=== PATIENT | female | born 1950 | race Caucasian/White ===

== ENCOUNTER 2020-03-05 10:30 | Outpatient (REF) | payer MEDICARE, SELFPAY | END 2020-03-05 10:31 | disposition home or self-care (01) | LOC: HO.LAB 10:30 | PROVIDERS: Visit Provider Internal Medicine | DX: Z20.828 Contact with and (suspected) exposure to other viral communicable diseases (principal) | CPT/HCPCS: 87635 ==

== ENCOUNTER 2021-01-01 14:48 | Outpatient (REF) | payer MEDICARE, SELFPAY ==
--- NOTE | ~2021-01-01 | XR_ITS ---
EXAMINATION: XR CHEST CLINICAL INFORMATION: Cough, nicotine dependence. COMPARISON: None TECHNIQUE: 2 views of the chest were obtained. FINDINGS: The lungs are well-expanded and clear. There is mild blunting of right CP angle likely pleural effusion or thickening. There is increased patchy density in the right lung base question atelectasis. Heart size and pulmonary vascularity is normal. XR/XR chest 2V IMPRESSION: Small right pleural effusion or pleural thickening. Right basilar patchy opacity likely atelectasis.
== END 2021-01-01 14:49 | disposition home or self-care (01) ==
LOC: HO.XRAY 14:48
PROVIDERS: Absent Provider Internal Medicine Geriatric Medicine; PCP Internal Medicine Geriatric Medicine; Visit Provider Emergency Medicine
DX: R05 Cough (principal); F17.200 Nicotine dependence, unspecified, uncomplicated
CPT/HCPCS: 71046

== ENCOUNTER 2021-01-20 11:11 | Outpatient (REF) | payer MEDICARE, SELFPAY ==
--- NOTE | ~2021-01-20 | CT_ITS ---
EXAMINATION: CT CHEST WITHOUT CONTRAST CLINICAL INFORMATION: Follow up right basilar opacity on chest x-ray. COMPARISON: Previous chest x-ray 01/01/2021. TECHNIQUE: Multidetector volumetric CT imaging of the chest was done. Axial MIP volume rendering provided. Sagittal and coronal reformatted images were obtained. This CT examination was performed using dose optimization techniques as appropriate, variously including the following: *Automated exposure control *Adjustment of mA and/or kV according to patient size (this includes techniques or standardized protocols for targeted exams where dose is matched to indication/reason for exam; i.e. extremities or head) *Use of iterative reconstruction technique DLP: 114 mGy-cm FINDINGS: LUNGS: There is a 3 mm left upper lobe nodule (axial image 170, series 4). There is minimal scarring or subsegmental atelectasis at the right lung base. MEDIASTINUM: There are postoperative changes following esophagectomy and gastric pull-up. The gastric pull-up appears distended and fluid filled. No mass is seen. The heart does not appear enlarged. There is coronary artery calcification. There is no pericardial effusion. There are small mediastinal lymph nodes. No enlarged lymph nodes are seen. PLEURA: There is minimal pleural thickening at the right lung base. There is no pleural effusion. AXILLAE: No lymphadenopathy. UPPER ABDOMEN: Unremarkable. OSSEOUS STRUCTURES: There are degenerative changes of the spine. CT/CT chest wo con IMPRESSION: Postoperative changes following esophagectomy and gastric pull-up. The stomach is distended and filled with fluid. No mass is seen. Minimal pleural thickening at the right lung base and subsegmental atelectasis. Small 3 mm left upper lobe pulmonary nodule.
== END 2021-01-20 11:12 | disposition home or self-care (01) ==
LOC: HO.CT 11:11
PROVIDERS: PCP Internal Medicine Geriatric Medicine; Visit Provider Emergency Medicine
DX: R93.89 Abnormal findings on diagnostic imaging of other specified body structures (principal)
CPT/HCPCS: 71250

== ENCOUNTER 2021-06-18 09:08 | Outpatient (REF) | payer MEDICARE, SELFPAY ==
--- NOTE | ~2021-06-18 | XR_ITS ---
EXAMINATION: XR SHOULDER, LEFT CLINICAL INFORMATION: Pain COMPARISON: None TECHNIQUE: AP external rotation, Grashey, scapular Y, and axillary views of the left shoulder. FINDINGS: No acute fracture or dislocation. Subacromial enthesopathy present. Enthesopathic changes also noted along the greater tuberosity. Small acromioclavicular marginal osteophytes. Small marginal osteophytes along the inferior glenohumeral joint. Soft tissues otherwise unremarkable. XR/XR shoulder LT min 2V IMPRESSION: No acute findings. Relatively prominent subacromial enthesopathy may be leading to rotator cuff impingement. Lesser degree of enthesopathy noted along the greater tuberosity as well.
--- NOTE | ~2021-06-18 | XR_ITS ---
EXAMINATION: XR LUMBOSACRAL SPINE CLINICAL INFORMATION: Lumbago COMPARISON: 08.27.2016 TECHNIQUE: Three views of the lumbosacral spine. FINDINGS: No acute fracture or traumatic malalignment. Mild levoconvex lumbar scoliosis. Moderate osteophytes present throughout the lumbar spine. Multilevel loss of disc space height present throughout the lumbar spine, most notably at L3-L4 and L4-L5. Cervical esophagus present at L4-L5 and L5-S1. Mild bilateral sacroiliac arthrosis. Paraspinal soft tissues unremarkable. XR/XR lumbar spine 2-3V IMPRESSION: No acute findings. Lumbar spondylosis as described.
== END 2021-06-18 09:09 | disposition home or self-care (01) ==
LOC: HO.XRAY 09:08
PROVIDERS: PCP Internal Medicine Geriatric Medicine; Visit Provider Internal Medicine Geriatric Medicine
DX: M25.511 Pain in right shoulder (principal); M54.42 Lumbago with sciatica, left side
CPT/HCPCS: 72100; 73030

== ENCOUNTER 2021-09-10 08:22 | Outpatient (REF) | payer OTHER, SELFPAY ==
--- NOTE | ~2021-09-10 | MM_ITS ---
EXAMINATION: MM SCREENING DIGITAL BREAST TOMOSYNTHESIS, BILATERAL CLINICAL INFORMATION: Screening. Asymptomatic. The lifetime risk of breast cancer based on the Tyrer-Cuzick Model is 2%. COMPARISON: Mammography: 01/25/2017, 01/29/2015 TECHNIQUE: Digital breast tomosynthesis is performed in both the craniocaudal and mediolateral oblique views along with computer-aided detection (CAD). Synthesized 2D images are generated from the tomosynthesis. FINDINGS: There are scattered areas of fibroglandular density (ACR BI-RADS breast composition Category b). There are no significant masses, abnormal calcifications, or other abnormalities. Parenchymal pattern is similar to prior exams. No developing density or architectural abnormality. The axilla and skin contours are unremarkable. No significant changes. MM/MM tomosynthesis screening BI IMPRESSION: No mammographic evidence of malignancy. ASSESSMENT: BI-RADS 1: Negative RECOMMENDATION: Routine annual mammography screening. This patient's information was entered into a reminder system with a target due date for their next mammogram.
== END 2021-09-10 08:23 | disposition home or self-care (01) ==
LOC: HO.MAMMO 08:22
PROVIDERS: PCP Internal Medicine Geriatric Medicine; Visit Provider Internal Medicine Geriatric Medicine
DX: Z12.31 Encounter for screening mammogram for malignant neoplasm of breast (principal)
CPT/HCPCS: 77063; 77067

== ENCOUNTER 2022-02-11 16:45 | Emergency (ER) | payer OTHER, SELFPAY ==
--- NOTE | ~2022-02-11 | XR_ITS ---
EXAMINATION: 1. LEFT ANKLE. 2. LEFT FOOT. CLINICAL INFORMATION: Atraumatic pain. Swelling. Warm. COMPARISON: None TECHNIQUE: 1. Left ankle. 3 views 2. Left foot. 3 views FINDINGS: 1. Left ankle. Soft tissue swelling around the ankle. No fracture. No bone destruction or abnormal periosteal reaction. Joint spaces are normal. 2. Left foot. No fracture or dislocation. No focal bone lesion or abnormal periosteal reaction. Joint spaces are normal. No soft tissue abnormality. Small plantar calcaneal spur. XR/XR ankle LT min 3V IMPRESSION: 1. Left ankle. Soft tissue swelling around the ankle. No acute osseous abnormality. 2. Left foot. No acute abnormality of the foot.
--- NOTE | ~2022-02-11 | CT_ITS ---
EXAMINATION: CT ankle LT wo IV con CLINICAL INFORMATION: Reason for Exam Atraumatic erythema, swelling, pain. COMPARISON: Left ankle radiographs performed the same day TECHNIQUE: Axial images were obtained through the left ankle without the administration of intravenous contrast. Multiplanar reformatted images were generated. Intravenous Contrast: None This CT examination was performed using dose optimization techniques as appropriate, variously including the following: *Automated exposure control *Adjustment of mA and/or kV according to patient size (this includes techniques or standardized protocols for targeted exams where dose is matched to indication/reason for exam; i.e. extremities or head) *Use of iterative reconstruction technique DLP: 164 mGy-cm FINDINGS: Bones: No acute fracture or dislocation. Mild ankle joint osteoarthritis with small marginal osteophytes and subchondral cystic changes at the lateral shoulder the talar dome. Trace ankle joint effusion. Mild osteoarthritic changes at the first tarsometatarsal joint. Soft tissues: Limited assessment due to noncontrast CT technique. Achilles tendon appears intact. Peroneal, flexor, extensor tendons appear grossly intact. Small amount of fluid about FHL, possibly mild tenosynovitis. Mild diffuse subcutaneous edema. No loculated fluid collection identified. CT/CT ankle LT wo IV con IMPRESSION: 1. No acute osseous injury. 2. Mild osteoarthritic changes at the ankle and first tarsometatarsal joint. 3. Trace ankle joint effusion. 4. Possible mild FHL tenosynovitis. 4. Mild diffuse subcutaneous edema.
--- NOTE | ~2022-02-11 | XR_ITS ---
EXAMINATION: 1. LEFT ANKLE. 2. LEFT FOOT. CLINICAL INFORMATION: Atraumatic pain. Swelling. Warm. COMPARISON: None TECHNIQUE: 1. Left ankle. 3 views 2. Left foot. 3 views FINDINGS: 1. Left ankle. Soft tissue swelling around the ankle. No fracture. No bone destruction or abnormal periosteal reaction. Joint spaces are normal. 2. Left foot. No fracture or dislocation. No focal bone lesion or abnormal periosteal reaction. Joint spaces are normal. No soft tissue abnormality. Small plantar calcaneal spur. XR/XR foot LT min 3V IMPRESSION: 1. Left ankle. Soft tissue swelling around the ankle. No acute osseous abnormality. 2. Left foot. No acute abnormality of the foot.
--- NOTE | 2022-02-11 16:56 | ED.LOWEXIN ---
HPI - Extremity Injury (Lower) General Chief Complaint: Extremity Injury, Lower Stated Complaint: L ANKLE PAIN X 2 DAYS Time Seen by Provider: 02/11/22 16:54 Source: patient Mode of arrival: ambulatory Limitations: language barrier ([place]-speaking certified medical transcriptionist utilized) History of Present Illness HPI Narrative: patient presents to emergency department via EMS for evaluation of atraumatic left ankle pain. She states that she awoke 2 days ago with pain, swelling, and redness to the left ankle. Denies any specific injury. She does report that yesterday while walking to the bathroom due to her pain she did fall subsequently landing on her bottom. Denies numbness or tingling to her foot. denies any prior injury to the foot or ankle. Denies fevers or chills, however was noted to have a low-grade temperature with EMS. Related Data Allergies Allergy/AdvReac Type Severity Reaction Status Date / Time No Known Allergies Allergy Unverified 01/25/20 17:08 Review of Systems Review of Systems: Constitutional: No weight loss, fever, chills, weakness or fatigue. Skin: No rash or itching. Cardiovascular: No chest pain, chest pressure or chest discomfort. No palpitations or pedal edema. Respiratory: No shortness of breath, cough or sputum production. Gastrointestinal: No anorexia, nausea, vomiting or diarrhea. No abdominal pain or blood in stool. Genitourinary: No burning micturition. No urinary frequency or incontinence. Musculoskeletal: No muscle pain, back pain. positive joint pain. Psychiatric: No depression or anxiety. [facility] Past Medical History Attestation statement: The following information was validated with the patient. Source: old records reviewed Medical History (Updated 02/12/22 @ 00:04 by Sho Manning) CKD (chronic kidney disease) COPD (chronic obstructive pulmonary disease) GERD (gastroesophageal reflux disease) Hypertension Osteoarthritis Type 2 diabetes mellitus Social History Social History Advance Directives: No Advance Directives Information Provided: No Physical Exam Vital Signs: Vital Signs: Last Vital Signs Temp 98.7 F 02/11/22 21:44 Pulse 77 02/11/22 21:53 Resp 16 02/11/22 21:53 BP 137/67 02/11/22 21:53 Pulse Ox 97 02/11/22 21:53 O2 Del Method 10/05/22 21:53 BMI result Body Mass Index 23.2 Appearance: Alert.?Oriented to person, place and time. No acute distress.?Normal affect. Eyes: Pupils equal, round and reactive to light.? ENT: Pharynx normal.?? Neck: Normal inspection.? Neck supple.?? CVS: Heart sounds normal. Normal heart rate and rhythm.? Pulses normal.?? Respiratory: No respiratory distress.? Lung sounds clear to auscultation bilaterally?? Abdomen: Soft and non-tender. Normoactive bowel sounds. Skin: Skin warm and dry.? Normal skin color.? ?? Extremities: No lower extremity edema.? No calf ttp. Left ankle with lateral medial heel malleolus swelling, warmth, erythema. Tenderness upon palpation. Decreased AROM to the left ankle. 2+ DP/PT pulse bilaterally. Neuro: Moves all extremities spontaneously. Sensation intact bilaterally. No focal neuro deficits. Course Course Course Narrative: Patient is a 71-year-old female with a past medical history of hypertension, type 2 diabetes, CKD, COPD, GERD, osteoarthritis. Patient presents emergency department for evaluation of atraumatic monoarticular arthritis, concerning for septic arthritis. will obtain basic labs, lactic acid, blood cultures, ESR, CRP, as well as XR imaging of the left foot and ankle. Review of her records indicates that patient is currently prescribed tramadol, uncertain what she is taking tramadol for. Will start with Tylenol for pain. Reevaluation(s) Reevaluation #1: CBC reveals no leukocytosis. CMP is overall unremarkable. CRP is elevated at 7.72 and ESR elevated at 46. Uric acid level is normal. XR the left ankle and foot without acute osseous abnormality, there is soft tissue swelling surrounding the ankle. Will obtain CT of the ankle for further evaluation, evaluation for fluid /effusion for possible joint aspiration. Time: 18:43 Reevaluation #2: CT reveals no acute osseous abnormality. There is mild osteoarthritic changes at the ankle in 1st tarsometatarsal joint, trace ankle effusion, possible mild FHL tenosynovitis, mild diffuse subcutaneous edema. At this time there is no evidence of septic arthritis, no fluid collection that would be able to be aspirated. discussed plan of care for discharge home, Provided patient with a walking boot and she is ambulatory with a slow steady gait, recommendeduse of acetaminophen for pain, outpatient follow-up with primary care provider, possibly Orthopedics if necessary. Verbalized understanding. Patient discharged home in stable condition. Time: 21:37 MDM - Extremity Injury (Lower) Medical Records Attestation: I reviewed the patient's medical records. Lab Data Attestation: I reviewed the patient's lab results. Result diagrams: 02/11/22 17:28 02/11/22 17:28 Labs: Lab Results 02/11/22 02/11/22 02/11/22 Range/Units 17:28 17:28 17:28 WBC 7.4 (4.8-10.8) X10*3/uL RBC 3.71 L (4.20-5.50) X10*6/uL Hgb 12.0 (12.0-16.0) g/dl Hct 35.1 L (37.0-47.0) % MCV 94.6 (80.0-98.0) fL MCH 32.3 (27.0-33.0) pg MCHC 34.2 (31.0-35.0) g/dl RDW 13.8 (11.0-16.0) % Plt Count 252 (160-400) X10*3/uL MPV 10.7 (9.4-12.3) fL Immature Gran % (Auto) 0.1 (0.0-0.4) % Neut % (Auto) 54.7 (45-73) % Lymph % (Auto) 34.7 (20-40) % [place] % (Auto) 8.5 (2-11) % Eos % (Auto) 1.5 (0-4) % Baso % (Auto) 0.5 (0-2) % Lymph # (Auto) 2.6 (1.2-4.9) X10*3/uL [place] # (Auto) 0.6 (0.1-1.2) X10*3/uL Eos # (Auto) 0.1 (0.0-0.4) X10*3/uL Baso # (Auto) 0.0 (0.0-0.2) X10*3/uL Abs Immat Gran (auto) 0.01 (0.00-0.03) X10*3/uL Absolute Neuts (auto) 4.0 (2.0-8.3) x10*3/uL Absolute Nucleated RBC 0.000 (0.0-0.012) X10*3/uL Nucleated RBC % (auto) 0.0 (0.0-0.2) /100WBC ESR (0-20) MM/HR Sodium 143 (135-145) mmol/L Potassium 3.4 (3.3-5.1) mmol/L Chloride 105 (96-108) mmol/L Carbon Dioxide 29 (22-29) mmol/L Anion Gap 12 (12-20) BUN 12 (9-16) mg/dL Creatinine 0.83 (0.5-1.4) mg/dL Estim Creat Clear Calc 43.4 Estimated GFR > 60 Random Glucose 118 H (60-115) mg/dL Lactic Acid 0.9 (0.5-2.0) mmol/L Uric Acid 5.0 (2.4-5.7) mg/dL Calcium 8.8 (8.4-10.2) mg/dL Total Bilirubin 1.6 H (0.0-1.0) mg/dL AST 15 (5-31) U/L ALT 6 (0-31) U/L Alkaline Phosphatase 113 (39-117) U/L C-Reactive Protein 7.72 H (< or = 0.50) mg/dL Total Protein 6.8 (6.5-8.0) g/dL Albumin 3.9 (3.5-5.0) g/dL COVID-19 ([facility]) (Negative) COVID-19 Clin Com 02/11/22 02/11/22 Range/Units 17:28 17:28 WBC (4.8-10.8) X10*3/uL RBC (4.20-5.50) X10*6/uL Hgb (12.0-16.0) g/dl Hct (37.0-47.0) % MCV (80.0-98.0) fL MCH (27.0-33.0) pg MCHC (31.0-35.0) g/dl RDW (11.0-16.0) % Plt Count (160-400) X10*3/uL MPV (9.4-12.3) fL Immature Gran % (Auto) (0.0-0.4) % Neut % (Auto) (45-73) % Lymph % (Auto) (20-40) % [place] % (Auto) (2-11) % Eos % (Auto) (0-4) % Baso % (Auto) (0-2) % Lymph # (Auto) (1.2-4.9) X10*3/uL [place] # (Auto) (0.1-1.2) X10*3/uL Eos # (Auto) (0.0-0.4) X10*3/uL Baso # (Auto) (0.0-0.2) X10*3/uL Abs Immat Gran (auto) (0.00-0.03) X10*3/uL Absolute Neuts (auto) (2.0-8.3) x10*3/uL Absolute Nucleated RBC (0.0-0.012) X10*3/uL Nucleated RBC % (auto) (0.0-0.2) /100WBC ESR 46 H (0-20) MM/HR Sodium (135-145) mmol/L Potassium (3.3-5.1) mmol/L Chloride (96-108) mmol/L Carbon Dioxide (22-29) mmol/L Anion Gap (12-20) BUN (9-16) mg/dL Creatinine (0.5-1.4) mg/dL Estim Creat Clear Calc Estimated GFR Random Glucose (60-115) mg/dL Lactic Acid (0.5-2.0) mmol/L Uric Acid (2.4-5.7) mg/dL Calcium (8.4-10.2) mg/dL Total Bilirubin (0.0-1.0) mg/dL AST (5-31) U/L ALT (0-31) U/L Alkaline Phosphatase (39-117) U/L C-Reactive Protein (< or = 0.50) mg/dL Total Protein (6.5-8.0) g/dL Albumin (3.5-5.0) g/dL COVID-19 ([facility]) Negative (Negative) COVID-19 Clin Com See Note Imaging Data XR ankle: Radiologist's impression: XR/XR foot LT min 3V IMPRESSION: ? 1. Left ankle. Soft tissue swelling around the ankle. No acute osseous abnormality. 2. Left foot. No acute abnormality of the foot.? CT ankle: Radiologist's impression: CT/CT ankle LT wo IV con IMPRESSION: ? 1. No acute osseous injury. 2. Mild osteoarthritic changes at the ankle and first tarsometatarsal joint. 3. Trace ankle joint effusion. 4. Possible mild FHL tenosynovitis. 4. Mild diffuse subcutaneous edema.? Discharge Plan Discharge Clinical Impression: Tenosynovitis of ankle, Ankle sprain Patient Disposition: Home, Self-Care Instructions: Ankle Sprain (ED), Tenosynovitis (ED), R.I.C.E. Treatment (ED) Additional Instructions: As we discussed, there is no fracture dislocation to the ankle. At this time it does not appear to be an infectious process. Be sure to rest, apply ice for 10-15 minutes 3-4 times daily, You can take Tylenol 500 mg, 2 tablets (1,000mg) every 4-6 hours as needed for pain, but not to exceed 3 doses daily (3,000mg), elevate the leg when possible. Use walking boot to help alleviate pain. Contact your primary care provider to arrange for a follow-up visit within 1 week. Return to emergency department any new or worsening symptoms or concerns, this might include but is not limited to fevers, chills, severe worsening pain, pain redness or swelling extending up the leg, numbness or tingling to the foot.? Interventions: ED Discharge Assessment Last Done: 02/11/22 22:14 Discharge Date/Time: 02/11/22 22:15
[2022-02-11 17:07] VITALS: BP 163/69; PULSE 74; O2SAT 99
[2022-02-11 17:08] VITALS: BP 189/172; PULSE 76; RESP 18; TEMP 37.9; BMI 23.2
[2022-02-11 17:30] VITALS: BP 188/77
[2022-02-11] MEDS: Acetaminophen 325 MG TABLET 975 MG PO (17:30)
[2022-02-11 17:34] LABS: MANUAL DIFF FLAG NO
[2022-02-11 17:36] LABS: Basophils Percent Auto 0.5 % (0-2); Eosinophils Absolute Auto 0.1 X10*3/uL (0.0-0.4); Eosinophils Percent Auto 1.5 % (0-4); Hematocrit 35.1 % (37.0-47.0); Imm Gran Abs Auto 0.01 X10*3/uL (0.00-0.03); Imm Gran Pct Auto 0.1 % (0.0-0.4); Lymphocytes Absolute Auto 2.6 X10*3/uL (1.2-4.9); Lymphocytes Percent Auto 34.7 % (20-40); Mean Corpuscular HGB Conc 34.2 g/dl (31.0-35.0); Mean Corpuscular Hemoglobin 32.3 pg (27.0-33.0); Mean Corpuscular Volume 94.6 fL (80.0-98.0); Mean Platelet Volume 10.7 fL (9.4-12.3); Monocytes Absolute Auto 0.6 X10*3/uL (0.1-1.2); Monocytes Percent Auto 8.5 % (2-11); Neutrophils Percent Auto 54.7 % (45-73); Platelet Count 252 X10*3/uL (160-400); Red Blood Count 3.71 X10*6/uL (4.20-5.50); Red Cell Distribution Width 13.8 % (11.0-16.0); White Blood Count 7.4 X10*3/uL (4.8-10.8)
[2022-02-11 17:47] LABS: Lactic Acid 0.9 mmol/L (0.5-2.0)
[2022-02-11 17:51] LABS: Alanine Aminotransferase 6 U/L (0-31); Albumin Level 3.9 g/dL (3.5-5.0); Alkaline Phosphatase 113 U/L (39-117); Anion Gap 12 (12-20); Aspartate Amino Transferase 15 U/L (5-31); Bilirubin Total 1.6 mg/dL (0.0-1.0); Blood Urea Nitrogen 12 mg/dL (9-16); C Reactive Protein 7.72 mg/dL (< or = 0.50); Calcium 8.8 mg/dL (8.4-10.2); Carbon Dioxide 29 mmol/L (22-29); Chloride 105 mmol/L (96-108); Creatinine Clr Calc Pharmacy 43.4; Estimated Glomerular Filt Rate > 60; Glucose Random 118 mg/dL (60-115); Potassium 3.4 mmol/L (3.3-5.1); Sodium 143 mmol/L (135-145); Total Protein 6.8 g/dL (6.5-8.0)
[2022-02-11 17:58] LABS: COVID-19 Test Negative (Negative); IDNOW Serial# 55D5AD1C
[2022-02-11 18:21] LABS: Erythrocyte Sedimentation Rate 46 MM/HR (0-20)
[2022-02-11 18:29] VITALS: O2SAT 97
[2022-02-11 21:44] VITALS: TEMP 37.1
[2022-02-11 21:53] VITALS: BP 137/67; PULSE 77; RESP 16; O2SAT 97
== END 2022-02-11 22:15 | disposition home or self-care (01) ==
PROVIDERS: Nurse Practitioner Family; Emergency Provider Emergency Medicine; PCP Internal Medicine Geriatric Medicine
DX: M25.572 Pain in left ankle and joints of left foot (principal); M65.872 Other synovitis and tenosynovitis, left ankle and foot; Z20.822 Contact with and (suspected) exposure to COVID-19; Z79.899 Other long term (current) drug therapy
CPT/HCPCS: 73610; 73630; 73700; 80053; 83605; 84550; 85025; 85652; 86140; 87040; 87635; 99284

== ENCOUNTER 2022-09-14 08:47 | Day surgery (SDC) | payer OTHER, SELFPAY ==
--- NOTE | 2022-09-11 08:45 | MHC.SHP ---
Pre-Procedural Eval Section A Date of Service: 09/11/22 The patient is an INPATIENT: No Changes since office visit: No Cold of Flu in the past 2 weeks, No New Medical Problems, No Changes in Medication and No Patient answered all questions The History & Physical has been completed within 30 days and I have reviewed it.: Yes Section B Chief Complaint: Age-related nuclear cataract, right eye Allergies: Allergies Allergy/AdvReac Type Severity Reaction Status Date / Time No Known Allergies Allergy Unverified 01/25/20 17:08 Plan Diagnosis/Plan: Unchanged I have reviewed the history and physical and performed a pertinent physical examination on my patient. No changes have occurred unless specified. Time Spent With Patient Time: Total time managing care of this patient today ____ minutes.
[2022-09-14 09:45] VITALS: BP 151/59; PULSE 66; RESP 18; TEMP 36.6; O2SAT 97
[2022-09-14 09:47] LABS: Glucose, Whole Blood 116 mg/dL (60-115)
[2022-09-14] MEDS: Tropicamide 1 % Ophth Sol 3 ML BTL 1 DROP EYE-RIGHT ×3 (09:48→10:05)
[2022-09-14] MEDS: Cyclopentolate 1 % Ophth Sol 2 ML DRPBTL 1 DROP EYE-RIGHT ×3 (09:48→10:05)
[2022-09-14] MEDS: Ketorolac Tromethamine 0.5% Op 5 ML DROPS 1 DROP EYE-RIGHT ×3 (09:48→10:05)
[2022-09-14] MEDS: Tetracaine HCl/PF 0.5% Oph Sol 4 ML DROPS 1 DROP EYE-RIGHT (09:48)
[2022-09-14] MEDS: Phenylephrine HCL 2.5% Oph SoL 2 ML BOTTLE 1 DROP EYE-RIGHT ×3 (09:48→10:05)
--- NOTE | 2022-09-14 09:52 | HO.ANESPROP2 ---
[facility] Past Medical History Medical History CKD (chronic kidney disease) COPD (chronic obstructive pulmonary disease) GERD (gastroesophageal reflux disease) Hypertension Osteoarthritis Type 2 diabetes mellitus Surgical History Surgical History H/O colonoscopy History of esophagogastroduodenoscopy (EGD) Hx of hemorrhoidectomy History of Problems with Anesthesia: No Social History Social History Are you a primary prompt care rn to a significant other at home: No Do you presently have visiting nurse or other home services: No Are you DNR?: No Advance Directives: Yes Advance Directives Information Provided: Yes Advance Directives on File: Yes Advance Directives Date on File: 10/02/14 Recently lost weight without trying: No Eating poorly because of decreased appetite: No Nutrition Risks: No Nutritional Risk Meds Allergies Allergy/AdvReac Type Severity Reaction Status Date / Time No Known Allergies Allergy Unverified 01/25/20 17:08 Active Medications: Current Medications Albuterol Sulfate (Albuterol Sulfate (0.083%) 2.5 Mg/3 Ml Vial.Neb) 2.5 mg INHALE ONCE PRN PRN Reason: Shortness of Breath/Wheezing Cyclopentolate HCl (Cyclopentolate 1 % Ophth Lety 2 Ml Drpbtl) 1 drop EYE-RIGHT Q5M ANNE-MARIE Stop: 09/14/22 09:56 Last Admin: 09/14/22 09:48 Dose: 1 drop Lactated Ringer's (Lr) 500 mls @ 50 mls/hr IV .Q10H ANNE-MARIE Stop: 09/14/22 19:44 Ketorolac Tromethamine (Ketorolac Tromethamine 0.5% Op 5 Ml Drops) 1 drop EYE-RIGHT Q5M ANNE-MARIE Stop: 09/14/22 09:56 Last Admin: 09/14/22 09:48 Dose: 1 drop Phenylephrine HCl (Phenylephrine Hcl 2.5% Oph Lety 2 Ml Bottle) 1 drop EYE-RIGHT Q5M ANNE-MARIE Stop: 09/14/22 09:56 Last Admin: 09/14/22 09:48 Dose: 1 drop Povidone Iodine (Povidone Iodine 5 % Ophth Soln 30 Ml Bottle) 1 appl EYE-RIGHT PREOP PRN PRN Reason: Pre-Op Surgical Implant Prophy Tropicamide (Tropicamide 1 % Ophth Lety 3 Ml Btl) 1 drop EYE-RIGHT Q5M ANNE-MARIE Stop: 09/14/22 09:56 Last Admin: 09/14/22 09:48 Dose: 1 drop Home Medications Medication Instructions Recorded Confirmed Last Taken Type amlodipine 5 mg tablet 5 mg PO DAILY 09/09/22 09/09/22 Unknown History cyanocobalamin (vitamin B-12) 1,000 mcg IM QMONTH 09/09/22 09/09/22 Unknown History 1,000 mcg/mL injection solution diclofenac sodium 1 % topical gel 2 g topical BID 09/09/22 09/09/22 Unknown History dicyclomine 10 mg capsule 10 mg PO QID PRN cramps 09/09/22 09/09/22 Unknown History dulaglutide 0.75 mg/0.5 mL 0.75 mg subcut QWEEK 09/09/22 09/09/22 Unknown History subcutaneous pen [facility]or ([facility]) fluticasone propionate 50 1 spray intranasal DAILY 09/09/22 09/09/22 Unknown History mcg/actuation nasal spray,suspension losartan 100 mg tablet 100 mg PO DAILY 09/09/22 09/09/22 Unknown History omeprazole 40 mg capsule,delayed 40 mg PO DAILY 09/09/22 09/09/22 Unknown History release tramadol 50 mg tablet 50 mg PO TID PRN Pain 09/09/22 09/09/22 Unknown History Exam Exam Date and Time: September 14, 2022 0952 Height,Weight and Vital Signs: Height 5 ft 3 in Weight 51.256 kg Last Vital Signs Temp 97.8 F 09/14/22 09:45 Pulse 66 09/14/22 09:45 Resp 18 09/14/22 09:45 BP 151/59 H 09/14/22 09:45 Pulse Ox 97 09/14/22 09:45 O2 Del Method Room Air 09/14/22 09:45 Pertinent Lab Results Pertinent Lab Results: Laboratory Tests 09/14/22 09:43 POC Glucose 116 H Airway Mallampati Class: II TM Dist: >3cm Neck ROM: Full Denture: Upper and Lower Loose/Missing/Broken Teeth: Yes, Upper and Lower Heart: RRR Lungs: CTA Assessment and Plan Assessment Anesthesia Assessment: Anesthesia Plan Discussed Final Anesthetic Review History of Problems with Anesthesia: No NPO: Yes ASA Class: III Final Preanesthetic Review: Meds/Allgs Chart Reviewed, Consent Obtained/Reviewed and Anes Risks/Benef Reviewed Patient Risk: Intermediate Procedure Risk: Low Anesthetic Plan Anesthetic Plan: MAC: Disposition: Standard PACU
[2022-09-14] MEDS: Albuterol Sulfate (0.083%) 2.5 MG/3 ML VIAL.NEB INHALE (10:10)
[2022-09-14 10:12] VITALS: PULSE 64; RESP 15; O2SAT 96
[2022-09-14 10:13] VITALS: BP 151/59; PULSE 66; RESP 18; TEMP 36.6; O2SAT 97
[2022-09-14] MEDS: Lactated Ringers 500 ML 50 ML IV (10:17)
--- NOTE | 2022-09-14 11:20 | HO.PNOPHT ---
Ophthalmology Procedure Procedure Date of Service: 09/14/22 Ophthalmology Viscoelastic: Healashli Mohamudt Dual Pack Pro Ophthalmology Lenses: TECNIS [id number] (22.5) Procedure Notes: PREOPERATIVE DIAGNOSIS: Decreased visual acuity right eye secondary to cataract POSTOPERATIVE DIAGNOSIS: Same PROCEDURE: Right cataract extraction with intraocular lens insertion SURGEON: Jose Antonio Luna M.D. ANESTHESIA: Topical/MAC ESTIMATED BLOOD LOSS: None COMPLICATIONS: None After obtaining informed consent, the patient was brought to the operating room suite and placed in the supine position. After adequate sedation per anesthesia, topical drops of Tetracaine were given to the right eye. The eye was then prepped and draped in the usual sterile fashion. The operating room microscope was then positioned over the operative eye and a lid speculum placed. A paracentesis was created. Viscoelastic was then instilled into the anterior chamber. A three plane incision was then created temporally, utilizing a 2.85 mm keratome. Capsulotomy forceps were then utilized to create a circular tear capsulotomy. Hydrodissection and hydrodelineation were carried out until adequate mobilization of the nucleus occurred. Phacoemulsification was then utilized to remove the dense central nucleus followed by removal of the cortical material utilizing the automated aspiration irrigation unit. Viscoelastic was instilled into the posterior capsular bag followed by placement of a posterior chamber intraocular lens without difficulty. The residual Viscoelastic was then removed utilizing the automated IA machine. The wound was checked and found to be watertight. The patient tolerated the procedure well and the lid speculum was removed. Intracameral injection of Vigamox 0.1 mL followed by a subtenon injection of Kenalog-40 0.2 mL were administered. The patient will be seen in the a.m.
[2022-09-14 11:46] VITALS: BP 138/58; PULSE 71; RESP 18; TEMP 36.7; O2SAT 100
== END 2022-09-14 11:55 | disposition home or self-care (01) ==
PROVIDERS: PCP Internal Medicine Geriatric Medicine; Visit Provider Ophthalmology
PROC: (CPT 66985; principal; 2022-09-14 11:20)
DX: H25.11 Age-related nuclear cataract, right eye (principal); H52.4 Presbyopia; H04.123 Dry eye syndrome of bilateral lacrimal glands; H18.413 Arcus senilis, bilateral; H11.153 Pinguecula, bilateral; I10 Essential (primary) hypertension; J44.9 Chronic obstructive pulmonary disease, unspecified; E11.9 Type 2 diabetes mellitus without complications; E78.00 Pure hypercholesterolemia, unspecified; Z79.85 Long-term (current) use of injectable non-insulin antidiabetic drugs; Z79.51 Long term (current) use of inhaled steroids; Z79.899 Other long term (current) drug therapy; F17.210 Nicotine dependence, cigarettes, uncomplicated
CPT/HCPCS: 66984; 82947; 94640; J2250; J3301; V2632

== ENCOUNTER 2022-09-28 08:28 | Day surgery (SDC) | payer OTHER, SELFPAY ==
--- NOTE | 2022-09-25 08:26 | MHC.SHP ---
Pre-Procedural Eval Section A Date of Service: 09/25/22 The patient is an INPATIENT: No Changes since office visit: No Cold of Flu in the past 2 weeks, No New Medical Problems, No Changes in Medication and No Patient answered all questions The History & Physical has been completed within 30 days and I have reviewed it.: Yes Section B Chief Complaint: Age-related nuclear cataract, left eye Allergies: Allergies Allergy/AdvReac Type Severity Reaction Status Date / Time No Known Allergies Allergy Unverified 01/25/20 17:08 Plan Diagnosis/Plan: Unchanged I have reviewed the history and physical and performed a pertinent physical examination on my patient. No changes have occurred unless specified. Time Spent With Patient Time: Total time managing care of this patient today ____ minutes.
--- NOTE | 2022-09-25 09:36 | HO.ANESPROP2 ---
Documented by User: Shital Mendez NP 09/25/22 09:36 HPI - Anesthesia Eval Consult details Narrative: 71yo F for Left Cataract Extraction IOL Insertion PCP cleared 1st eye 09/14/22 with [facility] Past Medical History Medical History CKD (chronic kidney disease) COPD (chronic obstructive pulmonary disease) GERD (gastroesophageal reflux disease) Hypertension Osteoarthritis Type 2 diabetes mellitus Surgical History Surgical History H/O colonoscopy History of esophagogastroduodenoscopy (EGD) Hx of hemorrhoidectomy History of Problems with Anesthesia: No Social History Social History Are you a primary adult caregiver to a significant other at home: No Do you presently have visiting nurse or other home services: No Have you been hit, kicked, punched, or otherwise hurt by someone within the past year? If so, by whom?: No Are you DNR?: No Advance Directives: Yes Advance Directives Information Provided: Yes Advance Directives on File: Yes Advance Directives Date on File: 10/02/14 Recently lost weight without trying: No Eating poorly because of decreased appetite: No Nutrition Risks: No Nutritional Risk Meds Allergies Allergy/AdvReac Type Severity Reaction Status Date / Time No Known Allergies Allergy Unverified 01/25/20 17:08 Home Medications Medication Instructions Recorded Confirmed Last Taken Type amlodipine 5 mg tablet 5 mg PO DAILY 09/09/22 09/09/22 Unknown History cyanocobalamin (vitamin B-12) 1,000 mcg IM QMONTH 09/09/22 09/09/22 Unknown History 1,000 mcg/mL injection solution diclofenac sodium 1 % topical gel 2 g topical BID 09/09/22 09/09/22 Unknown History dicyclomine 10 mg capsule 10 mg PO QID PRN cramps 09/09/22 09/09/22 Unknown History dulaglutide 0.75 mg/0.5 mL 0.75 mg subcut QWEEK 09/09/22 09/09/22 Unknown History [facility] fluticasone propionate 50 1 spray intranasal DAILY 09/09/22 09/09/22 Unknown History mcg/actuation nasal spray,suspension losartan 100 mg tablet 100 mg PO DAILY 09/09/22 09/09/22 Unknown History omeprazole 40 mg capsule,delayed 40 mg PO DAILY 09/09/22 09/09/22 Unknown History release tramadol 50 mg tablet 50 mg PO TID PRN Pain 09/09/22 09/09/22 Unknown History Exam Exam Date and Time: September 25, 2022 0936 Height,Weight and Vital Signs: Height 5 ft 3 in Weight 51.256 kg Assessment and Plan Assessment Anesthesia Assessment: Chart Reviewed Final Anesthetic Review History of Problems with Anesthesia: No Documented by User: Boris Young MD 09/28/22 09:53 [facility] Past Medical History Medical History CKD (chronic kidney disease) COPD (chronic obstructive pulmonary disease) GERD (gastroesophageal reflux disease) Hypertension Osteoarthritis Type 2 diabetes mellitus Family History Family history of problems with anesthesia: No Surgical History Surgical History H/O colonoscopy History of esophagogastroduodenoscopy (EGD) Hx of hemorrhoidectomy Social History Social History Are you a primary adult caregiver to a significant other at home: No Do you presently have visiting nurse or other home services: No Have you been hit, kicked, punched, or otherwise hurt by someone within the past year? If so, by whom?: No Are you DNR?: No Advance Directives: Yes Advance Directives Information Provided: Yes Advance Directives on File: Yes Advance Directives Date on File: 10/02/14 Recently lost weight without trying: No Eating poorly because of decreased appetite: No Nutrition Risks: No Nutritional Risk Meds Allergies Allergy/AdvReac Type Severity Reaction Status Date / Time No Known Allergies Allergy Unverified 01/25/20 17:08 Home Medications Medication Instructions Recorded Confirmed Last Taken Type amlodipine 5 mg tablet 5 mg PO DAILY 09/09/22 09/09/22 Unknown History cyanocobalamin (vitamin B-12) 1,000 mcg IM QMONTH 09/09/22 09/09/22 Unknown History 1,000 mcg/mL injection solution diclofenac sodium 1 % topical gel 2 g topical BID 09/09/22 09/09/22 Unknown History dicyclomine 10 mg capsule 10 mg PO QID PRN cramps 09/09/22 09/09/22 Unknown History dulaglutide 0.75 mg/0.5 mL 0.75 mg subcut QWEEK 09/09/22 09/09/22 Unknown History subcutaneous pen injector (Trulicity) fluticasone propionate 50 1 spray intranasal DAILY 09/09/22 09/09/22 Unknown History mcg/actuation nasal spray,suspension losartan 100 mg tablet 100 mg PO DAILY 09/09/22 09/09/22 Unknown History omeprazole 40 mg capsule,delayed 40 mg PO DAILY 09/09/22 09/09/22 Unknown History release tramadol 50 mg tablet 50 mg PO TID PRN Pain 09/09/22 09/09/22 Unknown History Exam Airway Mallampati Class: II TM Dist: >3cm Neck ROM: Full Denture: Upper Loose/Missing/Broken Teeth: Yes (upper denture, no lower teeth) Heart: [id number] Lungs: cta b/l Assessment and Plan Assessment Anesthesia Assessment: Anesthesia Plan Discussed Final Anesthetic Review Family History of Problems with Anesthesia: No NPO: Yes ASA Class: III Final Preanesthetic Review: No Changes in Pt Med Stat, Meds/Allgs Chart Reviewed, Consent Obtained/Reviewed and Anes Risks/Benef Reviewed Patient Risk: Intermediate Procedure Risk: Low Assessment/Block/Sedation in SS: Assess/Block/Sedation-SS Anesthetic Plan Anesthetic Plan: MAC: and Agree w/ Assess. and Plan Disposition: Standard PACU
[2022-09-28 09:23] VITALS: BP 149/59; PULSE 68; RESP 16; TEMP 36.2; O2SAT 97
[2022-09-28] MEDS: Tropicamide 1 % Ophth Sol 3 ML BTL 1 DROP EYE-LEFT ×3 (09:25→09:36)
[2022-09-28] MEDS: Lactated Ringers 500 ML 50 ML IV (09:25)
[2022-09-28] MEDS: Tetracaine HCl/PF 0.5% Oph Sol 4 ML DROPS 1 DROP EYE-LEFT (09:25)
[2022-09-28] MEDS: Cyclopentolate 1 % Ophth Sol 2 ML DRPBTL 1 DROP EYE-LEFT ×3 (09:26→09:36)
[2022-09-28] MEDS: Ketorolac Tromethamine 0.5% Op 5 ML DROPS 1 DROP EYE-LEFT ×3 (09:27→09:38)
[2022-09-28] MEDS: Phenylephrine HCL 2.5% Oph SoL 2 ML BOTTLE 1 DROP EYE-LEFT ×3 (09:30→09:39)
[2022-09-28 09:34] LABS: Glucose, Whole Blood 105 mg/dL (60-115)
--- NOTE | 2022-09-28 10:53 | HO.PNOPHT ---
Ophthalmology Procedure Procedure Date of Service: 09/28/22 Ophthalmology Viscoelastic: Healashli Mohamudt Dual Pack Pro Ophthalmology Lenses: TECRONI [id number] (22.5) Procedure Notes: PREOPERATIVE DIAGNOSIS: Decreased visual acuity left eye secondary to cataract POSTOPERATIVE DIAGNOSIS: Same PROCEDURE: Left cataract extraction with intraocular lens insertion SURGEON: Jose Antonio Luna M.D. ANESTHESIA: Topical/MAC ESTIMATED BLOOD LOSS: None COMPLICATIONS: None After obtaining informed consent, the patient was brought to the operation room suite and placed in the supine position. After adequate sedation per anesthesia, topical drops of Tetracaine were given to the left eye. The eye was then prepped and draped in the usual sterile fashion. The operating room microscope was then positioned over the operative eye and a lid speculum placed. A paracentesis was created. Viscoelastic was then instilled into the anterior chamber. A three plane incision was then created temporally, utilizing a 2.85 mm keratome. Capsulotomy forceps were then utilized to create a circular tear capsulotomy. Hydrodissection and hydrodelineation were carried out until adequate mobilization of the nucleus occurred. Phacoemulsification was then utilized to remove the dense central nucleus followed by removal of the cortical material utilizing the automated aspiration irrigation unit. Viscoat elastic was instilled into the posterior capsular bag followed by placement of a posterior chamber intraocular lens without difficulty. The residual Viscoat elastic was then removed utilizing the automated IA machine. The wound was check and found to be watertight. The patient tolerated the procedure well and the lid speculum was removed. Intracameral injection of Vigamox 0.1 mL followed by a subtenon injection of Kenalog-40 0.2 mL were administered. The patient will be seen in the a.m.
[2022-09-28 11:15] VITALS: BP 141/57; PULSE 61; RESP 16; TEMP 36.6; O2SAT 100
== END 2022-09-28 11:24 | disposition home or self-care (01) ==
PROVIDERS: PCP Internal Medicine Geriatric Medicine; Visit Provider Ophthalmology
PROC: (CPT 66985; principal; 2022-09-28 11:30)
DX: H25.12 Age-related nuclear cataract, left eye (principal); H52.4 Presbyopia; H04.123 Dry eye syndrome of bilateral lacrimal glands; H18.413 Arcus senilis, bilateral; J44.9 Chronic obstructive pulmonary disease, unspecified; I10 Essential (primary) hypertension; E78.00 Pure hypercholesterolemia, unspecified; E11.9 Type 2 diabetes mellitus without complications; Z79.85 Long-term (current) use of injectable non-insulin antidiabetic drugs; Z79.51 Long term (current) use of inhaled steroids; Z79.899 Other long term (current) drug therapy; F17.210 Nicotine dependence, cigarettes, uncomplicated
CPT/HCPCS: 66984; 82947; J2250; J3301; V2632

== ENCOUNTER 2022-12-25 14:12 | Outpatient (AMB) | payer OTHER, SELFPAY ==
--- NOTE | 2022-12-25 07:47 | A.OFFVIS_ITS ---
Intake Intake Visit Reasons: LDCT SD Allergies No Known Allergies Allergy (Unverified 01/25/20 17:08) HPI LDCT SD HPI Details Initial visit for this 72yo smoker with a 40+PYH. Patient has been smoking since age 14 for 58 years at 1/2-1ppd. . Denies marijuana use. Denies second hand smoke exposure. Denies exposure to chemicals or substances like asbestos. . Denies known family history of lung cancer. Denies personal history of cancers. . Denies chest CT in last year. Chest CT done 01/20/2021 noted a 3mm EDA nodule and scaring in right lung base. . Denies recent travel outside the [place]. Denies recent respiratory illness or recent hospitalization for respiratory issues. Denies testing positive for COVID. Admits receiving COVID Vaccine. . Denies fever, chills, new/worsening cough, hemoptysis, hoarseness or dysphagia. Denies significant chest pain, significant dyspnea or unintentional weight loss. Patient Lung Cancer Screening Questionnaire reviewed with patient by provider. . Shared Decision Making Completed. Patient meets criteria. Discussed in detail with patient, the risk vs benefit of LDCT screening. Patient consents to proceed with scan. Discussed smoking cessation. [facility] Medical History (Updated 12/25/22 @ 14:14 by Carlene Herrera PA-C) CKD (chronic kidney disease) COPD (chronic obstructive pulmonary disease) GERD (gastroesophageal reflux disease) Hiatal hernia Hypertension Nicotine dependence, cigarettes, uncomplicated Osteoarthritis Osteopenia (~2007) Type 2 diabetes mellitus Urinary incontinence Surgical History (Updated 12/22/22 @ 08:22 by Carlene Herrera PA-C) History of colonoscopy History of esophagogastroduodenoscopy (EGD) History of hemorrhoidectomy History of hysterectomy Social History (Updated 12/25/22 @ 14:19 by Carlene Herrera PA-C) Are you a primary resident care spec to a significant other at home: No Do you presently have visiting nurse or other home services: No Patient Tobacco Use Status: Current everyday Tobacco user Cigarette Packs Per Day: 12 Years Smoked: onset 14yo, 1/2-1ppd x 58yrs, 40+PYH) Advance Directives Date on File: 10/02/14 Assessment & Plan Assessment & Plan (1) Nicotine dependence, cigarettes, uncomplicated: Comment: (current smoker - onset 14yo, 1/2-1ppd x 58yrs, 40+PYH) Code(s): F17.210 - Nicotine dependence, cigarettes, uncomplicated Plan: - SDM visit completed today in office. - Patient meets criteria for LDCT for lung cancer screening purposes and is asymptomatic. - Smoking cessation counseling offered. Patients can always call [phone]. - Will arrange for a LDCT scan of the chest for screening purposes at [facility]. - Risks, benefits, and alternatives were discussed in detail and the patient agrees to proceed. - Risks discussed include but are not limited to: radiation exposure, anxiety during testing and while awaiting results, false negatives, false positives and possibility of additional intervention such as further imaging or surgical procedures for benign disease. - Benefits are obviously detection of lung cancer at an early stage which can lead to improved outcomes. - Discussed the importance of screening program compliance with adherence to yearly LDCT scan as scheduled - or sooner interval scans for personalized screening regimen. - Discussed follow up plan. Our office will send a letter discussing results and if needed set up phone call and office visit based on CT findings. - Patient educated on results categorization and the management decisions for suspicious findings potentially found on the screening LDCT scan. Any patient with a Lung RADS score of 3 or 4 will be reviewed by a multidisciplinary team at [facility] to form a plan of action in regards to scan findings. - If further work up is warranted for a suspicious lung finding this will be followed by the Lung Cancer Screening program in conjunction with the Thoracic Surgery Department at [facility]. - A copy of the office note and LDCT will be sent to the patient's PCP - as well as documentation on any associated further plans of care. - Incidental findings on LDCT are the PCP's responsibility. These findings are indicated with an S finding on the LDCT Assessment. A note discussing the findings will be sent to the PCP who is then responsible for further management. - All questions answered.? Coding Level of Care Code Lung Cancer Screening G0296 Diagnoses Nicotine dependence, cigarettes, uncomplicated F17.210
== END 2022-12-25 15:08 | disposition home or self-care (01) ==
PROVIDERS: PCP Internal Medicine Geriatric Medicine; Visit Provider Physician Assistant Medical
DX: F17.210 Nicotine dependence, cigarettes, uncomplicated (principal)
CPT/HCPCS: G0296

== ENCOUNTER → 2022-12-25 14:12 | Outpatient (BNVA) | payer OTHER, SELFPAY | PROVIDERS: PCP Internal Medicine Geriatric Medicine; Visit Provider Physician Assistant Medical ==

== ENCOUNTER 2022-12-25 14:32 | Outpatient (REF) | payer OTHER, MEDICAID, SELFPAY ==
--- NOTE | ~2022-12-25 | CT_ITS ---
EXAMINATION: CT CHEST SCREENING CLINICAL INFORMATION: Current smoker. 58 pack year history. COMPARISON: Previous chest CT January 2021 TECHNIQUE: Multidetector volumetric CT imaging of the chest is performed without contrast using low dose technique. Additional 2D coronal and sagittal reformatted images and axial 3D maximum intensity projection (MIP) images are generated on the CT workstation. This CT examination was performed using dose optimization techniques as appropriate, variously including the following: *Automated exposure control *Adjustment of mA and/or kV according to patient size (this includes techniques or standardized protocols for targeted exams where dose is matched to indication/reason for exam; i.e. extremities or head) *Use of iterative reconstruction technique DLP: 33 mGy-cm FINDINGS: LUNGS: Mild emphysema. 3 mm left upper lobe nodule axial image 153 series 5 is stable. Scarring or subsegmental atelectasis in the right lower lobe. The lungs are otherwise clear. No endobronchial or endotracheal lesion. MEDIASTINUM: Postsurgical changes from esophagectomy and gastric pull-up. The gastric pull-up appears distended and filled with food. This is similar to previous exam. Normal heart size. No pericardial effusion. No enlarged hilar or mediastinal lymph nodes. Normal caliber thoracic aorta. CORONARY ARTERY CALCIFICATION: Severe PLEURA: There is no pleural effusion. No pleural mass or thickening. AXILLA: No lymphadenopathy. UPPER ABDOMEN: Unremarkable OSSEOUS STRUCTURES: Degenerative changes of the spine. CT/CT lung screening IMPRESSION: Edema. Stable small left upper lobe nodule. Stable postsurgical changes from esophagectomy and gastric pull-up. The gastric pull-up is slightly distended and filled with food similar to prior exams. Severe coronary artery calcification. ASSESSMENT: Lung-RADS category 2: Benign RECOMMENDATION: Annual low-dose chest CT follow-up recommended.
== END 2022-12-25 14:33 | disposition home or self-care (01) ==
LOC: HO.CT 14:32
PROVIDERS: PCP Internal Medicine Geriatric Medicine; Visit Provider Physician Assistant Medical
DX: Z12.2 Encounter for screening for malignant neoplasm of respiratory organs (principal); F17.210 Nicotine dependence, cigarettes, uncomplicated
CPT/HCPCS: 71271; G0296

== ENCOUNTER 2023-01-12 11:28 | Outpatient (REF) | payer OTHER, SELFPAY | END 2023-01-12 11:29 | disposition home or self-care (01) | LOC: HO.HHCL 11:28 | PROVIDERS: Visit Provider Internal Medicine Geriatric Medicine | DX: R53.83 Other fatigue (principal) | CPT/HCPCS: 36415; 84443 ==

== ENCOUNTER 2023-04-15 17:51 | Emergency (ER) | payer OTHER, SELFPAY ==
[2023-04-15 18:13] VITALS: BP 174/74; PULSE 75; O2SAT 97
--- NOTE | 2023-04-15 18:40 | PC.NURSE ---
Patient declining to be triaged, stating she is going home and I can remove her I V or she will. Denoes dizziness or pain, states she feels fine and needs to leave. Declined to stay to be seen by provider. at bedside stating he is taking her home.
== END 2023-04-15 18:47 | disposition left against medical advice (07) ==
PROVIDERS: Emergency Provider Student in an Organized Health Care Education/Training Program
DX: R51.9 Headache, unspecified (principal); R42 Dizziness and giddiness; F17.210 Nicotine dependence, cigarettes, uncomplicated; Z53.21 Procedure and treatment not carried out due to patient leaving prior to being seen by health care provider

== ENCOUNTER 2023-04-29 14:57 | Emergency (ER) | payer OTHER, SELFPAY ==
[2023-04-29 15:05] VITALS: BP 171/66; PULSE 78; RESP 18; TEMP 37.1; O2SAT 96; BMI 21.1
--- NOTE | 2023-04-29 15:09 | ED.NEUROSD ---
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 She states that she occasionally gets numbness in her left and and leg. She denies any lower back pain. Denies any fevers or chills. Denies any falls or trauma to the area. She states intermittent shortness of breath but not currently Denies any headache No other complaints or concerns at this time Patient reports since being in the hospital ?my symptoms are better. ? Related Data Home Medications Medication Instructions Recorded Confirmed amlodipine 5 mg tablet 5 mg PO DAILY 09/09/22 09/09/22 cyanocobalamin (vitamin B-12) 1,000 mcg IM QMONTH 09/09/22 09/09/22 1,000 mcg/mL injection solution diclofenac sodium 1 % topical gel 2 g topical BID 09/09/22 09/09/22 dicyclomine 10 mg capsule 10 mg PO QID PRN cramps 09/09/22 09/09/22 dulaglutide 0.75 mg/0.5 mL 0.75 mg subcut QWEEK 09/09/22 09/09/22 subcutaneous pen injector (Trulicity) fluticasone propionate 50 1 spray intranasal DAILY 09/09/22 09/09/22 mcg/actuation nasal spray,suspension losartan 100 mg tablet 100 mg PO DAILY 09/09/22 09/09/22 omeprazole 40 mg capsule,delayed 40 mg PO DAILY 09/09/22 09/09/22 release tramadol 50 mg tablet 50 mg PO TID PRN Pain 09/09/22 09/09/22 Previous Rx's Medication Instructions Recorded dexamethasone 4 mg tablet 4 mg PO BID #6 tabs 04/29/23 Allergies Allergy/AdvReac Type Severity Reaction Status Date / Time No Known Allergies Allergy Verified 04/29/23 15:05 Review of Systems Constitutional: Constitutional: Denies chills, Denies fever(s), Denies frequent falls and Denies headache(s) ENT: Denies headache(s), Denies neck mass, Reports neck pain and Denies sore throat Cardiovascular: Cardiovascular: Denies chest pain and Denies dyspnea Respiratory: Respiratory: Denies cough and Denies dyspnea Gastrointestinal: Gastrointestinal: Denies abdominal pain, Denies nausea and Denies vomiting Musculoskeletal: Musculoskeletal: Denies muscle weakness, Reports neck pain, Reports numbness and Reports tingling Neurologic: Denies frequent falls, Denies headache(s), Reports numbness, Reports tingling and Denies tremor(s) PMFSH Past Medical History Medical History (Updated 04/29/23 @ 21:56 by Renard French) Hiatal hernia Osteopenia (~2007) Urinary incontinence Nicotine dependence, cigarettes, uncomplicated Osteoarthritis GERD (gastroesophageal reflux disease) COPD (chronic obstructive pulmonary disease) CKD (chronic kidney disease) Type 2 diabetes mellitus Hypertension Surgical History (Updated 12/22/22 @ 08:22 by Carlene Herrera PA-C) History of hemorrhoidectomy History of hysterectomy History of colonoscopy History of esophagogastroduodenoscopy (EGD) Social History Social History (Updated 12/25/22 @ 14:19 by Carlene Herrera PA-C) Are you a primary special needs caregiver to a significant other at home: No Do you presently have visiting nurse or other home services: No Patient Tobacco Use Status: Current everyday Tobacco user Cigarette Packs Per Day: 12 Years Smoked: onset 14yo, 1/2-1ppd x 58yrs, 40+PYH) Smoked in Last 30 Days: No Use of substances other than those prescribed or required for medical reasons: No Advance Directives: Yes Advance Directives on File: No Advance Directives Date on File: 10/02/14 Physical Exam Vital Signs: Vital Signs: Last Vital Signs Temp 98.1 F 04/29/23 21:31 Pulse 93 04/29/23 21:31 Resp 16 04/29/23 21:31 BP 124/94 H 04/29/23 21:31 Pulse Ox 96 04/29/23 21:31 O2 Del Method Room Air 04/29/23 21:31 BMI result Body Mass Index 21.1 Const: General: healthy appearing, comfortable, no acute distress, alert and awake Nutritional Appearance: well nourished Orientation/consciousness: patient oriented x3 HEENT: Head: Yes normocephalic and Yes atraumatic Eyes: Eyelids: Yes eyelids normal Conjunctivae: conjunctivae normal Sclerae: sclerae normal Corneas: corneas normal Pupils: Equal, round and reactive pupils present EOM: EOMs intact bilaterally Neck: Other: Left cervical paraspinous muscle tenderness without deformity. This extends to the left trapezius muscle groups tenderness Neck: Yes full ROM, No positive Brudzinski's sign and No positive Kernig's sign Resp: Effort & Inspection: normal respiratory effort, able to speak in complete sentences and not labored Cardio: Rate: regular rate Rhythm: regular rhythm GI: Inspection: No distended Palpation (GI): Soft to palpation, not firm, nontender, no guarding and not rigid Back/Spine/Pelvis: Other: Mild left lumbar paraspinous tenderness without vertebral tenderness. Negative straight leg raise bilaterally Skin: General skin exam: elasticity normal Neuro: General: patient oriented x3 Cranial nerves: Yes CN's II-XII intact bilaterally, Yes Equal, round and reactive pupils present and Yes Bilaterally intact EOM present Cognition (Neuro): normal cognition Extrem: Other: Patient has full range of motion of flexion-extension, abduction and adduction of the upper extremities bilaterally. A range of motion with flexion and extension of lower extremities bilaterally. Course Course Course Narrative: RME: 72yo F w/PMHx sent in by PCP for L shoulder pain, c/o L shoulder pain and numbness x3 weeks with associated left leg numbness and intermittent SOB. L shoulder XR from 2021 showing rotator cuff impingement. Patient poor historian EKG, labs, x-ray ordered Full HPI, ROS and PE to be performed by primary ED provider. Medical Decision Making Medical Decision Making [facility] Narrative: Patient's symptoms appear to be related to uropathy of the C-spine. She reports chronic neck and lower back pain. Denies any recent injury. Currently she is actually asymptomatic. She is moving all extremities well without difficulty. No warning signs for cauda equina syndrome suspect lower back pain. Patient was discharged with short course of dexamethasone and will follow-up with her PCP. She states that she is due to see pain management next month. Patient has an NIH stroke score of 0 Differential Diagnosis Differential Diagnoses: The differential diagnosis associated with the presentation includes Radiculopathy Cervicalgia Muscle strain Sciatica Lab Data [facility] Lab Attestation statement: I reviewed the patient's lab results. Mild leukopenia and anemia consistent with her recent baseline. This is a macrocytic anemia. No significant chemistry abnormality 04/29/23 15:40 04/29/23 15:40 Labs: Lab Results 04/29/23 Range/Units 15:40 WBC 4.4 L (4.8-10.8) X10*3/uL RBC 3.42 L (4.20-5.50) X10*6/uL Hgb 11.6 L (12.0-16.0) g/dl Hct 33.8 L (37.0-47.0) % MCV 98.8 H (80.0-98.0) fL MCH 33.9 H (27.0-33.0) pg MCHC 34.3 (31.0-35.0) g/dl RDW 13.9 (11.0-16.0) % Plt Count 226 (160-400) X10*3/uL MPV 10.2 (9.4-12.3) fL Immature Gran % (Auto) 0.2 (0.0-0.4) % Neut % (Auto) 62.5 (45-73) % Lymph % (Auto) 22.9 (20-40) % [place] % (Auto) 11.4 H (2-11) % Eos % (Auto) 2.3 (0-4) % Baso % (Auto) 0.7 (0-2) % Lymph # (Auto) 1.0 L (1.2-4.9) X10*3/uL [place] # (Auto) 0.5 (0.1-1.2) X10*3/uL Eos # (Auto) 0.1 (0.0-0.4) X10*3/uL Baso # (Auto) 0.0 (0.0-0.2) X10*3/uL Abs Immat Gran (auto) 0.01 (0.00-0.03) X10*3/uL Absolute Neuts (auto) 2.7 (2.0-8.3) x10*3/uL Absolute Nucleated RBC 0.000 (0.0-0.012) X10*3/uL Nucleated RBC % (auto) 0.0 (0.0-0.2) /100WBC PT 11.7 (11.1-13.3) SEC INR 1.0 (0.9-1.1) Sodium 143 (135-145) mmol/L Potassium 3.7 (3.3-5.1) mmol/L Chloride 108 (96-108) mmol/L Carbon Dioxide 26 (22-29) mmol/L Anion Gap 13 (12-20) BUN 13 (9-16) mg/dL Creatinine 0.98 (0.5-1.4) mg/dL Estim Creat Clear Calc 36.1 Estimated GFR 55 Random Glucose 111 (60-115) mg/dL Calcium 9.0 (8.4-10.2) mg/dL Magnesium 2.1 (1.6-2.6) mg/dL Total Bilirubin 0.6 (0.0-1.0) mg/dL Direct Bilirubin 0.3 (0.0-0.5) mg/dL AST 19 (5-31) U/L ALT 8 (0-31) U/L Alkaline Phosphatase 118 H (39-117) U/L Troponin I High Sens 4.2 (<3.5-17.0) ng/L B-Natriuretic Peptide 48 (<100) pg/mL Total Protein 6.8 (6.5-8.0) g/dL Albumin 3.8 (3.5-5.0) g/dL Discharge Plan Discharge Clinical Impression: Cervicalgia Patient Disposition: Home, Self-Care Instructions: Neck Pain (ED) Additional Instructions: Pain is most likely related to a pinched nerve in your neck Take dexamethasone twice daily for 3 days You may also use ibuprofen or Tylenol for the pain Follow-up with your primary doctor Return for new or worsening symptoms Prescriptions: New dexamethasone 4 mg tablet 4 mg PO BID Qty: 6 0RF No Action amlodipine 5 mg tablet 5 mg PO DAILY omeprazole 40 mg capsule,delayed release(DR/EC) 40 mg PO DAILY tramadol 50 mg Tablet 50 mg PO TID PRN (Reason: Pain) cyanocobalamin (vitamin B-12) 1,000 mcg/mL solution 1,000 mcg IM QMONTH losartan 100 mg tablet 100 mg PO DAILY fluticasone propionate [Flonase] 50 mcg/actuation [place],Suspension 1 spray INTRANASAL DAILY Rx Instructions: administer into each nostril dicyclomine 10 mg capsule 10 mg PO QID PRN (Reason: cramps) diclofenac sodium 1 % gel 2 g topical BID Trulicity 0.75 mg/0.5 mL pen injector 0.75 mg subcut QWEEK Interventions: ED Discharge Assessment Last Done: 04/29/23 22:14 Discharge Date/Time: 04/29/23 22:15
--- NOTE | 2023-04-29 15:13 | ECG_ITS ---
Test Reason : L SHOULDER PAIN Blood Pressure : / mmHG Vent. Rate : 074 BPM Atrial Rate : 074 BPM P-R Int : 142 ms QRS Dur : 076 ms QT Int : 388 ms P-R-T Axes : 066 051 037 degrees QTc Int : 430 ms Normal sinus rhythm Nonspecific ST and T wave abnormality Abnormal ECG When compared with ECG of 27-FEB-2016 22:55, No significant change was found Referred By: Michelle Harrison Electronically Signed By:NICOLETTE NAVARRETE MD
[2023-04-29 15:45] LABS: MANUAL DIFF FLAG NO
[2023-04-29 15:46] LABS: Basophils Percent Auto 0.7 % (0-2); Eosinophils Absolute Auto 0.1 X10*3/uL (0.0-0.4); Eosinophils Percent Auto 2.3 % (0-4); Hematocrit 33.8 % (37.0-47.0); Hemoglobin 11.6 g/dl (12.0-16.0); Imm Gran Abs Auto 0.01 X10*3/uL (0.00-0.03); Imm Gran Pct Auto 0.2 % (0.0-0.4); Lymphocytes Percent Auto 22.9 % (20-40); Mean Corpuscular HGB Conc 34.3 g/dl (31.0-35.0); Mean Corpuscular Hemoglobin 33.9 pg (27.0-33.0); Mean Corpuscular Volume 98.8 fL (80.0-98.0); Mean Platelet Volume 10.2 fL (9.4-12.3); Monocytes Absolute Auto 0.5 X10*3/uL (0.1-1.2); Monocytes Percent Auto 11.4 % (2-11); Neutrophils Absolute Auto 2.7 x10*3/uL (2.0-8.3); Neutrophils Percent Auto 62.5 % (45-73); Platelet Count 226 X10*3/uL (160-400); Red Blood Count 3.42 X10*6/uL (4.20-5.50); Red Cell Distribution Width 13.9 % (11.0-16.0); White Blood Count 4.4 X10*3/uL (4.8-10.8)
[2023-04-29 15:52] LABS: Prothrombin Time 11.7 SEC (11.1-13.3)
[2023-04-29 16:11] LABS: Alanine Aminotransferase 8 U/L (0-31); Albumin Level 3.8 g/dL (3.5-5.0); Alkaline Phosphatase 118 U/L (39-117); Anion Gap 13 (12-20); Aspartate Amino Transferase 19 U/L (5-31); Bilirubin Direct 0.3 mg/dL (0.0-0.5); Bilirubin Total 0.6 mg/dL (0.0-1.0); Blood Urea Nitrogen 13 mg/dL (9-16); Carbon Dioxide 26 mmol/L (22-29); Chloride 108 mmol/L (96-108); Creatinine Clr Calc Pharmacy 36.1; Estimated Glomerular Filt Rate 55; Glucose Random 111 mg/dL (60-115); Magnesium 2.1 mg/dL (1.6-2.6); Potassium 3.7 mmol/L (3.3-5.1); Sodium 143 mmol/L (135-145); Total Protein 6.8 g/dL (6.5-8.0)
[2023-04-29 16:15] LABS: B Type Natriuretic Peptide 48 pg/mL (<100)
[2023-04-29 16:18] LABS: Troponin-I High Sensitivity 4.2 ng/L (<3.5-17.0)
[2023-04-29 21:31] VITALS: BP 124/94; PULSE 93; RESP 16; TEMP 36.7; O2SAT 96
== END 2023-04-29 22:15 | disposition home or self-care (01) ==
PROVIDERS: Physician Assistant; Emergency Provider Internal Medicine; PCP Internal Medicine Geriatric Medicine
DX: M54.2 Cervicalgia (principal); M79.602 Pain in left arm; R20.0 Anesthesia of skin; R94.31 Abnormal electrocardiogram [ECG] [EKG]; R06.02 Shortness of breath; F17.210 Nicotine dependence, cigarettes, uncomplicated; Z71.6 Tobacco abuse counseling
CPT/HCPCS: 36415; 80048; 80076; 83735; 83880; 84484; 85025; 85610; 93005; 99284

== ENCOUNTER → 2023-04-29 15:13 | Outpatient (BNV) | payer OTHER, SELFPAY | PROVIDERS: Emergency Provider Internal Medicine; PCP Internal Medicine Geriatric Medicine; Visit Provider Internal Medicine Cardiovascular Disease | DX: R94.31 Abnormal electrocardiogram [ECG] [EKG] (principal) | CPT/HCPCS: 93010 ==

== ENCOUNTER 2023-05-13 08:59 | Outpatient (REF) | payer OTHER, SELFPAY | END 2023-05-13 09:00 | disposition home or self-care (01) | LOC: HO.NEURO 08:59 | PROVIDERS: PCP Internal Medicine Geriatric Medicine; Visit Provider Internal Medicine Geriatric Medicine | DX: R20.0 Anesthesia of skin (principal) | CPT/HCPCS: 95886; 95909 ==

== ENCOUNTER 2023-05-24 09:33 | Outpatient (AMB) | payer OTHER, SELFPAY ==
--- NOTE | 2023-05-24 10:14 | A.OFFVIS_ITS ---
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 Patient reports that she has had left shoulder pain ongoing for about 2 months now. Limited & painful ROM. Has tried OTC NSAIDS & topical creams with no relief. 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 She complains of pain with daily activity, worse with overhead and reaching activities, and limited ROM. Her pain has been present for ~2 months. She takes Dexamethasone, Tramadol, and Diclofenac for pain relief. She finds little relief from NSAIDs. She is diabetic [facility] Medical History (Updated 05/24/23 @ 14:14 by Joe Foote MD) Hiatal hernia Osteopenia (~2007) Urinary incontinence Nicotine dependence, cigarettes, uncomplicated Osteoarthritis GERD (gastroesophageal reflux disease) COPD (chronic obstructive pulmonary disease) CKD (chronic kidney disease) Type 2 diabetes mellitus Hypertension Surgical History History of hemorrhoidectomy History of hysterectomy History of colonoscopy History of esophagogastroduodenoscopy (EGD) Social History Are you a primary adult live in caregiver to a significant other at home: No Do you presently have visiting nurse or other home services: No Patient Tobacco Use Status: Current everyday Tobacco user Cigarette Packs Per Day: 12 Years Smoked: onset 14yo, 1/2-1ppd x 58yrs, 40+PYH) Advance Directives Date on File: 10/02/14 Review of Systems Const All systems reviewed & are unremarkable except as noted in HPI and below Physical Exam Vital Signs: BMI result Body Mass Index 21.1 Const General: no acute distress, alert and awake Orientation/consciousness: patient oriented x3 HEENT Head: Yes normocephalic and Yes atraumatic Eyes EOM: EOMs intact bilaterally Resp Effort & Inspection: normal respiratory effort and able to speak in complete sentences Cardio Jugular venous distension: no JVD Skin General skin exam: turgor normal Rashes: no rashes Neuro General: patient oriented x3 Extrem Other: 20 degrees of external rotation compared to 45 on the contralateral shoulder. Passive forward flexion to 90 and passive abduction to about 70. Positive Mccord and Neer Psych Appearance: grossly normal Affect: normal affect Attitude: cooperative Office Procedures Joint Injection/Drain Joint Injection/Drain Details: Injected 1 mL of Decadron and 3 mL 1% lidocaine and 3 mL of 0.25% Marcaine. Site was prepped using aseptic technique. Patient tolerated the procedure well. Primary Site: left shoulder Approach Used: posterolateral Coding 65322 - Large joint Procedure code (CPT) selection complete Results Reviewed Results Reviewed: I personally reviewed relevant radiographs. Essentially normal radiographs Assessment & Plan Assessment & Plan (1) Adhesive capsulitis of left shoulder: Code(s): M75.02 - Adhesive capsulitis of left shoulder Plan: This is a 72-year-old diabetic woman with loss of external rotation of her left shoulder. This is likely adhesive capsulitis. I injected her shoulder and recommend physical therapy. She states she is going to [place] this weekend and will contact me when she returns for formal therapy prescription. (2) Type 2 diabetes mellitus: Code(s): E11.9 - Type 2 diabetes mellitus without complications Plan: Explained the hyperglycemic effects of steroids. Plan Scribed for Joe Foote MD by Jerome Hernandez, medical administrator, on 05/24/23 at 10:20 AM, EST. Orders: Orders XR shoulder LT min 2V Today M25.519 - Pain in unspecified shoulder Coding Level of Care Code New Pt Level 4 (24376) Diagnoses Adhesive capsulitis of left shoulder M75.02 Type 2 diabetes mellitus E11.9 CPT Codes Coding - Large joint: 92742 - Large joint ([id number])
[2023-05-24 10:15] VITALS: BMI 21.1
== END 2023-05-24 11:09 | disposition home or self-care (01) ==
PROVIDERS: Visit Provider Orthopaedic Surgery
DX: M75.02 Adhesive capsulitis of left shoulder (principal); E11.9 Type 2 diabetes mellitus without complications
CPT/HCPCS: 20610; 99203

== ENCOUNTER 2023-05-24 09:37 | Outpatient (REF) | payer OTHER, SELFPAY ==
--- NOTE | ~2023-05-24 | XR_ITS ---
EXAMINATION: XR SHOULDER, LEFT CLINICAL INFORMATION: Left shoulder pain COMPARISON: None available. TECHNIQUE: AP external rotation, Grashey, scapular Y, and axillary views of the left shoulder. FINDINGS: Acromioclavicular joint space narrowing. Glenohumeral joint is maintained. Mildly irregular superolateral left humeral head. No fracture or dislocation. Visualized lungs and ribs are unremarkable. Mediastinal clips and aortic calcifications. XR/XR shoulder LT min 2V IMPRESSION: Mild degenerative changes. No acute bony pathology.
== END 2023-05-24 09:38 | disposition home or self-care (01) ==
LOC: HO.HOSX 09:37
PROVIDERS: Visit Provider Orthopaedic Surgery
DX: M75.02 Adhesive capsulitis of left shoulder (principal); E11.9 Type 2 diabetes mellitus without complications
CPT/HCPCS: 20610; 73030; 99202; J0665; J1100

== ENCOUNTER 2023-07-29 11:00 | Outpatient (RCR) | payer OTHER, SELFPAY ==
--- NOTE | 2023-07-09 16:38 | MHC.PT.EP ---
[facility] [place] Office [place] Office [place] Office [address] Zhang Stroud [address] [phone] F: [phone] F: [phone] F: [phone] F: [phone] Physical Therapy Plan of Care Date of Evaluation: 07/09/23 Date of Surgery: NA Diagnosis: ADHESIVE CAPSULITIS L SHOULDER Assessment: Pt IS 72 YO F REFERRED TO PT FROM DR BAH WITH ADHESIVE CAPSULITIS OF L SHLDER. Pt REPORTS 3 MONTH HX OF L SHLDER ISSUE. REPORTS NO FALL, NO TRAUMA TO L SHLDER. PRESENTS WITH POOR POSTURE, DECREASED L SHLDER AROM, PAIN, DECREASED L SHLDER STRENGTH. OF NOTE, Pt HAD EMG/NCV +POSSIBLE CTS (ED TO Pt TO CONTACT PCP RE THIS/?NEED FOR OT). SHOULD BENEFIT FROM PT TO ADDRESS THESE ISSUES Frequency and Duration: The patient will be seen 2X/WK X 4 WKS Short Term Goals: 1. INCREASED AWARENESS OF SHLDER CARE AND POSTURE 2. DECREASED L SHLDER PAIN AT LEAST 50% WITH ADLS 3. 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 I HEP WITH DC EX PLAN 2. INCREASED L SHLDER ROM 10-20 DEGREES T/O 3. INCREASED L UE STRENGTH AT LEAST 1/2 MM GRADE Treatment Plan: Modalities to reduce pain, spasms and effusion. Manual therapy to restore motion and function. Therapeutic exercise to improve strength and flexibility. Neuromuscular re-education for posture and balance. Therapeutic activities to return to functional activities of daily living. Electronically signed by: CHHAYA BERRY PT Please sign and return to therapist. Thank you for your referral.
--- NOTE | 2023-08-06 15:52 | MHC.PT.DC ---
[facility] [place] Office [place] Office [place] Office [address] Zhang Stroud [address] [phone] F: [phone] F: [phone] F: [phone] F: [phone] Physical Therapy Discharge Report Diagnosis: ADHESIVE CAPSULITIS L SHOULDER Date of Surgery: NA Date of Evaluation: 07/09/23 Date of Discharge: 08/06/23 Treatments to Date: 5 Cancellations to Date: No Shows to Date: 2 Discharge Status: Patient Elected to Stop Recommend MD Follow-up Visit Non-compliance Discharge Summary: Pt SEEN FOR 5 PT SESSIONS AT LAST SESSION PER ASSESSMENT BY Jonathan CULP PARKING LINE PAINTER 07/28 pt. with increased ROM and less px L sh. Today she continues to express desire to end PT and see her MD. Appt scheduled for tomorrow. 1 more PT session scheduled. No discomfort with ex today. THEN SAW ORTHO ON 07/29 AND HAD DEPOMEDROL INJECTION. Pt THEN NO SHOWED LAST 2 PT SESSIONS SCHEDULED Electronically signed by: CHHAYA BERRY PT Please sign and return to therapist. Thank you for your referral.
== END 2023-08-06 15:52 | disposition home or self-care (01) ==
LOC: HO.PT 11:00
PROVIDERS: PCP Internal Medicine Geriatric Medicine; Visit Provider Orthopaedic Surgery
DX: M75.02 Adhesive capsulitis of left shoulder (principal)
CPT/HCPCS: 97110; 97140; 97161; 97535

== ENCOUNTER 2023-07-30 13:50 | Outpatient (AMB) | payer OTHER, SELFPAY ==
--- NOTE | 2023-07-30 13:57 | MHC.OFFVIS ---
Intake Intake Visit Reasons: RT Shoulder Adhesive Capsulitis Last Inj 05/24/23 Intake Note: Jacque is a 72 year old right hand dominant female who presents today for a follow up of left shoulder adhesive capsulitis. Last injection administered on 05/24/22 and was also given an order for physical therapy. Allergies No Known Allergies Allergy (Verified 07/30/23 13:58) PFSH Medical History (Updated 05/24/23 @ 14:14 by Joe Foote MD) Hiatal hernia Osteopenia (~2007) Urinary incontinence Nicotine dependence, cigarettes, uncomplicated Osteoarthritis GERD (gastroesophageal reflux disease) COPD (chronic obstructive pulmonary disease) CKD (chronic kidney disease) Type 2 diabetes mellitus Hypertension Surgical History History of hemorrhoidectomy History of hysterectomy History of colonoscopy History of esophagogastroduodenoscopy (EGD) Social History Are you a primary child care center administrator to a significant other at home: No Do you presently have visiting nurse or other home services: No Patient Tobacco Use Status: Current everyday Tobacco user Cigarette Packs Per Day: 12 Years Smoked: onset 14yo, 1/2-1ppd x 58yrs, 40+PYH) Advance Directives Date on File: 10/02/14 Office Procedures Joint Injection/Drain Joint Injection/Drain Primary Site: left shoulder Prep: site was prepped using aseptic technique, ethochloride spray was applied and injection warnings given Injected: 80 mg of, DepoMedrol, with 8 mL of (2% plain lido ) and in the subcromial space Approach Used: posterolateral Procedure: The patient tolerated the procedure well, but had some pain with the injection and there was some relief with the local anesthesia Coding 81619 - Large joint Procedure code (CPT) selection complete Coding CPT Codes Coding - 43725 Large joint: 66622 - Large joint ([id number])
--- NOTE | 2023-07-30 13:59 | A.OFFVIS_ITS ---
Intake Intake Visit Reasons: RT Shoulder Adhesive Capsulitis Last Inj 05/24/23 Allergies No Known Allergies Allergy (Verified 07/30/23 13:58) HPI RT Shoulder Adhesive Capsulitis Last Inj 05/24/23 HPI Details 72-year-old right hand dominant female w doris presents in the office today for a follow up of right shoulder pain. Patient was seen in the office on [address] Foote at which time she received a Decadron injection in the left shoulder. [facility] Medical History (Updated 05/24/23 @ 14:14 by Joe Foote MD) Hiatal hernia Osteopenia (~2007) Urinary incontinence Nicotine dependence, cigarettes, uncomplicated Osteoarthritis GERD (gastroesophageal reflux disease) COPD (chronic obstructive pulmonary disease) CKD (chronic kidney disease) Type 2 diabetes mellitus Hypertension Surgical History History of hemorrhoidectomy History of hysterectomy History of colonoscopy History of esophagogastroduodenoscopy (EGD) Social History Are you a primary nonfarm animal caretaker to a significant other at home: No Do you presently have visiting nurse or other home services: No Patient Tobacco Use Status: Current everyday Tobacco user Cigarette Packs Per Day: 12 Years Smoked: onset 14yo, 1/2-1ppd x 58yrs, 40+PYH) Advance Directives Date on File: 10/02/14 Review of Systems Const All systems reviewed & are unremarkable except as noted in HPI and below Physical Exam Const General: no acute distress, alert and awake Orientation/consciousness: patient oriented x3 HEENT Head: Yes normocephalic and Yes atraumatic Eyes EOM: EOMs intact bilaterally Resp Effort & Inspection: normal respiratory effort and able to speak in complete sentences Cardio Jugular venous distension: no JVD Skin General skin exam: turgor normal Rashes: no rashes Neuro General: patient oriented x3 Extrem Other: 20 degrees of external rotation compared to 45 on the contralateral shoulder. Passive forward flexion to 90 and passive abduction to about 70. Positive Mccord and Neer Psych Appearance: grossly normal Affect: normal affect Attitude: cooperative Office Procedures Joint Injection/Drain Joint Injection/Drain Primary Site: left shoulder Prep: site was prepped using aseptic technique, ethochloride spray was applied and injection warnings given Injected: 80 mg of, DepoMedrol, with 8 mL of (2% plain lido ) and in the subcromial space Approach Used: posterolateral Procedure: The patient tolerated the procedure well, but had some pain with the injection and there was some relief with the local anesthesia Coding 67673 - Large joint Procedure code (CPT) selection complete Assessment & Plan Assessment & Plan (1) Adhesive capsulitis of left shoulder: Code(s): M75.02 - Adhesive capsulitis of left shoulder (2) Type 2 diabetes mellitus: Code(s): E11.9 - Type 2 diabetes mellitus without complications Plan Ms. Triana is a 72-year-old right hand dominant female who presents in the office today for a follow up of right shoulder pain. Patient was seen in the office on 05/24/[address] Foote at which time she received a Decadron injection in the left shoulder. The patient was offered a cortisone injection in the left shoulder with 80 mg of DepoMedrol. The patient was explained the risk, benefits, and alternatives to receiving this injection. After receiving consent for the injection, the patient had the procedure done while in office today. The patient tolerated the procedure well with no complications. Due to the patient?s history of diabetes, they were instructed to monitor her blood glucose level. The patient was informed that they could see a rise in their numbers and if the numbers became too high, they were instructed to call their PCP. The patient was also informed that they could have facial flushing as a side effect of the injection but this will pass. Follow up will be PRN, or sooner if needed. Patient Instructions: Scribed by Tami Monaco medical insurance verifier, for Adrienne Connell PA-C on 07/27/2023 at 2:00 pm, EST. Coding Level of Care Code Est Pt Level 3 (61614) Diagnoses Adhesive capsulitis of left shoulder M75.02 Type 2 diabetes mellitus E11.9 CPT Codes Coding - Large joint: 78860 - Large joint ([id number])
== END 2023-07-30 13:57 | disposition home or self-care (01) ==
LOC: HO.HOS 13:50
PROVIDERS: PCP Internal Medicine Geriatric Medicine; Visit Provider Physician Assistant
DX: M75.02 Adhesive capsulitis of left shoulder (principal); E11.9 Type 2 diabetes mellitus without complications
CPT/HCPCS: 20610; 99213

== ENCOUNTER → 2023-07-30 13:50 | Outpatient (BNVA) | payer OTHER, SELFPAY | PROVIDERS: PCP Internal Medicine Geriatric Medicine; Visit Provider Physician Assistant | DX: M75.02 Adhesive capsulitis of left shoulder (principal); E11.9 Type 2 diabetes mellitus without complications | CPT/HCPCS: 20610; 99212; J1040 ==

== ENCOUNTER 2023-08-27 10:46 | Outpatient (REF) | payer OTHER, SELFPAY ==
[2023-08-27 11:40] LABS: MANUAL DIFF FLAG NO
[2023-08-27 12:04] LABS: Basophils Absolute Auto 0.1 X10*3/uL (0.0-0.2); Basophils Percent Auto 0.8 % (0-2); Eosinophils Absolute Auto 0.2 X10*3/uL (0.0-0.4); Eosinophils Percent Auto 3.1 % (0-4); Hemoglobin 13.3 g/dl (12.0-16.0); Imm Gran Abs Auto 0.02 X10*3/uL (0.00-0.03); Imm Gran Pct Auto 0.3 % (0.0-0.4); Lymphocytes Absolute Auto 2.2 X10*3/uL (1.2-4.9); Lymphocytes Percent Auto 35.4 % (20-40); Mean Corpuscular HGB Conc 34.1 g/dl (31.0-35.0); Mean Corpuscular Hemoglobin 34.1 pg (27.0-33.0); Mean Platelet Volume 10.7 fL (9.4-12.3); Monocytes Absolute Auto 0.4 X10*3/uL (0.1-1.2); Monocytes Percent Auto 6.8 % (2-11); Neutrophils Absolute Auto 3.3 x10*3/uL (2.0-8.3); Neutrophils Percent Auto 53.6 % (45-73); Platelet Count 275 X10*3/uL (160-400); Red Cell Distribution Width 13.4 % (11.0-16.0); White Blood Count 6.2 X10*3/uL (4.8-10.8)
[2023-08-27 16:49] LABS: Anion Gap 10 (12-20); Blood Urea Nitrogen 15 mg/dL (9-16); Calcium 9.2 mg/dL (8.4-10.2); Carbon Dioxide 29 mmol/L (22-29); Chloride 108 mmol/L (96-108); Estimated Glomerular Filt Rate 54; Glucose Random 121 mg/dL (60-115); Iron 59 mcg/dL (30-160); Magnesium 2.3 mg/dL (1.6-2.6); Percent Iron Saturation 16 % (15-50); Potassium 4.2 mmol/L (3.3-5.1); Sodium 143 mmol/L (135-145); Total Iron Binding Capacity 365 mcg/dL (228-428); Unsaturated Iron Binding 306 ug/dL
== END 2023-08-27 10:47 | disposition home or self-care (01) ==
LOC: HO.HHCL 10:46
PROVIDERS: Visit Provider Internal Medicine Geriatric Medicine
DX: R25.2 Cramp and spasm (principal)
CPT/HCPCS: 36415; 80048; 83540; 83735; 84443; 85025

== ENCOUNTER 2023-08-30 09:02 | Outpatient (REF) | payer OTHER, SELFPAY ==
[2023-08-30 12:45] LABS: Folate 10.4 ng/mL (> or = 4.0); Vitamin B12 > 2000 pg/mL (200-900)
== END 2023-08-30 09:03 | disposition home or self-care (01) ==
LOC: HO.HHCL 09:02
PROVIDERS: Visit Provider Internal Medicine Geriatric Medicine
DX: R71.8 Other abnormality of red blood cells (principal)
CPT/HCPCS: 36415; 82607; 82746

== ENCOUNTER 2023-09-23 15:09 | Outpatient (REF) | payer OTHER, SELFPAY ==
--- NOTE | ~2023-09-23 | XR_ITS ---
EXAMINATION: XR SHOULDER, LEFT CLINICAL INFORMATION: Pain in the left shoulder COMPARISON: X-ray left shoulder May 2023 TECHNIQUE: AP external rotation, Grashey, scapular Y, and axillary views of the left shoulder. FINDINGS: Mild osteoarthritis of the acromioclavicular joint manifested by small marginal osteophytes. Glenohumeral joint normal. Surrounding bone and soft tissues unremarkable. Incidental note made of postsurgical changes in the mediastinum XR/XR shoulder LT min 2V IMPRESSION: Mild osteoarthritis of the left acromioclavicular joint unchanged.
== END 2023-09-23 15:10 | disposition home or self-care (01) ==
LOC: HO.HOSX 15:09
PROVIDERS: Visit Provider Physician Assistant
DX: M75.02 Adhesive capsulitis of left shoulder (principal); E11.9 Type 2 diabetes mellitus without complications
CPT/HCPCS: 73030; 99212

== ENCOUNTER 2023-09-23 15:20 | Outpatient (AMB) | payer OTHER, SELFPAY ==
--- NOTE | 2023-09-23 15:43 | A.OFFVIS_ITS ---
Intake Visit Reasons: OV - RT Shoulder Pain Intake Note: Jacque is a 72 year old right hand dominant female who presents today for a follow up of her right shoulder pain, last injection 07/30/23. Patient reports her last injection didn't give her relief. She was wondering about getting an MRI. Patient expresses that she did go to PT a couple times. Allergies No Known Allergies Allergy (Verified 09/23/23 15:45) HPI HPI OV - RT Shoulder Pain: Details: 72-year-old right hand dominant female, who is Uzbek speaking, presents in the office today for a follow up of left shoulder pain. I last saw the patient in the office on 07/30/2023 when she was given a cortisone injection. While in the office today the patient reports the injection did not give her relief. She states she cannot lift her arm over her head. Patient has a significant medical history of diabetes mellitus. [facility] Medical History (Updated 05/24/23 @ 14:14 by Joe Foote MD) Hiatal hernia Osteopenia (~2007) Urinary incontinence Nicotine dependence, cigarettes, uncomplicated Osteoarthritis GERD (gastroesophageal reflux disease) COPD (chronic obstructive pulmonary disease) CKD (chronic kidney disease) Type 2 diabetes mellitus Hypertension Surgical History History of hemorrhoidectomy History of hysterectomy History of colonoscopy History of esophagogastroduodenoscopy (EGD) Social History Are you a primary healthcare corporate account director to a significant other at home: No Do you presently have visiting nurse or other home services: No Patient Tobacco Use Status: Current everyday Tobacco user Cigarette Packs Per Day: 12 Years Smoked: onset 14yo, 1/2-1ppd x 58yrs, 40+PYH) Advance Directives Date on File: 10/02/14 Review of Systems Const All systems reviewed & are unremarkable except as noted in HPI and below Physical Exam Const General: cooperative, healthy appearing and no acute distress Resp Effort & Inspection: normal respiratory effort and able to speak in complete sentences Cardio Rate: regular rate Peripheral pulses: Peripheral pulses 2+ throughout GI Palpation (GI): Soft to palpation Skin Lesions: no lesions Rashes: no rashes Assessment & Plan Assessment & Plan (1) Type 2 diabetes mellitus: Code(s): E11.9 - Type 2 diabetes mellitus without complications Category: Medical (2) Adhesive capsulitis of left shoulder: Code(s): M75.02 - Adhesive capsulitis of left shoulder Category: Medical Plan Ms. Triana is a 72-year-old right hand dominant female, who is Uzbek speaking, presents in the office today for a follow up of left shoulder pain. I last saw the patient in the office on 07/30/2023 when she was given a cortisone injection. While in the office today the patient reports the injection did not give her relief. She states she cannot lift her arm over her head. Patient has a significant medical history of diabetes mellitus. An order for an MRI was made in the office today. She was given my information to notify the office once the MRI is obtained. Follow up will be after the MRI is obtained, or sooner if needed. Orders: Orders shoulder LT wo con Today E11.9 - Type 2 diabetes mellitus without complications, M75.02 - Adhesive capsulitis of left shoulder Patient Instructions: Scribed by Tami Monaco bio medical technician, for Adrienne Connell PA-C on 09/23/2023 at 3:50 pm, EST. Coding Level of Care Code Est Pt Level 3 (72268) Diagnoses Type 2 diabetes mellitus E11.9 Adhesive capsulitis of left shoulder M75.02
== END 2023-09-23 15:55 | disposition home or self-care (01) ==
LOC: HO.HOS 15:20
PROVIDERS: PCP Internal Medicine Geriatric Medicine; Visit Provider Physician Assistant
DX: M75.02 Adhesive capsulitis of left shoulder (principal); E11.9 Type 2 diabetes mellitus without complications
CPT/HCPCS: 99213

== ENCOUNTER 2023-10-25 15:20 | Outpatient (REF) | payer OTHER, SELFPAY ==
--- NOTE | ~2023-10-25 | MR_ITS ---
EXAMINATION: MR SHOULDER WITHOUT CONTRAST, LEFT CLINICAL INFORMATION: Left shoulder pain with limited range of motion. COMPARISON: Multiple priors, most recent left shoulder radiographs dated 09/23/2023. TECHNIQUE: MRI of the shoulder without contrast was performed on a high-field scanner. FINDINGS: ROTATOR CUFF: Mild supraspinatus and infraspinatus tendinosis. Near complete, full-thickness tear of the supraspinatus tendon with a few thin anterior tendon fibers remaining intact. Articular surface tearing extends posteriorly through the majority of the infraspinatus tendon. Overall tearing measures up to 3.2 x 3.3 cm (AP by ML), with the torn tendon fibers retracted proximal to the humeral head apex. Moderate supraspinatus and infraspinatus muscle atrophy. Moderate subscapularis tendinosis with distal articular surface partial tearing measuring up to 2.7 cm in ML dimension. BICEPS: Absence of the proximal long head biceps tendon consistent with a complete tendon tear and tendon retraction. CORACOACROMIAL ARCH: The undersurface of the acromion is curved with tiny subacromial spurs. Mild acromioclavicular osteoarthritis. LABRUM/CAPSULE: Attenuation and irregularity through the periphery of the superior and posterosuperior labrum, consistent with irregular tearing. Intact inferior joint capsule. GLENOHUMERAL JOINT/MARROW: Diffuse articular cartilage signal heterogeneity with tiny marginal osteophytes. Dbrvp-ft-jruxvwvg joint effusion with mild synovitis. MR/MR shoulder LT wo con IMPRESSION: 1. Mild supraspinatus and infraspinatus tendinosis with a near complete, full-thickness tear of the supraspinatus tendon with a few thin anterior tendon fibers remaining intact. Articular surface tearing extends posteriorly through the majority of the infraspinatus tendon. The torn tendon fibers are retracted proximal to the humeral head apex. Moderate supraspinatus and infraspinatus muscle atrophy. 2. Moderate subscapularis tendinosis with distal articular surface partial tearing measuring 2.7 cm in ML dimension. 3. Complete tear and retraction of the proximal long head biceps tendon. 4. Mild acromioclavicular osteoarthritis with tiny subacromial spurs. 5. Irregular tearing through the periphery of the superior and posterosuperior labrum. 6. Mild glenohumeral osteoarthritis. Txlzk-si-amscjqwq joint effusion with mild synovitis.
== END 2023-10-25 15:21 | disposition home or self-care (01) ==
LOC: HO.MRI 15:20
PROVIDERS: PCP Internal Medicine Geriatric Medicine; Visit Provider Physician Assistant
DX: M75.02 Adhesive capsulitis of left shoulder (principal); E11.9 Type 2 diabetes mellitus without complications
CPT/HCPCS: 73221

== ENCOUNTER 2023-11-19 08:44 | Outpatient (AMB) | payer OTHER, SELFPAY ==
--- NOTE | 2023-11-19 09:07 | MHC.OFFVIS ---
Intake Visit Reasons: OV- MRI review Intake Note: Jacque is a 72 year old right hand dominant female who presents today for a MRI review of her left shoulder. Patient is still having continuous pain and it is getting worse. 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 Allergies No Known Allergies Allergy (Verified 11/19/23 09:11) HPI HPI OV- MRI review: Details: 73-year-old right hand dominant female, who is Singaporean speaking, presents in the office today for MRI review of left shoulder. ? While in the office today, the patient continues to experience pain in her left shoulder. She reports that the last cortisone injection in the left shoulder on 07/30/2023,?did not?provide her with any relief. The patient has attended 6 formal physical therapy sessions and reports that this did not help and caused her more pain.? ? Patient has a significant medical history of diabetes mellitus.? [facility] Medical History (Updated 11/19/23 @ 09:27 by Adrienne Connell PA-C) Hiatal hernia Osteopenia (~2007) Urinary incontinence Nicotine dependence, cigarettes, uncomplicated Osteoarthritis GERD (gastroesophageal reflux disease) COPD (chronic obstructive pulmonary disease) CKD (chronic kidney disease) Type 2 diabetes mellitus Hypertension Surgical History History of hemorrhoidectomy History of hysterectomy History of colonoscopy History of esophagogastroduodenoscopy (EGD) Social History Are you a primary hearing care practitioner to a significant other at home: No Do you presently have visiting nurse or other home services: No Patient Tobacco Use Status: Current everyday Tobacco user Cigarette Packs Per Day: 12 Years Smoked: onset 14yo, 1/2-1ppd x 58yrs, 40+PYH) Advance Directives Date on File: 10/02/14 Review of Systems Const All systems reviewed & are unremarkable except as noted in HPI and below Physical Exam Const General: cooperative, healthy appearing and no acute distress Orientation/consciousness: patient oriented x3 HEENT Head: Yes normocephalic and Yes atraumatic Eyes EOM: EOMs intact bilaterally Resp Effort & Inspection: normal respiratory effort and able to speak in complete sentences Cardio Jugular venous distension: no JVD Rate: regular rate Peripheral pulses: Peripheral pulses 2+ throughout GI Palpation (GI): Soft to palpation Skin General skin exam: turgor normal Lesions: no lesions Rashes: no rashes Neuro General: patient oriented x3 Extrem Other: left shoulder 20 degrees of external rotation compared to 45 on the contralateral shoulder. Passive forward flexion to 90 and passive abduction to about 70. Positive Mccord and Neer. NVI. Psych Appearance: grossly normal Affect: normal affect Attitude: cooperative Office Procedures Joint Injection/Drain Joint Injection/Drain Primary Site: left shoulder Prep: site was prepped using aseptic technique, ethochloride spray was applied and injection warnings given Injected: 80 mg of, DepoMedrol, with 8 mL of (2% plain lido ) and in the subcromial space Approach Used: posterolateral Procedure: The patient tolerated the procedure well, but had some pain with the injection and there was some relief with the local anesthesia Coding 64430 - Large joint Procedure code (CPT) selection complete Assessment & Plan Assessment & Plan (1) Rotator cuff tear, left: Code(s): M75.102 - Unspecified rotator cuff tear or rupture of left shoulder, not specified as traumatic Category: Medical Plan Ms. Triana is a 73-year-old right hand dominant female, who is Singaporean speaking, presents in the office today for MRI review of left shoulder. ? While in the office today, the patient continues to experience pain in her left shoulder. She reports that the last cortisone injection in the left shoulder on 07/30/2023,?did not?provide her with any relief. The patient has attended 6 formal physical therapy sessions and reports that this did not help and caused her more pain.? ? Patient has a significant medical history of diabetes mellitus.?? ? A referral to pain management was?provided in the office today. We discussed surgical interventions for rotator cuff repair of left shoulder but deferred due to Muscle atrophy, tendon retraction, and age related to bone quality.?We also discussed the role of a potential total shoulder arthroplasty in the future for pain relief, however, the patient defers any further discussion of this. She does not wish to have surgical intervention at this time. Encouraged to attend physical therapy sessions however she declined to attend any further sessions at this time. She reported when she attended p.t. last this increased her pain. We discussed the role of repeat cortisone injection, she would like to move forward with an injection. ?The patient was offered a cortisone injection in the left shoulder with 80 mg of DepoMedrol. The patient was explained the risk, benefits, and alternatives to receiving this injection. After receiving consent for the injection, the patient had the procedure done while in the office today. The patient tolerated the procedure well with no complications. ? ? Due to the patient?s history of diabetes, they were instructed to monitor her blood glucose level. The patient was informed that they could see a rise in their numbers and if the numbers became too high, they were instructed to call their PCP. The patient was also informed that they could have facial flushing as a side effect of the injection but this will pass. Follow up will be PRN, or sooner if needed.? ? MRI of the left shoulder which was obtained on 10/25/2023, revealed:? 1. Mild supraspinatus and infraspinatus tendinosis with a near complete, full-thickness tear of the supraspinatus tendon with a few thin anterior tendon fibers remaining intact. Articular surface tearing extends posteriorly through the majority of the infraspinatus tendon. The torn tendon fibers are retracted proximal to the humeral head apex.? Moderate supraspinatus and infraspinatus muscle atrophy.? ? 2. Moderate subscapularis tendinosis with distal articular surface partial tearing measuring 2.7 cm in ML dimension.? ? 3. Complete tear and retraction of the proximal long head biceps tendon.? ? 4. Mild acromioclavicular osteoarthritis with tiny subacromial spurs.? ? 5. Irregular tearing through the periphery of the superior and? posterosuperior labrum.? ? 6. Mild glenohumeral osteoarthritis. Xafwq-pf-hdxpzszi joint effusion with mild synovitis.? Orders: Referrals Pain Management Referral M75.102 - Unspecified rotator cuff tear or rupture of left shoulder, not specified as traumatic Patient Instructions: Scribed by Kirill Olmstead medical laboratory assistant, for Adrienne Connell PA-C on 11/19/2023 at?9:00 AM EST.? Coding Level of Care Code Est Pt Level 4 (21700) Diagnoses Rotator cuff tear, left M75.102 CPT Codes Coding - 67872 Large joint: 49750 - Large joint ([id number])
== END 2023-11-19 09:49 | disposition home or self-care (01) ==
PROVIDERS: PCP Internal Medicine Geriatric Medicine; Visit Provider Physician Assistant
DX: M75.102 Unspecified rotator cuff tear or rupture of left shoulder, not specified as traumatic (principal); M19.012 Primary osteoarthritis, left shoulder
CPT/HCPCS: 20610; 99214

== ENCOUNTER → 2023-11-19 08:44 | Outpatient (BNVA) | payer OTHER, SELFPAY | PROVIDERS: PCP Internal Medicine Geriatric Medicine; Visit Provider Physician Assistant | DX: M75.102 Unspecified rotator cuff tear or rupture of left shoulder, not specified as traumatic (principal) | CPT/HCPCS: 20610; 99212; J1010 ==

== ENCOUNTER 2023-12-13 09:43 | Outpatient (REF) | payer OTHER, SELFPAY ==
--- NOTE | ~2023-12-13 | XR_ITS ---
EXAMINATION: XR CHEST CLINICAL INFORMATION: 73-year-old smoker with fever, cough and wheezing. COPD exacerbation. Orders for chest x-ray, cough COMPARISON: 12/25/2022 CT chest, 01/01/2021 radiograph chest. TECHNIQUE: 3 views of the chest. FINDINGS: The lungs are well inflated with emphysematous changes. Heart size is normal. Redemonstration of blunting of the bilateral costophrenic angles, right greater than left, possibly representing trace pleural effusions versus pleural thickening. Degenerative changes in the thoracic spine. Redemonstration of postsurgical changes of esophagectomy and gastric pull-up. XR/XR chest 2V IMPRESSION: Redemonstration of blunting of the bilateral costophrenic angles, right greater than left, possibly representing trace pleural effusions versus pleural thickening. Emphysematous changes. No new focal consolidation. This study was presented today December 13, 2023 for interpretation. Stat results provided at this time as requested by referring provider.
== END 2023-12-13 09:44 | disposition home or self-care (01) ==
LOC: HO.HHCX 09:43
PROVIDERS: Visit Provider Internal Medicine
DX: R05.1 Acute cough (principal)
CPT/HCPCS: 71046

== ENCOUNTER 2024-01-03 08:02 | Outpatient (REF) | payer OTHER, SELFPAY ==
[2024-01-03 11:56] LABS: MANUAL DIFF FLAG NO
[2024-01-03 12:06] LABS: Basophils Absolute Auto 0.1 X10*3/uL (0.0-0.2); Eosinophils Absolute Auto 0.2 X10*3/uL (0.0-0.4); Eosinophils Percent Auto 2.9 % (0-4); Hemoglobin 11.9 g/dl (12.0-16.0); Imm Gran Abs Auto 0.01 X10*3/uL (0.00-0.03); Imm Gran Pct Auto 0.2 % (0.0-0.4); Lymphocytes Absolute Auto 1.9 X10*3/uL (1.2-4.9); Lymphocytes Percent Auto 36.9 % (20-40); Mean Corpuscular HGB Conc 33.1 g/dl (31.0-35.0); Mean Corpuscular Hemoglobin 32.8 pg (27.0-33.0); Mean Corpuscular Volume 99.2 fL (80.0-98.0); Mean Platelet Volume 10.9 fL (9.4-12.3); Monocytes Absolute Auto 0.5 X10*3/uL (0.1-1.2); Monocytes Percent Auto 8.8 % (2-11); Neutrophils Absolute Auto 2.6 x10*3/uL (2.0-8.3); Neutrophils Percent Auto 50.2 % (45-73); Platelet Count 296 X10*3/uL (160-400); Red Blood Count 3.63 X10*6/uL (4.20-5.50); Red Cell Distribution Width 14.1 % (11.0-16.0); White Blood Count 5.1 X10*3/uL (4.8-10.8)
[2024-01-03 12:15] LABS: Alanine Aminotransferase 9 U/L (0-31); Albumin Level 3.7 g/dL (3.5-5.0); Alkaline Phosphatase 125 U/L (39-117); Anion Gap 10 (12-20); Aspartate Amino Transferase 19 U/L (5-31); Bilirubin Total 0.5 mg/dL (0.0-1.0); Blood Urea Nitrogen 21 mg/dL (9-16); Calcium 8.9 mg/dL (8.4-10.2); Carbon Dioxide 26 mmol/L (22-29); Chloride 109 mmol/L (96-108); Estimated Glomerular Filt Rate > 60; Glucose Random 114 mg/dL (60-115); Potassium 3.4 mmol/L (3.3-5.1); Sodium 142 mmol/L (135-145); Total Protein 6.9 g/dL (6.5-8.0)
[2024-01-03 12:22] LABS: Creatinine Urine 144.72 mg/dL; Microalbum/Creatinine Ratio Ur 21.4 ug/mg cr (<30)
[2024-01-05 12:10] LABS: Iron 50 mcg/dL (30-160); Percent Iron Saturation 15 % (15-50); Total Iron Binding Capacity 324 mcg/dL (228-428); Unsaturated Iron Binding 274 ug/dL
[2024-01-05 12:31] LABS: Ferritin 28 ng/mL (10-250)
== END 2024-01-03 08:03 | disposition home or self-care (01) ==
LOC: HO.HHCL 08:02
PROVIDERS: Visit Provider Internal Medicine Geriatric Medicine
DX: D64.9 Anemia, unspecified (principal); J44.1 Chronic obstructive pulmonary disease with (acute) exacerbation; E11.69 Type 2 diabetes mellitus with other specified complication; N39.3 Stress incontinence (female) (male)
CPT/HCPCS: 36415; 80053; 82043; 82570; 82728; 83540; 85025

== ENCOUNTER 2024-04-20 10:46 | Outpatient (REF) | payer OTHER, SELFPAY | END 2024-04-20 10:47 | disposition home or self-care (01) | LOC: HO.HHCX 10:46 | PROVIDERS: PCP Internal Medicine Geriatric Medicine; Visit Provider Family Medicine | DX: M79.645 Pain in left finger(s) (principal) | CPT/HCPCS: 73130 ==

== ENCOUNTER 2024-05-22 09:42 | Outpatient (REF) | payer OTHER, SELFPAY ==
--- NOTE | ~2024-05-22 | XR_ITS ---
EXAMINATION: XR FINGER, LEFT CLINICAL INFORMATION: persistent finger pain with wound x 2 mos, r/o OSTEO COMPARISON: None available. TECHNIQUE: 3 views of the left second digit. FINDINGS: There is loss of PIP and DIP joint spaces all digits with mild periarticular spurring. The joint first digit. No acute fracture, dislocation subluxation seen. There is mild soft tissue prominence of the PIP joints of second through fourth digits. 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 No visible acute fracture or dislocation seen. Electronically signed by: Carmine Lott MD 05/22/2024 10:20 AM NATALIIA
== END 2024-05-22 09:43 | disposition home or self-care (01) ==
LOC: HO.HHCX 09:42
PROVIDERS: Visit Provider Family Medicine
DX: M79.645 Pain in left finger(s) (principal)
CPT/HCPCS: 73140

== ENCOUNTER → 2024-05-22 09:46 | Outpatient (BNV) | payer OTHER, SELFPAY | PROVIDERS: Visit Provider Radiology Diagnostic Radiology | DX: M19.042 Primary osteoarthritis, left hand (principal) | CPT/HCPCS: 73140 ==

== ENCOUNTER 2024-05-22 10:02 | Outpatient (REF) | payer OTHER, SELFPAY ==
[2024-05-22 11:21] LABS: Hematocrit 35.8 % (37.0-47.0); Hemoglobin 11.9 g/dl (12.0-16.0); Mean Corpuscular HGB Conc 33.2 g/dl (31.0-35.0); Mean Corpuscular Hemoglobin 31.9 pg (27.0-33.0); Mean Platelet Volume 10.7 fL (9.4-12.3); Platelet Count 250 X10*3/uL (160-400); Red Blood Count 3.73 X10*6/uL (4.20-5.50); Red Cell Distribution Width 13.8 % (11.0-16.0); White Blood Count 4.9 X10*3/uL (4.8-10.8)
[2024-05-22 12:00] LABS: Alanine Aminotransferase 11 U/L (0-31); Albumin Level 3.9 g/dL (3.5-5.0); Alkaline Phosphatase 130 U/L (39-117); Anion Gap 9 (12-20); Aspartate Amino Transferase 26 U/L (5-31); Bilirubin Direct 0.3 mg/dL (0.0-0.5); Bilirubin Total 0.8 mg/dL (0.0-1.0); Blood Urea Nitrogen 18 mg/dL (9-16); C Reactive Protein 0.14 mg/dL (< or = 0.50); Calcium 8.8 mg/dL (8.4-10.2); Carbon Dioxide 28 mmol/L (22-29); Chloride 109 mmol/L (96-108); Estimated Glomerular Filt Rate > 60; Glucose Random 114 mg/dL (60-115); Potassium 3.6 mmol/L (3.3-5.1); Sodium 142 mmol/L (135-145)
[2024-05-22 12:06] LABS: Erythrocyte Sedimentation Rate 23 MM/HR (0-20)
== END 2024-05-22 10:03 | disposition home or self-care (01) ==
LOC: HO.HHCL 10:02
PROVIDERS: Visit Provider Family Medicine
DX: Z13.89 Encounter for screening for other disorder (principal)
CPT/HCPCS: 36415; 80048; 80076; 85027; 85652; 86140

== ENCOUNTER 2024-08-17 09:39 | Outpatient (REF) | payer OTHER, SELFPAY ==
--- NOTE | ~2024-08-17 | US_ITS ---
EXAMINATION: US DOPPLER UPPER EXTREMITY ARTERIAL , LEFT CLINICAL INFORMATION: Ischemic finger, left hand. COMPARISON: None available. TECHNIQUE: Duplex Doppler techniques with waveform analysis and measurement of peak systolic velocities in the left subclavian, axillary, brachial, radial and ulnar arteries. FINDINGS: Calcified plaques throughout the interrogated arteries. Subclavian artery, proximal segment: 20 cm/s. Monophasic waveform. Spectral broadening. Subclavian artery, mid segment: 35 cm/s. Monophasic waveform. Spectral broadening. Subclavian artery distal segment: 29 cm/s. Monophasic waveform. Spectral broadening. Axillary artery: 31 cm/s. Monophasic waveform. Spectral broadening. Brachial artery, proximal segment: 31 cm/s. Monophasic waveform. Spectral broadening. Brachial artery distal segment: 33 cm/s. Monophasic waveform. Spectral broadening. Radial artery, mid segment: 18 cm/s. Monophasic waveform. Spectral broadening. Ulnar artery, mid segment: 16 cm/s. Monophasic waveform. Spectral broadening. US/US arterial duplex UE LT IMPRESSION: Severe inflow disease/ interrogated arteries of the left upper extremity. Electronically signed by: Osvaldo Serrano MD 08/17/2024 10:45 AM EDT
--- OUTSIDE RECORDS SUMMARY | 2024-08-17 10:51 | XMS_ITS | Encounter Summary ---
Author Organization [employer] Address [address] [place] [address] Care Team Providers Care Superintendent Refuse Disposal Name Role Phone Name, Victor Hugo WARD Primary Care Provider [phone] Tori Silva PharmD Unavailable [phone] Encounter Details Date Type Department Care Team ([facility] st Contact Info) Description 02/22/2023 Abstract [facility] MEDICINE [address] [place] [address] Name, MD Victor Hugo [address] [place] [address] Social History Tobacco Use Types Packs/Day Years Used Date Smoking Tobacco: Every Day Cigarettes Smokeless Tobacco: Never Alcohol Use Standard Drinks/Week Comments Never 0 (1 standard drink = 0.6 oz pur e alcohol) PHQ-2 Answer Date Recorded Patient Health Questionnaire-2 Score 0 06/10/2022 Housing Stability Answer Date Recorded What is your housing situation today? I have linda britton 02/22/[address] you li ve. Do you have problems with any of the following? None of the above 02/22/2023 Food Insecurity Answer Date Recorded Within the past 12 months, y ou worried that your food would run out before you got money to buy more: Never True 02/22/2023 Within the past 12 months,th e food you bought just didn't last and you didn't have enough money to get more: Never True Transportation Answer Date Recorded In the past 12 months, has l ack of transportation kept you from medical appts, meetings, work or from getting things needed for daily living? No 02/22/2023 Utilities Answer Date Recorded In the past 12 months, has t he electric, gas, oil or water company threatened to shut off services in your home? No 02/22/2023 Depression Answer Date Recorded Patient Health Questionnaire-2 Score 0 06/10/2022 Comments Unknown Sex and Gender Information Value Date Recorded Sex Assigned at Female 03/09/2022 10:17 AM EDT Legal Sex Female 10:17 AM EDT Gender Identity Female 03/09/2022 10:17 AM EDT Sexual Orientation Straight 03/09/2022 10 :17 AM EDT documented as of this encounter Plan of Treatment Upcoming Encounters Date Type Department Care Team (Late st Contact Info) Description 08/23/2024 11:30 AM EDT Telemedicine [address] [address] Name, MD Victor Hugo [address] [place] [phone] 08/29/2024 9:30 AM EDT Clinical Support [address] [address] 11/17/2024 2:00 PM EDT Telemedicine [address] [address] Erin Peck RN documented as of this encounter Goals Goal Patient Goal Type Associated Problems Recent Progress Patient-Stated? Author Record your blood pressure periodically (~2x per week) Blood Pressure No Puia, Tori, PharmD Blood Pressure < 140/90 Blood Pressure 150/66(2024 9:16 AM EST) No Puia, Tori, PharmD Smoking cessation General No Puia, Tori, PharmD documented as of this encounter Procedures Procedure Name Priority Date/Time Associated Diagnosis Comments COLONOSCOPY Routine 01/01/2014 documented in this encounter Results * Colonoscopy (01/01/2014) Colonoscopy Normal Normal Comment:Repeat in 5 years Historical Provider HEALTH MAINTENANCE Final Result documented in this encounter Visit Diagnoses Not on filedocumented in this encounter Care Teams Superintendent Refuse Disposal Relationship Specialty Start Date End Date NameVictor Hugo MD [address] [place] [address] PCP - General Family Medicine 08/14/15 Tori Silva PharmD [address] [place] [address] Pharmacist Internal Medicine 02/24/22 documented as of this encounter
--- OUTSIDE RECORDS SUMMARY | 2024-08-17 10:51 | XMS_ITS | Data Portability ---
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 I provided real-time medical direction for this encounter and was immediately available to provide additional phone-based assistance as needed. 71F with COPD, Asthma, presenting with left foot swelling x 2 days. Pt denies known trauma, but did sustain a fall yesterday. Pt unable to weight bear, difficulty ambulating. Pt with a fever today, 100.4, + chills, no nausea/vomiting , SOB. Pt foot appears visibly edematous, no clear erythema or warmth. Painful to touch. Differential includes fracture vs cellulitis, pt will require further imaging. Suggested that patient be seen in person for further evaluation and imaging and pt agreable. For ED evaluation. Call ahead done. paysola Not available 02/11/2022 16:14:44 Plan of Treatment Reminders Order Date Submit Date Provider Last Modified By Organization Details Last Modified Time Details Appointments None record ed. Lab None record ed. Referral None record ed. Procedures None record ed. Surgeries None record ed. Imaging None record ed. Medication Orders None record ed. Patient TargetsNo targets recorded. Patient InstructionsNo instructions recorded. Reason for Referral None Reported. Medical Equipment None Reported. Medications Name Sig Start Date Stop Date Status Note LastModified by Organization Details LastModified Time losartan 50 mg tablet TAKE 1 TABLET BY MOUTH EVERY DAY active Not Available Not Available No t Available acetaminophe n 160 mg/5 mL oral liquid TAKE 10 ML BY MOUTH EVERY 8 HOURS NEEDED active Not Available Not Available No t Available trazodone 50 mg tablet TAKE 1/2 TABLET BY MOUTH AT BEDTIME active Not Available Not Available No t Available sucralfate 100 mg/mL oral suspension TAKE 10 ML BY MOUTH FOUR TIMES DAILY BEFORE MEALS AND NIGHTLY FOR 30 DAYS active Not Available Not Available No t Available clonazepam 1 mg tablet TAKE 1 TABLET BY MOUTH EVERY DAY active Not Available Not Available No t Available Accu-Chek Softclix Lancets TEST BLOOD SUGAR EVERY DAY DIRECTED active Not Available Not Available No t Available gabapentin 250 mg/5 mL oral solution TAKE 5 ML BY MOUTH AT BEDTIME active Not Available Not Available No t Available amlodipine 2.5 mg tablet TAKE 1 TABLET BY MOUTH EVERY DAY active Not Available Not Available No t Available amlodipine 5 mg tablet TAKE 1 TABLET BY MOUTH EVERY DAY active Not Available Not Available No t Available omeprazole 40 mg capsule,lorenzo yed release TAKE 1 CAPSULE BY MOUTH EVERY DAY BEFORE A MEAL active Not Available Not Available No t Available tramadol 50 mg tablet TAKE 1 TABLET BY MOUTH EVERY 8 HOURS NEEDED active Not Available Not Available No t Available phenazopyrid ine 100 mg tablet TAKE 1 TABLET BY MOUTH THREE TIMES DAILY AFTER MEALS NEEDED active Not Available Not Available No t Available cyanocobalam in (vit B-12) 1,000 mcg/mL injection solution INJECT 1 ML INTRAMUSCUL CESAR EVERY MONTH active Not Available Not Available No t Available lisinopril 5 mg tablet TAKE 1 TABLET BY MOUTH EVERY DAY active Not Available Not Available No t Available zolpidem 5 mg tablet TAKE 1 TABLET BY MOUTH AT BEDTIME active Not Available Not Available No t Available losartan 100 mg tablet TAKE 1 TABLET BY MOUTH EVERY DAY active Not Available Not Available No t Available dicyclomine 10 mg capsule TAKE 1 CAPSULE BY MOUTH FOUR TIMES DAILY NEEDED FOR ABDOMINAL CRAMPS. MAY OPEN CAPSULE AND SPRINKLE ON APPLESAUCE active Not Available Not Available N ot Available nitrofuranto in monohydrate/ macrocrystal s 100 mg capsule TAKE 1 CAPSULE BY MOUTH EVERY TWELVE HOURS WITH FOOD active Not Available Not Available No t Available ramelteon 8 mg tablet TAKE 1 TABLET BY MOUTH EVERY DAY AT BEDTIME active Not Available Not Available No t Available diclofenac 1 % topical gel APPLY 2 GRAMS TO AFFECTED AREA(S) TWICE DAILY active Not Available Not Available Not Available blood pressure test kit-large cuff USE TO CHECK BLOOD PRESSURE TWICE DAILY active Not Available Not Available Not Available Trulicity 0.75 mg/0.5 mL subcutaneous pen injector INJECT ONE PEN (=0.75MG) SUBCUTANEOU SLY ONCE A WEEK DIRECTED active Not Available Not Available No t Available Accu-Chek Guide test strips TEST BLOOD SUGAR EVERY DAY DIRECTED active Not Available Not Available No t Available Accu-Chek Guide Me Glucose Meter TEST BLOOD SUGAR DIRECTED active Not Available Not Available No t Available Vitals Date Recorded Heart rate Respiratory rate Body temperature Oxygen saturation Oxygen saturation in Arterial blood by Pulse oximetry Oxygen saturation Oxygen saturation in Arterial blood by Pulse oximetry Heart rate Respiratory rate Body temperature Systolic blood pressure Diastolic blood pressure Systolic blood pressure Diastolic blood pressure Provider Name and Address Organization Details Last Updated DateTime 2 75 /min 16 /min 100.4 [degF] 99 % 99 % 99 % 99 % 75 /min 16 /min 100.4 [degF] 163 mm[Hg] 69 mm[Hg] 163 mm[Hg] 69 mm[Hg] Not Available [facility] - production 16:52:55 Social History None recorded. Functional Status None recorded. Mental Status None recorded. Family History Nothing Reported. Medical History No medical history recorded. Gynecological HistoryNo gynecological history recorded. Obstetrics History GPAL:G 0 P 0 0 0 0 Past Encounters Encounter ID Performer Location Encounter Start Date Encounter Closed Date Diagnosis/Indication Diagnosis SNOMED-CT Code Diagnosis ICD10 Code Diagnosis Note [id number] Cynthia Charles MD [facility] - [address] [id number] 02/11/2022 16:07:02 02/12/2022 12:00:00 Swelling of left foot 994929021 M79.89 Health Concerns Section Related Observation LastModified by Organization Detai ls LastModified Time None Recorded Concern Status LastModified by Organization Details LastModified Time None Recorded Advance Directives Directive None Recorded Payers Encounter Date Sequence Insurance Name Policy Number Policy Isidro Covered Member ID Isidro Member ID Guarantor Name 02/11/2022 1 [facility] - DOS PRIOR TO 2022 - DUAL ELIGIBLE (MEDICARE REPLACEMENT/ADV ANTAGE - HMO) Jacque Triana [id number] Jacque Triana Notes Date Note Type Note Provider Name and Address Organization Details Recorded Time 02/11/2022 text/html HPI: Pt reported pedal edema and pain on her left foot only, new, starting to get worse, stated started 2 days ago, staed no falls or injury. Stated has chills today, no fevers. Denied cough, sneezing or any other cardio-respiratory sx. Stated does not want to go to the ER. Pt is A+OX3, pleasant and cooperative. Member is 71 y/o, [place] speaking, female, who lives with spouse, 3rd floor, 1-bedroom apartment, with elevator access. Member is with PMH: OA, MDD, UI, osteopenia, DMII with CKDII, hypertensive retinopathy of both eyes, COPD, hypertensive kidney disease with CKD, persistent dry cough, normocytic anemia, vit B 12 deficiency, cataracts, GERD, lower abdominal pain, achalasia and cardiospasm. .................. .................. .................. .................. .................. .................. .................. ............... [facility] Nursing Assessment: Comments: CRC RN did not require any additional information to process this visit. .................. .................. .................. .................. .................. .................. .................. ............... Waste Treatment Operator Note: Sent to evaluate pt with L foot pain/edema. Arrived on scene and patient obviously in pain/distress. Pt is awake and alert, airway open and patent, breathing regular. Pt seated on couch with L foot elevated. L ankle/foot is edematous, with no edema superior to ankle. Pt states she woke up x2 days ago to find L ankle/foot throbbing in pain, denies trauma prior to symptoms starting. Pt took APAP last night with no effect and has been trying topical remedies. Pt denies hx of gout, cellulitis, CHF or blood clots. Pt has been unable to weight bear since pain started and reports to have had a fall last night due to instability/pain of ankle. Denies head strike/loc from fall. Assessment reveals skin to be hot, pink, dry. Pt denies fevers but found to have a temp of 100.4 at this time. Pt denies any other symptoms or complaints at this time, including cough, SOB, BLUM, or CP. No streaking noted to ankle/leg, does not appear cellulitic. No calf tenderness. Medial ankle is tender to touch but no crepitus on palpation. Pt has +pulse, sensory, motor to L foot but decreased range of motion. Spoke to pt's PCP office who report they have no appt's the rest of the week. Consulted [facility] [place] who recommended that pt go to ER for further evaluation. Pt agrees and EMS is called. Pt care turned over to [facility] and pt to be transported to [facility]. .................. .................. .................. .................. .................. .................. .................. ............... Disposition: Jaimee Charles MD [address] [facility],[address], [place], [address], [facility] 02/11/2022 17:58:28 OBGyn Episode No OBEpisode recorded.
--- OUTSIDE RECORDS SUMMARY | 2024-08-17 10:51 | XMS_ITS | Clinical Summary ---
Author Organization [employer] Address [address] [facility] [address] [place] [address] Care Team Providers Care Car Wrecker Name Role Phone Name, Victor Hguo WARD Primary Care Provider [phone] Tori Silva PharmD Unavailable [phone] Allergies No known active allergies Medications Nutritional Supplements (Ensure Plus) liquid one can 3 times per day for Achlasia, dysphagia and wt loss 018 Active Diclofenac Sodium 1 % gel APPLY 2 GRAMS TOPICALLY TO AFFECTED AREA(S) TWICE DAILY 100 g 1 024 Active pyridoxine (Vitamin B-6) 50 MG tablet Take 1 tablet (50 mg) by mouth Once per day. 30 tablet 11 024 2024 Active FREESTYLE LITE test strip Use to test blood sugar 1 times daily 100 each 12 024 2024 Active Lancets misc Use to test blood sugar 1 times daily 100 each Active Blood Glucose Monitoring Suppl (FreeStyle Bell Lite) w/Device kit Use to test blood sugar 1 times daily 1 kit 024 Active pantoprazole (ProtoNix) 20 MG EC tablet TAKE 1 TABLET BY MOUTH TWICE DAILY IN THE MORNING AND IN THE EVENING 024 Active Ventolin HFA 108 (90 Base) MCG/ACT inhalerIndicati ons:COPD exacerbation (CMS/HCC) INHALE 2 PUFFS EVERY 6 HOURS NEEDED FOR WHEEZING 18 g 024 Active budesonide-form oterol (Symbicort) 80-4.5 MCG/ACT inhalerIndicati ons:Cough in adult patient,COPD exacerbation (CMS/HCC) Inhale 2 puffs in the morning and at bedtime. Rinse mouth with water after use to reduce aftertaste and incidence of candidiasis. Do not swallow. 1 each 024 2024 Active Blood Pressure kit Use once daily as directed to monitor home BP 1 kit Active amLODIPine (Norvasc) 10 MG tabletIndicatio ns:Essential hypertension TAKE 1 TABLET BY MOUTH EVERY MORNING 30 tablet 5 024 Active Trulicity 0.75 MG/0.5ML solution auto-injectorIn dications:Type 2 diabetes mellitus without complication, without long-term current use of insulin (CMS/HCC) INJECT ONE PEN (=0.75MG) SUBCUTANEOUSLY ONCE A WEEK DIRECTED 2 mL 3 024 Active cyanocobalamin (Vitamin B-12) 1000 MCG/ML injection INJECT 1 ML INTRAMUSCULARLY EVERY 30 DAYS 025 Active naloxone (Narcan) 4 mg/0.1 mL nasal sprayIndication s:Acute pain of left shoulder Administer 1 spray (4 mg) into affected nostril(s) if needed for opioid reversal. May repeat every 2-3 minutes if needed, alternating nostrils, until medical assistance becomes available. 2 each 3 025 2025 Active losartan (Cozaar) 100 MG tabletIndicatio ns:Essential hypertension TAKE 1 TABLET BY MOUTH EVERY MORNING 30 tablet 5 Active clopidogrel (Plavix) 75 MG tablet Take 1 tablet (75 mg) by mouth Once per day. 30 tablet 11 025 2025 Active atorvastatin (Lipitor) 40 MG tablet Take 1 tablet (40 mg) by mouth Once per day. 30 tablet 11 025 2025 Active traMADol (Ultram) 50 MG tabletIndicatio ns:Acute pain of left shoulder TAKE 1 TABLET BY MOUTH EVERY 8 HOURS NEEDED FOR SEVERE PAIN 84 tablet 025 Active Incruse Ellipta 62.5 MCG/ACT aerosol powder INHALE 1 PUFF BY MOUTH EVERY DAY AT THE SAME TIME RINSE MOUTH AFTER USING 30 each 1 025 Active Incruse Ellipta 62.5 MCG/ACT aerosol powder INHALE 1 PUFF BY MOUTH EVERY DAY AT THE SAME TIME RINSE MOUTH AFTER USING 30 each 1 025 2024 Discontinued traMADol (Ultram) 50 MG tabletIndicatio ns:Acute pain of left shoulder Take 1 tablet (50 mg) by mouth every 8 (eight) hours if needed for severe pain for up to 28 days. 84 tablet 025 2024 Discontinued Hospital, Clinic, or Other Facility Administered Medication Ordered Dose Route Frequency Start Date End Date Status cyanocobalamin (Vitamin B-12) injection 1,000 mcgIndications:Anemia, unspecified type,Cobalamin deficiency 1000 mcg IM Every 30 days 03/29/2024 Active Active Problems Problem Noted Date Diagnosed Date Paronychia of finger, left 06/05/2024 Assessment & Plan (06/07/2024 10:10 AM EST): I& D performed without return of pus Suspect damage to underlying nailbed and surrounding tissue due to length of infection and poor circulation at that point. Recommend smoking cessation, wearing gloves in the cold. Referral to hand surgeon to determine benefit of nail removal and debridement of tissue. Assessment & Plan (06/05/2024 12:21 PM EST): Use Lotrisone cream BID Start Duricef BID X 7 days Continue vinegar soaks and FU with dermatology. May need incision and drainage of lesion if no improvement. Pain in finger of left hand 04/20/2024 Assessment & Plan (04/20/2024 10:39 AM EST): Swelling and tenderness to 2nd digit of left hand. Suspect infectious. -ordered XR 04/20/24 -start Doxycyline 100 mg BID for 7 days. -no discharge or debris to culture. Tobacco use 12/10/2023 Assessment & Plan (12/10/2023 9:19 AM EDT): Pt is life long smoker, reports nothing has helped her quit, interested in low dose ct program, referral made Cough in adult patient 12/10/2023 Neck pain 05/06/2023 Assessment & Plan (05/06/2023 10:44 AM EST): Patient reports its better, she has upcoming appointments with specialist COVID-19 05/06/2023 Assessment & Plan (05/06/2023 10:46 AM EST): Patient out of the window for treatment Acetaminophen PRN drink plenty of fluids and rest If symptoms persist or worse go to emergency department COPD exacerbation 05/06/2023 Assessment & Plan (12/10/2023 9:20 AM EDT): Pt with cough, mild increase in sputum production, some sob, sig relief with anupam, will add inhaled steroid/laba if no improvement in 2-4 days, consider prednisone +/- abx X-ray unavailable today, pt aware of s/s requiring urgent evaluation Assessment & Plan (05/06/2023 10:48 AM EST): Possibly trigger by viral infections Z-pack and prednisone for 5 days Albuterol 2 puffs every 4-6hrs If symptoms persist or worse go to emergency room Upper abdominal pain 04/09/2022 History of esophagectomy 04/09/2022 H/O: hysterectomy 02/15/2018 Urinary incontinence 02/15/2018 Insomnia 01/04/2018 Cobalamin deficiency 12/02/2016 Rectal abnormality 12/02/2016 Flank pain 12/02/2016 Lesion of liver 12/02/2016 Claudication 09/03/2016 Jejunostomy present 07/29/2016 Chronic low back pain 02/27/2016 Chronic obstructive lung disease 02/27/2016 Exacerbation of asthma 02/27/2016 Weight decreased 11/05/2015 Hand pain 06/29/2012 Noncompliance with treatment 06/28/2012 Shoulder pain 04/19/2012 Knee pain 04/19/2012 Osteopenia 12/08/2011 Tobacco dependence syndrome 12/08/2011 Pure hypercholesterolemia 12/07/2010 Depression 10/24/2009 Benign essential hypertension 10/24/2009 Type 2 diabetes mellitus 10/24/2009 Assessment & Plan (05/06/2023 10:44 AM EST): Controlled c/w same interventions f/u with PCP Gastritis 12/08/2007 Encounters Date Type Department Care Team Description 08/17/2024 Orders Only [facility] [address] [place], [place] [phone] Victor Hugo Packer MD 08/02/[address] [place] [address] Victor Hugo Packer MD 07/28/2024 9:30 AM EDT Clinical Support [address] [place] [phone] Yadira Bethea, ALCIDES Cobalamin deficiency 07/28/2024 Travel 07/20/[address] [phone] Dolly Mccloud NP Acute pain of left shoulder 07/13/2024 9:15 AM EST Office Visit [address] [address] Victor Hugo Packer MD Ischemic finger ulcer, limited to breakdown of skin (CMS/HCC) (Primary Dx); Type 2 diabetes mellitus with other specified complication, without long-term current use of insulin (CMS/HCC) 07/13/2024 Travel 07/05/[address] [phone] Victor Hugo Packer MD Essential hypertension 06/30/2024 9:30 AM EST Clinical Support [address] [phone] Yadira Bethea RN Cobalamin deficiency 06/27/2024 9:30 AM EST Office Visit [facility] [address] [place] [address] Ambrose Stephens MD Ischemic finger ulcer, limited to breakdown of skin ([facility]/HCC) (Primary Dx); Tobacco dependence syndrome 06/27/2024 Travel 06/23/2024 10:00 AM EST Telemedicine [address] [phone] Erin Peck RN Chronic low back pain, unspecified back pain laterality, unspecified whether sciatica present 06/23/[address] [place] [phone] Erin Peck RN Acute pain of left shoulder 06/23/[address] [phone] Erin Peck, RN [employer] Renewal appt today 06/23/2024 Travel 06/23/[address] [address] Erin Peck, RN Recommend [employer] Tele Tier 2 06/20/[address] [address] Alexandra Gallego, ALCIDES 06/19/[address] [address] Alexandra Gallego RN 06/19/[address] [address] Alexandra Gallego, ALCIDES 06/09/2024 Telephone [facility] [address] [place] [phone] Victor Hugo Packer MD Appointment Request (Pt needs derm appt) 06/09/[address] [address] Kalpana Thompson RN 06/07/2024 9:30 AM EST Procedure Visit [address] [address] Hilda Klein MD Paronychisirisha of finger, left (Primary Dx) 06/07/[address] [phone] Deisi Guzman, ALCIDES Care Coordination 06/06/[address] [phone] Victor Hugo Packer MD Returning Call 06/05/2024 11:30 AM EST Office Visit [address] [address] Tyra Quevedo MD Paronychisirisha of finger, left (Primary Dx) 06/05/2024 Travel 06/02/2024 9:30 AM EST Clinical Support [address] [address] Yadira Bethea, ALCIDES B12 deficiency [E53.8]; Cobalamin deficiency 05/25/2024 10:20 AM EST Office Visit [facility] [address] [place] [phone] Ravindra Bruce MD Pain of finger of left hand (Primary Dx) 05/22/2024 9:00 AM EST Office Visit [facility] [address] [place] [address] Neli Obando DO Pain of finger of left hand (Primary Dx); Essential hypertension 05/22/2024 Refill [facility] [address] [place] [address] Name, MD Victor Hugo Acute pain of left shoulder from Last 3 Months Immunizations Name Administration Dates Next Due Hep A, Adult 06/16/2011 Hep B, adult 12/08/2011,06/16/2011 Influenza High-dose Quadriva lent Preservative Free 03/10/2022 Influenza injectable quadriv alent preservative free 04/29/2021 Influenza, High Dose Seasona l, Preservative Free 07/05/2019 Influenza, IIV3, injectable 03/10/2022, 1 MMR 06/16/2011 Moderna Covid-19 Vaccine 12+ 08/15/2020,07/19/19 21 Pfizer Covid-19 Vaccine 12+ 10/11/2023(D eferred: Patient decision),04/29/2021 Pfizer Covid-19 Vaccine 12+ Bivalent 09/22/2021 Pneumococcal Conjugate PCV 13 04/12/2017 Pneumococcal Polysaccharide PPSV23 07/05/2019,,07/12/2003 RSV Bivalent 07/19/2023 TD (adult), 2 Lf tetanus tox oid, preservative free, adsorbed 03/10/2022,07/12/2003 Tdap 06/16/2011 Zoster, Recombinant 09/08/2022,07/13/2022 Social History Tobacco Use Types Packs/Day Years Used Date Smoking Tobacco: Every Day Cigarettes Passive Smoke Exposure: Current Smokeless Tobacco: Never Tobacco Cessation:Ready to Q uit: Not Asked; Counseling Given: Not Answered Alcohol Use Standard Drinks/Week Comments Never 0 (1 standard drink = 0.6 oz pur e alcohol) Alcohol Answer Date Recorded Frequency of Alcohol Consumption Not on file 12/21/2023 Average Number of Drinks Not on file 024 Frequency of Binge Drinking Not on file 12/08 Score 0 12/21/2023 Depression Answer Date Recorded Patient Health Questionnaire-9 Score 0 08/27/2023 Patient Health Questionnaire-9 Score 0 08/27/2023 Last PHQ-9: Questionnaire Data Not on file 0 08/27/2023 Housing Stability Answer Date Recorded What is your housing situation today? I have linda britton 08/27/[address] you li ve. Do you have problems with any of the following? None of the above 08/27/2023 Food Insecurity Answer Date Recorded Within the past 12 months, y ou worried that your food would run out before you got money to buy more: Never True 08/27/2023 Within the past 12 months,th e food you bought just didn't last and you didn't have enough money to get more: Never True Transportation Answer Date Recorded In the past 12 months, has l ack of transportation kept you from medical appts, meetings, work or from getting things needed for daily living? No 08/27/2023 Utilities Answer Date Recorded In the past 12 months, has t he electric, gas, oil or water company threatened to shut off services in your home? No 08/27/2023 Depression Answer Date Recorded Patient Health Questionnaire-2 Score 0 08/27/2023 Comments Unknown Sex and Gender Information Value Date Recorded Sex Assigned at Female 03/09/2022 10:17 AM EDT Legal Sex Female 10:17 AM EDT Gender Identity Female 03/09/2022 10:17 AM EDT Sexual Orientation Straight 03/09/2022 10 :17 AM EDT Last Filed Vital Signs Vital Sign Reading Time Taken Comments Blood Pressure 150/66 07/13/2024 9:16 AM EST Pulse 80 07/13/2024 9:16 AM EST Temperature 36.3 ??C (97.3 ??F) 07/13/2024 9:16 AM ES T Respiratory Rate 12 07/13/2024 9:16 AM EST Oxygen Saturation 98% 07/13/2024 9:16 AM EST Inhaled Oxygen Concentration - - Weight 4.99 kg (11 lb) 07/13/2024 9:16 AM EST Height 152.4 cm (5') 07/13/2024 9:16 AM EST Body Mass Index 2.15 07/13/2024 9:16 AM EST Plan of Treatment Upcoming Encounters Date Type Department Care Team (Late st Contact Info) Description 08/23/2024 11:30 AM EDT [address]medicine [address] [place] [address] Name, [place] [address] 08/29/2024 9:30 AM EDT Clinical Support [address] [place] [address] 11/17/2024 2:00 PM EDT Telemedicine [facility] [place] [address] Erin Peck, RN Health Maintenance Due Date Last Done Comments CT Colonography 1950 FIT DNA/Cologuard 1950 FIT 1950 FOBT 1950 Sigmoidoscopy 1950 Hepatitis C Screening 1966 Hepatitis A Vaccines (2 of 2 - Risk 2-dose series) 12/15/2011 06/16/2011 Hepatitis B Vaccines (3 of 3 - Risk 3-dose series) 02/02/2012 12/08/2011, 06/16/2011 Colonoscopy 01/01/2019 01/01/2014 Colorectal Cancer Screening 01/01/2019 Lipid Panel 09/01/2023 08/31/2022, 0805/2021, 06/17/2021 COVID-19 Vaccine ( season) 2024 09/22/2021, 04/29/2021, 08/15/2020, Additional history exists Influenza Vaccine (#1) 2024 , 03/10/2022, 04/29/2021, Additional history exists Depression Screening 08/26/2024 08/27/2023, 08/27/19 24 SDOH Screening 08/26/2024 08/27/2023 Alcohol/Substance Use Screening 12/20/2024 12/21/2023 Diabetes: Urine Protein Screening 01/02/2025 01/03/2024, 01/07/2022, 06/17/2021 Diabetes: Hemoglobin A1C 01/13/2025 025, 12/21/2023, 05/06/2023, Additional history exists Diabetes: Foot Exam 03/28/2025 03/28/2024, 03/28/2024, 03/28/2024, Additional history exists Tobacco Screening 07/13/2025 07/13/2024 Eye Exam 09/22/2025 09/23/2023 DTaP/Tdap/Td Vaccines (3 - Td or Tdap) 03/10/2032 03/10/2022, 06/16/2011, 07/12/2003 Pneumococcal Vaccine: 50+ Years Completed 07/05/2019, 04/12/2017, 04/24/2010, Additional history exists Zoster Vaccines Completed 09/08/2022, 07/13/2022 RSV Patients and Patients Aged 60 years or older Completed 07/19/2023 HIB Vaccines Aged Out No longer eligi ble based on patient's age to complete this topic HPV Vaccines Aged Out No longer eligi ble based on patient's age to complete this topic IPV Vaccines Aged Out No longer eligi ble based on patient's age to complete this topic Meningococcal Vaccine Aged Out No jonel chris eligible based on patient's age to complete this topic RSV under 20 months Aged Out No longe r eligible based on patient's age to complete this topic Rotavirus Vaccines Aged Out No longer eligible based on patient's age to complete this topic Goals Goal Patient Goal Type Associated Problems Recent Progress Patient-Stated? Author Record your blood pressure periodically (~2x per week) Blood Pressure No Puia, Tori, PharmD Blood Pressure < 140/90 Blood Pressure 150/66(2024 9:16 AM EST) No Puia, Tori, PharmD Smoking cessation General No Puia, Tori, PharmD Procedures Procedure Name Priority Date/Time Associated Diagnosis Comments US ARTERIAL DUPLEX UE LT Routine 08/17/2024 9:45 AM EDT POCT GLYCATED HEMOGLOBIN, TOTAL Routine 07/13/2024 9:18 AM EST Type 2 diabetes mellitus with other specified complication, without long-term current use of insulin ([facility]) POCT GLUCOSE Routine 07/13/2024 9:17 AM EST Type 2 diabetes mellitus with other specified complication, without long-term current use of insulin (CMS/HCC) INCISE AND DRAIN FINGER ABSCESS Routine 06/07/2024 10:05 AM EST Paronychia of finger, left SED RATE BY MODIFIED WESTERGREN Routine 05/22/2024 10:06 AM EST Pain of finger of left hand C-REACTIVE PROTEIN Routine 05/22/2024 10 :06 AM EST Pain of finger of left hand BASIC METABOLIC PANEL Routine 05/22/2024 10:06 AM EST Pain of finger of left hand CBC Routine 05/22/2024 10:06 AM EST Pain of finger of left hand HEPATIC FUNCTION PANEL Routine 05/22/2024 10:06 AM EST Pain of finger of left hand XR FINGERS 2+ VIEWS LEFT STAT 05/22/2024 9:46 AM EST Pain of finger of left hand ALBUMIN, RANDOM URINE W/CREATININE Routine 01/03/2024 12:00 AM EDT Type 2 diabetes mellitus with other specified complication, without long-term current use of insulin (CMS/HCC) COPD exacerbation (CMS/HCC) Stress incontinence of urine DIABETES EYE EXAM Routine 09/23/2023 LIPID PANEL, STANDARD Routine 08/31/2022 8:03 AM EDT Type 2 diabetes mellitus without complication, without long-term current use of insulin (CMS/HCC) Essential hypertension Tobacco dependence syndrome [place] COLONOSCOPY Routine 01/01/2014 from Last 3 Months or Most Recently Relevant to Health Maintenance Results * US ARTERIAL DUPLEX UE LT (08/17/2024 9:45 AM EDT) Anatomical Region Laterality Modality Abdomen Ultrasound 08/17/2024 9:45 AM EDT Narrative 08/17/2024 10:47 AM EDT ? [facility] ?[address] ?[place] [address] ? Ultrasound Report ? Signed ? Patient: Triana,Jacque ?MR#: [id number] ?? [id number] ? : 1950 ?Acct:[id number] ? Age/Sex: 73 / F ?ADM Date: 08/17/24 ? Loc: HO.US ? Attending Dr: Victor Hugo Packer MD ? Ordering Physician: Victor Hugo Packer MD ?? Date of Service: 08/17/24 ?? Procedure(s): US arterial duplex UE LT ?? Accession Number(s): [id number] ? cc: Victor Hugo Packer MD ? EXAMINATION: ?? US DOPPLER UPPER EXTREMITY ARTERIAL , LEFT ? CLINICAL INFORMATION: ?? Ischemic finger, left hand. ? COMPARISON: ?? None available. ? TECHNIQUE: ?? Duplex Doppler techniques with waveform analysis and measurement of ?? peak systolic velocities in the left subclavian, axillary, brachial, ?? radial and ulnar arteries. ? FINDINGS: ? Calcified plaques throughout the interrogated arteries. ? Subclavian artery, proximal segment: 20 cm/s. Monophasic waveform. ?? Spectral broadening. ?? Subclavian artery, mid segment: 35 cm/s. Monophasic waveform. Spectral ?? broadening. ?? Subclavian artery distal segment: 29 cm/s. Monophasic waveform. ?? Spectral broadening. ? Axillary artery: 31 cm/s. Monophasic waveform. Spectral broadening. ? Brachial artery, proximal segment: 31 cm/s. Monophasic waveform. ?? Spectral broadening. ?? Brachial artery distal segment: 33 cm/s. Monophasic waveform. Spectral ?? broadening. ? Radial artery, mid segment: 18 cm/s. Monophasic waveform. Spectral ?? broadening. ? Ulnar artery, mid segment: 16 cm/s. Monophasic waveform. Spectral ?? broadening. ? US/US arterial duplex UE LT ?? IMPRESSION: ?? 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 extremity. ? Electronically signed by: ??Osvaldo Serrano MD ??08/17/2024 10:45 AM ?? EDT RP ? Dictated By: ?Osvaldo Baig MD ? Signed By: ?<Electronically signed by Osvaldo Thornton MD in OV> ? 08/17/245 ? DD/ 0945 ? TD/TT: 08/17/24 1015 ? [employer]: ? Procedure Note Donotuseinterpreter, Image - 08/17/2024 [place] [address] Ultrasound Report Signed Patient: Jacque TrianaMR#: [id number] : 9Acct:[id number] Age/Sex: 73 / FADM Date: 08/17/24 Loc: HO.US Attending Dr: Victor Hugo Packer MD Ordering Physician: Victor Hugo Packer MD Date of Service: 08/17/24 Procedure(s): US arterial duplex UE LT Accession Number(s): [id number] cc: Victor Hugo Packer MD EXAMINATION: US DOPPLER UPPER EXTREMITY ARTERIAL , LEFT CLINICAL INFORMATION: Ischemic finger, left hand. COMPARISON: None available. TECHNIQUE: Duplex Doppler techniques with waveform analysis and measurement of peak systolic velocities in the left subclavian, axillary, brachial, radial and ulnar arteries. FINDINGS: Calcified plaques throughout the interrogated arteries. Subclavian artery, proximal segment: 20 cm/s. Monophasic waveform. Spectral broadening. Subclavian artery, mid segment: 35 cm/s. Monophasic waveform. Spectral broadening. Subclavian artery distal segment: 29 cm/s. Monophasic waveform. Spectral broadening. Axillary artery: 31 cm/s. Monophasic waveform. Spectral broadening. Brachial artery, proximal segment: 31 cm/s. Monophasic waveform. Spectral broadening. Brachial artery distal segment: 33 cm/s. Monophasic waveform. Spectral broadening. Radial artery, mid segment: 18 cm/s. Monophasic waveform. Spectral broadening. Ulnar artery, mid segment: 16 cm/s. Monophasic waveform. Spectral broadening. US/US arterial duplex UE LT IMPRESSION: Severe inflow disease/ interrogated arteries of the left upper extremity. Electronically signed by: Osvaldo Serrano MD 08/17/2024 10:45 AM EDT RP Dictated By: Osvaldo Baig MD Signed By: <Electronically signed by Osvaldo Thornton MDin OV> 08/17/24 1045 DD/ 0945 TD/TT: 08/17/24 1015 [employer]ant: us Victor Hugo Packer MD IMG US PROCEDURES Final Result * (ABNORMAL) POCT HGB A1C (07/13/2024 9:18 AM EST) Hemoglobin A1C 6.2(A) 4.0 - 6.0 % QC Media Lot # [id number] Lot# Expiration Date 110,426 Blood 07/13/2024 9:18 AM EST us Victor Hugo Packer MD POINT OF CARE TEST ENTER/EDIT OR DERABLES Final Result * POCT Glucose (07/13/2024 9:17 AM EST) Glucose Blood, POC 134 60 - 200 mg/dL QC Media Lot # [id number] Lot# Expiration Date 82,625 Blood Capillary blood specimen / Unknown 07/13/2024 9:17 AM EST us Victor Hugo Packer MD POINT OF CARE TEST ENTER/EDIT OR DERABLES Final Result * Incise and drain finger abscess (06/07/2024 10:05 AM EST) Narrative Hilda Klein MD - 06/07/2024 10:05 AM EST Hilda Klein MD ? 06/07/2024 10:12 AM Incise and drain finger abscess Date/Time: 06/07/2024 10:05 AM Performed by: Hilda Klein MD Authorized by: Hilda Klein MD ?? Consent: ??Consent obtained: ??Written ??Consent given by: ??Patient ??Procedure risks and benefits discussed: Yes ?Patient questions answered: Yes ?Patient agrees, verbalizes understanding, and wants to proceed: Yes ?Instructions and paperwork completed: Yes ?? [place] protocol: ??Procedure explained and questions answered to patient or proxy's satisfaction: yes ?Relevant documents present and verified: yes ?Immediately prior to procedure, a time out was called: yes ?Patient identity confirmed: ??Verbally with patient Indications: ??Indications: ??Possible purulent fluid collection Pre-procedure details: ??Skin preparation: ??Antiseptic wash Sedation: ??Sedation type: ??None Anesthesia: ??Anesthesia method: ??Local infiltration ??Local anesthetic: ??Lidocaine 2% w/o epi Procedure specific details: ?? Skin around medial aspect of L 2nd finger cleansed and infiltrated with 0.5cc of lidocaine 2% without epi. ??No fluid collection appreciated on exam and minimal blood and serosanginous fluid returned after 1cm incision with 11 blade scalpel. ??Finger is cold, but with good ulnar and radial pulses. ??Raised nail bed. Post-procedure details: ??Procedure completion: ??Tolerated us Hilda Klein MD IN CLINIC/BEDSIDE ORDERABLES F inal Result * (ABNORMAL) Sed Rate by Modified Jaydenren (05/22/2024 10:06 AM EST) Erythrocyte Sedimentation Rate 23(H) 0 - 20 MM/HR [facility] Comment:Patients with polycy themia and many hemoglobin abnormalitiesmay have depressed sed rates whereas patients with anemiamay have elevated sed rates. Blood Venous blood specimen / Unknown 05/22/2024 10:06 AM EST 05/22/2024 11:07 AM EST us Neli Obando DO LAB BLOOD ORDERABLES Final R esult [facility] [address] [place] [address] [phone] * (ABNORMAL) CBC (05/22/2024 10:06 AM EST) White Blood Count 4.9 4.8 - 10.8 X10*3/uL [facility] Red Blood Count 3.73(L) 4.20 - 5.50 X10*6/uL [facility] Hemoglobin 11.9(L) 12.0 - 16.0 g/dl [facility] [facility] Hematocrit 35.8(L) 37.0 - 47.0 % [facility] Mean Corpuscular Volume 96.0 80.0 - 98.0 fL [facility] Mean Corpuscular Hemoglobin 31.9 27.0 - 33.0 pg [facility] Mean Corpuscular HGB Conc 33.2 31.0 - 35.0 g/dl [facility] Red Cell Distribution Width 13.8 11.0 - 16.0 % [facility] Platelet Count 250 160 - 400 X10*3/uL [facility] Mean Platelet Volume 10.7 9.4 - 12.3 fL [facility] NRBC Pct Auto 0.0 0.0 - 0.2 /100WBC [facility] NRBC Abs Auto 0.000 0.0 - 0.012 X10*3/uL [facility] Blood Venous blood specimen / Unknown 05/22/2024 10:06 AM EST 05/22/2024 11:07 AM EST Neli Obando DO LAB BLOOD ORDERABLES Final R esult Performing Organization Address City/[facility]/ZIP Co de Phone Number [facility] [address] [place] [phone] * C-reactive Protein (05/22/2024 10:06 AM EST) C Reactive Protein 0.14 < or = 0.50 mg/dL [facility] Blood Venous blood specimen / Unknown 05/22/2024 10:06 AM EST 05/22/2024 11:07 AM EST Neli Obando [employer] LAB BLOOD ORDERABLES Final R esult [facility] [address] [place] [address] [phone] * (ABNORMAL) Hepatic Function Panel (05/22/2024 10:06 AM EST) Pathologist [facility] Bilirubin, Total 0.8 0.0 - 1.0 mg/dL [facility] Bilirubin, Direct 0.3 0.0 - 0.5 mg/dL [facility] Aspartate Amino Transferase 26 5 - 31 U/L [facility] Alanine Aminotransferase 11 0 - 31 U/L [facility] Total Protein 7.0 6.5 - 8.0 g/dL [facility] Albumin Level 3.9 3.5 - 5.0 g/dL [facility] Alkaline Phosphatase 130(H) 39 - 117 U/L [facility] Blood Venous blood specimen / Unknown 05/22/2024 10:06 AM EST 05/22/2024 11:07 AM EST Neli Obando DO LAB BLOOD ORDERABLES Final R esult [facility] [address] [place] [address] [phone] * (ABNORMAL) Basic Metabolic Panel (05/22/2024 10:06 AM EST) Pathologist [facility] Sodium 142 135 - 145 mmol/L [facility] Potassium 3.6 3.3 - 5.1 mmol/L [facility] Chloride 109(H) 96 - 108 mmol/L [facility] Carbon Dioxide 28 22 - 29 mmol/L [facility] Anion Gap 9(L) 12 - 20 [facility] Urea Nitrogen (BUN) 18(H) 9 - 16 mg/dL [facility] Creatinine, Serum 0.81 0.5 - 1.4 mg/dL [facility] Estimated Glomerular Filt Rate >60 [facility] Comment:Chronic Kidney Disea se: Estimated GFR < 60 mL/min/1.04l5Iswfkj Kidney Disease: Estimated GFR < 15 mL/min/1.73m2 Glucose 114 60 - 115 mg/dL [facility] Calcium 8.8 8.4 - 10.2 mg/dL [facility] Blood Venous blood specimen / Unknown 05/22/2024 10:06 AM EST 05/22/2024 11:07 AM EST us Neli Obando DO LAB BLOOD ORDERABLES Final R esult [facility] [address] [place] [phone] * XR Fingers 2+ Views Left (05/22/2024 9:46 AM EST) Anatomical Region Laterality Modality Upper Extremities, Fingers Left Radio graphic Imaging 05/22/2024 9:46 AM EST Narrative 05/22/2024 10:23 AM EST ?[facility] ?[address] ?[place] [address] ?XRay Report ? Signed ? Patient: Triana,Jacque ?MR#: [id number] ?? [id number] ? : 1950 ?Acct:[id number] ? Age/Sex: 73 / F ?ADM Date: 05/22/24 ? Loc: HO.HHCX ? Attending Dr: Neli Obando DO ? Ordering Physician: Neli Obando DO ?? Date of Service: 05/22/24 ?? Procedure(s): XR finger LT min 2V ?? Accession Number(s): [id number] ? cc: Neli Obando DO ? EXAMINATION: ?? XR FINGER, LEFT ? CLINICAL INFORMATION: ?? persistent finger pain with wound x 2 mos, r/o OSTEO ? COMPARISON: ?? None available. ? TECHNIQUE: ?? 3 views of the left second digit. ? FINDINGS: ?? There is loss of PIP and DIP joint spaces all digits with mild ?? periarticular spurring. The joint first digit. No acute fracture, ?? dislocation subluxation seen. There is mild soft tissue prominence of ?? the PIP joints of second through fourth digits. ? XR/XR finger LT min 2V ?? IMPRESSION: ?? 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 ? No visible acute fracture or dislocation seen. ? Electronically signed by: ??Carmine Lott MD ??05/22/2024 10:20 AM EST RP ? Dictated By: ?Kaylie,Carmine S MD ? Signed By: ?<Electronically signed by Carmine S Kaylie, MD in OV> ?05/22/24 1020 ? DD/ 0946 ? TD/TT: 05/22/24 1000 ? [employer] Business Consultant: BRENDA ? Procedure Note Donjasonter, Image - 05/22/[address] [address] XRay Report Signed Patient: Jacque TrianaMR#: [id number] : 9Acct:[id number] Age/Sex: 73 / FADM Date: 05/22/24 Loc: .HHCX Attending Dr: Neli Obando DO Ordering Physician: Neli Obando DO Date of Service: 05/22/24 Procedure(s): XR finger LT min 2V Accession Number(s): [id number] cc: Neli Obando DO EXAMINATION: XR FINGER, LEFT CLINICAL INFORMATION: persistent finger pain with wound x 2 mos, r/o OSTEO COMPARISON: None available. TECHNIQUE: 3 views of the left second digit. FINDINGS: There is loss of PIP and DIP joint spaces all digits with mild periarticular spurring. The joint first digit. No acute fracture, dislocation subluxation seen. There is mild soft tissue prominence of the PIP joints of second through fourth digits. 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 No visible acute fracture or dislocation seen. Electronically signed by: Carmine Lott MD 05/22/2024 10:20 AM EST Dictated By: Carmine Lott MD Signed By: <Electronically signed by Carmine Lott MD in OV> 05/22/24 1020 DD/ 0946 TD/TT: 05/22/24 1000 [employer]anch[employer] Business Consultant: BRENDA Neli Topher DO IMG XR PROCEDURES Edited Res ult - Final * Albumin, Random Urine W/Creatinine (01/03/2024 12:00 AM EDT) Creatinine, Urine 144.72 mg/dL [facility] Microalbumin Urine 31.0 mg/L [facility] Microalbum Creatinine Ratio Ur 21.4 <30 ug/mg cr [facility] Comment:Albumin/Creatinine R atio Reference Ranges: Normal: < 30 ug/mg creatinine Microalbuminuria: 30 - 300 ug/mg creatinineClinical Albuminuria: > 300 ug/mg creatinine Urine (Urine, Random) 01/03/2024 01/03/2024 us Victor Hugo Packer MD LAB URINE ORDERABLES Final Resul t [facility] [address] [place] [phone] * Diabetes Eye Exam (09/23/2023) Eye Exam Normal Normal 09/23/2023 us Victor Hugo Packer MD HEALTH MAINTENANCE Final Result * Lipid Panel, Standard (08/31/2022 8:03 AM EDT) Cholesterol, Total 149 <200 mg/dL [facility] [employer] HDL Cholesterol 50 > OR = 50 mg/dL [facility] Triglycerides 106 <150 mg/dL [facility] LDL Cholesterol 80 mg/dL (calc) [facility] Comment: Reference range: <100 Desirable range <100 mg/dL for primary prevention; ?? <70 mg/dL for patients with CHD or diabetic patients with > or = 2 CHD risk factors. LDL-C is now calculated using the Melissa calculation, which is a validated novel method providing better accuracy than the Friedewald equation in the estimation of LDL-C. Sky FRANCIS et al. ROCIO. 2013;310(19): 6131-3485 (http://education.[employer]/faq/ILE145) Chol/HDLC Ratio 3.0 <5.0 (calc) [facility] Non-HDL Cholesterol 99 <130 mg/dL (calc) [facility] Comment: For patients with diabetes plus 1 major ASCVD risk factor, treating to a non-HDL-C goal of <100 mg/dL (LDL-C of <70 mg/dL) is considered a therapeutic option. Blood Venous blood specimen / Unknown 08/31/2022 8:03 AM EDT 08/31/2022 8:16 AM EDT Narrative [facility] - 08/31/2022 10:33 PM EDT FASTING:YES FASTING: YES Victor Hugo Packer MD LAB BLOOD ORDERABLES Final Resul t [facility] [address], [place] [address] [facility] [address] [place] [address] * Colonoscopy (01/01/2014) Colonoscopy Normal Normal Comment:Repeat in 5 years Historical Provider HEALTH MAINTENANCE Final Result from Last 3 Months or Most Recently Relevant to Health Maintenance Insurance [facility] [address] [place] [id number] Care Teams Car Wrecker Relationship Specialty Start Date End Date Name, MD Victor Hugo [address] [place] [address] PCP - General Family Medicine 08/14/15 Tori Silva, Sayda [address] [place] [address] Pharmacist Internal Medicine 02/24/22
--- OUTSIDE RECORDS SUMMARY | 2024-08-17 10:51 | XMS_ITS | Encounter Summary ---
Author Organization [employer] Address [address] [place] [address] Care Team Providers Care Bell Person Name Role Phone Name, Victor Hugo WARD Primary Care Provider [phone] Tori Silva PharmD Unavailable [phone] Encounter Details Date Type Department Care Team ([facility] Contact Info) Description 10/08/2022 Abstract [facility] [address] [place] [address] Name, MD Victor Hugo [address] [place] [address] Social History Tobacco Use Types Packs/Day Years Used Date Smoking Tobacco: Every Day Cigarettes Smokeless Tobacco: Never Alcohol Use Standard Drinks/Week Comments Never 0 (1 standard drink = 0.6 oz pur e alcohol) PHQ-2 Answer Date Recorded Patient Health Questionnaire-2 Score 0 06/10/2022 Depression Answer Date Recorded Patient Health Questionnaire-2 Score 0 06/10/2022 Comments Unknown Sex and Gender Information Value Date Recorded Sex Assigned at Female 03/09/2022 10:17 AM EDT Legal Sex Female 10:17 AM EDT Gender Identity Female 03/09/2022 10:17 AM EDT Sexual Orientation Straight 03/09/2022 10 :17 AM EDT COVID-19 Exposure Response Date Recorded In the last 10 days, have yo u been in contact with someone who was confirmed or suspected to have Coronavirus/COVID-19? No / Unsure 10/08/2022 9:06 AM EDT documented as of this encounter Plan of Treatment Upcoming Encounters Date Type Department Care Team ([facility] Contact Info) Description 08/23/2024 11:30 AM EDT Telemedicine [address] [place] [address] Name, [place] [address] 08/29/2024 9:30 AM EDT Clinical Support [address] [address] 11/17/2024 2:00 PM EDT Telemedicine [address] [address] Erin Peck, ALCIDES documented as of this encounter Goals Goal Patient Goal Type Associated Problems Recent Progress Patient-Stated? Author Record your blood pressure periodically (~2x per week) Blood Pressure No Puia, Tori, PharmD Blood Pressure < 140/90 Blood Pressure 150/66(2024 9:16 AM EST) No Puia, Tori, PharmD Smoking cessation General No Puia, Tori, PharmD documented as of this encounter Visit Diagnoses Not on filedocumented in this encounter Care Teams Bell Person Relationship Specialty Start Date End Date Name, [place] [address] PCP - General Family Medicine 08/14/15 Puia, Tori, PharmD [address] [place] [address] Pharmacist Internal Medicine 02/24/22 documented as of this encounter
--- OUTSIDE RECORDS SUMMARY | 2024-08-17 10:51 | XMS_ITS | Encounter Summary ---
Author Organization [employer] Address [address] [place] [address] Care Team Providers Care Small Appliance Assembly Supervisor Name Role Phone Name, Victor Hugo WARD Primary Care Provider [phone] Tori Silva PharmD Unavailable [phone] Reason for Visit * Reason Comments Med Refill Encounter Details Date Type Department Care Team (Late st Contact Info) Description 08/17/2023 Refill [facility] MED[facility]INE [address] [place] [address] Name, MD Victor Hugo [address] [place] [address] Acute pain of left shoulder Social History Tobacco Use Types Packs/Day Years [...] Info) Description 08/23/2024 11:30 AM EDT Telemedicine [address] [address] Name, MD Victor Hugo [address] [place] [address] 08/29/2024 9:30 AM EDT Clinical Support [address] [address] 11/17/2024 2:00 PM EDT Telemedicine [address] [address] Erin Peck RN documented as of this encounter Goals Goal Patient Goal Type Associated Problems Recent Progress Patient-Stated? Author Record your blood pressure periodically (~2x per week) Blood Pressure No Puia, Tori, PharmD Blood Pressure < 140/90 Blood Pressure 150/66(2024 9:16 AM EST) No Puia, Tori, PharmD Smoking cessation General No Puia, Tori, PharmD documented as of this encounter Visit Diagnoses Diagnosis Acute pain of left shoulder documented in this encounter Care Teams Small Appliance Assembly Supervisor Relationship Specialty Start Date End Date Victor Hugo Packer MD [address] [place] [address] PCP - General Family Medicine 08/14/15 Puia, Tori, PharmD [address] [place] [address] Pharmacist Internal Medicine 02/24/22 documented as of this encounter
--- OUTSIDE RECORDS SUMMARY | 2024-08-17 10:51 | XMS_ITS | Encounter Summary ---
Author Organization [facility] [facility] Address [address] 7[address] [place] [address] Care Team Providers Care Medical Physics Researcher Name Role Phone Name, Victor Hugo WARD Primary Care Provider [phone] Tori Silva PharmD Unavailable [phone] Reason for Visit * Reason Onset Date Comments Durable Medical Equipment 10/08/2022 Encounter Details Date Type Department Care Team ([facility] st Contact Info) Description 10/08/2022 Telephone [facility] MEDICINE [address] [place] [address] Name, MD Victor Hugo [address] [place] [address] Durable Medical Equipment Social History Tobacco Use Types Packs/Day Years [...] AM EDT documented as of this encounter Miscellaneous Notes * Telephone Encounter - Makeda Pelaez - 10/08/2022 9:25 AM EDT Tc from Ronda with [facility] calling in behalf of pt who is requesting Bed Pads. Pt inform Ronda that sheusing 4 Pads Daily. Please if any questions please contact Ronda at [phone] documented in this encounter Plan of Treatment Upcoming Encounters Date Type Department Care Team (Late st Contact Info) Description 08/23/2024 11:30 AM EDT Telemedicine [address] [address] Name, MD Victor Hugo [address] [place] [address] 08/29/2024 9:30 AM EDT Clinical Support [address] [address] 11/17/2024 2:00 PM EDT Telemedicine [address] [address] Erin Peck, ALCIDES documented as of this [...] on filedocumented in this encounter Care Teams Medical Physics Researcher Relationship Specialty Start Date End Date Name, MD Victor Hugo [address] [place] [address] PCP - General Family Medicine 08/14/15 Puia, Tori, PharmD [address] [place] [address] Pharmacist Internal Medicine 02/24/22 documented as of this encounter
--- OUTSIDE RECORDS SUMMARY | 2024-08-17 10:51 | XMS_ITS | Encounter Summary ---
Author Organization [employer] Address [address] [place] [address] Care Team Providers Care Molybdenum Steamer Operator Name Role Phone Name, Victor Hugo WARD Primary Care Provider [phone] Tori Silva PharmD Unavailable [phone] Encounter Details Date Type Department Care Team ([facility] st Contact Info) Description 02/17/2023 Abstract [facility] MED[facility]INE [address] [place] [address] Name, MD Victor Hugo [address] [place] [address] Social History Tobacco Use Types Packs/Day Years Used Date Smoking Tobacco: Every Day Cigarettes Smokeless Tobacco: Never Alcohol Use Standard Drinks/Week Comments Never 0 (1 standard drink = 0.6 oz pur e alcohol) PHQ-2 Answer Date Recorded Patient Health Questionnaire-2 Score 0 06/10/2022 Housing Stability Answer Date Recorded What is your housing situation today? I have linda britton 02/16/[address] you li ve. Do you have problems with any of the following? None of the above 02/16/2023 Food Insecurity Answer Date Recorded Within the past 12 months, y ou worried that your food would run out before you got money to buy more: Never True 02/16/2023 Within the past 12 months,th e food you bought just didn't last and you didn't have enough money to get more: Never True 02/2023 Transportation Answer Date Recorded In the past 12 months, has l ack of transportation kept you from medical appts, meetings, work or from getting things needed for daily living? No 02/16/2023 Utilities Answer Date Recorded In the past 12 months, has t he electric, gas, oil or water company threatened to shut off services in your home? No 02/16/2023 Depression Answer Date Recorded Patient Health Questionnaire-2 [...] Info) Description 08/23/2024 11:30 AM EDT Telemedicine [address] [address] Name, MD Victor Hugo [address] [place] [address] 08/29/2024 9:30 AM EDT Clinical Support [address] [address] 11/17/2024 2:00 PM EDT Telemedicine [address] [address] Erin Peck, ALCIDES documented as of this [...] on filedocumented in this encounter Care Teams Molybdenum Steamer Operator Relationship Specialty Start Date End Date Name, MD Victor Hugo [address] [place] [address] PCP - General Family Medicine 08/14/15 Puia, Tori, PharmD [address] [place] [address] Pharmacist Internal Medicine 02/24/22 documented as of this encounter
--- OUTSIDE RECORDS SUMMARY | 2024-08-17 10:51 | XMS_ITS | Clinical Summary ---
Author Organization [facility] Address [address] [place] [address] Phone Care Team Providers Care A R Specialist Name Role Phone Name, Victor Hugo WARD Primary Care Provider [phone] Allergies No known active allergies Medications amLODIPine (NORVASC) 10 mg tablet Take 1 tablet (10 mg total) by mouth 1 (one) time each day in the morning. 04/03/20 24 Active Trulicity 0.75 mg/0.5 mL pen injector injection INJECT ONE PEN (=0.75MG) SUBCUTANEOUSLY ONCE A WEEK DIRECTED 05/02/20 24 Active cyanocobalamin (VITAMIN B-12) 1,000 mcg/mL injection INJECT 1 ML INTRAMUSCULARLY EVERY 30 DAYS 05/30/19 25 Active acetaminophen (TYLENOL) 500 mg tablet Take 1 tablet (500 mg total) by mouth every 8 (eight) hours if needed. for moderate pain 03/28/20 24 Active Encounters Date Type Department Care Team Description 06/15/2024 2:30 PM EST Consult Orthopedic Surgery - [address] [place] [address] Humphrey Bustamante MD Lesion of finger (Primary Dx); Paronychia of finger, left from Last 3 Months Social History Tobacco Use Types Packs/Day Years Used Date Smoking Tobacco: Never Assessed Comments Unknown Sex and Gender Information Value Date Recorded Sex Assigned at Not on file Legal Sex Female 2:26 AM EST Gender Identity Not on file Sexual Orientation Not on file Last Filed Vital Signs Vital Sign Reading Time Taken Comments Blood Pressure - - Pulse - - Temperature - - Respiratory Rate - - Oxygen Saturation - - Inhaled Oxygen Concentration - - Weight 50.8 kg (112 lb) 06/15/2024 2:51 PM EST Height 152.4 cm (5') 06/15/2024 2:51 PM EST Body Mass Index 21.87 06/15/2024 2:51 PM EST Plan of Treatment Health Maintenance Due Date Last Done Comments Diabetes: Annual Foot Exam 1960 Diabetes: Annual Retina Eye Exam 1960 Hepatitis A Vaccines (2 of 2 - Risk 2-dose series) 12/15/2011 06/16/2011 Hepatitis B Vaccines (3 of 3 - Risk 3-dose series) 02/02/2012 12/08/2011, 06/16/2011 Colorectal Cancer Screening: Colonoscopy 04/12/2022 Falls Risk Assessment 04/12/2022 Hepatitis C Screening 04/12/2022 Osteoporosis Screening (Bone Density Screening) 04/12/2022 Social Influencers of Health Screening 04/12/2022 Diabetes: Annual Urine Albumin-Creatinine Ratio (uACR) 04/25/2022 COVID-19 Vaccine ( season) 2024 09/22/2021, 04/29/2021, 08/15/2020, Additional history exists Diabetes: Blood Sugar Control Test (HGBA1C) 06/22/2024 12/21/2023 Depression Screening 08/26/2024 08/27/2023 Influenza Vaccine (Season Ended) 2025 03/10/2022, 04/29/2021, 07/05/2019, Additional history exists Diabetes: Annual GFR (Glomerular Filtration Rate) 05/22/2025 05/22/2024 Hypertension/CHF/CAD Annual BMP Blood Test 05/22/2025 05/22/2024 Cholesterol Screening (Lipid Panel) 09/01/2027 08/31/2022 DTaP,Tdap,and Td Vaccines (4 - Td or Tdap) 03/10/2032 03/10/2022, 06/16/2011, 07/12/2003 MMR Vaccines Aged Out 06/16/2011 No longer eligi ble based on patient's age to complete this topic Pneumococcal Vaccine: 50+ Years Completed 07/05/2019, 04/12/2017, 04/24/2010, Additional history exists Zoster Vaccines Completed 09/08/2022, 07/13/2022 RSV Immunization Adult Patients Completed 07/19/2023 HIB Vaccines Aged Out No longer eligi ble based on patient's age to complete this topic HPV Vaccines Aged Out No longer eligi ble based on patient's age to complete this topic IPV Vaccines Aged Out No longer eligi ble based on patient's age to complete this topic Meningococcal ACWY Vaccine Aged Out N o longer eligible based on patient's age to complete this topic Meningococcal B Vaccine Aged Out No l onger eligible based on patient's age to complete this topic RSV Immunization Patients Under 20 months Aged Out No longer eligible based on patient's age to complete this topic Varicella Vaccines Aged Out No longer eligible based on patient's age to complete this topic Insurance [facility] Member Subscriber Plan / Payer (Ef fective 2024-Present) Name:Jacque Triana Relation to Subscriber:Self Name:Jacque Triana Payer ID:[id number] Group ID:Not on file Type:Not on file Address: [facility] [place] [address] MEDICA[place] - [place] Care Teams A R Specialist Relationship Specialty Start Date End Date Name, MD Victor Hugo [address] [place] [address] PCP - General Internal Medicine 06/15/24
--- OUTSIDE RECORDS SUMMARY | 2024-08-17 10:51 | XMS_ITS | Encounter Summary ---
Author Organization [facility] Address [address] 7t [place] [address] Care Team Providers Care Stock Broker Supervisor Name Role Phone Name, Victor Hugo WARD Primary Care Provider [phone] Tori Silva PharmD Unavailable [phone] Encounter Details Date Type Department Care Team ([facility] st Contact Info) Description 08/17/2024 Orders Only [facility] [address] [place] [address] Name, MD Victor Hugo [address] [place] [address] Social History Tobacco Use Types Packs/Day Years Used Date Smoking Tobacco: Every Day Cigarettes Passive Smoke Exposure: Current Smokeless Tobacco: Never Alcohol Use Standard Drinks/Week [...] Info) Description 08/23/2024 11:30 AM EDT Telemedicine [address] [address] Name, MD Victor Hugo [address] [place] [address] 08/29/2024 9:30 AM EDT Clinical Support [address] [address] 11/17/2024 2:00 PM EDT Telemedicine [address] [address] Erin Peck, ALCIDES documented as of this [...] UE LT Routine 08/17/2024 9:45 AM EDT documented in this encounter Results * US ARTERIAL DUPLEX UE LT (08/17/2024 9:45 AM EDT) Anatomical Region Laterality Modality Abdomen Ultrasound 08/17/2024 9:45 AM EDT Narrative 08/17/2024 10:47 AM EDT ? [facility] ?[address] ?[place] [address] ? Ultrasound Report ? Signed ? Patient: Triana,Jacque ?MR#: [id number] ?? [id number] ? : 1950 ?Acct:[id number] ? Age/Sex: 73 / F ?ADM Date: 08/17/24 ? Loc: HO.US ? Attending Dr: Victor Hugo Packer MD ? Ordering Physician: Victor Hugo Packer MD ?? Date of Service: 08/17/24 ?? Procedure(s): US arterial duplex UE LT ?? Accession Number(s): [id number] ? cc: Victor Hugo Packer MD ? [...] by Osvaldo Thornton MD in OV> ? 08/17/24 1045 ? DD/ 0945 ? TD/TT: 08/17/24 1015 ? Site Manager: ? Procedure Note Donotunainterpreter, Image - 08/17/2024 [place] [address] Ultrasound Report Signed Patient: Jacque TrianaMR#: [id number] : 9Acct:[id number] Age/Sex: 73 / FADM Date: 08/17/24 Loc: HO.US Attending Dr: Victor Hugo aPcker MD Ordering Physician: Victor Hugo Packer MD Date of Service: 08/17/24 Procedure(s): US arterial duplex UE LT Accession Number(s): [id number] cc: Victor Hugo Packer MD EXAMINATION: US [...] 08/17/24 1045 DD/ 0945 TD/TT: 08/17/24 1015 Site Manager: Victor Hugo Packer MD IMG PROCEDURES Final Result documented in this encounter Visit Diagnoses Not on filedocumented in this encounter Additional Health Concerns Assessment Noted Time PHQ-9 Depression Total Score: 0 08/27/19 24 10:01 AM EDT documented as of this encounter Care Teams Stock Broker Supervisor Relationship Specialty Start Date End Date Name, MD Victor Hugo [address] [place] [address] PCP - General Family Medicine 08/14/15 Tori Silva PharmD [address] [place] [address] Pharmacist Internal Medicine 02/24/22 documented as of this encounter
--- OUTSIDE RECORDS SUMMARY | 2024-08-17 10:51 | XMS_ITS | Encounter Summary ---
Author Organization [facility] Address [address] 7t [place] [address] Care Team Providers Care Transit Specialist Name Role Phone Name, Victor Hugo WARD Primary Care Provider [phone] Tori Silva PharmD Unavailable [phone] Reason for Visit * Reason Onset Date Comments 10/12/2023 Encounter Details Date Type Department Care Team ([facility] st Contact Info) Description 10/12/[address] [facility] MEDICINE [address] [place], [place] [phone] Name, MD Victor Hugo [address] [place] [address] Social History Tobacco Use Types Packs/Day Years Used Date Smoking Tobacco: Every Day Cigarettes Smokeless Tobacco: Never Alcohol Use Standard Drinks/Week Comments Never 0 (1 standard drink = 0.6 oz pur e alcohol) Depression Answer Date Recorded Patient Health Questionnaire-9 [...] encounter Miscellaneous Notes * Telephone Encounter - Lety Senior - 10/12/2023 11:59 AM EDT Tc from Otilia at [facility] calling to inform pt has her annual Mini Cog and it was abnormal. Any questions contact Otilia at [phone] Ext [phone] documented in this encounter Plan of Treatment Upcoming Encounters Date Type Department Care Team (Late st Contact Info) Description 08/23/2024 11:30 AM EDT Telemedicine [address] [address] Name, MD Victor Hugo [address] [place] [address] 08/29/2024 9:30 AM EDT Clinical Support [address] [address] 11/17/2024 2:00 PM EDT Telemedicine [address] [address] Erin Peck RN documented as of this encounter Goals Goal Patient Goal Type Associated Problems Recent Progress Patient-Stated? Author Record your blood pressure periodically (~2x per week) Blood Pressure No Puia, Tori, PharmD Blood Pressure < 140/90 Blood Pressure 150/66(2024 9:16 AM EST) No Puia, Tori, PharmD Smoking cessation General No Tori Silva, PharmD documented as of this encounter Visit Diagnoses Not on filedocumented in this encounter Additional Health Concerns Assessment Noted Time PHQ-9 Depression Total Score: 0 08/27/19 24 10:01 AM EDT documented as of this encounter Care Teams Transit Specialist Relationship Specialty Start Date End Date Name, MD Victor Hugo [address] [place] [address] PCP - General Family Medicine 08/14/15 Tori Silva, PharmD [address] [place] [address] Pharmacist Internal Medicine 02/24/22 documented as of this encounter
--- OUTSIDE RECORDS SUMMARY | 2024-08-17 10:52 | XMS_ITS | Encounter Summary ---
Author Organization [facility] Address [address] [facility] [address] 7t [place] [address] Care Team Providers Care Rn Neonatal Name Role Phone NameVictor Hugo MD Primary Care Provider Tori Silva PharmD Unavailable [phone] Reason for Visit * Reason Comments Med Refill Encounter Details Date Type Department Care Team (Late Contact Info) Description 02/02/2023 Refill [facility]INE [address] [place] [address] Name, MD Victor Hugo [address] [place] [address] Chronic low back pain, unspecified back pain laterality, unspecified whether sciatica present; Achalasia of esophagus Social History Tobacco Use Types Packs/Day Years [...] Upcoming Encounters Date Type Department [facility] Team ([facility] Contact Info) Description 08/23/2024 11:30 AM EDT Telemedicine [facility] MED[facility]INE [address] [place] [phone] Name, MD [place] [address] 08/29/2024 9:30 AM EDT Clinical Support [address] [address] 11/17/2024 2:00 PM EDT Telemedicine [address] [address] Erin Peck RN documented as of this encounter Goals Goal Patient Goal Type Associated Problems Recent Progress Patient-Stated? Author Record your blood pressure periodically (~2x per week) Blood Pressure No Puia, Tori, PharmD Blood Pressure < 140/90 Blood Pressure 150/66(2024 9:16 AM EST) No Puia, Tori, PharmD Smoking cessation General No Puia, Tori, PharmD documented as of this encounter Visit Diagnoses Diagnosis Chronic low back pain, unspecified back pain laterality, unspecified whether sciatica present Achalasia of esophagus Achalasia and cardiospasm documented in this encounter Care Teams Rn Neonatal Relationship Specialty Start Date End Date Name, [place] [address] PCP - General Family Medicine 08/14/15 Puia, Tori, PharmD [address] [place] [address] Pharmacist Internal Medicine 02/24/22 documented as of this encounter
--- OUTSIDE RECORDS SUMMARY | 2024-08-17 10:52 | XMS_ITS | Encounter Summary ---
Author Organization [employer] Address [address] 7t [place] [address] Care Team Providers Care Careers Counsellor Name Role Phone Name, Victor Hugo WARD Primary Care Provider [phone] Tori Silva PharmD Unavailable [phone] Encounter Details Date Type Department Care Team ([facility] st Contact Info) Description 02/17/2023 Abstract [facility] MEDICINE [address] [place] [address] Name, MD Victor Hugo [address] [place] [address] Social History Tobacco Use Types Packs/Day Years [...] Info) Description 08/23/2024 11:30 AM EDT Telemedicine [address] [address] Name, MD Victor Hugo [address] [place] [address] 08/29/2024 9:30 AM EDT Clinical Support [address] [address] 11/17/2024 2:00 PM EDT Telemedicine [address] [address] Erin Peck, ALCIDES documented as of this [...] on filedocumented in this encounter Care Teams Careers Counsellor Relationship Specialty Start Date End Date Name, MD Victor Hugo [address] [place] [address] PCP - General Family Medicine 08/14/15 Puia, Tori, PharmD [address] [place] [address] Pharmacist Internal Medicine 02/24/22 documented as of this encounter
== END 2024-08-17 09:40 | disposition home or self-care (01) ==
LOC: HO.US 09:39
PROVIDERS: PCP Internal Medicine Geriatric Medicine; Visit Provider Internal Medicine Geriatric Medicine
DX: L98.491 Non-pressure chronic ulcer of skin of other sites limited to breakdown of skin (principal); M79.645 Pain in left finger(s)
CPT/HCPCS: 93931

== ENCOUNTER → 2024-08-17 09:45 | Outpatient (BNV) | payer OTHER, SELFPAY | PROVIDERS: PCP Internal Medicine Geriatric Medicine; Visit Provider Radiology Diagnostic Radiology | DX: M62.242 Nontraumatic ischemic infarction of muscle, left hand (principal) | CPT/HCPCS: 93931 ==

== ENCOUNTER 2024-08-22 14:40 | Outpatient (AMB) | payer OTHER, SELFPAY ==
--- NOTE | 2024-08-22 14:50 | MHC.OFFVIS ---
Intake Visit Reasons: S/p US 08/17 Intake Note: New patient presents for US UE arterial. Patient states she has had pain, tiredness, and tingling in her left arm. Starts at her shoulder and goes down to her fingers. Her left index finger has been painful for eights months. She did not injure her left arm or hand. She was told she has poor circulation in her left extremity. Accompanied by: Spouse Allergies No Known Allergies Allergy (Verified 08/22/24 14:54) HPI HPI S/p US 08/17: Details: The patient is a 70-year-old male presenting with concerns related to arterial plaque formation and its potential impact on left arm., specifically noting issues on the left side. Workup began initially as she had a nonhealing ulcer on the left index finger. She subsequently underwent noninvasive arterial testing by the primary care team and was sent in for further vascular evaluation. At the current time she does smoke about a half pack per day and has been a diabetic for over 15 years. [facility] Medical History Hiatal hernia Osteopenia (~2007) Urinary incontinence Nicotine dependence, cigarettes, uncomplicated Osteoarthritis GERD (gastroesophageal reflux disease) COPD (chronic obstructive pulmonary disease) CKD (chronic kidney disease) Type 2 diabetes mellitus Hypertension Surgical History History of hemorrhoidectomy History of hysterectomy History of colonoscopy History of esophagogastroduodenoscopy (EGD) Social History Are you a primary healthcare specialist to a significant other at home: No Do you presently have visiting nurse or other home services: No Patient Tobacco Use Status: Current everyday Tobacco user Cigarette Packs Per Day: 12 Years Smoked: onset 14yo, 1/2-1ppd x 58yrs, 40+PYH) Advance Directives Date on File: 10/02/14 Review of Systems Const All systems reviewed & are unremarkable except as noted in HPI and below Reports no additional complaints ENT Reports Normal hearing present Card Denies chest pain, Denies chest pain at rest, Denies chest pain with activity and Denies pedal edema Resp Denies cough GI Denies abdominal pain Musc Denies abnormal gait, Denies muscle cramps and Denies radiating pain into limb Skin/Breast Denies skin ulcer and Denies wounds Neuro Reports Normal hearing present and Denies abnormal gait Psych Reports no additional complaints Physical Exam Const General: cooperative, healthy appearing and comfortable Orientation/consciousness: oriented to person, oriented to place and oriented to time HEENT Head: Yes normal to inspection Neck Neck: Yes normal visual inspection Carotids: no bruits Chest Chest palpation & inspection: normal inspection of the chest Resp Effort & Inspection: normal respiratory effort and able to speak in complete sentences Auscultation: clear to auscultation bilaterally, no crackles, no rales, no rhonchi and no wheezes Cardio Other: Right side palpable brachial radial ulnar pulse. Left side only appreciate brachial radial ulnar signals. Rate: regular rate Rhythm: regular rhythm Heart sounds: S1 normal heart sound present and S2 normal heart sound present Bruits: no carotid bruits Peripheral pulses: Peripheral pulses 2+ throughout GI Inspection: Yes normal to inspection Skin Wounds: no wounds Hair: normal Neuro General: oriented to person, oriented to place and oriented to time Cranial nerves: Yes CN's II-XII intact bilaterally and Yes Normal hearing present Cognition (Neuro): normal cognition Motor exam (neuro): 5/5 motor strength present throughout Extrem Other: venous exam: No significant superficial varicosities or spider telangiectasias, minimal edema General: No clubbing, No cyanosis and No edema Psych Appearance: grossly normal Mental Status: mental status grossly normal Speech and movement: Normal speech and movement present Results Reviewed Results Reviewed: Arterial testing from 08/17/2024 demonstrates left subclavian occlusion. Assessment & Plan Assessment & Plan (1) Left subclavian artery occlusion: Code(s): I70.8 - Atherosclerosis of other arteries Category: Medical Plan: During the consultation, I explained the findings of the recent ultrasound to the patient, highlighting the identification of a blockage in the left arm. I articulated the purpose and significance of obtaining a CT scan for a detailed evaluation of the vascular structures, which is crucial for determining an effective treatment plan. We discussed the potential need for intervention based on the CT findings. I thoroughly reviewed the inherent risks and benefits of conducting further imaging, including how it helps inform medical decisions. I advised the patient on the importance of managing her diabetes to curb the effects on her vascular health. We agreed on proceeding with the CT scan, and she consented to this plan. I instructed her to follow up immediately after the scan to review the results and discuss further steps. Plan Patient was informed and verbally consented to the use of an ambient scribe for clinic note documentation during this visit. Orders: Orders Blood Urea Nitrogen Today I70.8 - Atherosclerosis of other arteries CT angio chest aorta Today I70.8 - Atherosclerosis of other arteries Creatinine Today I70.8 - Atherosclerosis of other arteries Patient Instructions: - Obtain the scheduled CT scan for detailed evaluation of the left arm blockage. - Follow-up appointment after imaging to discuss results and potential treatments. - Continue management of diabetes to help control symptoms and prevent complications. - Report any changes in symptoms or new concerns immediately. Coding Level of Care Code New Pt Level 4 (69411) Complex EM visit Add On G2211 Diagnoses Left subclavian artery occlusion I70.8
--- OUTSIDE RECORDS SUMMARY | 2024-08-22 17:56 | XMS_ITS | Data Portability ---
Author Organization [employer] Address [address] [place] [address] Care Team Providers Care Janitorial Manager Name Role Phone [facility] Referring Provider [phone] Assessment Encounter Date Assessment Date Assessment LastModified by Organization Details LastModified Time 02/11/2022 02/11/2022 I have reviewed and agree with the assessment and plan as documented by the screen printing machine loader unloader. I provided real-time medical direction for this [...] Note 4430 Cynthia Charles MD Main - [address] [phone] 02/11/2022 16:07:02 02/12/2022 12:00:00 Swelling of left foot [id number] M79.89 Health Concerns Section Related Observation LastModified by Organization Detai ls LastModified Time None Recorded Concern Status LastModified by Organization Details LastModified Time None Recorded Advance Directives Directive None Recorded Payers Encounter Date Sequence Insurance Name Policy Number Policy Isidro Covered Member ID Isidro Member ID Guarantor Name 02/11/[address] [facility] - DOS PRIOR TO 2022 - DUAL ELIGIBLE (MEDICARE REPLACEMENT/ADV ANTAGE - HMO) Jacque Triana [id number] Jacque Triana Notes Date Note Type Note [...] pleasant and cooperative. Member is 71 y/o, Latvian speaking, female, who lives with spouse, 3rd [...] .................. .................. .................. .................. .................. .................. ............... Tmh Teacher Note: Sent to evaluate pt with L [...] appt's the rest of the week. Consulted [facility] who recommended that pt go to ER for further evaluation. Pt agrees and EMS is called. Pt care turned over to [place] and pt to be transported to [facility]. .................. .................. .................. .................. .................. .................. .................. ............... Disposition: Jaimee Charles MD [address] [facility],[address], [place], [address], [employer] 02/11/2022 17:58:28 OBGyn Episode No OBEpisode recorded.
--- OUTSIDE RECORDS SUMMARY | 2024-08-22 17:56 | XMS_ITS | Encounter Summary ---
Author Organization [facility] [facility] Address [address] [facility] 7t [place] [address] Care Team Providers Care Nail Artist Name Role Phone Name, Victor Hugo WARD Primary Care Provider [phone] Tori Silva PharmD Unavailable [phone] Reason for Visit * Reason Comments Med Refill Encounter Details Date Type Department Care Team ([facility] Contact Info) Description 02/02/2023 Refill [facility] [address] [place] [address] Victor Hugo Packer MD [address] [place] [address] Chronic low back pain, unspecified back pain [...] Upcoming Encounters Date Type Department Care Team ([facility] Contact Info) Description 08/23/2024 11:30 AM EDT Telemedicine [facility] [address] [place] [address] Victor Hugo Packer MD [address] [place] [address] 08/29/2024 9:30 AM EDT Clinical Support [address] [address] 11/17/2024 2:00 PM EDT Telemedicine [address] [address] Erin Peck, RN documented as of this encounter Goals Goal Patient Goal Type Associated Problems Recent Progress Patient-Stated? Author Record your blood pressure periodically (~2x per week) Blood Pressure No Puia, Tori, PharmD Blood Pressure < 140/90 Blood Pressure 150/66(2024 9:16 AM EST) No PuiaLeeTori, PharmD Smoking cessation General No Puia, Tori, PharmD documented as of this encounter Visit Diagnoses Diagnosis Chronic low back pain, unspecified back pain laterality, unspecified whether sciatica present Achalasia of esophagus Achalasia and cardiospasm documented in this encounter Care Teams Nail Artist Relationship Specialty Start Date End Date Name, MD Victor Hugo [address] [place] [address] PCP - General Family Medicine 08/14/15 Tori Silva, PharmD [address] [place] [address] Pharmacist Internal Medicine 02/24/22 documented as of this encounter
--- OUTSIDE RECORDS SUMMARY | 2024-08-22 17:56 | XMS_ITS | Encounter Summary ---
Author Organization [employer] Address [address] [facility] 7t [place] [address] Care Team Providers Care Roll Line Operator Name Role Phone Name, Victor Hugo WARD Primary Care Provider [phone] Tori Silva PharmD Unavailable [phone] Encounter Details Date Type Department Care Team (Late st Contact Info) Description 08/17/2024 Orders Only [facility] MED[facility]INE [address] [place] [address] Name, MD Victor Hugo [address] [place] [address] Social History Tobacco Use Types Packs/Day Years [...] Info) Description 08/23/2024 11:30 AM EDT Telemedicine [address] [address] Name, MD Victor Hugo [address] [place] [address] 08/29/2024 9:30 AM EDT Clinical Support [address] [address] 11/17/2024 2:00 PM EDT Telemedicine [address] [address] Erin Peck RN documented as of this [...] EDT Narrative 08/17/2024 10:47 AM EDT ? [facility] ?[address] ?[place] [address] ? Ultrasound Report ? Signed ? Patient: Triana,Jacque ?MR#: [id number] ?? 892 ? : 1950 ?Acct:[id number] ? Age/Sex: 73 / F ?ADM Date: 08/17/24 ? Loc: HO.US ? Attending Dr: Victor Hugo Packer MD ? Ordering Physician: Victor Hugo Packer MD ?? Date of Service: 08/17/24 ?? Procedure(s): US arterial duplex UE LT ?? Accession Number(s): [id number] ? cc: Victor Hugo Packer MD ? [...] DD/ 0945 ? TD/TT: 08/17/24 1015 ? Pairer: ? Procedure Note Donotuseinterpreter, Image - 08/17/2024 [place] [address] Ultrasound Report Signed Patient: Onel Triana#: [id number] : 9Acct:[id number] Age/Sex: 73 / FADM Date: 08/17/24 Loc: .US Attending Dr: Victor Hugo Packer MD Ordering Physician: Victor Hugo Packer MD Date of Service: 08/17/24 Procedure(s): US arterial duplex UE LT Accession Number(s): [id number] cc: Victor Hugo Packer MD EXAMINATION: US [...] 08/17/24 1045 DD/ 0945 TD/TT: 08/17/24 1015 Pairer: us Victor Hugo Packer MD IMG US PROCEDURES Final Result documented in this encounter Visit Diagnoses Not on filedocumented in this encounter Additional Health Concerns Assessment Noted Time PHQ-9 Depression Total Score: 0 08/27/19 24 10:01 AM EDT documented as of this encounter Care Teams Roll Line Operator Relationship Specialty Start Date End Date Name, MD Victor Hugo [address] [place] [address] PCP - General Family Medicine 08/14/15 Tori Silva PharmD [address] [place] [address] Pharmacist Internal Medicine 02/24/22 documented as of this encounter
--- OUTSIDE RECORDS SUMMARY | 2024-08-22 17:56 | XMS_ITS | Encounter Summary ---
Author Organization [employer] Address [address] [facility] 7t [place] [address] Care Team Providers Care Director Community Center Name Role Phone Name, Victor Hugo WARD Primary Care Provider [phone] Tori Silva PharmD Unavailable [phone] Encounter Details Date Type Department Care Team (Late st Contact Info) Description 02/22/2023 Abstract [facility] MEDICINE [address] [place] [address] Name, MD Victor Hugo [address] [place] [address] Social History Tobacco Use Types Packs/Day Years Used Date Smoking Tobacco: Every Day Cigarettes Smokeless Tobacco: Never Alcohol Use Standard Drinks/Week Comments Never 0 (1 standard drink = 0.6 oz pur e alcohol) PHQ-2 Answer Date Recorded Patient Health Questionnaire-2 Score 0 06/10/2022 Housing Stability Answer Date Recorded What is your housing situation today? I have lindaalcides britton 02/22/[address] you [...] Info) Description 08/23/2024 11:30 AM EDT Telemedicine [address] [address] Name, MD Victor Hugo [address] [place] [address] 08/29/2024 9:30 AM EDT Clinical Support [address] [address] 11/17/2024 2:00 PM EDT Telemedicine [address] [address] Erin Peck RN documented as of this [...] on filedocumented in this encounter Care Teams Director Community Center Relationship Specialty Start Date End Date NameVictor Hugo MD [address] [place] [address] PCP - General Family Medicine 08/14/15 Tori Silva PharmD [address] [place] [address] Pharmacist Internal Medicine 02/24/22 documented as of this encounter
--- OUTSIDE RECORDS SUMMARY | 2024-08-22 17:56 | XMS_ITS | Encounter Summary ---
Author Organization [employer] Address [address] [facility] 7t [place] [address] Care Team Providers Care Physician Scientist Name Role Phone Name, Victor Hugo WARD Primary Care Provider [phone] Tori Silva PharmD Unavailable [phone] Encounter Details Date Type Department Care Team (Late Contact Info) Description 10/08/2022 Abstract [facility] [address] [place] [address] Name, MD Victor Hugo [address] [place] [address] Social History Tobacco Use Types Packs/Day Years [...] Upcoming Encounters Date Type Department Care Team ([facility] Contact Info) Description 08/23/2024 11:30 AM EDT Telemedicine [facility] [address] [place] [address] Name, MD Victor Hugo [address] [place] [address] 08/29/2024 9:30 AM EDT Clinical Support [address] [address] 11/17/2024 2:00 PM EDT Telemedicine [address] [address] Erin Peck, ALCIDES documented as of this [...] on filedocumented in this encounter Care Teams Physician Scientist Relationship Specialty Start Date End Date Name, MD Victor Hugo [address] [place] [address] PCP - General Family Medicine 08/14/15 Puia, Tori, PharmD [address] [place] [address] Pharmacist Internal Medicine 02/24/22 documented as of this encounter
--- OUTSIDE RECORDS SUMMARY | 2024-08-22 17:56 | XMS_ITS | Encounter Summary ---
Author Organization [employer] Address 75 [facility] 7t [place] [address] Care Team Providers Care Film Replacement Orderer Name Role Phone Name, Victor Hugo WARD Primary Care Provider [phone] Tori Silva PharmD Unavailable [phone] Encounter Details Date Type Department Care Team (Late st Contact Info) Description 02/17/2023 Abstract [facility] [address] [place] [address] Name, MD Victor Hugo [address] [place] [address] Social History Tobacco Use Types Packs/Day Years [...] Info) Description 08/23/2024 11:30 AM EDT Telemedicine [address] [address] Name, MD Victor Hugo [address] [place] [address] 08/29/2024 9:30 AM EDT Clinical Support [address] [address] 11/17/2024 2:00 PM EDT Telemedicine [address] [address] Erin Peck RN documented as of this [...] on filedocumented in this encounter Care Teams Film Replacement Orderer Relationship Specialty Start Date End Date Name, MD Victor Hugo [address] [place] [address] PCP - General Family Medicine 08/14/15 Puia, Tori, PharmD [address] [place] [address] Pharmacist Internal Medicine 02/24/22 documented as of this encounter
--- OUTSIDE RECORDS SUMMARY | 2024-08-22 17:56 | XMS_ITS | Encounter Summary ---
Author Organization [employer] Address 75 [facility] 7t [place] [address] Care Team Providers Care Contact Lens Curve Grinder Name Role Phone Name, Victor Hugo WARD Primary Care Provider [phone] Tori Silva PharmD Unavailable [phone] Reason for Visit * Reason Comments Med Refill Encounter Details Date Type Department Care Team ([facility] st Contact Info) Description 08/17/2023 Refill [facility] [address] [place], [place] [phone] Name, MD Victor Hugo 230 [place] [address] Acute pain of left shoulder Social History [...] Info) Description 08/23/2024 11:30 AM EDT Telemedicine [address] [address] Name, MD Victor Hugo [address] [place] [address] 08/29/2024 9:30 AM EDT Clinical Support [address] [address] 11/17/2024 2:00 PM EDT Telemedicine [address] [address] Erin Peck RN documented as of this [...] shoulder documented in this encounter Care Teams Contact Lens Curve Grinder Relationship Specialty Start Date End Date Name, MD Victor Hugo [address] [place] [address] PCP - General Family Medicine 08/14/15 Puia, Tori, PharmD [address] [place] [address] Pharmacist Internal Medicine 02/24/22 documented as of this encounter
--- OUTSIDE RECORDS SUMMARY | 2024-08-22 17:56 | XMS_ITS | Encounter Summary ---
Author Organization [employer] Address [address] [facility] [address] 7t [place] [address] Care Team Providers Care Residential Sales Associate Name Role Phone Name, Victor Hugo WARD Primary Care Provider [phone] Tori Silva PharmD Unavailable [phone] Encounter Details Date Type Department Care Team ([facility] st Contact Info) Description 08/17/2024 Telephone [facility] [address] [place] [address] Name, MD Victor Hugo [address] [place] [address] Social History Tobacco Use Types Packs/Day Years [...] encounter Miscellaneous Notes * Telephone Encounter - Alexandra Gallego RN - 08/17/2024 1:25 PM EDT ----- Message from Victor Hugo Packer MD sent at 08/17/2024 12:52 PM EDT ----- I called the patient to discuss the results. She has severe arterial circulation problems in the left arm. She is encouraged to continue her Plavix and statin. She is encouraged to quit smoking. I put urgent referral with vascular and got het appt with Dr Kay 08/22/2024 3PM at [address] [place] [address], [address]([facility]). Patient was informed of the appointment documented in this encounter Plan of Treatment Upcoming Encounters Date Type Department Care Team (Late st Contact Info) Description 08/23/2024 11:30 AM EDT Telemedicine [facility] [address] [place] [address] Name, MD Victor Hugo [address] [place] [address] 08/29/2024 9:30 AM EDT Clinical Support [facility] [address] [place] [address] 11/17/2024 2:00 PM EDT Telemedicine [facility] [address] [place] [address] Erin Peck, ALCIDES documented as of this [...] documented as of this encounter Care Teams Residential Sales Associate Relationship Specialty Start Date End Date Name, MD Victor Hugo [address] [place] [address] PCP - General Family Medicine 08/14/15 Puia, Tori, PharmD [address] [place] [address] Pharmacist Internal Medicine 02/24/22 documented as of this encounter
--- OUTSIDE RECORDS SUMMARY | 2024-08-22 17:56 | XMS_ITS | Encounter Summary ---
Author Organization [facility] Address 75 [facility] 7t [place] [address] Care Team Providers Care Blanket Binder Name Role Phone Name, Victor Hugo WARD Primary Care Provider [phone] Tori Silva PharmD Unavailable [phone] Reason for Referral * Consultation (Urgent) - Authorized Specialty Diagnoses / Procedures Referred By Contac t Referred To Contact Vascular Surgery Diagnoses PVD (peripheral vascular disease) (CMS/HCC) NameVictor Hugo MD [address] [place] [address] Phone: tel: fax: [address] Phone: tel: fax: Referral ID Status Reason Start Date Expiration Date Visits Requested Visits Authorized [id number] Authorized Specialty Services Required 08/17/2024 08/17/2025 1 1 Encounter Details Date Type Department Care Team (Late st Contact Info) Description 08/17/2024 Orders Only [facility] [address] [place], [place] [phone] Victor Hugo Packer MD [address] [place], [place] [phone] PVD (peripheral vascular disease) (CMS/HCC) (Primary Dx) Social History Tobacco Use Types Packs/Day Years [...] housing situation today? I have lindaalcides britton 08/27/[address] you [...] Description 08/23/2024 11:30 AM EDT Telemedicine [facility] [address] [place] [address] Name, MD Victor Hugo [address] [place] [address] 08/29/2024 9:30 AM EDT Clinical Support [facility] [address] [place] [address] 11/17/2024 2:00 PM EDT Telemedicine [address] [address] Erin Peck, ALCIDES Scheduled Referrals Name Type Priority Associated Diagnoses Orde r Schedule Referral to Vascular Surgery Outpatient Referral Urgent PVD (peripheral vascular disease) ([facility]) Expected: 08/17/2024 (Approximate), Expires: 08/17/2025 documented as of this encounter Goals Goal Patient Goal Type Associated Problems Recent Progress Patient-Stated? Author Record your blood pressure periodically (~2x per week) Blood Pressure No Puia, Tori, PharmD Blood Pressure < 140/90 Blood Pressure 150/66(2024 9:16 AM EST) No Puia, Tori, PharmD Smoking cessation General No Puia, Tori, PharmD documented as of this encounter Visit Diagnoses Diagnosis PVD (peripheral vascular disease) ([facility])- Primary Unspecified peripheral vascular disease documented in this encounter Additional Health Concerns Assessment Noted Time PHQ-9 Depression Total Score: 0 08/27/19 24 10:01 AM EDT documented as of this encounter Care Teams Blanket Binder Relationship Specialty Start Date End Date Name, MD Victor Hugo [address] [place] [address] PCP - General Family Medicine 08/14/15 Puia, Tori, PharmD [address] [place] [address] Pharmacist Internal Medicine 02/24/22 documented as of this encounter
--- OUTSIDE RECORDS SUMMARY | 2024-08-22 17:56 | XMS_ITS | Clinical Summary ---
Author Organization [employer] Address 75 [facility] 7t [place] [address] Care Team Providers Care Jointer Submarine Cable Name Role Phone Name, Victor Hugo WARD Primary Care Provider Tori Silva PharmD Unavailable [phone] Allergies No known active allergies Medications Nutritional [...] blood sugar 1 times daily 100 each 024 Active Blood Glucose Monitoring Suppl (FreeStyle [place] Lite) w/Device kit Use to test blood [...] MOUTH EVERY MORNING 30 tablet 5 Active Trulicity 0.75 MG/0.5ML solution auto-injectorIn dications:Type 2 diabetes mellitus without complication, without long-term current use of insulin ([facility]) INJECT ONE PEN (=0.75MG) SUBCUTANEOUSLY ONCE A WEEK DIRECTED 2 mL 3 Active cyanocobalamin (Vitamin B-12) 1000 MCG/ML injection INJECT 1 ML INTRAMUSCULARLY EVERY 30 DAYS Active naloxone (Narcan) 4 mg/0.1 mL nasal [...] by mouth Once per day. 30 tablet 2025 Active atorvastatin (Lipitor) 40 MG tablet Take 1 tablet (40 mg) by mouth Once per day. 30 tablet 025 2025 Active traMADol (Ultram) 50 MG tabletIndicatio ns:Acute pain of left shoulder TAKE 1 TABLET BY MOUTH EVERY 8 HOURS NEEDED FOR SEVERE PAIN 84 tablet Active Incruse Ellipta 62.5 MCG/ACT aerosol powder INHALE 1 PUFF BY MOUTH EVERY DAY AT THE SAME TIME RINSE MOUTH AFTER USING 30 each 1 025 Active Incruse Ellipta 62.5 MCG/ACT aerosol powder INHALE 1 PUFF BY MOUTH EVERY DAY AT THE SAME TIME RINSE MOUTH AFTER USING 30 each 1 025 2024 Discontinued Hospital, Clinic, or Other [...] Flank pain 12/02/2016 Lesion of liver 12/02/2016 PVD (peripheral vascular disease) 09/03/2016 Jejunostomy present 07/29/2016 Chronic low back [...] Date Type Department Care Team Description 08/17/2024 Telephone [facility] [address] [place] [address] Name, MD Victor Hugo 08/17/2024 Orders Only [facility] [address] [place], [place] [phone] Name, MD Victor Hugo PVD (peripheral vascular disease) ([facility]) (Primary Dx) 08/17/2024 Orders Only [facility] [address] [place] [address] [place] [address] NameVictor Hugo MD 08/02/2024 [address] [place] [address] Victor Hugo Packer MD 07/28/2024 9:30 AM EDT Clinical Support [address] [address] Yadira Bethea RN Cobalamin deficiency 07/28/2024 Travel 07/20/2024 Refill [facility] [address] [place], [place] [address]more[place] [phone] Dolly Mccloud NP Acute pain of left shoulder 07/13/2024 9:15 AM EST Office Visit [address] [place] [address] Victor Hugo Packer MD Ischemic finger ulcer, limited to breakdown of skin (CMS/HCC) (Primary Dx); Type 2 diabetes mellitus with other specified complication, without long-term current use of insulin (CMS/HCC) 07/13/2024 Travel 07/05/2024 Refill [facility] [place] [address] Victor Hugo Packer MD Essential hypertension 06/30/2024 9:30 AM EST Clinical Support [address] [phone] Yadira Bethea RN Cobalamin deficiency 06/27/2024 9:30 AM EST Office Visit [facility] [address] [place] [address] Ambrose Stephens MD Ischemic finger ulcer, limited to breakdown of skin (CMS/HCC) (Primary Dx); Tobacco dependence syndrome 06/27/2024 Travel 06/23/2024 10:00 AM EST Telemedicine [address] [address] Erin Peck RN Chronic low back pain, unspecified back pain laterality, unspecified whether sciatica present 06/23/2024 Refill [facility] [address] [place] [address] Erin Peck RN Acute pain of left shoulder 06/23/[address] [address] Erin Peck, RN [employer] Renewal appt today 06/23/2024 Travel 06/23/[address] [phone] Erin Peck, RN Recommend [employer] Tele Tier 2 06/20/[address] [address] Alexandra Gallego, ALCIDES 06/19/[address] [phone] Alexandra Gallego RN 06/19/[address] [phone] Alexandra Gallego, ALCIDES 06/09/2024 Telephone [facility] [address] [place] [address] Victor Hugo Packer MD Appointment Request (Pt needs derm appt) 06/09/[address] [address] Kalpana Thompson RN 06/07/2024 9:30 AM EST Procedure Visit [address] [address] Hilda Klein MD Paronychia of finger, left (Primary Dx) 06/07/[address] [phone] Deisi Guzman, RN Care Coordination 06/06/[address] [phone] Victor Hugo Packer MD Returning Call 06/05/2024 11:30 AM EST Office Visit [address] [address] Tyra Quevedo MD Paronychia of finger, left (Primary Dx) 06/05/2024 Travel 06/02/2024 9:30 AM EST Clinical Support [address] [address] Yadira Bethea, RN B12 deficiency [E53.8]; Cobalamin deficiency 05/25/2024 10:20 AM EST Office Visit [facility] [address] [place] [address] Ravindra Bruce MD Pain of finger of left hand (Primary Dx) from Last 3 Months Immunizations Name Administration [...] Info) Description 08/23/2024 11:30 AM EDT Telemedicine [facility] [address] [place] [address] Name, MD Victor Hugo [address] [place] [address] 08/29/2024 9:30 AM EDT Clinical Support [facility] [address] [place] [address] [phone] 11/17/2024 2:00 PM EDT Telemedicine [facility] [address] [place] [address] Erin Peck, RN Health Maintenance Due Date Last Done Comments CT Colonography 1950 FIT DNA/Cologuard 1950 FIT 1950 FOBT 1950 Sigmoidoscopy 1950 Hepatitis C Screening 1966 Hepatitis A Vaccines (2 of 2 - Risk 2-dose series) 12/15/2011 06/16/2011 Hepatitis B Vaccines (3 of 3 - Risk 3-dose series) 02/02/2012 12/08/2011, 06/16/2011 Colonoscopy 01/01/2019 01/01/2014 Colorectal Cancer Screening 01/01/2019 Lipid Panel 09/01/2023 08/31/2022, 12/10, 06/17/2021 COVID-19 Vaccine ( season) 2024 09/22/2021, 04/29/2021, 08/15/2020, Additional history exists Influenza Vaccine (#1) 2024 , 03/10/2022, 04/29/2021, Additional history exists Depression Screening 08/26/2024 08/27/2023, 08/27/19 24 SDOH Screening 08/26/2024 08/27/2023 Alcohol/Substance Use Screening 12/20/2024 12/21/2023 Diabetes: Urine Protein Screening 01/02/2025 01/03/2024, 01/07/2022, 06/17/2021 Diabetes: Hemoglobin A1C 01/13/2025 03/2 025, 12/21/2023, 05/06/2023, Additional history exists Diabetes: [...] complication, without long-term current use of insulin ([facility]) POCT GLUCOSE Routine 07/13/2024 9:17 AM EST Type 2 diabetes mellitus with other specified complication, without long-term current use of insulin ([facility]) INCISE AND DRAIN FINGER ABSCESS Routine 06/07/2024 10:05 AM EST Paronychia of finger, left ALBUMIN, RANDOM URINE W/CREATININE Routine 01/03/2024 12:00 AM EDT Type 2 diabetes mellitus with other specified complication, without long-term current use of insulin (CMS/HCC) COPD exacerbation ([facility]) Stress incontinence of urine DIABETES EYE EXAM Routine 09/23/2023 LIPID PANEL, STANDARD Routine 08/31/2022 8:03 AM EDT Type 2 diabetes mellitus without complication, without long-term current use of insulin ([facility]) Essential hypertension Tobacco dependence syndrome [place] COLONOSCOPY Routine 01/01/2014 from Last 3 Months or Most Recently Relevant to Health Maintenance Results * US ARTERIAL DUPLEX UE LT (08/17/2024 9:45 AM EDT) Anatomical Region Laterality Modality Abdomen Ultrasound 08/17/2024 9:45 AM EDT Narrative 08/17/2024 10:47 AM EDT ? [facility] ?[address] ?[place] [address] ? Ultrasound Report ? Signed ? Patient: Triana,Jacque ?MR#: [id number] ?? [id number] ? : 1950 ?Acct:[id number] ? Age/Sex: 73 / F ?ADM Date: 08/17/24 ? Loc: HO.US ? Attending Dr: Victor Hugo Packer MD ? Ordering Physician: Victor Hugo Packer MD ?? Date of Service: 08/17/24 ?? Procedure(s): US arterial duplex UE LT ?? Accession Number(s): [id number] ? cc: Victor Hugo Packer MD ? [...] cm/s. Monophasic waveform. Spectral ?? broadening. ? / arterial duplex UE LT ?? IMPRESSION: ?? 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 extremity. ? Electronically signed by: ??Osvaldo Serrano MD ??08/17/2024 10:45 AM ?? EDT ? Dictated By: ?Osvaldo Baig MD ? Signed By: ?<Electronically signed by Osvaldo Thornton MD in OV> ? 08/17/24 1045 ? DD/ 0945 ? TD/TT: 08/17/24 1015 ? Locker Room Supervisor: ? Procedure Note Ashish Cordova - 08/17/2024 [place] [address] Ultrasound Report Signed Patient: Christina TrianaredMR#: [id number] : 9Acct:[id number] Age/Sex: 73 / FADM Date: 08/17/24 Loc: HO.US Attending Dr: Victor Hugo Packer MD Ordering Physician: Victor Hugo Packer MD Date of Service: 08/17/24 Procedure(s): US arterial duplex UE LT Accession Number(s): [id number] cc: Victor Hugo Packer MD EXAMINATION: US [...] left upper extremity. Electronically signed by: Osvaldo Serraon MD 08/17/2024 10:45 AM EDT Dictated By: Osvaldo Baig MD Signed By: <Electronically signed by Osvaldo Thornton MDin OV> 08/17/24 1045 DD/ 0945 TD/TT: 08/17/24 1015 Locker Room Supervisor: us Victor Hugo Packer MD IMG US [...] specimen / Unknown 07/13/2024 9:17 AM EST Victor Hugo Packer MD POINT OF CARE [...] Yes ?Instructions and paperwork completed: Yes ?? [facility] protocol: ??Procedure explained and questions answered to [...] nail bed. Post-procedure details: ??Procedure completion: ??Tolerated Hilda Klein MD IN CLINIC/BEDSIDE ORDERABLES F inal Result * Albumin, Random Urine W/Creatinine (01/03/2024 12:00 AM EDT) Creatinine, Urine 144.72 mg/dL [facility] Microalbumin Urine 31.0 mg/L H [facility] Microalbum Creatinine Ratio Ur 21.4 <30 ug/mg cr [facility] Comment:Albumin/Creatinine R atio Reference Ranges: Normal: < 30 ug/mg creatinine Microalbuminuria: 30 - 300 ug/mg creatinineClinical Albuminuria: > 300 ug/mg creatinine Urine (Urine, Random) 01/03/2024 01/03/2024 us Victor Hugo Packer MD LAB URINE ORDERABLES Final Resul t [facility] [address] [place] [phone] * Diabetes Eye Exam (09/23/2023) Eye Exam Normal Normal 09/23/2023 us Victor Hugo Packer MD HEALTH MAINTENANCE Final Result * Lipid Panel, Standard (08/31/2022 8:03 AM EDT) Cholesterol, Total 149 <200 mg/dL [facility] HDL Cholesterol 50 > OR = 50 mg/dL [facility] Triglycerides 106 <150 mg/dL [facility] LDL Cholesterol 80 mg/dL (calc) [facility] Comment: Reference range: <100 Desirable range <100 mg/dL for primary prevention; ?? <70 mg/dL for patients with CHD or diabetic patients with > or = 2 CHD risk factors. LDL-C is now calculated using the Melissa calculation, which is a validated novel method providing better accuracy than the Friedewald equation in the estimation of LDL-C. Sky FRANCIS et al. ROCIO. 2013;310(19): 4156-4657 (http://education.MatsSoft/faq/TPB851) Chol/HDLC Ratio 3.0 <5.0 (calc) [facility] Non-HDL Cholesterol 99 <130 mg/dL (calc) [facility] Comment: For patients with diabetes plus 1 major ASCVD risk factor, treating to a non-HDL-C goal of <100 mg/dL (LDL-C of <70 mg/dL) is considered a therapeutic option. Blood Venous blood specimen / Unknown 08/31/2022 8:03 AM EDT 08/31/2022 8:16 AM EDT Narrative [facility] - 08/31/2022 10:33 PM EDT FASTING:YES FASTING: YES Victor Hugo Name LAB BLOOD ORDERABLES Final Resul t [facility] [address], [place] [address] [facility] [address] [place] [address] * Colonoscopy (01/01/2014) Colonoscopy Normal Normal Comment:Repeat in 5 years Historical Provider HEALTH MAINTENANCE Final Result from Last 3 Months or Most Recently Relevant to Health Maintenance Insurance [facility] [place] [address] [place] [address] Care Teams Jointer Submarine Cable Relationship Specialty Start Date End Date Name, MD Victor Hugo [address] [place] [address] PCP - General Family Medicine 08/14/15 Tori Silva PharmD [address] [place] [address] Pharmacist Internal Medicine 02/24/22
--- OUTSIDE RECORDS SUMMARY | 2024-08-22 17:56 | XMS_ITS | Encounter Summary ---
Author Organization [employer] Address 75 [facility] 7t [place] [address] Care Team Providers Care Resource Analyst Name Role Phone Name, Victor Hugo WARD Primary Care Provider Tori Silva PharmD Unavailable [phone] Reason for Visit * Reason Onset Date Comments Durable Medical Equipment 10/08/2022 Encounter Details Date Type Department Care Team ([facility] st Contact Info) Description 10/08/2022 Telephone [facility] [address] [place] [address] Name, MD Victor Hugo [address] [place] [address] Durable Medical Equipment Social History Tobacco Use [...] if any questions please contact Ronda at [phone] documented in this encounter Plan of Treatment Upcoming Encounters Date Type Department Care Team (Late st Contact Info) Description 08/23/2024 11:30 AM EDT Telemedicine [address] [address] Name, MD Victor Hugo [address] [place] [address] 08/29/2024 9:30 AM EDT Clinical Support [address] [address] 11/17/2024 2:00 PM EDT Telemedicine [address] [address] Erin Peck, RN documented as of this [...] on filedocumented in this encounter Care Teams Resource Analyst Relationship Specialty Start Date End Date Name, MD Victor Hugo [address] [place] [address] PCP - General Family Medicine 08/14/15 Puia, Tori, PharmD [address] [place] [address] Pharmacist Internal Medicine 02/24/22 documented as of this encounter
--- OUTSIDE RECORDS SUMMARY | 2024-08-22 17:56 | XMS_ITS | Encounter Summary ---
Author Organization [employer] Address [address] [facility] 7t [place] [address] Care Team Providers Care Fiber Optic Assembler Name Role Phone Name, Victor Hugo WARD Primary Care Provider [phone] Tori Silva PharmD Unavailable [phone] Reason for Visit * Reason Onset Date Comments 10/12/2023 Encounter Details Date Type Department Care Team ([facility] Contact Info) Description 10/12/2023 Telephone [facility] MEDICINE [address] [place], [place] [phone] Name, MD Victor Hugo [address] [place] [address] Social History Tobacco Use Types Packs/Day Years [...] 11:59 AM EDT Tc from Otilia at [facility] calling to inform pt has her annual Mini Cog and it was abnormal. Any questions contact Otilia at [phone] Ext [phone] documented in this encounter Plan of Treatment Upcoming Encounters Date Type Department Care Team (Late st Contact Info) Description 08/23/2024 11:30 AM EDT Telemedicine [address] [address] Name, MD Victor Hugo [address] [place] [address] 08/29/2024 9:30 AM EDT Clinical Support [address] [address] 11/17/2024 2:00 PM EDT Telemedicine [address] [address] Erin Peck RN documented as of this [...] documented as of this encounter Care Teams Fiber Optic Assembler Relationship Specialty Start Date End Date Name, MD Victor Hugo [address] [place] [address] PCP - General Family Medicine 08/14/15 Tori Silva, PharmD [address] [place] [address] Pharmacist Internal Medicine 02/24/22 documented as of this encounter
--- OUTSIDE RECORDS SUMMARY | 2024-08-22 17:56 | XMS_ITS | Encounter Summary ---
Author Organization [employer] Address [address] [facility] [address]t [place] [address] Care Team Providers Care Durability Engineer Name Role Phone Name, Victor Hugo WARD Primary Care Provider [phone] Tori Silva PharmD Unavailable [phone] Encounter Details Date Type Department Care Team (Late st Contact Info) Description 02/17/2023 Abstract [facility] MEDICINE [address] [place] [address] Name, MD Victor Hugo [address] [place] [address] Social History Tobacco Use Types Packs/Day Years [...] Info) Description 08/23/2024 11:30 AM EDT Telemedicine [address] [address] Name, MD Victor Hugo [address] [place] [address] 08/29/2024 9:30 AM EDT Clinical Support [address] [address] 11/17/2024 2:00 PM EDT Telemedicine [address] [address] Erin Peck RN documented as of this [...] on filedocumented in this encounter Care Teams Durability Engineer Relationship Specialty Start Date End Date Name, MD Victor Hugo [address] [place] [address] PCP - General Family Medicine 08/14/15 Puia, Tori, PharmD [address] [place] [address] Pharmacist Internal Medicine 02/24/22 documented as of this encounter
--- OUTSIDE RECORDS SUMMARY | 2024-08-22 17:56 | XMS_ITS | Clinical Summary ---
Author Organization [facility] Address [address] [place] [address] Phone Care Team Providers Care Checker Loader Name Role Phone Name, Victor Hugo WARD Primary Care Provider Allergies No known active allergies Medications amLODIPine [...] 2:30 PM EST Consult Orthopedic Surgery - [address] [place] [address] Humphrey Bustamante MD Lesion of [...] patient's age to complete this topic Insurance [facility] Member Subscriber Plan / Payer (Ef fective 2024-Present) Name:Jacque Triana Relation to Subscriber:Self Name:Jacque Triana Payer ID:[id number] Group ID:Not on file Type:Not on file Address: [facility] [place] [address] MEDICAID - [place] Care Teams Checker Loader Relationship Specialty Start Date End Date Name, MD Victor Hugo [address] [place] [address] PCP - General Internal Medicine 06/15/24
== END 2024-08-22 15:05 | disposition home or self-care (01) ==
LOC: HO.HVS 14:40
PROVIDERS: PCP Internal Medicine Geriatric Medicine; Visit Provider Surgery Vascular Surgery
DX: I70.8 Atherosclerosis of other arteries (principal)
CPT/HCPCS: 99204; G2211

== ENCOUNTER → 2024-08-22 14:40 | Outpatient (BNVA) | payer OTHER, SELFPAY | PROVIDERS: PCP Internal Medicine Geriatric Medicine; Visit Provider Surgery Vascular Surgery | DX: I70.8 Atherosclerosis of other arteries (principal); F17.210 Nicotine dependence, cigarettes, uncomplicated | CPT/HCPCS: 99202 ==

== ENCOUNTER 2024-08-24 08:28 | Outpatient (REF) | payer OTHER, SELFPAY ==
--- OUTSIDE RECORDS SUMMARY | 2024-08-24 08:52 | XMS_ITS | Clinical Summary ---
Author Organization [facility] Address [address] [place] [address] Phone Care Team Providers Care Repair Cameraman Name Role Phone Name, Victor Hugo WARD Primary Care Provider [phone] Allergies No known active allergies Medications amLODIPine [...] PM EST Consult Orthopedic Surgery - [address] [place] [address] Humphrey Bustamante MD Lesion of [...] patient's age to complete this topic Insurance [facility] Member Subscriber Plan / Payer (Ef fective 2024-Present) Name:Jacque Triana Relation to Subscriber:Self Name:Jacque Triana Payer ID:[id number] Group ID:Not on file Type:Not on file Address: [facility] [place] [address] MEDICA[place] - [place] Care Teams Repair Cameraman Relationship Specialty Start Date End Date Name, MD Victor Hugo [address] [place] [address] PCP - General Internal Medicine 06/15/24
--- OUTSIDE RECORDS SUMMARY | 2024-08-24 08:53 | XMS_ITS | Data Portability ---
Author Organization [employer] Address [address] [place] [address] Care Team Providers Care Senior Wind Turbine Technician Name Role Phone [facility] Referring Provider Assessment Encounter Date Assessment Date Assessment LastModified by Organization Details LastModified Time 02/11/2022 02/11/2022 I have reviewed and agree with the assessment and plan as documented by the environmental restoration planner. I provided real-time medical direction for this [...] Note 4430 Cynthia Charles MD Main - [address] [address] 02/11/2022 16:07:02 02/12/2022 12:00:00 Swelling of left foot [id number] M79.89 Health Concerns Section Related Observation LastModified by Organization [employer] LastModified Time None Recorded Concern Status LastModified by Organization Details LastModified Time None Recorded Advance Directives Directive None Recorded Payers Encounter Date Sequence Insurance Name Policy Number Policy Isidro Covered Member ID Isidro Member ID Guarantor Name 02/11/2022 [address] [facility] - DOS PRIOR TO 2022 - DUAL ELIGIBLE (MEDICARE REPLACEMENT/ADV ANTAGE - HMO) Jacque Triana [id number] Jacque Triana Notes Date Note Type Note [...] pleasant and cooperative. Member is 71 y/o, Mexican speaking, female, who lives with spouse, 3rd [...] .................. .................. .................. .................. .................. .................. ............... Custom Designer Note: Sent to evaluate pt with L [...] appt's the rest of the week. Consulted [facility] who recommended that pt go to ER for further evaluation. Pt agrees and EMS is called. Pt care turned over to [place] and pt to be transported to [place] [facility]. .................. .................. .................. .................. .................. .................. .................. ............... Disposition: Jaimee Charles MD [address] [facility],[address], [place], [address], [employer] 02/11/2022 17:58:28 OBGyn Episode No OBEpisode recorded.
[2024-08-24 10:50] LABS: Blood Urea Nitrogen 17 mg/dL (9-16); Estimated Glomerular Filt Rate > 60
== END 2024-08-24 08:29 | disposition home or self-care (01) ==
LOC: HO.LAB 08:28
PROVIDERS: PCP Internal Medicine Geriatric Medicine; Visit Provider Surgery Vascular Surgery
DX: I70.8 Atherosclerosis of other arteries (principal)
CPT/HCPCS: 36415; 82565; 84520

== ENCOUNTER 2024-09-21 13:46 | Outpatient (REF) | payer OTHER, SELFPAY ==
--- NOTE | ~2024-09-21 | CT_ITS ---
CLINICAL HISTORY: I70.8 - Atherosclerosis of other arteries --- Additional Notes or Special Instructi ons: Please evaluate for left subclavian occlusion as noted on ultrasound dated CT angiography chest with contrast. 3D Postprocessing. Comparison: None Findings: The heart is normal size. RV/LV ratio is normal. Unremarkable thoracic aorta and great vessels. No aneurysm. No acute pulmonary embolus. The esophagus is markedly distended with material. This may be related either to gastroesophageal reflux or distal esophageal obstructive changes. Consider gastroenterology consultation for follow-up. The visualized thyroid and mediastinum are otherwise unremarkable. The lungs are clear. The visualized upper abdomen is unremarkable. No acute fractures. IMPRESSION: 1. No pulmonary emboli or acute aortic pathology. 2. Findings of either high-level high volume gastroesophageal reflux or distal esophageal obstruction. Appropriate further evaluation, likely in consultation with gastroenterology, is recommended. This document has been electronically signed by: Winston Herron MD on 09/22/2024 08:41:06
--- OUTSIDE RECORDS SUMMARY | 2024-09-21 14:25 | XMS_ITS | Encounter Summary ---
Author Organization [employer] Address [address] [facility] [address] [place] [address] Care Team Providers Care Continuous Process Rotary Drum Tanner Name Role Phone Name, Victor Hugo WARD Primary Care Provider [phone] Tori Silva PharmD Unavailable [phone] Reason for Visit * Reason Onset Date Comments Durable Medical Equipment 10/08/2022 Encounter Details Date Type Department Care Team ([facility] st Contact Info) Description 10/08/2022 Telephone [facility] MEDICINE [address] [place] [address] Name, MD Victor Hugo [address] [place] [address] Durable Medical Equipment Social History Tobacco Use [...] if any questions please contact Ronda at [phone] documented in this encounter Plan of Treatment Upcoming Encounters Date Type Department Care Team (Late st Contact Info) Description 09/26/2024 9:30 AM EDT Clinical Support [address] [address] 11/17/2024 9:00 AM EDT Office Visit [address] [address] Name, MD Victor Hugo [address] [place] [address] 11/17/2024 2:00 PM EDT Telemedicine [address] [address] Erin Peck, RN documented as of this [...] on filedocumented in this encounter Care Teams Continuous Process Rotary Drum Tanner Relationship Specialty Start Date End Date Ochoa, MD Victor Hugo [address] [place] [address] PCP - General Family Medicine 08/14/15 Puia, Tori, PharmD [address] [place] [address] Pharmacist Internal Medicine 02/24/22 documented as of this encounter
--- OUTSIDE RECORDS SUMMARY | 2024-09-21 14:25 | XMS_ITS | Encounter Summary ---
Author Organization [employer] Address [address] [facility] [address] [place] [address] Care Team Providers Care Auto Finance Sales Rep Name Role Phone Name, Victor Hugo WARD Primary Care Provider [phone] Tori Silva PharmD Unavailable [phone] Encounter Details Date Type Department Care Team ([facility] st Contact Info) Description 02/17/2023 Abstract [facility] MEDICINE [address] [place], [place] [phone] Name, MD Victor Hugo [address] [place] [address] Social History Tobacco Use Types Packs/Day Years [...] the past 12 months, has t he [employer] oil or water company threatened to shut [...] 09/26/2024 9:30 AM EDT Clinical Support [address] [address] 11/17/2024 9:00 AM EDT Office Visit [address] [address] Name, MD Victor Hugo [address] [place] [address] 11/17/2024 2:00 PM EDT Telemedicine [address] [address] Erin Peck, ALCIDES documented as of this [...] on filedocumented in this encounter Care Teams Auto Finance Sales Rep Relationship Specialty Start Date End Date Name, MD Victor Hugo [address] [place] [address] PCP - General Family Medicine 08/14/15 Puia, Tori, PharmD [address] [place] [address] Pharmacist Internal Medicine 02/24/22 documented as of this encounter
--- OUTSIDE RECORDS SUMMARY | 2024-09-21 14:25 | XMS_ITS | Encounter Summary ---
Author Organization [employer] Address [address] [facility] [address] [place] [address] Care Team Providers Care Paper Bag Maker Name Role Phone Name, Victor Hugo WARD Primary Care Provider [phone] Tori Silva PharmD Unavailable [phone] Encounter Details Date Type Department Care Team ([facility] Contact Info) Description 10/08/2022 Abstract [facility] MEDICINE [address] [place] [address] Name, MD Victor Hugo [address] [place] [address] Social History Tobacco Use Types Packs/Day Years [...] Upcoming Encounters Date Type Department Care Team ([facility] Contact Info) Description 09/26/2024 9:30 AM EDT Clinical Support [facility] [address] [place] [address] 11/17/2024 9:00 AM EDT Office Visit [facility] [place] [address] Name, MD [facility] [place] [address] 11/17/2024 2:00 PM EDT Telemedicine [facility] [place] [address] Erin Peck, ALCIDES documented as of this [...] on filedocumented in this encounter Care Teams Paper Bag Maker Relationship Specialty Start Date End Date Name, MD Victor Hugo [facility] [place] [address] PCP - General Family Medicine 08/14/15 Puia, Tori, PharmD [address] [place] [address] Pharmacist Internal Medicine 02/24/22 documented as of this encounter
--- OUTSIDE RECORDS SUMMARY | 2024-09-21 14:25 | XMS_ITS | Clinical Summary ---
Author Organization [employer] Address [address] [place] [address] Care Team Providers Care Commercial Real Estate Manager Name Role Phone Name, Victor Hugo WARD Primary Care Provider [phone] Tori Silva PharmD Unavailable [phone] Allergies No known active allergies Medications Nutritional Supplements (Ensure Plus) liquid one can 3 times per day for Achlasia, dysphagia and wt loss 018 Active Diclofenac Sodium 1 % gel APPLY 2 GRAMS TOPICALLY TO AFFECTED AREA(S) TWICE DAILY 100 g 1 024 Active Lancets misc Use to test blood sugar 1 times daily 100 each 024 Active Blood Glucose Monitoring Suppl ([employer] Boswell Lite) w/Device kit Use to test blood sugar 1 times daily 1 kit 024 Active pantoprazole (ProtoNix) 20 MG EC tablet TAKE 1 TABLET BY MOUTH TWICE DAILY IN THE MORNING AND IN THE EVENING Active Ventolin HFA 108 (90 Base) MCG/ACT inhalerIndicati ons:COPD exacerbation (CMS/HCC) INHALE 2 PUFFS EVERY 6 HOURS NEEDED FOR WHEEZING 18 g 024 Active budesonide-form oterol (Symbicort) 80-4.5 MCG/ACT inhalerIndicati ons:Cough in adult patient,COPD exacerbation (CMS/HCC) Inhale 2 puffs in the morning and at bedtime. Rinse mouth with water after use to reduce aftertaste and incidence of candidiasis. Do not swallow. 1 each 11 024 2024 Active Blood Pressure kit Use once daily as directed to monitor home BP 1 kit 024 Active amLODIPine (Norvasc) 10 MG tabletIndicatio ns:Essential hypertension TAKE 1 TABLET BY MOUTH EVERY MORNING 30 tablet 5 024 Active cyanocobalamin (Vitamin B-12) 1000 MCG/ML [...] per day. 30 tablet 025 2025 Active Incruse Ellipta 62.5 MCG/ACT aerosol powder INHALE 1 PUFF BY MOUTH EVERY DAY AT THE SAME TIME RINSE MOUTH AFTER USING 30 each 1 025 Active traMADol (Ultram) 50 MG tabletIndicatio ns:Acute pain of left shoulder TAKE 1 TABLET BY MOUTH EVERY 8 HOURS NEEDED FOR SEVERE PAIN 84 tablet 025 Active Trulicity 0.75 MG/0.5ML solution auto-injectorIn dications:Type 2 diabetes mellitus without complication, without long-term current use of insulin ([facility]) INJECT ONE PEN (=0.75MG) SUBCUTANEOUSLY ONCE A WEEK DIRECTED 2 mL 3 025 Active pyridoxine (Vitamin B-6) 50 MG tablet Take 1 tablet (50 mg) by mouth Once per day. 30 tablet 024 2024 FREESTYLE LITE test strip Use to test blood sugar 1 times daily 100 each 12 024 2024 Trulicity 0.75 MG/0.5ML solution auto-injectorIn dications:Type 2 diabetes mellitus without complication, without long-term current use of insulin ([facility]) INJECT ONE PEN (=0.75MG) SUBCUTANEOUSLY ONCE A WEEK DIRECTED 2 mL 3 024 2024 Discontinued traMADol (Ultram) 50 MG tabletIndicatio ns:Acute pain of left shoulder TAKE 1 TABLET BY MOUTH EVERY 8 HOURS NEEDED FOR SEVERE PAIN 84 tablet 025 2024 Discontinued Hospital, Clinic, [...] Encounters Date Type Department Care Team Description 08/29/2024 9:30 AM EDT Clinical Support [facility] [place] [address] Yadira Bethea, ALCIDES 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] 08/29/2024 Travel 08/28/2024 Refill [facility] [address] [place] [address] NameVictor Hugo MD Type 2 diabetes mellitus without complication, without long-term current use of insulin ([facility]) 08/24/2024 Refill [facility] [place] [address] Victor Hugo Packer MD Acute pain of left shoulder 08/24/2024 Orders Only GENERIC EXTERNAL DATA DEPARTMENT Provider, Generic External Data 08/17/2024 Telephone [facility] [place] [address] Victor Hugo Packer MD 08/17/2024 Orders Only [facility] [place] [address] Victor Hugo Packer MD PVD (peripheral vascular disease) ([facility]) (Primary Dx) 08/17/2024 Orders Only [facility] [place] [address] Victor Hugo Packer MD 08/02/2024 Refill [facility] [place] [address] Victor Hugo Packer MD 07/28/2024 9:30 AM EDT Clinical Support [facility] [place] [phone] Yadira Bethea, ALCIDES Cobalamin deficiency 07/28/2024 Travel 07/20/2024 Refill [facility] [place] [phone] Dolly Mccloud NP Acute pain of left shoulder 07/13/2024 9:15 AM EST Office Visit [facility] [place] [address] Victor Hugo Packer MD Ischemic finger ulcer, limited to breakdown of skin ([facility]) (Primary Dx); Type 2 diabetes mellitus with other specified complication, without long-term current use of insulin ([facility]) 07/13/2024 Travel 07/05/2024 Refill [facility] [address] [place] [address] Name, MD Victor Hugo Essential hypertension 06/30/2024 9:30 AM EST Clinical Support [facility] [address] [place] [address] Yadira Bethea RN Cobalamin deficiency 06/27/2024 9:30 AM EST Office Visit [facility] [address] [place] [address] Ambroes Stephens MD Ischemic finger ulcer, limited to breakdown of skin (CMS/HCC) (Primary Dx); Tobacco dependence syndrome 06/27/2024 Travel from Last 3 Months Immunizations Immunization Administration Dates Next Due Hep A, Adult [...] Description 09/26/2024 9:30 AM EDT Clinical Support [address] [address] 11/17/2024 9:00 AM EDT Office Visit [address] [address] Name, MD Victor Hugo [address] [place] [address] 11/17/2024 2:00 PM EDT Telemedicine [address] [address] Erin Peck, ALCIDES Health Maintenance Due Date Last Done Comments [...] Procedure Name Priority Date/Time Associated Diagnosis Comments CREATININE, SERUM Routine 08/24/2024 8:4 2 AM EDT UREA NITROGEN (BUN) Routine 08/24/2024 8 :42 AM EDT US ARTERIAL DUPLEX UE LT Routine 08/17/2024 9:45 AM EDT POCT GLYCATED HEMOGLOBIN, TOTAL Routine 07/13/2024 9:18 AM EST Type 2 diabetes mellitus with other specified complication, without long-term current use of insulin ([facility]) POCT GLUCOSE Routine 07/13/2024 9:17 AM EST Type 2 diabetes mellitus with other specified complication, without long-term current use of insulin ([facility]) ALBUMIN, RANDOM URINE W/CREATININE Routine 01/03/2024 12:00 AM EDT Type 2 diabetes mellitus with other specified complication, without long-term current use of insulin ([facility]) COPD exacerbation ([facility]) Stress incontinence of urine DIABETES EYE EXAM Routine 09/23/2023 LIPID PANEL, STANDARD Routine 08/31/2022 8:03 AM EDT Type 2 diabetes mellitus without complication, without long-term current use of insulin ([facility]) Essential hypertension Tobacco dependence syndrome [place] COLONOSCOPY Routine 01/01/2014 from Last 3 Months or Most Recently Relevant to Health Maintenance Results * Creatinine, Serum (08/24/2024 8:42 AM EDT) Creatinine, Serum 0.88 0.5 - 1.4 mg/dL [facility] Estimated Glomerular Filt Rate >60 [facility] Comment:Chronic Kidney Disea se: Estimated GFR < 60 mL/min/1.14z4Iswskp Kidney Disease: Estimated GFR < 15 mL/min/1.73m2 08/24/2024 8:42 AM EDT 08/24/2024 8:43 AM EDT us Generic External Data Provider LAB BLOOD ORDERAB LES Final Result [facility] [address] [place] [phone] * (ABNORMAL) BUN (Blood Urea Nitrogen) (08/24/2024 8:42 AM EDT) Urea Nitrogen (BUN) 17(H) 9 - 16 mg/dL [facility] 08/24/2024 8:42 AM EDT 08/24/2024 8:43 AM EDT us Generic External Data Provider LAB BLOOD ORDERAB LES Final Result [facility] [address] [place] [phone] * US ARTERIAL DUPLEX UE LT (08/17/2024 9:45 AM EDT) Anatomical Region Laterality Modality Abdomen Ultrasound 08/17/2024 9:45 AM EDT Narrative 08/17/2024 10:47 AM EDT ? [facility] ?[address] ?[place] [address] ? Ultrasound Report ? Signed ? Patient: Triana,Jacque ?MR#: [id number] ?? [id number] ? : 1950 ?Acct:[id number] ? Age/Sex: 73 / F ?ADM Date: 08/17/24 ? Loc: HO.US ? Attending Dr: Victor Hugo Packer MD ? Ordering Physician: Victor Hugo Packer MD ?? Date of Service: 08/17/24 ?? Procedure(s): US arterial duplex UE LT ?? Accession Number(s): [id number] ? cc: Victor Hugo Packer MD ? [...] cm/s. Monophasic waveform. Spectral ?? broadening. ? US/ arterial duplex UE LT ?? IMPRESSION: ?? 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 extremity. ? Electronically signed by: ??Osvaldo Serrano MD ??08/17/2024 10:45 AM ?? EDT ? Dictated By: ?Osvaldo Baig MD ? Signed By: ?<Electronically signed by Osvaldo Thornton MD in OV> ? 08/17/24 1045 ? DD/ 0945 ? TD/TT: 08/17/24 1015 ? Tablet Technician: ? Procedure Note Ashish Cordova - 08/17/2024 [place] [address] Ultrasound Report Signed Patient: Christina TrianaredMR#: [id number] : 9Acct:[id number] Age/Sex: 73 / FADM Date: 08/17/24 Loc: HO.US Attending Dr: Victor Hugo Packer MD Ordering Physician: Victor Hugo Packer MD Date of Service: 08/17/24 Procedure(s): US arterial duplex UE LT Accession Number(s): [id number] cc: Victor Hugo Packer MD EXAMINATION: US [...] Osvaldo Serrano MD 08/17/2024 10:45 AM EDT Dictated By: Osvaldo Baig MD Signed By: <Electronically signed by Osvaldo Thornton MDin OV> 08/17/24 1045 DD/ 0945 TD/TT: 08/17/24 1015 Tablet Technician: us Victor Hugo Packer MD IM US PROCEDURES Final Result * (ABNORMAL) POCT HGB A1C (07/13/2024 9:18 AM EST) Pathologist [facility] [place] Hemoglobin A1C 6.2(A) 4.0 - 6.0 % QC Media Lot # [id number] Lot# Expiration Date [id number] Blood 07/13/2024 9:18 AM EST us Victor Hugo Packer MD POINT OF CARE TEST ENTER/EDIT OR DERABLES Final Result * POCT Glucose (07/13/2024 9:17 AM EST) Pathologist [facility] Glucose Blood, POC 134 60 - 200 mg/dL QC Media Lot # [id number] Lot# Expiration Date 82,625 Blood Capillary blood specimen / Unknown 07/13/2024 9:17 AM EST us Victor Hugo Packer MD POINT OF CARE TEST ENTER/EDIT OR DERABLES Final Result * Albumin, Random Urine W/Creatinine (01/03/2024 12:00 AM EDT) Creatinine, Urine 144.72 mg/dL [facility] Microalbumin Urine 31.0 mg/L [facility] Microalbum Creatinine Ratio Ur 21.4 <30 ug/mg cr [facility] Comment:Albumin/Creatinine R atio Reference Ranges: Normal: < 30 ug/mg creatinine Microalbuminuria: 30 - 300 ug/mg creatinineClinical Albuminuria: > 300 ug/mg creatinine Urine (Urine, Random) 01/03/2024 01/03/2024 us Victor Hugo Packer MD LAB URINE ORDERABLES Final Resul t Performing Organization Address City/State/[facility] Co de Phone Number [facility] [address] [place] [phone] * Hm Diabetes Eye Exam (09/23/2023) Eye Exam Normal Normal 09/23/2023 us Victor Hugo Packer MD HEALTH MAINTENANCE Final Result * Lipid Panel, Standard (08/31/2022 8:03 AM EDT) Cholesterol, Total 149 <200 mg/dL [facility] HDL Cholesterol 50 > OR = 50 mg/dL [facility] Triglycerides 106 <150 mg/dL [facility] LDL Cholesterol 80 mg/dL (calc) [facility] Comment: Reference range: <100 Desirable range <100 mg/dL for primary prevention; ?? <70 mg/dL for patients with CHD or diabetic patients with > or = 2 CHD risk factors. LDL-C is now calculated using the Melissa calculation, which is a validated novel method providing better accuracy than the Friedewald equation in the estimation of LDL-C. Sky FRANCIS et al. ROCIO. 2013;310(19): 6148-4588 (http://education.ClickOn.Fertility Focus/faq/ZNT790) Chol/HDLC Ratio 3.0 <5.0 (calc) [facility] Non-HDL Cholesterol 99 <130 mg/dL (calc) [facility] Comment: For patients with diabetes plus 1 major ASCVD risk factor, treating to a non-HDL-C goal of <100 mg/dL (LDL-C of <70 mg/dL) is considered a therapeutic option. Blood Venous blood specimen / Unknown 08/31/2022 8:03 AM EDT 08/31/2022 8:16 AM EDT Narrative [facility] - 08/31/2022 10:33 PM EDT FASTING:YES FASTING: YES Victor Hugo Name LAB BLOOD ORDERABLES Final Resul t [facility] [address] [place] [address] [facility] [address] [place] [address] * Colonoscopy (01/01/2014) Pathologist [facility] Colonoscopy Normal Normal Comment:Repeat in 5 years Historical Provider HEALTH MAINTENANCE Final Result from Last 3 Months or Most Recently Relevant to Health Maintenance Insurance [employer] CARE HOME OPTIONS (HMO D-SNP) [facility] CARE HOME OPTIONS (HMO D-SNP) Care Teams Commercial Real Estate Manager Relationship Specialty Start Date End Date Name, MD Victor Hugo [address] [place] [address] PCP - General Family Medicine 08/14/15 Tori Silva PharmD [address] [place] [address] Pharmacist Internal Medicine 02/24/22
--- OUTSIDE RECORDS SUMMARY | 2024-09-21 14:25 | XMS_ITS | Encounter Summary ---
Author Organization [employer] Address [address] [place] [address] Care Team Providers Care Senior Network Security Architect Name Role Phone Name, Victor Hugo WARD Primary Care Provider Tori Silva PharmD Unavailable [phone] Reason for Visit * Reason Comments Med Refill Encounter Details Date Type Department Care Team ([facility] st Contact Info) Description 08/17/[address] [facility] [address] [place] [address] Name, MD Victor Hugo [address] [place] [address] Acute pain of left shoulder Social History [...] Description 09/26/2024 9:30 AM EDT Clinical Support [address] [address] 11/17/2024 9:00 AM EDT Office Visit [address] [address] Name, MD Victor Hugo [address] [place] [address] 11/17/2024 2:00 PM EDT Telemedicine [address] [address] Erin Peck RN documented as of this [...] shoulder documented in this encounter Care Teams Senior Network Security Architect Relationship Specialty Start Date End Date Name, MD Victor Hugo [address] [place] [address] PCP - General Family Medicine 08/14/15 Puia, Tori, PharmD [address] [place] [address] Pharmacist Internal Medicine 02/24/22 documented as of this encounter
--- OUTSIDE RECORDS SUMMARY | 2024-09-21 14:25 | XMS_ITS | Encounter Summary ---
Author Organization [employer] Address [address] [place] [address] Care Team Providers Care Vanstone Machine Operator Name Role Phone Name, Victor Hugo WARD Primary Care Provider [phone] Tori Silva PharmD Unavailable [phone] Encounter Details Date Type Department Care Team ([facility] st Contact Info) Description 02/22/2023 Abstract [facility] [address] [place], [place] [phone] Name, MD Victor Hugo [address] [place] [address] Social History Tobacco Use Types Packs/Day Years [...] the past 12 months, has t he [employer], [employer], oil or water company threatened to shut [...] Description 09/26/2024 9:30 AM EDT Clinical Support [address] [address] 11/17/2024 9:00 AM EDT Office Visit [address] [address] Name, MD Victor Hugo [address] [place] [address] 11/17/2024 2:00 PM EDT Telemedicine [address] [address] Erin Peck RN documented as of this [...] on filedocumented in this encounter Care Teams Vanstone Machine Operator Relationship Specialty Start Date End Date NameVictor Hugo MD [address] [place] [address], [place] [address] PCP - General Family Medicine 08/14/15 Tori Silva, Sayda [address] [place] [address] Pharmacist Internal Medicine 02/24/22 documented as of this encounter
--- OUTSIDE RECORDS SUMMARY | 2024-09-21 14:25 | XMS_ITS | Encounter Summary ---
Author Organization [employer] Address [address] [place] [address] Care Team Providers Care Electronic Health Records Specialist Name Role Phone Name, Victor Hugo WARD Primary Care Provider [phone] Tori Silva PharmD Unavailable [phone] Encounter Details Date Type Department Care Team ([facility] st Contact Info) Description 02/17/2023 Abstract [facility] [address] [place], [place] [phone] Name, MD Victor Hugo [address] [place] [address] Social History Tobacco Use Types Packs/Day Years [...] the past 12 months, has t he [employer], oil or water company threatened to shut [...] Description 09/26/2024 9:30 AM EDT Clinical Support [address] [address] 11/17/2024 9:00 AM EDT Office Visit [address] [address] Name, MD Victor Hugo [address] [place] [address] 11/17/2024 2:00 PM EDT Telemedicine [address] [address] Erin Peck, ALCIDES documented as of this [...] on filedocumented in this encounter Care Teams Electronic Health Records Specialist Relationship Specialty Start Date End Date Name, MD Victor Hugo [address] [place] [address] PCP - General Family Medicine 08/14/15 Puia, Tori, PharmD [address] [place] [address] Pharmacist Internal Medicine 02/24/22 documented as of this encounter
--- OUTSIDE RECORDS SUMMARY | 2024-09-21 14:25 | XMS_ITS | Encounter Summary ---
Author Organization [employer] Address [address] 7t [place] [address] Care Team Providers Care Mail Sorter And Delivery Name Role Phone Name, Victor Hugo WRAD Primary Care Provider [phone] Tori Silva PharmD Unavailable [phone] Reason for Visit * Reason Comments Med Refill Encounter Details Date Type Department Care Team ([facility] Contact Info) Description 02/02/[address] [facility] [address] [place] [address] Name, MD Victor Hugo [address] [place] [address] Chronic low back pain, unspecified back pain [...] Upcoming Encounters Date Type Department Care Team ([facility] Contact Info) Description 09/26/2024 9:30 AM EDT Clinical Support [facility] [address] [place] [address] 11/17/2024 9:00 AM EDT Office Visit [facility] [address] [place] [address] Name, MD Victor Hugo [address] [place] [address] 11/17/2024 2:[address] [facility] [address] [place] [address] Erin Peck, RN documented as of this [...] cardiospasm documented in this encounter Care Teams Mail Sorter And Delivery Relationship Specialty Start Date End Date Name, MD Victor Hugo [address] [place] [address] PCP - General Family Medicine 08/14/15 Puia, Tori, PharmD [address] [place] [address] Pharmacist Internal Medicine 02/24/22 documented as of this encounter
--- OUTSIDE RECORDS SUMMARY | 2024-09-21 14:25 | XMS_ITS | Data Portability ---
Author Organization [employer] Address [address] [place] [address] Care Team Providers Care Briquette Molder Name Role Phone [facility] Referring Provider [phone] Assessment Encounter Date Assessment Date Assessment LastModified by Organization Details LastModified Time 02/11/2022 02/11/2022 I have reviewed and agree with the assessment and plan as documented by the licensed mental health professional. I provided real-time medical direction for this [...] Note 4430 Cynthia Charles MD Main - [address] [phone] 02/11/2022 16:07:02 02/12/2022 12:00:00 Swelling of left foot [id number] M79.89 Health Concerns Section Related Observation LastModified by Organization Detai ls LastModified Time None Recorded Concern Status LastModified by Organization Details LastModified Time None Recorded Advance Directives Directive None Recorded Payers Insurance Date Sequence Insurance Name Policy Number Policy Isidro Covered Member ID Isidro Member ID Guarantor Name 07/04/2023 1 [facility] - DOS PRIOR TO 2022 - DUAL ELIGIBLE (MEDICARE REPLACEMENT/ADV ANTAGE - HMO) Jacque Triana [id number] Jacque Triana 07/04/2023 1 [facility] - DOS ON OR AFTER 2022 - DUAL ELIGIBLE - RETIREMENT OPTIONS AND ONE CARE (MEDICARE REPLACEMENT/ADV ANTAGE - HMO) Jacque Triana [id number] Jacque Triana Notes Date Note Type Note [...] pleasant and cooperative. Member is 71 y/o, German speaking, female, who lives with spouse, 3rd [...] .................. .................. .................. .................. .................. .................. ............... Shot Tube Machine Tender Note: Sent to evaluate pt with L [...] appt's the rest of the week. Consulted [place] who recommended that pt go to ER for further evaluation. Pt agrees and EMS is called. Pt care turned over to [place] and pt to be transported to [facility]. .................. .................. .................. .................. .................. .................. .................. ............... Disposition: Jaimee Charles MD [address], [place], [address], [employer] 02/11/2022 17:58:28 OBGyn Episode No OBEpisode recorded.
--- OUTSIDE RECORDS SUMMARY | 2024-09-21 14:25 | XMS_ITS | Clinical Summary ---
Author Organization [facility] Address [address] [place] [address] Phone Care Team Providers Care Network Associate Name Role Phone Name, Victor Hugo WARD Primary Care Provider [phone] Allergies No known active allergies Medications amLODIPine [...] needed. for moderate pain 03/28/20 24 Active Social History Tobacco Use Types Packs/Day Years [...] patient's age to complete this topic Insurance [facility] Member Subscriber Plan / Payer (Ef fective 2024-Present) Name:Jacque Triana Relation to Subscriber:Self Name:Jacque Triana Payer ID:[id number] Group ID:Not on file Type:Not on file Address: [facility] [address] [id number] MEDICA[place] Care Teams Network Associate Relationship Specialty Start Date End Date Name, MD Victor Hugo [address] [place] [address] PCP - General Internal Medicine 06/15/24
--- OUTSIDE RECORDS SUMMARY | 2024-09-21 14:25 | XMS_ITS | Encounter Summary ---
Author Organization [employer] Address [address] [place] [address] Care Team Providers Care Retail General Manager Name Role Phone Name, Victor Hugo WARD Primary Care Provider [phone] Tori Silva PharmD Unavailable [phone] Reason for Visit * Reason Onset Date Comments 10/12/2023 Encounter Details Date Type Department Care Team ([facility] Contact Info) Description 10/12/2023 Telephone [facility] [address] [place], [place] [id number] Name, MD Victor Hugo [address] [place] [address] Social History Tobacco Use Types Packs/Day Years [...] - 10/12/2023 11:59 AM EDT Tc from O[facility] at [facility] calling to inform pt has her annual Mini Cog and it was abnormal. Any questions contact Otilia at [phone] Ext [phone] documented in this encounter Plan of Treatment Upcoming Encounters Date Type Department Care Team (Late st Contact Info) Description 09/26/2024 9:30 AM EDT Clinical Support [address] [address] 11/17/2024 9:00 AM EDT Office Visit [address] [address] Name, MD Victor Hugo [address] [place] [id number] 11/17/2024 2:00 PM EDT Telemedicine [address] [address] Erin Peck, ALCIDES documented as of this [...] documented as of this encounter Care Teams Retail General Manager Relationship Specialty Start Date End Date Name, MD Victor Hugo [address] [place] [address] PCP - General Family Medicine 08/14/15 Tori Silva, PharmD [address] [place] [address] Pharmacist Internal Medicine 02/24/22 documented as of this encounter
[2024-09-21] MEDS: iohexoL 350 MG/ML 100 ML INFUS..BTL IV (15:43)
== END 2024-09-21 13:47 | disposition home or self-care (01) ==
LOC: HO.CT 13:46
PROVIDERS: PCP Internal Medicine Geriatric Medicine; Visit Provider Surgery Vascular Surgery
DX: I70.8 Atherosclerosis of other arteries (principal)
CPT/HCPCS: 71275; Q9967

== ENCOUNTER → 2024-09-21 13:48 | Outpatient (BNV) | payer OTHER, SELFPAY | PROVIDERS: PCP Internal Medicine Geriatric Medicine; Visit Provider Specialist | DX: I70.8 Atherosclerosis of other arteries (principal) | CPT/HCPCS: 71275 ==

== ENCOUNTER 2024-10-03 09:01 | Outpatient (AMB) | payer OTHER, SELFPAY ==
--- NOTE | 2024-10-03 09:12 | MHC.OFFVIS ---
Intake Visit Reasons: follow up s/p CTA Chest 09/22/24 Intake Note: Patient presents for s/p CTA chest performed on 09/21/24. Patient states her left foot is constantly falling asleep and her both feet hurt from time to time. Her right calf is painful , hurts midday and on. Accompanied by: Spouse Allergies No Known Allergies Allergy (Verified 10/03/24 09:14) HPI HPI follow up s/p CTA Chest 09/22/24: Details: Complex 73-year-old female presents for follow-up evaluation regarding her left upper extremity. She also notes that her lower extremities have been a source of discomfort for her right now we are primarily focusing in on the left upper extremity. She reports that she has had this index finger nonhealing ulcer which is dry and a source of pain for her. In addition she also reports that her left upper extremity is tired and painful at all times. She has difficulty moving it at most intervals. She now presents for follow-up with CT angiogram. Of note she has been smoking half a pack per day and she has been a diabetic for over 15 years. [facility] Medical History Hiatal hernia Osteopenia (~2007) Urinary incontinence Nicotine dependence, cigarettes, uncomplicated Osteoarthritis GERD (gastroesophageal reflux disease) COPD (chronic obstructive pulmonary disease) CKD (chronic kidney disease) Type 2 diabetes mellitus Hypertension Surgical History History of hemorrhoidectomy History of hysterectomy History of colonoscopy History of esophagogastroduodenoscopy (EGD) Social History Are you a primary care advocate to a significant other at home: No Do you presently have visiting nurse or other home services: No Patient Tobacco Use Status: Current everyday Tobacco user Cigarette Packs Per Day: 12 Years Smoked: onset 14yo, 1/2-1ppd x 58yrs, 40+PYH) Advance Directives Date on File: 10/02/14 Review of Systems Const All systems reviewed & are unremarkable except as noted in HPI and below Reports no additional complaints ENT Reports Normal hearing present Card Denies chest pain, Denies chest pain at rest, Denies chest pain with activity and Denies pedal edema Resp Denies cough GI Denies abdominal pain Musc Denies abnormal gait, Denies muscle cramps and Denies radiating pain into limb Skin/Breast Denies skin ulcer and Denies wounds Neuro Reports Normal hearing present and Denies abnormal gait Psych Reports no additional complaints Physical Exam Const General: cooperative, healthy appearing and comfortable Orientation/consciousness: oriented to person, oriented to place and oriented to time HEENT Head: Yes normal to inspection Neck Neck: Yes normal visual inspection Carotids: no bruits Chest Chest palpation & inspection: normal inspection of the chest Resp Effort & Inspection: normal respiratory effort and able to speak in complete sentences Auscultation: clear to auscultation bilaterally, no crackles, no rales, no rhonchi and no wheezes Cardio Other: Left upper extremity brachial radial ulnar signals only Rate: regular rate Rhythm: regular rhythm Heart sounds: S1 normal heart sound present and S2 normal heart sound present Bruits: no carotid bruits GI Inspection: Yes normal to inspection Skin Wounds: no wounds Hair: normal Neuro General: oriented to person, oriented to place and oriented to time Cranial nerves: Yes CN's II-XII intact bilaterally and Yes Normal hearing present Cognition (Neuro): normal cognition Motor exam (neuro): 5/5 motor strength present throughout Extrem Other: venous exam: No significant superficial varicosities or spider telangiectasias, minimal edema General: No clubbing, No cyanosis and No edema Psych Appearance: grossly normal Mental Status: mental status grossly normal Speech and movement: Normal speech and movement present Assessment & Plan Assessment & Plan (1) Left subclavian artery occlusion: Code(s): I70.8 - Atherosclerosis of other arteries Category: Medical Plan: In short patient has left subclavian stenosis as evidenced on CT scan. Pathophysiology was discussed in detail with the patient. In addition she does have symptoms related to her left upper extremity pain.. the patient would benefit from a left arm endovascular peripheral angiogram with possible angioplasty, stent, and/or atherectomy. This has been discussed in detail with the patient along with risks, benefits, and complications. This includes but is not limited to bleeding, infection, heart attack, need for emergent surgical repair, limb ischemia, blood vessel damage, bleeding, puncture, kidney injury, bruising, allergic reaction, and skin reaction. The patient demonstrates a clear understanding. We will schedule for the next appropriate time. Thank you for allowing us to assist in this patient's care. Coding Level of Care Code Est Pt Level 4 (13741) Complex EM visit Add On G2211 Diagnoses Left subclavian artery occlusion I70.8
--- OUTSIDE RECORDS SUMMARY | 2024-10-03 09:29 | XMS_ITS | Clinical Summary ---
Author Organization [facility] Address [address] [place] [address] Phone Care Team Providers Care Supervisor Mold Construction Name Role Phone Name, Victor Hugo WARD Primary Care Provider [phone] Allergies No known active allergies Medications amLODIPine [...] patient's age to complete this topic Insurance [facility] Member Subscriber Plan / Payer (Ef fective 2024-Present) Name:Jacque Triana Relation to Subscriber:Self Name:Jacque Triana Payer ID:[id number] Group ID:Not on file Type:Not on file Address: [facility] [address] [id number] MEDICAID - [place] Care Teams Supervisor Mold Construction Relationship Specialty Start Date End Date Name, MD Victor Hugo [address] [place] [address] PCP - General Internal Medicine 06/15/24
== END 2024-10-03 10:03 | disposition home or self-care (01) ==
LOC: HO.HVS 09:01
PROVIDERS: PCP Internal Medicine Geriatric Medicine; Visit Provider Surgery Vascular Surgery
DX: I70.8 Atherosclerosis of other arteries (principal)
CPT/HCPCS: 99214; G2211

== ENCOUNTER → 2024-10-03 09:01 | Outpatient (BNVA) | payer OTHER, SELFPAY | PROVIDERS: PCP Internal Medicine Geriatric Medicine; Visit Provider Surgery Vascular Surgery | DX: I70.8 Atherosclerosis of other arteries (principal) | CPT/HCPCS: 99212 ==

== ENCOUNTER 2024-10-10 08:43 | Outpatient (AMB) | payer OTHER, SELFPAY ==
--- NOTE | 2024-10-10 09:04 | MHC.OFFVIS ---
Vital Signs 10/10/24 09:06 Height 5 ft Weight 110 lb BMI 21.5 Intake Visit Reasons: New prob LT CTS Intake Note: Jacque 73 yr old right hand dominant female presents today for a new problem visit for her left hand CTS. States symptoms comes and is constant. This is waking her up at night time. Denies O.T/brace/injections. No EMG. Patient mentioned she has a blockage in her uppper extremity and will be undergoing surgery for her left arm endovascular peripheral angiogram with possible angioplasty, stent, and/or atherectomy EMG done 05/13/23 IMPRESSION: Mild to moderate left median neuropathy across carpal tunnel. Talent Acquisition Relationship Manager Name: Elaina HERNANDEZ/RAVI Allergies No Known Allergies Allergy (Verified 10/10/24 09:06) HPI HPI New prob LT CTS: Details: Jacque is a 73 year old right hand dominant Montenegrin speaking woman who presents for a NCS review of her left hand numbness. She complains of dense numbness to all digits of her left hand. Symptoms constant, worse at night. She denies any prior treatment options. She mentioned she has a blockage in her upper extremity and will be undergoing surgery for her left arm endovascular peripheral angiogram with possible angioplasty, stent, and/or atherectomy PFSH Medical History Hiatal hernia Osteopenia (~2007) Urinary incontinence Nicotine dependence, cigarettes, uncomplicated Osteoarthritis GERD (gastroesophageal reflux disease) COPD (chronic obstructive pulmonary disease) CKD (chronic kidney disease) Type 2 diabetes mellitus Hypertension Surgical History History of hemorrhoidectomy History of hysterectomy History of colonoscopy History of esophagogastroduodenoscopy (EGD) Social History Are you a primary interior plant caretaker to a significant other at home: No Do you presently have visiting nurse or other home services: No Patient Tobacco Use Status: Current everyday Tobacco user Cigarette Packs Per Day: 12 Years Smoked: onset 14yo, 1/2-1ppd x 58yrs, 40+PYH) Advance Directives Date on File: 10/02/14 Review of Systems Const All systems reviewed & are unremarkable except as noted in HPI and below Physical Exam Vital Signs: BMI result Body Mass Index 21.5 Const General: cooperative, healthy appearing and no acute distress Orientation/consciousness: patient oriented x3 HEENT Head: Yes normocephalic and Yes atraumatic Eyes EOM: EOMs intact bilaterally Resp Effort & Inspection: normal respiratory effort and able to speak in complete sentences Cardio Jugular venous distension: no JVD Skin General skin exam: turgor normal Rashes: no rashes Neuro General: patient oriented x3 Extrem Other: Evaluation of Left Upper Extremity: The patient is alert, oriented, and in no acute distress Neuro: Dense numbness in all digits, including the small finger No thenar or intrinsic wasting Good APB muscle belly firing and good finger cross Good finger ABduction & ADduction Vascular: Cap refill brisk ROM: She can make a fist and extend all her digits Skin: No lacerations or abrasions. General: No Ecchymosis. No Erythema or evidence of infection. Nerve Conduction Study: Left-side only IMPRESSION: Mild to moderate left median neuropathy across carpal tunnel. Maverick Ricardo MD 05/13/2023 Psych Appearance: grossly normal Affect: normal affect Attitude: cooperative Assessment & Plan Assessment & Plan (1) Carpal tunnel syndrome of left wrist: Code(s): G56.02 - Carpal tunnel syndrome, left upper limb Category: Medical (2) Type 2 diabetes mellitus: Code(s): E11.9 - Type 2 diabetes mellitus without complications Category: Medical (3) Nicotine dependence, cigarettes, uncomplicated: Comment: (current smoker - onset 14yo, 1/2-1ppd x 58yrs, 40+PYH) Code(s): F17.210 - Nicotine dependence, cigarettes, uncomplicated Category: Medical (4) Coronary artery calcification: Comment: Severe coronary artery calcification on 12/[address] Code(s): I25.10 - Atherosclerotic heart disease of [place] coronary artery without angina pectoris; I25.84 - Coronary atherosclerosis due to calcified coronary lesion Category: Medical Plan Assessment & Plan: 1. Left carpal tunnel syndrome, mild-moderate With dense numbness I educated her about this condition I discussed operative and non-operative treatment options The patient would like to proceed with surgery The risks and benefits of operative treatment were discussed with the patient and the patient wishes to proceed with surgery. These risks include, but are not limited to risk of damage to blood vessels, nerves, tendons, infection, recurrence, incomplete relief of preoperative symptoms, persistent pain, possible need for further surgery and the risks associated with regional blocks and anesthesia. The plan is to take the patient to the operating room sometime in the next few weeks for the following procedures: 1. Left carpal tunnel release, under local All of the preoperative paperwork including the consent was reviewed today. All the patient's questions were answered. The patient understands that they will be contacted by our print traffic manager soon to schedule this procedure She denies blood thinners, asthma, lung, kidney issues. She is a Diabetic, no HgA1c on file. They will need an updated HgA1c that is <8.1% in order to proceed with surgery, and they expressed understanding She mentioned she has a blockage in her upper extremity and will be undergoing surgery for her left arm endovascular peripheral angiogram with possible angioplasty, stent, and/or atherectomy. Need to check with her surgeon on the timeline to have this local procedure done. Scribed for Jocelyne Covington MD by Jerome Hernandez, certified medical aide, on 10/10/24 at 9:20 AM, EST. Coding Level of Care Code Est Pt Level 4 (35937) Diagnoses Carpal tunnel syndrome of left wrist G56.02 Type 2 diabetes mellitus E11.9 Nicotine dependence, cigarettes, uncomplicated F17.210 Coronary artery calcification I25.10; I25.84
[2024-10-10 09:06] VITALS: BMI 21.5
--- OUTSIDE RECORDS SUMMARY | 2024-10-10 09:11 | XMS_ITS | Clinical Summary ---
Author Organization [facility] Address [address] [place] [address] Phone Care Team Providers Care Metalizing Machine Operator Automatic Name Role Phone Name, Victor Hugo WARD Primary Care Provider [phone] Allergies No known active allergies Medications amLODIPine [...] [facility] Member Subscriber Plan / Payer (Ef fective 2024-Present) Name:Jacque Triana Relation to Subscriber:Self Name:Jacque Triana Payer ID:[id number] Group ID:Not on file Type:Not on file Address: [facility] [address] [id number] MEDICAID - [place] Care Teams Metalizing Machine Operator Automatic Relationship Specialty Start Date End Date Name, MD Victor Hugo [address] [place] [address] PCP - General Internal Medicine 06/15/24
== END 2024-10-10 09:47 | disposition home or self-care (01) ==
LOC: HO.HOS 08:43
PROVIDERS: PCP Internal Medicine Geriatric Medicine; Visit Provider Orthopaedic Surgery
DX: G56.02 Carpal tunnel syndrome, left upper limb (principal); E11.9 Type 2 diabetes mellitus without complications; F17.210 Nicotine dependence, cigarettes, uncomplicated; I25.10 Atherosclerotic heart disease of native coronary artery without angina pectoris; I25.84 Coronary atherosclerosis due to calcified coronary lesion
CPT/HCPCS: 99214

== ENCOUNTER → 2024-10-10 08:43 | Outpatient (BNVA) | payer OTHER, SELFPAY | PROVIDERS: PCP Internal Medicine Geriatric Medicine; Visit Provider Orthopaedic Surgery | DX: G56.02 Carpal tunnel syndrome, left upper limb (principal); E11.9 Type 2 diabetes mellitus without complications; I25.10 Atherosclerotic heart disease of native coronary artery without angina pectoris; I25.84 Coronary atherosclerosis due to calcified coronary lesion; F17.210 Nicotine dependence, cigarettes, uncomplicated | CPT/HCPCS: 99212 ==

== ENCOUNTER 2024-10-11 07:25 | Day surgery (SDC) | payer OTHER, SELFPAY ==
[2024-10-11] VITALS (20 sets, daily range): BP systolic 99–167; BP diastolic 38–122; PULSE 64–85; RESP 13–20; TEMP 36.3–36.7; O2SAT 95–100; BMI 21.2
[2024-10-11 08:21] LABS: MANUAL DIFF FLAG NO
[2024-10-11 08:23] LABS: Basophils Absolute Auto 0.1 X10*3/uL (0.0-0.2); Basophils Percent Auto 0.9 % (0-2); Eosinophils Absolute Auto 0.1 X10*3/uL (0.0-0.4); Eosinophils Percent Auto 2.2 % (0-4); Hematocrit 32.5 % (37.0-47.0); Hemoglobin 11.2 g/dl (12.0-16.0); Imm Gran Abs Auto 0.02 X10*3/uL (0.00-0.03); Imm Gran Pct Auto 0.4 % (0.0-0.4); Lymphocytes Absolute Auto 1.6 X10*3/uL (1.2-4.9); Lymphocytes Percent Auto 29.6 % (20-40); Mean Corpuscular HGB Conc 34.5 g/dl (31.0-35.0); Mean Corpuscular Hemoglobin 33.2 pg (27.0-33.0); Mean Corpuscular Volume 96.4 fL (80.0-98.0); Mean Platelet Volume 10.1 fL (9.4-12.3); Monocytes Absolute Auto 0.5 X10*3/uL (0.1-1.2); Monocytes Percent Auto 8.7 % (2-11); Neutrophils Absolute Auto 3.1 x10*3/uL (2.0-8.3); Neutrophils Percent Auto 58.2 % (45-73); Platelet Count 239 X10*3/uL (160-400); Red Blood Count 3.37 X10*6/uL (4.20-5.50); Red Cell Distribution Width 13.5 % (11.0-16.0); White Blood Count 5.4 X10*3/uL (4.8-10.8)
[2024-10-11 08:28] LABS: Glucose, Whole Blood 134 mg/dL (60-115)
[2024-10-11] MEDS: 0.9 % Sodium Chloride 1,000 ML 100 ML IVCONT (08:39)
[2024-10-11 08:40] LABS: Blood Urea Nitrogen 20 mg/dL (9-16); Creatinine Clr Calc Pharmacy 38.3; Estimated Glomerular Filt Rate > 60
[2024-10-11] MEDS: fentaNYL citrate/PF 100 MCG/2 ML VIAL 25 MCG IVPUSH (10:00)
[2024-10-11] MEDS: Midazolam HCl 2 MG/2 ML VIAL 0.5 MG IVPUSH (10:00)
[2024-10-11] MEDS: Heparin Sodium,Porcine 10,000 UNIT/10 ML VIAL 4000 UNIT IVPUSH (10:22)
--- NOTE | 2024-10-11 10:56 | P.OP_ITS ---
Operative Note Operative Note Date of Service: 10/11/24 Narrative: Angiogram report from [facility] Preoperative diagnosis: Atherosclerosis of left upper extremity with pain on activity. Postoperative diagnosis: Same Procedure: 1. Ultrasound-guided right common femoral access 2. Aortogram of aortic arch 3. Selective left subclavian angiogram 4. Left subclavian artery plasty Surgeon:Adryan Kay M.D., FACS, RPVI Solutions Developer:None Anesthesia: Local with moderate conscious sedation. Total intraservice moderate sedation time was 49 minutes. I monitored the patient's level of consciousness and physiologic status continuously throughout the procedure. Specimens:none Drains:none Estimated blood loss: Less than 10 ml Radiation Dose: 108.8 mGy Implant: [employer] Impact 6 x 40 DCB Indications: Very pleasant 73-year-old female presents for evaluation and en dovascular intervention of left subclavian artery occlusion. This was seen and identified on CAT scan. The patient has signed the informed consent after reviewing risks, complications, benefits, and alternatives previously discussed with the patient. The patient was given the opportunity to ask any additional questions or voice any concerns. All questions were answered to the patient's satisfaction. Procedure in detail: Patient was brought to the angiography suite prior to which a time-out was called for patient identification and site verification. Bilateral groins were prepped and draped in the standard surgical fashion. Under ultrasound guidance right common femoral was punctured with micro puncture needle and wire. Subsequently a precision 5 [place] sheath was then placed. Cristopher tson wire was advanced to the level of the aorta. 5 [place] Flush catheter was brought up and parked at the aortic arch. Aortogram was then undertaken. We subsequently exchanged out for an 035 glidewire Advantage. We were able to easily access the left subclavian artery. This was followed by a Navicross catheter. We then did selective imaging of the subclavian artery of the left side. Multiple orthogonal views were then undertaken. At this time 4000 units of systemic heparin was administered. We exchanged out for a destination 6 [place] sheath. We were then able to traverse stenosis more in the 1st portion of the subclavian artery. It appeared to occlude as a turned into the axillary artery with immediate reconstitution. We were able to traverse this 1st stenosis quite easily with a Glidewire advantage. We initially plasty this with a 6 x 20 balloon and it was subsequently followed by a 6 x 40 drug coated balloon. The drug coated balloon was brought into position in under 3 minutes and insufflated for a total of 3 minutes in duration. Once this was accomplished completion angiogram demonstrated good result. We did do more focal images of the ostium of the left subclavian which did demonstrate some calcification but no flow-limiting stenosis. At this time catheter wire sheath was brought back down into the iliacs. We exchanged out for short 6 [place] sheath. A CELT closure device was then placed. Interpretation of films: 1. Ultrasound demonstrates appropriate femoral access site. Vessel was patent with minimal stenosis. Needle entry was visualized. Image of ultrasound was saved. 2. Aortogram demonstrates appropriate caliber aorta. Aortic arch with minimal disease. Appropriate takeoff of the innominate left carotid and left subclavian. 3. Left subclavian did demonstrate calcified stenosis at the ostium of the origin. 4. Left subclavian did have a moderate stenosis at the arch which did appear improved after plasty. There is a short segment occlusion as the subclavian turns into the axillary artery. It does immediately reconstitutes with significant collaterals. Conclusion: 1. Successful plasty of left subclavian artery. 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 2. Anticoagulation status: 6 months of aspirin and Plavix This note is constructed using voice recognition software. While every effort has been made to ensure accuracy, odd job laborer errors may have been included. Thank you for allowing me to participate in the care of your patient. Yours sincerely, Adryan Kay MD, FACS, R.P.V.I.
[2024-10-11] MEDS: Clopidogrel Bisulfate 300 MG TABLET PO (12:26)
[2024-10-11] MEDS: Aspirin 325 MG TABLET 650 MG PO (12:36)
[2024-10-12 12:28] LABS: ACT 2208 Celite s (79-173)
== END 2024-10-11 13:20 | disposition home or self-care (01) ==
PROVIDERS: PCP Internal Medicine Geriatric Medicine; Visit Provider Surgery Vascular Surgery
DX: E11.51 Type 2 diabetes mellitus with diabetic peripheral angiopathy without gangrene (principal); I70.298 Other atherosclerosis of native arteries of extremities, other extremity; E11.22 Type 2 diabetes mellitus with diabetic chronic kidney disease; I12.9 Hypertensive chronic kidney disease with stage 1 through stage 4 chronic kidney disease, or unspecified chronic kidney disease; N18.9 Chronic kidney disease, unspecified; Z79.85 Long-term (current) use of injectable non-insulin antidiabetic drugs; Z79.899 Other long term (current) drug therapy; F17.210 Nicotine dependence, cigarettes, uncomplicated
CPT/HCPCS: 36225; 36415; 37246; 76937; 82565; 82947; 84520; 85025; 85347; 99152; 99153; C1725; C1760; C1769; C1887; C1894; C2623; J1644; J2250; J3010; Q9967

== ENCOUNTER → 2024-10-11 07:25 | Outpatient (BNV) | payer OTHER, SELFPAY | PROVIDERS: PCP Internal Medicine Geriatric Medicine; Visit Provider Surgery Vascular Surgery | DX: I70.218 Atherosclerosis of native arteries of extremities with intermittent claudication, other extremity (principal) | CPT/HCPCS: 36225; 37236; 75625; 75710; 76937; 99152 ==

== ENCOUNTER 2024-10-31 08:42 | Outpatient (AMB) | payer OTHER, SELFPAY ==
--- NOTE | 2024-10-31 08:49 | MHC.OFFVIS ---
Intake Visit Reasons: 2w follow up s/p L subclavian angio 10/11/24 Intake Note: 2 week follow up Left UE Angioplasty 10/11/24, pt states her Left UE is feeling heavy and unable to lift it. Accompanied by: Spouse Allergies No Known Allergies Allergy (Verified 10/31/24 08:53) HPI HPI 2w follow up s/p L subclavian angio 10/11/24: Details: The patient is a 73-year-old female presenting with follow-up after a left upper extremity angiogram. She underwent a left subclavianplasty, but there is a total occlusion distal to that in the axillary artery, which could not be traversed during the procedure. The patient reports that her arm condition remains unchanged, with significant blockage in the middle of her arm. The patient experiences shoulder pain, which limits her ability to lift her arm. She also reports numbness in her fingers and foot, extending to her toes, indicating possible neurological involvement. There has been no significant improvement in her upper extremities and is now concerned about her lower extremities as well. She now presents for vascular follow-up. [facility] Medical History Hiatal hernia Osteopenia (~2007) Urinary incontinence Nicotine dependence, cigarettes, uncomplicated Osteoarthritis GERD (gastroesophageal reflux disease) COPD (chronic obstructive pulmonary disease) CKD (chronic kidney disease) Type 2 diabetes mellitus Hypertension Surgical History History of hemorrhoidectomy History of hysterectomy History of colonoscopy History of esophagogastroduodenoscopy (EGD) Social History (Updated 10/31/24 @ 08:56 by WILLY Mar) Household Members Other:: Lives alone Are you a primary neonatal intensive care unit nurse to a significant other at home: No Do you presently have visiting nurse or other home services: No Patient Tobacco Use Status: Current everyday Tobacco user Cigarettes Per Day: 5 Years Smoked: onset 14yo, 1/2-1ppd x 58yrs, 40+PYH) Advance Directives Date on File: 10/02/14 Review of Systems Const All systems reviewed & are unremarkable except as noted in HPI and below Reports no additional complaints ENT Reports Normal hearing present Card Denies chest pain, Denies chest pain at rest, Denies chest pain with activity and Denies pedal edema Resp Denies cough GI Denies abdominal pain Musc Denies abnormal gait, Denies muscle cramps and Denies radiating pain into limb Skin/Breast Denies skin ulcer and Denies wounds Neuro Reports Normal hearing present and Denies abnormal gait Psych Reports no additional complaints Physical Exam Const General: cooperative, healthy appearing and comfortable Orientation/consciousness: oriented to person, oriented to place and oriented to time HEENT Head: Yes normal to inspection Neck Neck: Yes normal visual inspection Carotids: no bruits Chest Chest palpation & inspection: normal inspection of the chest Resp Effort & Inspection: normal respiratory effort and able to speak in complete sentences Auscultation: clear to auscultation bilaterally, no crackles, no rales, no rhonchi and no wheezes Cardio Other: Bilateral DP signals Rate: regular rate Rhythm: regular rhythm Heart sounds: S1 normal heart sound present and S2 normal heart sound present Bruits: no carotid bruits GI Inspection: Yes normal to inspection Skin Wounds: no wounds Hair: normal Neuro General: oriented to person, oriented to place and oriented to time Cranial nerves: Yes CN's II-XII intact bilaterally and Yes Normal hearing present Cognition (Neuro): normal cognition Motor exam (neuro): 5/5 motor strength present throughout Extrem Other: venous exam: No significant superficial varicosities or spider telangiectasias, minimal edema General: No clubbing, No cyanosis and No edema Psych Appearance: grossly normal Mental Status: mental status grossly normal Speech and movement: Normal speech and movement present Assessment & Plan Assessment & Plan (1) Left subclavian artery occlusion: Code(s): I70.8 - Atherosclerosis of other arteries Category: Medical Plan: Even though there is a left axillary artery occlusion, I do believe much of her pain is musculoskeletal in nature. She has a prior history left rotator cuff tear along with carpal tunnel issues. At the current time I do think her arterial status is stable. Motor and sensation of the hand is intact. I do think we need to investigate neurologic component upper extremity pain. We will continue to monitor her her left upper extremity status. (2) PAD (peripheral artery disease): Code(s): I73.9 - Peripheral vascular disease, unspecified Category: Medical Plan: She does complain of claudication and is able to walk about 300 ft at most. I did review the pathophysiology of peripheral vascular disease with the patient. In addition we did discuss routine conservative measures including a healthy diet and the importance of exercise and ambulation. We did discuss risk factor modification. The patient will require noninvasive lower extremity arterial testing. She will follow up with us after testing. Thank you for allowing us to assist in her care. (3) Left arm pain: Code(s): M79.602 - Pain in left arm Category: Medical Plan: Will refer to pain management for further evaluation regarding left shoulder and hand pain. Orders: Orders US arterial duplex LE BI 1 Week I73.9 - Peripheral vascular disease, unspecified Referrals Pain Management Referral M79.602 - Pain in left arm Coding Level of Care Code Est Pt Level 4 (00686) Complex EM visit Add On G2211 Diagnoses Left subclavian artery occlusion I70.8 PAD (peripheral artery disease) I73.9 Left arm pain M79.602
--- OUTSIDE RECORDS SUMMARY | 2024-10-31 09:04 | XMS_ITS | Patient Health Record ---
Author Organization [facility] Address [address] [place] [address] Care Team Providers Care Head And Neck Surgeon Name Role Phone Odilia Mcdowell Primary Care Provider Unavail able Linus Vance Unavailable [phone] Reason For Referral No Information Medications Medication SIG (Take, Route, Frequency, Duration) Notes Start Date End Date Status Lancets Active Albuterol Sulfate HFA 108 (90 Base) MCG/ACT 2 puffs as needed Inhalation every 4 hrs Active FreeStyle Lite Test In Vitro Active Omeprazole 20 MG 1 capsule Orally Onc e a day Active Aspirin 81 MG 1 tablet Orally Once a day Active Clotrimazole 1 % 1 application to aff ected area Externally Twice a day Active metFORMIN HCl 850 MG 1 tablet with a fareed l Orally Once a day Active Combivent Respimat 20-100 MCG/ACT 1 puff Inhalation Four times a day Active glipiZIDE ER 5 MG 1 tablet Orally Once a day Active Hydromet 5-1.5 MG/5ML 5 ml as needed Ora lly every 6 hrs Active Lisinopril-hydroCHLOROthiaz jerome 10-12.5 MG 1 tablet Orally Once a day Active GaviLyte-N with Flavor Pack 420 GM Orally Active Simvastatin 40 MG 1 tablet in the even ing Orally Once a day Active Azithromycin 250 MG 2 tablets on the day, then 1 tablet daily for 4 days Orally Once a day Active Senna Lax 8.6 MG Orally Act meliza Ibuprofen 600 MG 1 tablet Orally Thre e times a day Active Calcium 600+D 600-400 MG-UNIT 1 tablet with food Orally Once a day Active predniSONE 20 MG 1 tablet with food o r milk Orally Once a day Active HYDROcodone-Acetaminophen 5-325 MG 1 tablet as needed Orally every 6 hrs Active Problems Problem Type SNOMED Code ICD Code Onset Dates Problem Status W/U Status Risk Notes Problem Achalasia and cardiospasm (530.0) Active confirmed Plan Of Treatment Pending Test Test Name Order Date XR BARIUM SWALLOW-ESOPHAGUS 03/14/2014 XR BARIUM SWALLOW-ESOPHAGUS 06/12/2014 Insurance Providers Payer Name Payer Address Payer Phone Subscriber Number Group Number Insured Name Patient Relationship to Insured Coverage Start Date Coverage End Date [facility] [address] [address] [id number] MAURO FLYNN Self - patient is the insured Medical (General) History Medical History History ICD Code achalasia--diagnosed between 2003 and 2004 with esophageal motility studies at [facility]--a trial of Botox injection of the lower esophageal sphincter in 2003 did not give her any symptomatic relief--s/p balloon dilation with Dr. Cao in 01/2005. She subsequently has been followed at [facility]'s GI department and Thoracic Surgery department, and apparently underwent dilations and subsequent laparoscopic Heller myotomy in 2009. She underwent a dilation with Savary dilators in the spring with Dr. Shepard. NIDDM hyperlipidemia Denies [place],DM,CVA,Lung disease,renal dise ase Surgical History Surgery Date(Month/Year) hysterectomy Lap. Heller Myotomy at [facility]- -sees Dr. Shepard in Thoracic Surgery Dept. 2009
== END 2024-10-31 09:25 | disposition home or self-care (01) ==
LOC: HO.HVS 08:43
PROVIDERS: PCP Internal Medicine Geriatric Medicine; Visit Provider Surgery Vascular Surgery
DX: I70.8 Atherosclerosis of other arteries (principal); I73.9 Peripheral vascular disease, unspecified; M79.602 Pain in left arm
CPT/HCPCS: 99214; G2211

== ENCOUNTER → 2024-10-31 08:42 | Outpatient (BNVA) | payer OTHER, SELFPAY | PROVIDERS: PCP Internal Medicine Geriatric Medicine; Visit Provider Surgery Vascular Surgery | DX: M79.602 Pain in left arm (principal); I70.8 Atherosclerosis of other arteries; I73.9 Peripheral vascular disease, unspecified | CPT/HCPCS: 99212 ==

== ENCOUNTER 2024-11-21 06:49 | Outpatient (REF) | payer OTHER, SELFPAY ==
--- OUTSIDE RECORDS SUMMARY | 2024-11-21 06:52 | XMS_ITS | Encounter Summary ---
Author Organization [email or web address] Address [address] [place] [address] Care Team Providers Care Regulatory Manager Name Role Phone Name, Victor Hugo WARD Primary Care Provider [phone] Tori Silva PharmD Unavailable [phone] Reason for Visit * Reason Comments Med Refill Encounter Details Date Type Department Care Team (Late st Contact Info) Description 08/17/2023 Refill [facility] [address] [place], [place] [phone] Name, MD Victor Hugo [address] [place] [address] Acute pain of left shoulder Social History [...] Care Team (Late st Contact Info) Description 01/19/2025 10:30 AM EDT Telemedicine [facility] [address] [place] [id number] Erin Peck RN documented as of this encounter Goals Goal Patient Goal Type Associated Problems Recent Progress Patient-Stated? Author Record your blood pressure periodically (~2x per week) Blood Pressure No Puia, Tori, PharmD Blood Pressure < 140/90 Blood Pressure 140/82(2024 9:06 AM EDT) No Puia, Tori, PharmD Smoking cessation General No Puia, Tori, PharmD documented as of this encounter Visit Diagnoses Diagnosis Acute pain of left shoulder documented in this encounter Care Teams Regulatory Manager Relationship Specialty Start Date End Date Name, MD Victor Hugo [address] [place] [address] PCP - General Family Medicine 08/14/15 Puia, Tori, PharmD [address] [place] [address] Pharmacist Internal Medicine 02/24/22 documented as of this encounter
--- OUTSIDE RECORDS SUMMARY | 2024-11-21 06:52 | XMS_ITS | Data Portability ---
Author Organization [employer] Address [address] [place] [address] Care Team Providers Care Compressor Operator Adjuster Name Role Phone [facility] Referring Provider [phone] Assessment Encounter Date Assessment Date Assessment LastModified by Organization Details LastModified Time 02/11/2022 02/11/2022 I have reviewed and agree with the assessment and plan as documented by the propeller mechanic. I provided real-time medical direction for this [...] Heart rate Respiratory rate Body temperature Systolic And Diastolic Systolic And Diastolic Provider Name and Address Organization Details Last Updated DateTime 2 75 /min 16 /min 100.4 [degF] 99 % 99 % 99 % 99 % 75 /min 16 /min 100.4 [degF] 163/69 mm[Hg] 163/69 mm[Hg] Not Available [employer] - production 2 16:52:55 Social History None recorded. Functional Status [...] Note 4430 Cynthia Charles MD Main - [address] [address] 02/11/2022 16:07:02 02/12/2022 12:00:00 Swelling of left foot [id number] M79.89 Health Concerns Section Related Observation LastModified by Organization Detai ls LastModified Time None Recorded Concern Status LastModified by Organization Details LastModified Time None Recorded Advance Directives Directive None Recorded Payers Insurance Date Sequence Insurance Name Policy Number Policy Isidro Covered Member ID Isidro Member ID Guarantor Name 07/04/2023 1 [facility] - DOS PRIOR TO 2022 - DUAL ELIGIBLE (MEDICARE REPLACEMENT/ADV ANTAGE - HMO) Jacque Triana [id number] Jacque Triana 07/04/2023 1 [facility] - DOS ON OR AFTER 2022 - DUAL ELIGIBLE - NURSING HOME OPTIONS AND ONE CARE (MEDICARE REPLACEMENT/ADV ANTAGE - HMO) Jacque Triana [id number] Jacque Triana Notes Date Note Type Note [...] pleasant and cooperative. Member is 71 y/o, Romanian speaking, female, who lives with spouse, 3rd [...] .................. .................. .................. .................. .................. .................. ............... Assistant Hall Director Note: Sent to evaluate pt with L [...] appt's the rest of the week. Consulted [facility] who recommended that pt go to ER for further evaluation. Pt agrees and EMS is called. Pt care turned over to [facility] and pt to be transported to [place] [facility]. .................. .................. .................. .................. .................. .................. .................. ............... Disposition: Jaimee Charles MD [address] [facility], [place], [address], [facility] - [employer] 02/11/2022 17:58:28 OBGyn Episode No OBEpisode recorded.
--- OUTSIDE RECORDS SUMMARY | 2024-11-21 06:52 | XMS_ITS | Clinical Summary ---
Author Organization [facility] Address [address] [place] [address] Phone Care Team Providers Care Opal Polisher Name Role Phone Name, Victor Hugo WARD Primary Care Provider [phone] Allergies No known active allergies Medications amLODIPine [...] - Risk 3-dose series) 02/02/2012 12/08/2011, 06/16/2011 Falls Risk Assessment 04/12/2022 Hepatitis C Screening 04/12/2022 Osteoporosis Screening (Bone Density Screening) 04/12/2022 Social Influencers of Health Screening 04/12/2022 Diabetes: Annual Urine Albumin-Creatinine Ratio (uACR) 04/25/2022 COVID-19 Vaccine ( season) 2024 09/22/2021, 04/29/2021, 08/15/2020, Additional history exists Diabetes: Blood Sugar Control Test (HGBA1C) 06/22/2024 12/21/2023 Depression Screening 08/26/2024 08/27/2023 Influenza Vaccine (#1) 2025 , 04/29/2021, 07/05/2019, Additional history exists Diabetes: Annual [...] patient's age to complete this topic Insurance [facility] Member Subscriber Plan / Payer (Ef fective 2024-Present) Name:Jacque Triana Relation to Subscriber:Self Name:Jacque Triana Payer ID:[id number] Group ID:Not on file Type:Not on file Address: [facility] [address] [id number] MEDICAID - [place] Care Teams Opal Polisher Relationship Specialty Start Date End Date Name, MD Victor Hugo [address] [place] [address] PCP - General Internal Medicine 06/15/24
[2024-11-21 07:02] LABS: MANUAL DIFF FLAG NO
[2024-11-21 07:46] LABS: Hematocrit 36.0 % (37.0-47.0); Hemoglobin 12.4 g/dl (12.0-16.0); Imm Gran Abs Auto 0.01 X10*3/uL (0.00-0.03); Imm Gran Pct Auto 0.2 % (0.0-0.4); Lymphocytes Absolute Auto 2.2 X10*3/uL (1.2-4.9); Mean Corpuscular HGB Conc 34.4 g/dl (31.0-35.0); Mean Corpuscular Hemoglobin 33.0 pg (27.0-33.0); Mean Corpuscular Volume 95.7 fL (80.0-98.0); NRBC Abs Auto 0.000 X10*3/uL (0.0-0.012); NRBC Pct Auto 0.0 /100WBC (0.0-0.2); Platelet Count 260 X10*3/uL (160-400); Red Blood Count 3.76 X10*6/uL (4.20-5.50); White Blood Count 5.1 X10*3/uL (4.8-10.8)
[2024-11-21 07:58] LABS: Hemoglobin A1C 137.5619 umol/L; Total Hemoglobin (HGBA1C) 3288.5689 umol/L
[2024-11-21 08:44] LABS: Alanine Aminotransferase 13 U/L (0-31); Albumin Level 4.2 g/dL (3.5-5.0); Alkaline Phosphatase 142 U/L (39-117); Anion Gap 11 (12-20); Aspartate Amino Transferase 29 U/L (5-31); Blood Urea Nitrogen 22 mg/dL (9-16); Calcium 9.0 mg/dL (8.4-10.2); Carbon Dioxide 28 mmol/L (22-29); Chloride 110 mmol/L (96-108); Cholesterol 137 mg/dL (<200); Estimated Glomerular Filt Rate 57; HDL Cholesterol 44 mg/dL (>40); Iron 49 mcg/dL (30-160); Percent Iron Saturation 14 % (15-50); Potassium 3.8 mmol/L (3.3-5.1); Sodium 145 mmol/L (135-145); Total Iron Binding Capacity 360 mcg/dL (228-428); Total Protein 7.1 g/dL (6.5-8.0); Triglycerides 86 mg/dL (<150); Unsaturated Iron Binding 311 ug/dL
[2024-11-21 08:50] LABS: Ferritin 13 ng/mL (10-250)
== END 2024-11-21 06:50 | disposition home or self-care (01) ==
LOC: HO.LAB 06:49
PROVIDERS: Student in an Organized Health Care Education/Training Program; PCP Internal Medicine Geriatric Medicine; Visit Provider Internal Medicine Geriatric Medicine
DX: I73.9 Peripheral vascular disease, unspecified (principal); K22.0 Achalasia of cardia; E11.69 Type 2 diabetes mellitus with other specified complication; D64.9 Anemia, unspecified
CPT/HCPCS: 36415; 80053; 80061; 82728; 83036; 83540; 85025

== ENCOUNTER 2024-11-22 10:51 | Outpatient (AMB) | payer OTHER, SELFPAY ==
[2024-11-22 10:52] VITALS: BP 173/70; PULSE 78; RESP 16; O2SAT 98; BMI 20.5
--- NOTE | 2024-11-22 10:52 | MHC.OFFVIS ---
Vital Signs 11/22/24 10:52 Height 5 ft Weight 105 lb BMI 20.5 BP 173/70 H Blood Pressure Location Rt brachial Position Sitting Respiration 16 Pulse 78 Pulse Source Pulse Oximeter Pulse Oximetry (%) 98 Oxygen Delivery Method Room Air Intake Visit Reasons: Pain in left arm Electronic Communications Technician Required: Yes Electronic Communications Technician Name: Chidi Mariee Accompanied by: Life Partner Allergies No Known Allergies Allergy (Verified 11/22/24 10:56) HPI Comments Details: The patient is a 74-year-old female presenting with chronic left arm pain. She has been suffering with this pain for a year and a half, endorses pain from shoulder through the hand. The left shoulder pain is associated with a rotator cuff tear and is exacerbated by movement, limiting her range of motion. She underwent physical therapy and steroid injections less than 1 year ago with no improvement of her pain. The patient also has carpal tunnel syndrome, which has been evaluated by a hand surgeon who recommended surgical intervention. She experiences pain and limited function in her hand, impacting her daily activities. Additionally, the patient has an axillary arterial occlusion, contributing to pain and circulation issues in her arm. She reports pain of the left arm and cold sensation. Arm is tender to palpation and sensitive to light touch. She denies any swelling. 10/11/2024 patient went underwent left upper extremity subclavian plasty where with the was found to be a total occlusion of the axillary artery that they were unable to traverse. - Onset: Chronic pain in left arm - Quality: Pain worsens with movement, and palpation - Location: Left arm - Exacerbating factors: Movement and touch of the arm - Relieving factors: None mentioned - Interference: Limits range of motion and daily activities - Affect: Pain impacts daily activities and function - Analgesia: Previous steroid injections provided no relief - Adverse Effects: None reported - Activities of Daily Living: Pain limits range of motion and daily activities - Aberrant Drug Related Behaviors: None reported [facility] Medical History Hiatal hernia Osteopenia (~2007) Urinary incontinence Nicotine dependence, cigarettes, uncomplicated Osteoarthritis GERD (gastroesophageal reflux disease) COPD (chronic obstructive pulmonary disease) CKD (chronic kidney disease) Type 2 diabetes mellitus Hypertension Surgical History History of hemorrhoidectomy History of hysterectomy History of colonoscopy History of esophagogastroduodenoscopy (EGD) Social History (Reviewed 11/22/24 @ 11:45 by Martita Kahn, JUVENILE CORRECTIONS OFFICER, AUTOMOTIVE REPAIR TECHNICIAN) Household Members Other:: Lives alone Are you a primary direct care professional to a significant other at home: No Do you presently have visiting nurse or other home services: No Patient Tobacco Use Status: Current everyday Tobacco user Cigarettes Per Day: 5 Years Smoked: onset 14yo, 1/2-1ppd x 56yrs, 40+PYH) Advance Directives Date on File: 10/02/14 Review of Systems Const Details: - Musculoskeletal: Reports chronic shoulder pain, worsens with movement - Neurological: Reports pain and limited function in hand due to carpal tunnel syndrome - Vascular: Reports lack of circulation in arms and feet, cold sensation in extremities Physical Exam Vital Signs: Last Vital Signs Pulse 78 11/22/24 10:52 Resp 16 11/22/24 10:52 BP 173/70 H 11/22/24 10:52 Pulse Ox 98 11/22/24 10:52 Oxygen Delivery Method Room Air 11/22/24 10:52 BMI result Body Mass Index 20.5 General: awake, alert, oriented. Answers questions appropriately. Fully engaged in examination. Skin: warm, dry, intact HEENT: Normocephalic. Hearing intact. Cardiac: External chest normal in appearance. Respiratory: No cough, audible wheezing or stridor. Abdomen: without gross distension. MS: No obvious swelling or deformities. Left upper extremity: Positive allodynia, positive hyperalgesia, patient endorses temperature changes including cool to touch sensation, decreased range of motion and weakness Neurological: Oriented to person, place, time and situation. Thought process intact. No gait abnormalities appreciated. Psychiatric: Appropriate mood and affect. Good judgment and insight. Results Reviewed Results Reviewed: 10/25/23 MR/MR shoulder LT wo con IMPRESSION: 1. Mild supraspinatus and infraspinatus tendinosis with a near complete, full-thickness tear of the supraspinatus tendon with a few thin anterior tendon fibers remaining intact. Articular surface tearing extends posteriorly through the majority of the infraspinatus tendon. The torn tendon fibers are retracted proximal to the humeral head apex. Moderate supraspinatus and infraspinatus muscle atrophy. 2. Moderate subscapularis tendinosis with distal articular surface partial tearing measuring 2.7 cm in ML dimension. 3. Complete tear and retraction of the proximal long head biceps tendon. 4. Mild acromioclavicular osteoarthritis with tiny subacromial spurs. 5. Irregular tearing through the periphery of the superior and posterosuperior labrum. 6. Mild glenohumeral osteoarthritis. [id number] joint effusion with mild synovitis. Assessment & Plan Assessment & Plan (1) Rotator cuff tear, left: Code(s): M75.102 - Unspecified rotator cuff tear or rupture of left shoulder, not specified as traumatic Category: Medical (2) Adhesive capsulitis of left shoulder: Code(s): M75.02 - Adhesive capsulitis of left shoulder Category: Medical (3) Left arm pain: Code(s): M79.602 - Pain in left arm Category: Medical (4) Carpal tunnel syndrome of left wrist: Code(s): G56.02 - Carpal tunnel syndrome, left upper limb Category: Medical (5) CRPS (complex regional pain syndrome type I): Code(s): G90.50 - Complex regional pain syndrome I, unspecified Category: Medical Plan The patient was informed about the option of a spinal cord stimulator for pain management, which involves a trial period to assess effectiveness. A mental health evaluation is required as part of the insurance process for the implantable device. If the trial is successful, the procedure will be submitted for insurance approval, and the device will be implanted under the skin. The patient was advised to complete the mental health evaluation and ensure the results are communicated back for further steps. Continue with Tramadol as prescribed by PCP Follow up with ortho/vascular/hand surgeon as planned Patient was informed and verbally consented to the use of an ambient scribe for clinic note documentation during this visit. Patient Instructions: - Complete the mental health evaluation as required for the spinal cord stimulator trial. - Inform the clinic once the mental health evaluation is completed to proceed with the next steps. Coding Level of Care Code New Pt Level 4 (50595) Complex EM visit Add On G2211 Diagnoses Rotator cuff tear, left M75.102 Adhesive capsulitis of left shoulder M75.02 Left arm pain M79.602 Carpal tunnel syndrome of left wrist G56.02 CRPS (complex regional pain syndrome type I) G90.50
--- OUTSIDE RECORDS SUMMARY | 2024-11-22 11:38 | XMS_ITS | Patient Health Record ---
Author Organization [facility] Address [address] [place] [address] Care Team Providers Care Kosher Inspector Name Role Phone Odilia Mcdowell Primary Care Provider Unavail able Linus Vance Unavailable [phone] Reason For Referral No Information Medications Medication [...] Insured Coverage Start Date Coverage End Date [facility] [address] [place] [address] [id number] MAURO FLYNN Self - patient is the insured Medical (General) History Medical History History ICD Code achalasia--diagnosed between 2003 and 2004 with esophageal motility studies at [facility]--a trial of Botox injection of the lower esophageal sphincter in 2003 did not give her any symptomatic relief--s/p balloon dilation with Dr. Cao in 01/2005. She subsequently has been followed at [facility]'s GI department and Thoracic Surgery department, and apparently underwent dilations and subsequent laparoscopic Heller myotomy in 2009. She underwent a dilation with Savary dilators in the spring with Dr. Shepard. NIDDM hyperlipidemia Denies HI,DM,CVA,Lung disease,renal dise ase Surgical History Surgery Date(Month/Year) hysterectomy Lap. Heller Myotomy at [facility]- -sees Dr. Shepard in Thoracic Surgery Dept. 2009
--- OUTSIDE RECORDS SUMMARY | 2024-11-22 11:38 | XMS_ITS | Encounter Summary ---
Author Organization [employer] Address [address] [facility] [address] [place] [address] Care Team Providers Care Job Compositor Name Role Phone Name, Victor Hugo WARD Primary Care Provider [phone] Tori Silva PharmD Unavailable [phone] Reason for Visit * Reason Comments Med Refill Encounter Details Date Type Department Care Team (Late st Contact Info) Description 08/17/2023 Refill [facility] [address] [place], [place] [id number] Name, MD Victor Hugo [address] [place] [address] Acute pain of left shoulder Social History [...] Info) Description 01/19/2025 10:30 AM EDT Telemedicine [facility] [address] [place] [address] Erin Peck RN documented as of this [...] shoulder documented in this encounter Care Teams Job Compositor Relationship Specialty Start Date End Date Name, MD Victor Hugo [address] [place] [address] PCP - General Family Medicine 08/14/15 Puia, Tori, PharmD [address] [place] [address] Pharmacist Internal Medicine 02/24/22 documented as of this encounter
--- OUTSIDE RECORDS SUMMARY | 2024-11-22 11:38 | XMS_ITS | Clinical Summary ---
Author Organization [facility] Address [address] [place] [address] Phone Care Team Providers Care Nuclear Physics Teacher Name Role Phone Name, Victor Hugo WARD Primary Care Provider [phone] Allergies No known active allergies Medications amLODIPine [...] patient's age to complete this topic Insurance [facility] Member Subscriber Plan / Payer (Ef fective 2024-Present) Name:Jacque Triana Relation to Subscriber:Self Name:Jacque Triana Payer ID:[id number] Group ID:Not on file Type:Not on file Address: [facility] [address] [address] MEDICAID - [place] Care Teams Nuclear Physics Teacher Relationship Specialty Start Date End Date Name, MD Victor Hugo [address] [place] [address] PCP - General Internal Medicine 06/15/24
--- OUTSIDE RECORDS SUMMARY | 2024-11-22 11:38 | XMS_ITS | Data Portability ---
Author Organization [facility] Address [address] [place] [address] Care Team Providers Care Enterprise Applications Manager Name Role Phone [facility] Referring Provider Assessment Encounter Date Assessment Date Assessment LastModified by Organization Details LastModified Time 02/11/2022 02/11/2022 I have reviewed and agree with the assessment and plan as documented by the agricultural lender. I provided real-time medical direction for this [...] Note 4430 Cynthia Charles MD Main - [address] [address] 02/11/2022 16:07:02 02/12/2022 12:00:00 Swelling of left foot [id number] M79.89 Health Concerns Section Related Observation LastModified by Organization Detai ls LastModified Time None Recorded Concern Status LastModified by Organization Details LastModified Time None Recorded Advance Directives Directive None Recorded Payers Insurance Date Sequence Insurance Name Policy Number Policy Isidro Covered Member ID Isidro Member ID Guarantor Name 07/04/2023 1 [facility] - DOS PRIOR TO 2022 - DUAL ELIGIBLE (MEDICARE REPLACEMENT/ADV ANTAGE - HMO) Jacque Triana [id number] Jacque Triana 07/04/2023 1 [facility] - DOS ON OR AFTER 2022 - DUAL ELIGIBLE - CARE HOME OPTIONS AND ONE CARE (MEDICARE REPLACEMENT/ADV ANTAGE - HMO) Jacque Triana [id number] Jacque Triana Notes Date Note Type Note [...] pleasant and cooperative. Member is 71 y/o, Hungarian speaking, female, who lives with spouse, 3rd [...] .................. .................. .................. .................. .................. .................. ............... Bead Filler Note: Sent to evaluate pt with L [...] appt's the rest of the week. Consulted [facility] who recommended that pt go to ER for further evaluation. Pt agrees and EMS is called. Pt care turned over to [facility] and pt to be transported to [place] [facility]. .................. .................. .................. .................. .................. .................. .................. ............... Disposition: Jaimee Charles MD [address] [facility],[address], [place], [address], [facility] - [employer] 02/11/2022 17:58:28 OBGyn Episode No OBEpisode recorded.
== END 2024-11-22 11:34 | disposition home or self-care (01) ==
LOC: HO.PMC 10:51
PROVIDERS: PCP Internal Medicine Geriatric Medicine; Referring Provider Surgery Vascular Surgery; Visit Provider Registered Nurse Emergency
DX: M75.102 Unspecified rotator cuff tear or rupture of left shoulder, not specified as traumatic (principal); M75.02 Adhesive capsulitis of left shoulder; M79.602 Pain in left arm; G56.02 Carpal tunnel syndrome, left upper limb; G90.50 Complex regional pain syndrome I, unspecified
CPT/HCPCS: 99204; G2211

== ENCOUNTER → 2024-11-22 10:51 | Outpatient (BNVA) | payer OTHER, SELFPAY | PROVIDERS: PCP Internal Medicine Geriatric Medicine; Referring Provider Surgery Vascular Surgery; Visit Provider Registered Nurse Emergency | DX: G56.02 Carpal tunnel syndrome, left upper limb (principal); M75.02 Adhesive capsulitis of left shoulder; M75.102 Unspecified rotator cuff tear or rupture of left shoulder, not specified as traumatic; M79.602 Pain in left arm; G90.50 Complex regional pain syndrome I, unspecified | CPT/HCPCS: 99202 ==

== ENCOUNTER 2025-01-26 09:23 | Outpatient (REF) | payer OTHER, SELFPAY ==
--- OUTSIDE RECORDS SUMMARY | 2025-01-24 10:00 | XMS_ITS | Encounter Summary ---
Author Organization [employer] Address [address] [facility] 7t [place] [address] Care Team Providers Care Secretary Of State Name Role Phone Name, Victor Hugo WARD Primary Care Provider [phone] Tori Silva PharmD Unavailable [phone] Reason for Visit * Reason Comments B12 Injection Encounter Details Date Type Department Care Team (Latest Contact Info) Description 01/24/2025 10:00 AM EDT Clinical Support [facility] [address] [place] [address] Alexandra Gallego, ALCIDES [address] [place] [address] Cobalamin deficiency Social History Tobacco Use Types Packs/Day Years [...] Answer Date Recorded Patient Health Questionnaire-9 Score 18 11/17/2024 Patient Health Questionnaire-9 Score 18 11/17/2024 Last PHQ-9: Questionnaire Data Not on file 0 11/17/2024 Housing Stability Answer Date Recorded What is your housing situation today? I have linda britton 11/17/[address] you li ve. Do you have problems with any of the following? None of the above 11/17/2024 Food Insecurity Answer Date Recorded Within the past 12 months, y ou worried that your food would run out before you got money to buy more: Never True 11/17/2024 Within the past 12 months,th e food you bought just didn't last and you didn't have enough money to get more: Never True 03/2025 Transportation Answer Date Recorded In the past 12 months, has l ack of transportation kept you from medical appts, meetings, work or from getting things needed for daily living? No 11/17/2024 Utilities Answer Date Recorded In the past 12 months, has t he electric, gas, oil or water company threatened to shut off services in your home? No 11/17/2024 Depression Answer Date Recorded Patient Health Questionnaire-2 Score 6 11/17/2024 Internet Access Answer Date Recorded Internet Access Q1 Yes 11/17/2024 Internet Access Q2 Not on file 11/17/2024 Comments Unknown Sex and Gender Information Value Date Recorded Sex Assigned at Female 03/09/2022 10:17 AM EDT Legal Sex Female 10:17 AM EDT Gender Identity Female 03/09/2022 10:17 AM EDT Sexual Orientation Straight 03/09/2022 10 :17 AM EDT documented as of this encounter Progress Notes * Alexandra Gallego RN - 01/24/2025 10:00 AM EDT S: Pt here for nurse visit for Vitamin B-12 Injection. Pt states that she feels well today. O: Standing order verified. A: Pt tolerated IM injection to right deltoid well. No adverse reaction noted. P: Pt advised of upcoming nurse visit for Vitamin B-12 Injection and given appointment reminder card. Pt verbalized understanding and states agreement with plan. documented in this encounter Plan of Treatment Upcoming Encounters Date Type Department Care Team (Late st Contact Info) Description 02/09/2025 2:00 PM EDT Telemedicine [address] [address] Erin Peck RN 02/23/2025 10:00 AM EDT Clinical Support [address] [address] 03/13/2025 11:00 AM EST Office Visit [address] [place] [address] Name, MD [place] [address] documented as of this encounter Goals Goal Patient Goal Type Associated Problems Recent Progress Patient-Stated? Author Record your blood pressure periodically (~2x per week) Blood Pressure No Tori Silva, PharmD Blood Pressure < 140/90 Blood Pressure 138/83(2024 8:52 AM EDT) No Tori Silva, PharmD Smoking cessation General No Tori Silva, PharmD documented as of this encounter Visit Diagnoses Diagnosis Cobalamin deficiency Other B-complex deficiencies documented in this encounter Administered Medications Active Administered Medications - up to 3 most recent administrations Medication Order MAR Action Action Date Dose Rate Site cyanocobalamin (Vitamin B-12) injection 1,000 mcg 1,000 mcg, Intramuscular, Every 30 days, First dose on Wed03/29/24 at 0900Indications:Anemia, unspecified type,Cobalamin deficiency Given 01/24/2025 10:10 AM EDT 1,000 mcg Right Deltoid Given 12/07/2024 3:35 PM EDT 1,000 mcg Le ft Deltoid Given 09/26/2024 9:05 AM EDT 1,000 mcg Ri ght Deltoid documented in this encounter Additional Health Concerns Assessment Noted Time PHQ-9 Depression Total Score: 18 025 9:06 AM EDT documented as of this encounter Care Teams Secretary Of State Relationship Specialty Start Date End Date Name, MD [place] [address] PCP - General Family Medicine 08/14/15 Tori Silva, [place] [address] Pharmacist Internal Medicine 02/24/22 documented as of this encounter
--- NOTE | ~2025-01-26 | XR_ITS ---
EXAMINATION: XR HAND, RIGHT CLINICAL INFORMATION: Nontraumatic right hand pain. Pain in carpal areas. COMPARISON: 05/22/2024. 04/20/2024. TECHNIQUE: PA, lateral, and oblique views of the right hand. FINDINGS: There is no fracture, dislocation, or suspicious bone lesion. There is normal alignment. Arthritic changes are present in the first through third MCP joints, most severe in the second MCP, where there is high-grade joint space narrowing, marginal spurring, and mild volar subluxation. There is no periarticular erosions evident. There are mild degenerative changes throughout the DIP joints of the digits, the interphalangeal joint of the thumb, first CMC joint and STT joints. No periarticular erosion or periarticular osteopenia is evident. The carpal rows are normally aligned. No discrete soft tissue abnormalities. No abnormal soft tissue calcification. XR/XR hand RT min 3V IMPRESSION: 1. 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 Inflammatory arthropathy is favored although there are no gross erosions or periarticular osteopenia. Consider CPPD, hemachromatosis, other hypercalcemic states, less likely psoriatic arthropathy. 2. There are probable degenerative changes of arthropathy in the interphalangeal joints of the digits, first CMC joint and STT joints. Electronically signed by: Marty Chaparro MD 01/26/2025 10:03 AM EDT
--- OUTSIDE RECORDS SUMMARY | 2025-01-26 09:00 | XMS_ITS | Encounter Summary ---
Author Organization [employer] Address [address] 7[address] [place] [address] Care Team Providers Care Box Folding Machine Operator Name Role Phone Name, Victor Hugo WARD Primary Care Provider [phone] Tori Silva PharmD Unavailable [phone] Reason for Visit * Reason Comments Arm Pain Encounter Details Date Type Department Care Team ([facility] st Contact Info) Description 01/26/2025 9:00 AM EDT Office Visit [facility] [address] [place] [address] Hand injury, right, initial encounter (Primary Dx) Social History Tobacco Use Types [...] AM EDT documented as of this encounter Last Filed Vital Signs Vital Sign Reading Time Taken Comments Blood Pressure 138/83 01/26/2025 8:52 AM EDT Pulse 65 01/26/2025 8:52 AM EDT Temperature 36.6 C (97.9 F) 01/26/2025 8:52 AM EDT Respiratory Rate 18 01/26/2025 8:52 AM EDT Oxygen Saturation 97% 01/26/2025 8:52 AM EDT Inhaled Oxygen Concentration - - Weight 49 kg (108 lb) 01/26/2025 8:52 AM EDT Height - - Body Mass Index 21.09 11/17/2024 9:06 AM EDT documented in this encounter Plan of Treatment Upcoming Encounters Date Type Department Care Team (Late st Contact Info) Description 02/09/2025 2:00 PM EDT Telemedicine [address] [address] Erin Peck, RN 02/23/2025 10:00 AM EDT Clinical Support [address] [address] 03/13/2025 11:00 AM EST Office Visit [address] [address] Name, MD Victor Hugo [address] [place] [address] Scheduled Orders Name Type Priority Associated Diagnoses Orde r Schedule XR Hand 3+ Views Right Imaging Routine Hand injury, right, initial encounter Expected: 01/26/2025, Expires: 01/26/2026 documented as of this encounter Goals Goal Patient Goal Type Associated Problems Recent Progress Patient-Stated? Author Record your blood pressure periodically (~2x per week) Blood Pressure No Puia, Tori, PharmD Blood Pressure < 140/90 Blood Pressure 138/83(2024 8:52 AM EDT) No Puia, Tori, PharmD Smoking cessation General No Puia, Tori, PharmD documented as of this encounter Visit Diagnoses Diagnosis Hand injury, right, initial encounter- Primary documented in this encounter Additional Health Concerns Assessment Noted Time PHQ-9 Depression Total Score: 18 11/17/ 025 9:06 AM EDT documented as of this encounter Care Teams Box Folding Machine Operator Relationship Specialty Start Date End Date Name, MD Victor Hugo [address] [place] [address] PCP - General Family Medicine 08/14/15 Puia, Tori, PharmD [address] [place] [address] Pharmacist Internal Medicine 02/24/22 documented as of this encounter
--- OUTSIDE RECORDS SUMMARY | 2025-01-26 09:57 | XMS_ITS | Encounter Summary ---
Author Organization [employer] Address [address] [facility] 7t [place] [address] Care Team Providers Care Director Of Kids Name Role Phone Name, Victor Hugo WARD Primary Care Provider [phone] Tori Silva PharmD Unavailable Encounter Details Date Type Department Care Team ([facility] Contact Info) Description 10/08/2022 Abstract [facility] [address] [place] [address] Name, MD Victor Hugo [address] [place] [address] Social History Tobacco Use Types Packs/Day Years [...] Upcoming Encounters Date Type Department Care Team ([facility] Contact Info) Description 02/09/2025 2:00 PM EDT Telemedicine [address] [address] Erin Peck, ALCIDES 02/23/2025 10:00 AM EDT Clinical Support [address] [address] 03/13/2025 11:00 AM EST Office Visit [address] [address] Name, MD Victor Hugo [address] [place] [address] documented as of this encounter Goals Goal [...] filedocumented in this encounter Care Teams Director Of Kids Relationship Specialty Start Date End Date Name, MD Victor Hugo [address] [place] [address] PCP - General Family Medicine 08/14/15 Puia, Tori, PharmD [address] [place] [address] Pharmacist Internal Medicine 02/24/22 documented as of this encounter
--- OUTSIDE RECORDS SUMMARY | 2025-01-26 09:57 | XMS_ITS | Encounter Summary ---
Author Organization [employer] Address [address] [facility] [address] 7t [place] [address] Care Team Providers Care University President Name Role Phone Name, Victor Hugo WARD Primary Care Provider [phone] Tori Silva PharmD Unavailable [phone] Reason for Visit * Reason Onset Date Comments 10/12/2023 Encounter Details Date Type Department Care Team ([facility] st Contact Info) Description 10/12/2023 Telephone [facility] [address] [place] [address] Name, MD Victor Hugo [address] [place] [address] Social History Tobacco Use Types Packs/Day Years [...] 11:59 AM EDT Tc from Otilia at [facility] calling to inform pt has her annual Mini Cog and it was abnormal. Any questions contact Otilia at [phone] Ext [phone] documented in this encounter Plan of Treatment Upcoming Encounters Date Type Department Care Team (Late st Contact Info) Description 02/09/2025 2:00 PM EDT Telemedicine [address] [address] Erin Peck, RN 02/23/2025 10:00 AM EDT Clinical Support [address] [address] 03/13/2025 11:00 AM EST Office Visit [address] [address] Name, MD Victor Hugo [address] [place] [address] documented as of this encounter Goals Goal [...] documented as of this encounter Care Teams University President Relationship Specialty Start Date End Date Name, MD Victor Hugo [address] [place] [address] PCP - General Family Medicine 08/14/15 Tori Silva, PharmD 230 [place] [address] Pharmacist Internal Medicine 02/24/22 documented as of this encounter
--- OUTSIDE RECORDS SUMMARY | 2025-01-26 09:57 | XMS_ITS | Encounter Summary ---
Author Organization [employer] Address [address] [facility] [address] 7t [place] [address] Care Team Providers Care Printed Circuit Board Preassembler Name Role Phone Name, Victor Hugo WARD Primary Care Provider [phone] Tori Silva PharmD Unavailable [phone] Encounter Details Date Type Department Care Team (Latest Contact Info) Description 01/24/2025 Travel Social History Tobacco Use Types Packs/Day Years [...] Info) Description 02/09/2025 2:00 PM EDT Telemedicine [address] [address] Erin Peck RN 02/23/2025 10:00 AM EDT Clinical Support [address] [address] 03/13/2025 11:00 AM EST Office Visit [address] [address] Victor Hugo Packer MD [address] [place] [address] documented as of this encounter Goals Goal [...] documented as of this encounter Care Teams Printed Circuit Board Preassembler Relationship Specialty Start Date End Date Victor Hugo Packer MD [address] [place] [address] PCP - General Family Medicine 08/14/15 Tori Silva PharmD [address] [place] [address] Pharmacist Internal Medicine 02/24/22 documented as of this encounter
--- OUTSIDE RECORDS SUMMARY | 2025-01-26 09:57 | XMS_ITS | Encounter Summary ---
Author Organization [employer] Address [address] [facility] [address] 7t [place] [address] Care Team Providers Care Informatica Mdm Architect Name Role Phone Name, Victor Hugo WARD Primary Care Provider [phone] Tori Silva PharmD Unavailable [phone] Encounter Details Date Type Department Care Team (Latest Contact Info) Description 01/26/2025 Travel Social History Tobacco Use Types Packs/Day [...] Info) Description 02/09/2025 2:00 PM EDT Telemedicine [address] [address] Erin Peck RN 02/23/2025 10:00 AM EDT Clinical Support [address] [address] 03/13/2025 11:00 AM EST Office Visit [address] [address] Victor Hugo Packer MD [address] [place] [address] documented as of this encounter Goals Goal [...] documented as of this encounter Care Teams Informatica Mdm Architect Relationship Specialty Start Date End Date Victor Hugo Packer MD [address] [place] [address] PCP - General Family Medicine 08/14/15 Tori Silva PharmD [address] [place] [address] Pharmacist Internal Medicine 02/24/22 documented as of this encounter
--- OUTSIDE RECORDS SUMMARY | 2025-01-26 09:57 | XMS_ITS | Clinical Summary ---
Author Organization [facility] Address [address] [place] [address] Phone Care Team Providers Care Water Taxi Captain Name Role Phone Name, Victor Hugo WARD Primary Care Provider [phone] Allergies No known active allergies Medications amLODIPine [...] Diabetes: Annual Urine Albumin-Creatinine Ratio (uACR) 04/25/2022 Depression Screening 05/10/2024 Diabetes: Blood Sugar Control Test (HGBA1C) 06/22/2024 12/21/2023 COVID-19 Vaccine ( season) 2025 09/22/2021, 04/29/2021, 08/15/2020, Additional history exists Influenza Vaccine (#1) 2025 , 04/29/2021, 07/05/2019, [...] patient's age to complete this topic Insurance [facility] Member Subscriber Plan / Payer (Ef fective 2024-Present) Name:Jacque Triana Relation to Subscriber:Self Name:Jacque Triana Payer ID:[id number] Group ID:Not on file Type:Not on file Address: [facility] [address] [address] MEDICAID - [place] Care Teams Water Taxi Captain Relationship Specialty Start Date End Date Name, MD Victor Hugo [address] [place] [address] PCP - General Internal Medicine 06/15/24
--- OUTSIDE RECORDS SUMMARY | 2025-01-26 09:57 | XMS_ITS | Encounter Summary ---
Author Organization [employer] Address [address] [facility] [address] 7t [place] [address] Care Team Providers Care Automatic Pinsetter Adjuster Name Role Phone Name, Victor Hugo WARD Primary Care Provider [phone] Tori Silva PharmD Unavailable [phone] Reason for Visit * Reason Comments Med Refill Encounter Details Date Type Department Care Team (Late st Contact Info) Description 08/17/2023 Refill [facility] [address] [place], [place] [id number] Name, MD Victor Hugo 230 [place] [address] Acute pain of left shoulder Social History [...] Info) Description 02/09/2025 2:00 PM EDT Telemedicine [address] [address] Erin Peck RN 02/23/2025 10:00 AM EDT Clinical Support [address] [address] 03/13/2025 11:00 AM EST Office Visit [address] [address] Name, MD Victor Hugo [address] [place] [address] documented as of this encounter Goals Goal [...] shoulder documented in this encounter Care Teams Automatic Pinsetter Adjuster Relationship Specialty Start Date End Date NameVictor Hugo MD [address] [place] [address] PCP - General Family Medicine 08/14/15 Puia, Tori, PharmD [address] [place] [address] Pharmacist Internal Medicine 02/24/22 documented as of this encounter
--- OUTSIDE RECORDS SUMMARY | 2025-01-26 09:57 | XMS_ITS | Encounter Summary ---
Author Organization [employer] Address [address] [facility] [address] [place] [address] Care Team Providers Care Salesperson Children'S Shoes Name Role Phone Name, Victor Hugo WARD Primary Care Provider [phone] Tori Silva PharmD Unavailable [phone] Reason for Visit * Reason Onset Date Comments Durable Medical Equipment 10/08/2022 Encounter Details Date Type Department Care Team ([facility] st Contact Info) Description 10/08/2022 Telephone [facility] [address] [place] [address] Name, MD Victor Hugo [address] [place] [address] Durable Medical Equipment Social History Tobacco Use [...] if any questions please contact Ronda at [phone] documented in this encounter Plan of Treatment Upcoming Encounters Date Type Department Care Team (Late st Contact Info) Description 02/09/2025 2:00 PM EDT Telemedicine [address] [address] Erin Peck RN 02/23/2025 10:00 AM EDT Clinical Support [address] [address] 03/13/2025 11:00 AM EST Office Visit [address] [address] Name, MD Victor Hugo [address] [place] [address] documented as of this encounter Goals Goal [...] on filedocumented in this encounter Care Teams Salesperson Children'S Shoes Relationship Specialty Start Date End Date Name, MD Victor Hugo [address] [place] [address] PCP - General Family Medicine 08/14/15 Puia, Tori, PharmD [address] [place] [address] Pharmacist Internal Medicine 02/24/22 documented as of this encounter
--- OUTSIDE RECORDS SUMMARY | 2025-01-26 09:58 | XMS_ITS | Encounter Summary ---
Author Organization [employer] Address 75 [facility] 7t [place] [address] Care Team Providers Care Maintenance Mechanic Technician Name Role Phone Name, Victor Hugo WARD Primary Care Provider [phone] Tori Silva PharmD Unavailable [phone] Reason for Visit * Reason Comments Med Refill Encounter Details Date Type Department Care Team (Late st Contact Info) Description 02/02/2023 Refill [facility] [address] [place] [address] Name, MD Victor Hugo [address] [place] [address] Chronic low back pain, unspecified back pain [...] Encounters Date Type Department Care Team (Late Contact Info) Description 02/09/2025 2:00 PM EDT Telemedicine [facility] [address] [place] [address] Erin Peck, RN 02/23/2025 10:00 AM EDT Clinical Support [address] [phone] 03/13/2025 11:00 AM EST Office Visit [address] [address] Name, MD Victor Hugo [address] [place] [address] documented as of this encounter Goals Goal [...] cardiospasm documented in this encounter Care Teams Maintenance Mechanic Technician Relationship Specialty Start Date End Date Name, MD Victor Hugo [address] [place] [address] PCP - General Family Medicine 08/14/15 Puia, Tori, PharmD [address] [place] [address] Pharmacist Internal Medicine 02/24/22 documented as of this encounter
--- OUTSIDE RECORDS SUMMARY | 2025-01-26 09:58 | XMS_ITS | Encounter Summary ---
Author Organization [employer] Address [address] [place] [address] Care Team Providers Care Wire Weaving Loom Setter Name Role Phone Name, Victor Hugo WARD Primary Care Provider [phone] Tori Silva PharmD Unavailable [phone] Reason for Visit * Reason Onset Date Comments Med Refill 01/23/2025 Pt requesting tr amadol refill Encounter Details Date Type Department Care Team (Late st Contact Info) Description 01/23/2025 Refill [facility] [address] [place] [address] Name, MD Victor Hugo [address] [place] [address] Acute pain of left shoulder Social History [...] as of this encounter Miscellaneous Notes * Addendum Note - Dena Peck RN - 01/23/2025 12:23 PM EDTAddended by: DENA PECK on: 01/23/2025 12:23 PM Modules accepted: Orders * Telephone Encounter - Capri Devlin - 01/23/2025 8:41 AM EDT Pt requesting tramadol refill documented in this encounter Plan of Treatment Upcoming Encounters Date Type Department Care Team (Late st Contact Info) Description 02/09/2025 2:00 PM EDT Telemedicine [facility] [address] [place] [id number] Dena Peck RN 02/23/2025 10:00 AM EDT Clinical Support [facility] [address] [place] [phone] 03/13/2025 11:00 AM EST Office Visit [facility] [address] [place] [address] Name, MD [place] [id number] documented as of this encounter Goals Goal [...] of left shoulder documented in this encounter Additional Health Concerns Assessment Noted Time PHQ-9 Depression Total Score: 18 025 9:06 AM EDT documented as of this encounter Care Teams Wire Weaving Loom Setter Relationship Specialty Start Date End Date Name, MD Victor Hugo [address] [place] [id number] PCP - General Family Medicine 08/14/15 Puia, Tori, PharmD [address] [place] [phone] Pharmacist Internal Medicine 02/24/22 documented as of this encounter
--- OUTSIDE RECORDS SUMMARY | 2025-01-26 09:58 | XMS_ITS | Clinical Summary ---
Author Organization [employer] Address [address] [facility] [address] [place] [address] Care Team Providers Care Prosthetic Aides Teacher Name Role Phone Name, Victor Hugo WARD Primary Care Provider [phone] Tori Silva PharmD Unavailable [phone] Allergies No known active allergies Medications * This document contains information received from the source organization and may not represent a complete record from that organization. Nutritional Supplements (Ensure Plus) liquid one can 3 times per day for Achlasia, dysphagia and wt loss 018 Active Diclofenac Sodium 1 % gel APPLY 2 GRAMS TOPICALLY TO AFFECTED AREA(S) TWICE DAILY 100 g 1 024 Active Lancets misc Use to test blood sugar 1 times daily 100 each 024 Active Blood Glucose Monitoring Suppl (FreeStyle Marion Lite) w/Device kit Use to test blood [...] Do not swallow. 1 each 11 024 Active Blood Pressure kit Use once daily as directed to monitor home BP 1 kit Active cyanocobalamin (Vitamin B-12) 1000 MCG/ML injection INJECT 1 ML INTRAMUSCULARLY EVERY 30 DAYS Active naloxone (Narcan) 4 mg/0.1 mL nasal sprayIndication s:Acute pain of left shoulder Administer 1 spray (4 mg) into affected nostril(s) if needed for opioid reversal. May repeat every 2-3 minutes if needed, alternating nostrils, until medical assistance becomes available. 2 each 3 2025 Active amLODIPine (Norvasc) 10 MG tabletIndicatio ns:Essential hypertension TAKE 1 TABLET BY MOUTH EVERY MORNING 30 tablet 5 Active Umeclidinium [place] (Incruse Ellipta) 62.5 MCG/ACT aerosol powder Inhale 1 Act (62.5 mcg) Once per day. INHALE 1 PUFF BY MOUTH EVERY DAY AT THE SAME TIME RINSE MOUTH AFTER USINGINHALE 1 PUFF BY MOUTH EVERY DAY AT THE SAME TIME RINSE MOUTH AFTER USING 30 each 2025 Active glucose blood (FREESTYLE LITE) test stripIndication s:Type 2 diabetes mellitus with other specified complication, without long-term current use of insulin ([facility]) TEST BLOOD SUGAR ONCE DAILY 50 strip Active TRUEplus Lancets 33G miscIndications :Type 2 diabetes mellitus with other specified complication, without long-term current use of insulin ([facility]) TEST BLOOD SUGAR ONCE DAILY 100 each Active clopidogrel (Plavix) 75 MG tablet Take 1 tablet (75 mg) by mouth Once per day. 30 tablet 025 2025 Active atorvastatin (Lipitor) 80 MG tablet Take 1 tablet (80 mg) by mouth Once per day. 30 tablet 025 2025 Active Trulicity 0.75 MG/0.5ML solution auto-injectorIn dications:Type 2 diabetes mellitus without complication, without long-term current use of insulin ([facility]) INJECT ONE PEN (=0.75MG) SUBCUTANEOUSLY ONCE A WEEK DIRECTED 2 mL 3 Active losartan (Cozaar) 100 MG tabletIndicatio ns:Essential hypertension TAKE 1 TABLET BY MOUTH EVERY MORNING 30 tablet 5 025 Active traMADol (Ultram) 50 MG tabletIndicatio ns:Acute pain of left shoulder Take 1 tablet (50 mg) by mouth every 8 (eight) hours if needed for severe pain. 84 tablet Active Diclofenac Sodium 1 % gelIndications: Hand injury, right, initial encounter Apply 1 Application topically if needed in the morning, at noon, in the evening, and at bedtime (hand pain) for up to 7 days. 100 g 025 2024 Active diphenhydrAMINE (BENADryl) 25 MG capsuleIndicati ons:Hand injury, right, initial encounter Take 1 capsule (25 mg) by mouth every 8 (eight) hours if needed (swelling) for up to 3 days. 9 capsule 025 2024 Active losartan (Cozaar) 100 MG tabletIndicatio ns:Essential hypertension TAKE 1 TABLET BY MOUTH EVERY MORNING 30 tablet 5 025 2024 Discontinued Trulicity 0.75 MG/0.5ML solution auto-injectorIn dications:Type 2 diabetes mellitus without complication, without long-term current use of insulin ([facility]) INJECT ONE PEN (=0.75MG) SUBCUTANEOUSLY ONCE A WEEK DIRECTED 2 mL 3 025 2024 Discontinued traMADol (Ultram) 50 MG tabletIndicatio ns:Acute pain of left shoulder Take 1 tablet (50 mg) by mouth every 8 (eight) hours if needed for severe pain. 84 tablet 025 2024 Discontinued(R eorder (will not trigger notification to Pharmacy)) Hospital, Clinic, or Other Facility Administered Medication Ordered Dose Route Frequency Start Date End Date Status cyanocobalamin (Vitamin B-12) injection 1,000 mcgIndications:Anemia, unspecified type,Cobalamin deficiency 1000 mcg IM Every 30 days 03/29/2024 Active Active Problems Problem Noted Date Diagnosed Date Long-term current use of opiate analgesic 2024 Esophageal achalasia 11/17/2024 Pain in finger of left hand 04/20/2024 Assessment & Plan (04/20/2024 10:39 AM EST): Swelling and tenderness to 2nd digit of left hand. Suspect infectious. -ordered XR 04/20/24 -start Doxycyline 100 mg BID for 7 days. -no discharge or debris to culture. Neck pain 05/06/2023 Assessment & Plan (05/06/2023 10:44 AM EST): Patient reports its better, she has upcoming appointments with specialist COPD exacerbation 05/06/2023 Assessment & Plan (12/10/2023 [...] abdominal pain 04/09/2022 History of esophagectomy 04/09/2022 Overview (09/22/2024): History of Achalasia Chronic dysphagia and wt loss Required jejunostomy tube in the past Treated with esophagectomy at [facility] She was lost to follow up from her surgical team since she is reluctant to do more surgeries H/O: hysterectomy 02/15/2018 Urinary incontinence 02/15/2018 Insomnia 01/04/2018 Cobalamin deficiency 12/02/2016 Flank pain 12/02/2016 Lesion of liver [...] Controlled c/w same interventions f/u with PCP Resolved Problems Problem Noted Date Diagnosed Date Resolved Date Paronychia of finger, left 06/05/2024 0 09/22/2024 Assessment & Plan (06/07/2024 10:10 AM EST): [...] and drainage of lesion if no improvement. Tobacco use 12/10/2023 11/17/2024 Assessment & Plan (12/10/2023 9:19 AM EDT): Pt is life long smoker, reports nothing has helped her quit, interested in low dose ct program, referral made Cough in adult patient 12/10/202309/22 COVID-19 05/06/2023 09/22/2024 Assessment & Plan (05/06/2023 10:46 AM EST): Patient out of the window for treatment Acetaminophen PRN drink plenty of fluids and rest If symptoms persist or worse go to emergency department Rectal abnormality 12/02/2016 5 Gastritis 12/08/2007 09/22/2024 Encounters * This document contains information received from the source organization and may not represent a complete record from that organization. Date Type Department Care Team Description 01/26/2025 9:00 AM EDT Office Visit [facility] [address] [phone] Hand injury, right, initial encounter (Primary Dx) 01/26/2025 Travel 01/24/2025 10:00 AM EDT Clinical Support [facility] [address] [place] [address] [place] [phone] Alexandra Gallego, ALCIDES Cobalamin deficiency 01/24/2025 Travel 01/23/2025 Refill [facility] [address] [place] [address] [place] [phone] Victor Hugo Packer MD Acute pain of left shoulder 01/06/2025 Refill [facility] [address] [place] [phone] Victor Hugo Packer MD Essential hypertension 01/02/2025 Refill [facility] [address] [place] [address] Victor Hugo Packer MD Type 2 diabetes mellitus without complication, without long-term current use of insulin ([facility]) 12/22/[address] [address] An Cop[place] february12/21/2024 Refill [facility] [address] [place] [phone] Victor Hugo Packer MD Acute pain of left shoulder 12/07/2024 3:30 PM EDT Clinical Support [address] [address] Yadira Bethea, ALCIDES 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] 12/07/2024 Travel 11/23/[address] [address] Victor Hugo Packer MD Prior Authorization 11/22/[address] [address] Victor Hugo Packer MD Referral 11/22/2024 Refill [facility] [address] [place] [phone] Victor Hugo Packer MD Acute pain of left shoulder 11/20/[address] [address] Victor Hugo Packer MD Durable Medical Equipment 11/17/2024 9:00 AM EDT Office Visit [address] [address] Name, MD Victor Hugo PVD (peripheral vascular disease) ([facility]) (Primary Dx); Claudication ([facility]); Esophageal achalasia; Type 2 diabetes mellitus with other specified complication, without long-term current use of insulin ([facility]) 11/17/2024 Travel 11/16/[address] [phone] Name, MD Victor Hugo Chart Prep 10/26/2024 Refill [facility] [address] [place] [address] Name, MD Victor Hugo Type 2 diabetes mellitus with other specified complication, without long-term current use of insulin ([facility]) from Last 3 Months Immunizations Immunization Administration [...] (108 lb) 01/26/2025 8:52 AM EDT Height 152.4 cm (5') 11/17/2024 9:06 AM EDT Body Mass Index 21.09 11/17/2024 9:06 AM EDT Plan of Treatment Upcoming Encounters Date Type Department Care Team (Late st Contact Info) Description 02/09/2025 2:00 PM EDT Telemedicine [address] [address] Erin Peck, ALCIDES 02/23/2025 10:00 AM EDT Clinical Support [address] [address] 03/13/2025 11:00 AM EST Office Visit [address] [address] Name, MD Victor Hugo [address] [place] [phone] Health Maintenance Due Date Last Done Comments Alcohol/Substance Use Screening 1962 Hepatitis C Screening 1966 Hepatitis A Vaccines (2 of 2 - Risk 2-dose series) 12/15/2011 06/16/2011 Hepatitis B Vaccines (3 of 3 - Risk 3-dose series) 02/02/2012 12/08/2011, 06/16/2011 Diabetes: Urine Protein Screening 01/02/2025 01/03/2024, 01/07/2022, 06/17/2021 COVID-19 Vaccine ( season) 2025 09/22/2021, 04/29/2021, 08/15/2020, Additional history exists Influenza Vaccine (#1) 2025 , 03/10/2022, 04/29/2021, Additional history exists Depression Monitoring 05/20/2025 11/17/2024, 025 Diabetes: Hemoglobin A1C 05/24/2025 025, 07/13/2024, 12/21/2023, Additional history exists Eye Exam 09/22/2025 09/23/2023 Diabetes: Foot Exam 11/17/2025 11/17/2024, 11/17/2024, 11/17/2024, Additional history exists SDOH Screening 11/17/2025 11/17/2024 Lipid Panel 11/21/2025 11/21/2024, 04/2 08/2022, 01/07/2022, Additional history exists Tobacco Screening 01/26/2026 01/26/2025 DTaP/Tdap/Td Vaccines (3 - Td or Tdap) 03/10/2032 03/10/2022, 06/16/2011, 07/12/2003 Colonoscopy Discontinued 01/01/2014 Colorectal Cancer Screening Discontinued Pneumococcal Vaccine: 50+ Years Completed 07/05/2019, 04/12/2017, 04/24/2010, Additional history exists Zoster Vaccines Completed 09/08/2022, 07/13/2022 RSV Patients and Patients Aged 60 years or older Completed 07/19/2023 CT Colonography Discontinued FIT DNA/Cologuard Discontinued FIT Discontinued FOBT Discontinued HIB Vaccines Aged Out No longer eligi [...] on patient's age to complete this topic Sigmoidoscopy Discontinued Goals Goal Patient Goal Type Associated Problems Recent Progress Patient-Stated? Author Record your blood pressure periodically (~2x per week) Blood Pressure No Puia, Tori, PharmD Blood Pressure < 140/90 Blood Pressure 138/83(2024 8:52 AM EDT) No Puia, Tori, PharmD Smoking cessation General No Puia, Tori, PharmD Procedures Procedure Name Priority Date/Time Associated Diagnosis Comments HEMOGLOBIN A1C Routine 11/21/2024 7:00 AM EDT PVD (peripheral vascular disease) ([facility]) Esophageal achalasia Type 2 diabetes mellitus with other specified complication, without long-term current use of insulin ([facility]) LIPID PANEL, STANDARD Routine 11/21/2024 7:00 AM EDT PVD (peripheral vascular disease) ([facility]) Esophageal achalasia Type 2 diabetes mellitus with other specified complication, without long-term current use of insulin ([facility]) COMPREHENSIVE METABOLIC PANEL Routine 11/21/2024 7:00 AM EDT PVD (peripheral vascular disease) ([facility]) Esophageal achalasia Type 2 diabetes mellitus with other specified complication, without long-term current use of insulin ([facility]) CBC WITH AUTO DIFFERENTIAL Routine 11/21/2024 7:00 AM EDT PVD (peripheral vascular disease) ([facility]) Esophageal achalasia Type 2 diabetes mellitus with other specified complication, without long-term current use of insulin ([facility]) FERRITIN Routine 11/21/2024 7:00 AM EDT Anemia, unspecified type IRON AND TOTAL IRON BINDING CAPACITY Routine 11/21/2024 7:00 AM EDT Anemia, unspecified type ALBUMIN, RANDOM URINE W/CREATININE Routine 01/03/2024 12:00 AM EDT Type 2 diabetes mellitus with other specified complication, without long-term current use of insulin ([facility]) COPD exacerbation ([facility]) Stress incontinence of urine DIABETES EYE EXAM Routine 09/23/2023 COLONOSCOPY Routine 01/01/2014 from Last 3 Months or Most Recently Relevant to Health Maintenance Results * (ABNORMAL) CBC auto differential (11/21/2024 7:00 AM EDT) White Blood Count 5.1 4.8 - 10.8 X10*3/uL [facility] Red Blood Count 3.76(L) 4.20 - 5.50 X10*6/uL [facility] Hemoglobin 12.4 12.0 - 16.0 g/dl [facility] Hematocrit 36.0(L) 37.0 - 47.0 % [facility] Mean Corpuscular Volume 95.7 80.0 - 98.0 fL [facility] Mean Corpuscular Hemoglobin 33.0 27.0 - 33.0 pg [facility] Mean Corpuscular HGB Conc 34.4 31.0 - 35.0 g/dl [facility] Red Cell Distribution Width 13.6 11.0 - 16.0 % [facility] Platelet Count 260 160 - 400 X10*3/uL [facility] Mean Platelet Volume 10.7 9.4 - 12.3 fL [facility] Neutrophils Percent Auto 42.9(L) 45 - 73 % [facility] Imm Gran Pct Auto 0.2 0.0 - 0.4 % [facility] Lymphocytes Percent Auto 43.0(H) 20 - 40 % [facility] Monocytes Percent Auto 9.0 2 - 11 % [facility] Eosinophils Percent Auto 3.7 0 - 4 % [facility] Basophils Percent Auto 1.2 0 - 2 % [facility] NRBC Pct Auto 0.0 0.0 - 0.2 /100WBC [facility] Neutrophils Absolute Auto 2.2 2.0 - 8.3 x10*3/uL [facility] Imm Gran Abs Auto 0.01 0.00 - 0.03 X10*3/uL [facility] Lymphocytes Absolute Auto 2.2 1.2 - 4.9 X10*3/uL [facility] Monocytes Absolute Auto 0.5 0.1 - 1.2 X10*3/uL [facility] Eosinophils Absolute Auto 0.2 0.0 - 0.4 X10*3/uL [facility] Basophils Absolute Auto 0.1 0.0 - 0.2 X10*3/uL [facility] NRBC Abs Auto 0.000 0.0 - 0.012 X10*3/uL [facility] Blood Venous blood specimen / Unknown 11/21/2024 7:00 AM EDT 11/21/2024 7:00 AM EDT Victor Hugo Packer MD LAB BLOOD ORDERABLES Final Resul t Performing Organization Address [facility] Co de Phone Number [facility] [address] [place] [phone] * (ABNORMAL) Iron And Total Iron Binding Capacity (11/21/2024 7:00 AM EDT) Pathologist [facility] Iron 49 30 - 160 mcg/dL [facility] Total Iron Binding Capacity 360 228 - 428 mcg/dL [facility] Percent Iron Saturation 14(L) 15 - 50 % [facility] Unsaturated Iron Binding 311 ug/dL [facility] Blood Venous blood specimen / Unknown 11/21/2024 7:00 AM EDT 11/21/2024 7:00 AM EDT Sharri Siegel MD LAB BLOOD ORDERAB LES Final Result Performing Organization Address [facility] Co de Phone Number [facility] [address] [place] [phone] * Hemoglobin A1c (11/21/2024 7:00 AM EDT) Hemoglobin A1c 6.0 <6.0 % [facility] Comment:Hemoglobin A1C Refer ence Range Adults: 4.8 - 6.0 % Non diabetic: < 6.0 % Goal: < 7.0 %Additional Action Suggested: > 8.0 %Note: Hemoglobin A1c results are invalid for patients with abnormal amounts of HbF. Blood transfusions may impact the HbA1c concentration in the patient sample. Estimated Average Glucose 126 mg/dL [facility] Comment:eAG = Estimated ave rage glucose which is %A1C expressed asaverage glucose, using the formula of the [id number] Glucose study (ADAG), Diabetes Care, Vol.31,#8,Dec. 2007 Blood Venous blood specimen / Unknown 11/21/2024 7:00 AM EDT 11/21/2024 7:00 AM EDT us Victor Hugo Packer MD LAB BLOOD ORDERABLES Final Resul t Performing Organization Address City/[facility]/ZIP Co de Phone Number [facility] [address] [place] [phone] * Ferritin (11/21/2024 7:00 AM EDT) Ferritin 13 10 - 250 ng/mL [facility] Blood Venous blood specimen / Unknown 11/21/2024 7:00 AM EDT 11/21/2024 7:00 AM EDT us Sharri Siegel MD LAB BLOOD ORDERAB LES Final Result Performing Organization Address [facility] Co de Phone Number [facility] [address] [place] [phone] * Lipid Panel, Standard (11/21/2024 7:00 AM EDT) Triglycerides 86 <150 mg/dL [facility] Comment:Desirable Triglyceri de: less than 150 mg/dLBorderline High Triglyceride 150-199 mg/dLHigh Triglyceride: 200-499 mg/dLVery High Triglyceride: greater than or equal to 5OO mg/dL Cholesterol 137 <200 mg/dL [facility] Comment:Desirable Cholestero l: less than 200 mg/dLBorderline High Cholesterol: 200-239 mg/dLHigh Cholesterol: greater than 239 mg/dL LDL Cholesterol Calculated 76 <100 mg/dL [facility] Comment:Desirable LDL: less than 100 mg/dLNear Optimal/Above Optimal LDL: 110- 129 mg/dLBorderline High LDL: 130-159 mg/dLHigh LDL: 160-189 mg/dLVery High LDL: greater than or equal to 190 mg/dL HDL Cholesterol 44 >40 mg/dL [facility] Comment:Desirable HDL: great er than 40 mg/dL Note: This HDL assay may give artificially low results in patients with liver disease. Blood Venous blood specimen / Unknown 11/21/2024 7:00 AM EDT 11/21/2024 7:00 AM EDT us Victor Hugo Packer MD LAB BLOOD ORDERABLES Final Resul t [facility] [address] [place] [phone] * (ABNORMAL) Comprehensive Metabolic Panel (11/21/2024 7:00 AM EDT) Sodium 145 135 - 145 mmol/L [facility] Potassium 3.8 3.3 - 5.1 mmol/L [facility] Chloride 110(H) 96 - 108 mmol/L [facility] Carbon Dioxide 28 22 - 29 mmol/L [facility] Anion Gap 11(L) 12 - 20 [facility] Urea Nitrogen (BUN) 22(H) 9 - 16 mg/dL [facility] Creatinine, Serum 0.96 0.5 - 1.4 mg/dL [facility] Estimated Glomerular Filt Rate 57 [facility] Comment:Chronic Kidney Disea se: Estimated GFR < 60 mL/min/1.75m1Otjslq Kidney Disease: Estimated GFR < 15 mL/min/1.73m2 Glucose 94 60 - 115 mg/dL [facility] Calcium 9.0 8.4 - 10.2 mg/dL [facility] Bilirubin, Total 1.0 0.0 - 1.0 mg/dL [facility] Aspartate Amino Transferase 29 5 - 31 U/L [facility] Alanine Aminotransferase 13 0 - 31 U/L [facility] Total Protein 7.1 6.5 - 8.0 g/dL [facility] Albumin Level 4.2 3.5 - 5.0 g/dL [facility] Alkaline Phosphatase 142(H) 39 - 117 U/L [facility] Blood Venous blood specimen / Unknown 11/21/2024 7:00 AM EDT 11/21/2024 7:00 AM EDT us Victor Hugo Packer MD LAB BLOOD ORDERABLES Final Resul t Performing Organization Address City/[facility]/ZIP Co de Phone Number [facility] [address] [place] [phone] * Albumin, Random Urine W/Creatinine (01/03/2024 12:00 AM EDT) Creatinine, Urine 144.72 mg/dL [facility] Microalbumin Urine 31.0 mg/L [facility] Microalbum Creatinine Ratio Ur 21.4 <30 ug/mg cr [facility] Comment:Albumin/Creatinine R atio Reference Ranges: Normal: < 30 ug/mg creatinine Microalbuminuria: 30 - 300 ug/mg creatinineClinical Albuminuria: > 300 ug/mg creatinine Urine (Urine, Random) 01/03/2024 01/03/2024 us Victor Hugo Packer MD LAB URINE ORDERABLES Final Resul t Performing Organization Address [facility]/ZIP Co de Phone Number [facility] [address] [place] [phone] * Diabetes Eye Exam (09/23/2023) Eye Exam Normal Normal 09/23/2023 us Victor Hugo Packer MD HEALTH MAINTENANCE Final Result * Colonoscopy (01/01/2014) Colonoscopy Normal Normal Comment:Repeat in 5 years Michele Provider HEALTH MAINTENANCE Final Result from Last 3 Months or Most Recently Relevant to Health Maintenance Insurance [employer] (O D-SNP) Care Teams Prosthetic Aides Teacher Relationship Specialty Start Date End Date Name, MD Victor Hugo [address] [place] [address] PCP - General Family Medicine 08/14/15 Tori Silva PharmD [address] [place] [address] Pharmacist Internal Medicine 02/24/22
--- OUTSIDE RECORDS SUMMARY | 2025-01-26 09:58 | XMS_ITS | Encounter Summary ---
Author Organization [employer] Address [address] [facility] [address] [address] [address] [place] [address] Care Team Providers Care Nitric Acid Concentrator Operator Name Role Phone Name, Victor Hugo WARD Primary Care Provider [phone] Tori Silva PharmD Unavailable [phone] Encounter Details Date Type Department Care Team ([facility] st Contact Info) Description 02/17/2023 Abstract [facility] [address] [place], [place] [phone] Name, MD Victor Hugo [address] [place] [address] Social History Tobacco Use Types Packs/Day Years [...] Info) Description 02/09/2025 2:00 PM EDT Telemedicine [address] [address] Erin Peck RN 02/23/2025 10:00 AM EDT Clinical Support [address] [address] 03/13/2025 11:00 AM EST Office Visit [address] [address] Name, MD Victor Hugo [address] [place] [phone] documented as of this encounter Goals Goal [...] on filedocumented in this encounter Care Teams Nitric Acid Concentrator Operator Relationship Specialty Start Date End Date Name, MD Victor Hugo [address] [place] [phone] PCP - General Family Medicine 08/14/15 Puia, Tori, PharmD [address] [place] [phone] Pharmacist Internal Medicine 02/24/22 documented as of this encounter
--- OUTSIDE RECORDS SUMMARY | 2025-01-26 09:58 | XMS_ITS | Encounter Summary ---
Author Organization [employer] Address [address] 7[address] [place] [address] Care Team Providers Care Social Welfare Administrator Name Role Phone Name, Victor Hugo WARD Primary Care Provider [phone] Tori Silva PharmD Unavailable [phone] Encounter Details Date Type Department Care Team ([facility] st Contact Info) Description 02/22/2023 Abstract [facility] [address] [place], [place] [phone] Name, MD Victor Hugo [address] [place] [address] Social History Tobacco Use Types Packs/Day Years [...] Info) Description 02/09/2025 2:00 PM EDT Telemedicine [address] [address] Erin Peck RN 02/23/2025 10:00 AM EDT Clinical Support [address] [address] 03/13/2025 11:00 AM EST Office Visit [address] [address] Name, MD Victor Hugo [address] [place] [address] documented as of this encounter Goals Goal [...] Colonoscopy Normal Normal Comment:Repeat in 5 years us Historical Provider HEALTH MAINTENANCE Final Result documented in this encounter Visit Diagnoses Not on filedocumented in this encounter Care Teams Social Welfare Administrator Relationship Specialty Start Date End Date Name, MD Victor Hugo [address] [place] [address] PCP - General Family Medicine 08/14/15 Tori Silva PharmD [address] [place] [address] Pharmacist Internal Medicine 02/24/22 documented as of this encounter
--- OUTSIDE RECORDS SUMMARY | 2025-01-26 09:58 | XMS_ITS | Encounter Summary ---
Author Organization [employer] Address [address] 7[address] [place] [address] Care Team Providers Care Sandwich Wrapper Name Role Phone Name, Victor Hugo WARD Primary Care Provider [phone] Tori Silva PharmD Unavailable [phone] Encounter Details Date Type Department Care Team ([facility] st Contact Info) Description 02/17/2023 Abstract [facility] [address] [place], [place] [phone] Name, MD Victor Hugo [address] [place] [address] Social History Tobacco Use Types Packs/Day Years [...] Description 02/09/2025 2:00 PM EDT Telemedicine [address] [address] Erin Peck RN 02/23/2025 10:00 AM EDT Clinical Support [address] [address] 03/13/2025 11:00 AM EST Office Visit [address] [address] Name, MD Victor Hugo [address] [place] [address] documented as of this encounter Goals Goal [...] on filedocumented in this encounter Care Teams Sandwich Wrapper Relationship Specialty Start Date End Date Name, MD Victor Hugo [address] [place] [address] PCP - General Family Medicine 08/14/15 Puia, Tori, PharmD [address] [place] [address] Pharmacist Internal Medicine 02/24/22 documented as of this encounter
== END 2025-01-26 09:24 | disposition home or self-care (01) ==
LOC: HO.HHCX 09:23
PROVIDERS: Visit Provider Family Medicine
DX: M79.641 Pain in right hand (principal)
CPT/HCPCS: 73130

== ENCOUNTER → 2025-01-26 09:24 | Outpatient (BNV) | payer OTHER, SELFPAY | PROVIDERS: Visit Provider Radiology Diagnostic Radiology | DX: M19.041 Primary osteoarthritis, right hand (principal); M18.11 Unilateral primary osteoarthritis of first carpometacarpal joint, right hand | CPT/HCPCS: 73130 ==

== ENCOUNTER 2025-02-08 09:28 | Outpatient (REF) | payer OTHER, SELFPAY ==
--- NOTE | ~2025-02-08 | XR_ITS ---
EXAMINATION: XR CHEST CLINICAL INFORMATION: cough and SOB COMPARISON: 12/13/2023. TECHNIQUE: 2 views of the chest were obtained. FINDINGS: Borderline cardiac enlargement. Mediastinal and hilar structures appear normal. Aortic mural calcifications. There are surgical clips abutting the left hilum and left heart border. The lungs are diffusely hyperaerated, however clear bilaterally. Redemonstration of blunting of the bilateral costophrenic angles, right greater than left, possibly representing trace pleural effusions versus pleural thickening. No perceptible pneumothorax. There is no focal osseous or soft tissue abnormality. XR/XR chest 2V IMPRESSION: 1. COPD. 2. Similar pleural thickening and/or trace pleural effusions. 3. No active superimposed disease. Electronically signed by: Marty Chaparro MD 02/08/2025 09:50 AM EDT
--- OUTSIDE RECORDS SUMMARY | 2025-02-08 08:40 | XMS_ITS | Encounter Summary ---
Author Organization [employer] Address [address] [place] [address] Care Team Providers Care Kiosk Sales Representative Name Role Phone Name, Victor Hugo WARD Primary Care Provider [phone] Tori Silva PharmD Unavailable [phone] Reason for Visit * Reason Comments Cough Nasal Congestion Shortness of Breath Asthma Encounter Details Date Type Department Care Team (Late st Contact Info) Description 02/08/2025 8:40 AM EDT Office Visit [facility] [address] [place] [address] Neli Obando DO [address] [place] [address] COPD exacerbation (CMS/HCC) (HCC) (Primary Dx); Cough in adult patient Social History Tobacco Use Types Packs/Day Years [...] Sign Reading Time Taken Comments Blood Pressure 132/74 02/08/2025 8:45 AM EDT Pulse 77 02/08/2025 8:45 AM EDT Temperature 36.4 C (97.6 F) 02/08/2025 8:45 AM EDT Respiratory Rate 18 02/08/2025 8:45 AM EDT Oxygen Saturation 99% 02/08/2025 8:45 AM EDT Inhaled Oxygen Concentration - - Weight 48.2 kg (106 lb 3.2 oz) 02/08/2025 8:45 A M EDT Height - - Body Mass Index 20.74 11/17/2024 9:06 AM EDT documented in this encounter Progress Notes * Neli Obando, - 02/08/2025 8:40 AM EDT MARTINEZ Triana is a 74 y.o. female who presents for Sick Visit. She presents to [place] today c/o cough. She says she has cough with a lot of phlegm x 4 days. She also says she feels some nasal congestionand runny nose. She feels a lot of mucous in her throat. She reports tactile fevers and sweating. She denies any N/V. No rash. She says when her breathing is short, she uses her machine. She has beenusing her machine ~ 2 times a day. She says her breathing feels normal currently, last had neb tx at 6:30am this morning. She says she has tried OTC mucinex with no sx relief. Her is sick with the same symptoms. History provided by: Patient maintenance porter used: Yes Cough This is a new problem. The current episode started in the past 7 days. The problem has been unchanged. The problem occurs constantly. The cough is Productive of sputum. Associated symptoms include nasal congestion, postnasal drip, rhinorrhea and wheezing. Pertinent negatives include no chest pain, c hills, ear pain, fever, headaches, myalgias, sore throat or shortness of breath. The symptoms are aggravated by lying down. Her past medical history is significant for COPD. Review of Systems Constitutional: Negative for activity change, appetite change, chills, fever and unexpected weight change. HENT: Positive for congestion, postnasal drip and rhinorrhea. Negative for ear pain and sore throat. Respiratory: Positive for cough and wheezing. Negative for shortness of breath. Cardiovascular: Negative for chest pain, palpitations and leg swelling. Gastrointestinal: Negative for abdominal pain, diarrhea, nausea and vomiting. Musculoskeletal: Negative for myalgias. Neurological: Negative for weakness and headaches. Patient Active Problem List Diagnosis Chronic low back pain Chronic obstructive lung disease (HCC) PVD (peripheral vascular disease) Cobalamin deficiency Depression Benign essential hypertension Exacerbation of asthma Flank pain H/O: hysterectomy Hand pain Pure hypercholesterolemia Shoulder pain Insomnia Jejunostomy present (HCC) Knee pain Lesion of liver Noncompliance with treatment Osteopenia Tobacco dependence syndrome Type 2 diabetes mellitus (HCC) Upper abdominal pain Urinary incontinence Weight decreased History of esophagectomy Neck pain COPD exacerbation (CMS/HCC) (HCC) Pain in finger of left hand Long-term current use of opiate analgesic Esophageal achalasia No Known Allergies OBJECTIVE Visit Vitals BP 132/74 (BP Location: Left arm, Patient Position: Sitting, BP Cuff Size: Adult) Pulse 77 Temp 97.6 ??F (36.4 ??C) (Temporal) Resp 18 Wt 106 lb 3.2 oz (48.2 kg) SpO2 99% BMI 20.74 kg/m?? Smoking Status Every Day BSA 1.43 m?? Physical Exam Constitutional: General: She is not in acute distress. Appearance: Normal appearance. HENT: Right Ear: Tympanic membrane, ear canal and external ear normal. Left Ear: Tympanic membrane, ear canal and external ear normal. Nose: Congestion present. No rhinorrhea. Mouth/Throat: Pharynx: Posterior oropharyngeal erythema present. No oropharyngeal exudate. Cardiovascular: Rate and Rhythm: Normal rate and regular rhythm. Heart sounds: Normal heart sounds. No murmur heard. Pulmonary: Effort: Pulmonary effort is normal. No accessory muscle usage or respiratory distress. Breath sounds: No decreased air movement. Examination of the right-upper field reveals wheezing. Examination of the left-upper field reveals wheezing. Examination of the right-middle field reveals wheezing. Examination of the left- middle field reveals wheezing. Examination of the right-lower field reveals wheezing. Examination of the left-lower field reveals wheezing. Wheezing present. No rhonchi. Comments: Treated with duoneb with resolution of expiratory wheezing Musculoskeletal: Cervical back: Neck supple. No tenderness. Lymphadenopathy: Cervical: No cervical adenopathy. Neurological: General: No focal deficit present. Mental Status: She is alert and oriented to person, place, and time. Cranial Nerves: No cranial nerve deficit. Motor: No weakness. Gait: Gait normal. Psychiatric: Mood and Affect: Mood normal. Office Visit on 02/08/2025 Component Date Value Ref Range Status Rapid COVID Ag 02/08/2025 Negative Final Influenza A 02/08/2025 Negative Negative, Indeterminate Final Influenza B 02/08/2025 Negative Negative, Indeterminate Final Assessment/Plan Diagnoses and all orders for this visit: COPD exacerbation (CMS/HCC) (HCC) Likely triggered by viral URI -provided reassurance -encouraged supportive care measures -advised stay well-hydrated -referred for chest x-ray r/o underlying PNA -treat with azithromycin and extended prednisone taper -cont symbicort BID -cont albuterol prn -trial flonase and zyrtec daily -trial tessalon pearles prn cough -encouraged mucinex prn -encouraged tylenol as needed -advised contact HHC or go to ED if no improvement or sx worsen, she agrees with plans --Follow-up with PCP as scheduled or sooner prn-- Current Outpatient Medications: acetaminophen (Tylenol 8 Hour) 650 MG ER tablet, Take 1 tablet (650 mg) by mouth every 8 (eight) hours if needed for mild pain. Do not crush, chew, or split., Disp: 40 tablet, Rfl: 1 albuterol 108 (90 Base) MCG/ACT inhaler, Inhale 2 puffs every 4 (four) hours if needed for wheezingor shortness of breath., Disp: 18 g, Rfl: 2 amLODIPine (Norvasc) 10 MG tablet, TAKE 1 TABLET BY MOUTH EVERY MORNING, Disp: 30 tablet, Rfl: 5 atorvastatin (Lipitor) 80 MG tablet, Take 1 tablet (80 mg) by mouth Once per day., Disp: 30 tablet,Rfl: 11 azithromycin (Zithromax) 250 MG tablet, Take 2 tablets PO daily x one day then take one tablet PO daily x 4 days, Disp: 6 tablet, Rfl: 0 benzonatate (Tessalon Perles) 100 MG capsule, Take 1 capsule (100 mg) by mouth if needed in the morning, at noon, and at bedtime for cough for up to 10 days. Do not crush or chew., Disp: 30 capsule, Rfl: 0 Blood Glucose Monitoring Suppl (Entangled Mediayle [place] Lite) w/Device kit, Use to test blood sugar 1 times daily, Disp: 1 kit, Rfl: 0 Blood Pressure kit, Use once daily as directed to monitor home BP, Disp: 1 kit, Rfl: 0 budesonide-formoterol (Symbicort) 80-4.5 MCG/ACT inhaler, Inhale 2 puffs in the morning and at bedtime. Rinse mouth with water after use to reduce aftertaste and incidence of candidiasis. Do not swallow., Disp: 1 each, Rfl: 11 cetirizine (ZyrTEC) 10 MG tablet, Take 1 tablet (10 mg) by mouth if needed each day for rhinitis., Disp: 30 tablet, Rfl: 3 clopidogrel (Plavix) 75 MG tablet, Take 1 tablet (75 mg) by mouth Once per day., Disp: 30 tablet, Rfl: 11 cyanocobalamin (Vitamin B-12) 1000 MCG/ML injection, INJECT 1 ML INTRAMUSCULARLY EVERY 30 DAYS, Disp: , Rfl: Diclofenac Sodium 1 % gel, APPLY 2 GRAMS TOPICALLY TO AFFECTED AREA(S) TWICE DAILY, Disp: 100 g, Rfl: 1 diphenhydrAMINE (BENADryl) 25 MG capsule, Take 1 capsule (25 mg) by mouth every 8 (eight) hours if needed (swelling) for up to 3 days., Disp: 9 capsule, Rfl: 0 fluticasone (Flonase) 50 MCG/ACT nasal spray, Administer 2 sprays into each nostril if needed each day for rhinitis. Shake gently. Before first use, prime pump. After use, clean tip and replace cap.,Disp: 16 g, Rfl: 3 glucose blood (FREESTYLE LITE) test strip, TEST BLOOD SUGAR ONCE DAILY, Disp: 50 strip, Rfl: 11 guaiFENesin (Mucinex) 600 MG 12 hr tablet, Take 1 tablet (600 mg) by mouth if needed in the morningand at bedtime for cough or congestion. Do not crush, chew, or split., Disp: 30 tablet, Rfl: 0 Lancets misc, Use to test blood sugar 1 times daily, Disp: 100 each, Rfl: 0 losartan (Cozaar) 100 MG tablet, TAKE 1 TABLET BY MOUTH EVERY MORNING, Disp: 30 tablet, Rfl: 5 naloxone (Narcan) 4 mg/0.1 mL nasal spray, Administer 1 spray (4 mg) into affected nostril(s) if needed for opioid reversal. May repeat every 2-3 minutes if needed, alternating nostrils, until medical assistance becomes available., Disp: 2 each, Rfl: 3 Nutritional Supplements (Ensure Plus) liquid, one can 3 times per day for Achlasia, dysphagia and wt loss, Disp: , Rfl: pantoprazole (ProtoNix) 20 MG EC tablet, TAKE 1 TABLET BY MOUTH TWICE DAILY IN THE MORNING AND IN THE EVENING, Disp: , Rfl: predniSONE (Deltasone) 10 MG tablet, Take 6 tabs PO daily x 2 days then take 5 tabs daily x 2 days then take 4 tabs daily x 2 d then take 3 tabs daily x 2 d then take 2 tabs daily x 2 d then take 1 tab daily x 2 d then take 1/2 tab daily x 2 d, Disp: 43 tablet, Rfl: 0 traMADol (Ultram) 50 MG tablet, Take 1 tablet (50 mg) by mouth every 8 (eight) hours if needed for severe pain., Disp: 84 tablet, Rfl: 0 TRUEplus Lancets 33G misc, TEST BLOOD SUGAR ONCE DAILY, Disp: 100 each, Rfl: 11 Trulicity 0.75 MG/0.5ML solution auto-injector, INJECT ONE PEN (=0.75MG) SUBCUTANEOUSLY ONCE A WEEKAS DIRECTED, Disp: 2 mL, Rfl: 3 Umeclidinium [place] (Incruse Ellipta) 62.5 MCG/ACT aerosol powder , Inhale 1 Act (62.5 mcg) Once per day. INHALE 1 PUFF BY MOUTH EVERY DAY AT THE SAME TIME RINSE MOUTH AFTER USINGINHALE 1 PUFF BY MOUTH EVERY DAY AT THE SAME TIME RINSE MOUTH AFTER USING, Disp: 30 each, Rfl: 11 Current Facility-Administered Medications: cyanocobalamin (Vitamin B-12) injection 1,000 mcg, 1,000 mcg, Intramuscular, q30 days, Victor Hugo Packer MD, 1,000 mcg at 01/24/25 1010 Scribe Attestation: Jose Antonio Jones, am serving as a scribe to document services personally performed by Neli Cardona, based on the patient's response to questions by provider and provider's statements to me. 02/08/25 10:14 AM Physicians Attestation: Neli Jones DO, have reviewed the information by the scribe, Jose Antonio Arenas, for accuracy and agree with its content. documented in this encounter Plan of Treatment Upcoming Encounters Date Type Department Care Team (Late st Contact Info) Description 02/09/2025 2:00 PM EDT Telemedicine [address] [address] Erin Peck, RN 02/23/2025 10:00 AM EDT Clinical Support [address] [address] 03/13/2025 11:00 AM EST Office Visit [address] [address] Name, MD Victor Hugo [address] [place] [address] documented as of this encounter Goals Goal Patient Goal Type Associated Problems Recent Progress Patient-Stated? Author Record your blood pressure periodically (~2x per week) Blood Pressure No Puia, Tori, PharmD Blood Pressure < 140/90 Blood Pressure 132/74(2024 8:45 AM EDT) No Puia, Tori, PharmD Smoking cessation General No Puia, Tori, PharmD documented as of this encounter Procedures Procedure Name Priority Date/Time Associated Diagnosis Comments XR CHEST 2 VIEWS STAT 02/08/2025 9:38 AM EDT COPD exacerbation ([facility]) ([facility]) POCT INFLUENZA B (ID NOW RAPID MOLECULAR) Routine 02/08/2025 9:05 AM EDT COPD exacerbation ([facility]) ([facility]) POCT INFLUENZA A (ID NOW RAPID MOLECULAR) Routine 02/08/2025 9:05 AM EDT COPD exacerbation ([facility]) ([facility]) POCT RAPID COVID ANTIGEN Routine 02/08/2025 9:05 AM EDT COPD exacerbation ([facility]) ([facility]) documented in this encounter Results * XR Chest 2 Views (02/08/2025 9:38 AM EDT) Anatomical Region Laterality Modality Chest Radiographic Suzanne ging 02/08/2025 9:38 AM EDT Narrative 02/08/2025 9:53 AM EDT [address] [address] XRay Report Signed Patient: Jacque Triana MR#: [id number] : 1950 Acct:[id number] Age/Sex: 74 / F ADM Date: 02/08/25 Loc: HO.HHCX Attending Dr: Neli Obando DO Ordering Physician: Neli Obando DO Date of Service: 02/08/25 Procedure(s): XR chest 2V Accession Number(s): [id number] cc: Neli Obando DO Reason for Exam: cough and SOB EXAMINATION: XR CHEST CLINICAL INFORMATION: cough and SOB COMPARISON: 12/13/2023. TECHNIQUE: 2 views of the chest were obtained. FINDINGS: Borderline cardiac enlargement. Mediastinal and hilar structures appear normal. Aortic mural calcifications. There are surgical clips abutting the left hilum and left heart border. The lungs are diffusely hyperaerated, however clear bilaterally. Redemonstration of blunting of the bilateral costophrenic angles, right greater than left, possibly representing trace pleural effusions versus pleural thickening. No perceptible pneumothorax. There is no focal osseous or soft tissue abnormality. XR/XR chest 2V IMPRESSION: 1. COPD. 2. Similar pleural thickening and/or trace pleural effusions. 3. No active superimposed disease. Electronically signed by: Marty Chaparro MD 02/08/2025 09:50 AM EDT RP Dictated By: Marty Chaparro MD Signed By: <Electronically signed by Marty Chaparro MD in OV> 02/08/25949 DD/ 7 TD/TT: 02/08/25937 Gis Coordinator: Procedure Note Donotuseinterpreter, Image - 02/08/2025 [place] [address] XRay Report Signed Patient: Jacque TrianaMR#: [id number] : 9Acct:[id number] Age/Sex: 74 / FADM Date: 02/08/25 Loc: HO.HHCX Attending Dr: Neli Obando DO Ordering Physician: Neli Obando DO Date of Service: 02/08/25 Procedure(s): XR chest 2V Accession Number(s): [id number] cc: Neli Obando DO Reason for Exam: cough and SOB EXAMINATION: XR CHEST CLINICAL INFORMATION: cough and SOB COMPARISON: 12/13/2023. TECHNIQUE: 2 views of the chest were obtained. FINDINGS: Borderline cardiac enlargement. Mediastinal and hilar structures appear normal. Aortic mural calcifications. There are surgical clips abutting the left hilum and left heart border. The lungs are diffusely hyperaerated, however clear bilaterally. Redemonstration of blunting of the bilateral costophrenic angles, right greater than left, possibly representing trace pleural effusions versus pleural thickening. No perceptible pneumothorax. There is no focal osseous or soft tissue abnormality. XR/XR chest 2V IMPRESSION: 1. COPD. 2. Similar pleural thickening and/or trace pleural effusions. 3. No active superimposed disease. Electronically signed by: Marty Chaparro MD 02/08/2025 09:50 AM EDT Dictated By: Marty Chaparro MD Signed By: <Electronically signed by Marty Chaparro MD in [place]> 02/08/25949 DD/ 7 TD/TT: 02/08/25937 Gis Coordinator: Neli Obando DO IMG XR PROCEDURES Edited Res ult - Final * Influenza B (ID NOW Rapid Molecular) (02/08/2025 9:05 AM EDT) Influenza B Negative Negative, Indeterminate [facility] Swab 02/08/2025 9:05 AM EDT Neli Obando DO POINT OF CARE TEST ENTER/PADMINI T ORDERABLES Final Result Performing Organization Address [facility] Co de Phone Number [facility] [address] [place] [phone] * Influenza A (ID NOW Rapid Molecular) (02/08/2025 9:05 AM EDT) Influenza A Negative Negative, Indeterminate [facility] Swab 02/08/2025 9:05 AM EDT Neli Obando DO POINT OF CARE TEST ENTER/PADMINI T ORDERABLES Final Result Performing Organization Address [facility]/ZIP Co de Phone Number [facility] [address] [place] [phone] * POCT Rapid COVID Ag (02/08/2025 9:05 AM EDT) Rapid COVID Ag Negative [facility] Swab 02/08/2025 9:05 AM EDT Neli Obando DO POINT OF CARE TEST ENTER/PADMINI T ORDERABLES Final Result [facility] [address] [place] [phone] documented in this encounter Visit Diagnoses Diagnosis COPD exacerbation (CMS/HCC) (HCC)- Primary Obstructive chronic bronchitis with exacerbation Cough in adult patient documented in this encounter Administered Medications Inactive Administered Medications - up to 3 most recent administrations Medication Order MAR Action Action Date Dose Rate Site ipratropium-albuterol (Duo-Neb) 0.5-2.5 mg/3 mL nebulizer solution 3 mg 3 mg, Nebulization, Once, On Anny 02/08/25 at 0915, For 1 doseIndications:COPD exacerbation (CMS/HCC) (HCC) Given 02/08/2025 9:15 AM EDT 3 mg documented in this encounter Additional Health Concerns Assessment Noted Time PHQ-9 Depression Total Score: 18 025 9:06 AM EDT documented as of this encounter Care Teams Kiosk Sales Representative Relationship Specialty Start Date End Date Name, MD Victor Hugo [address] [place] [address] PCP - General Family Medicine 08/14/15 Tori Silva PharmD [address] [place] [address] Pharmacist Internal Medicine 02/24/22 documented as of this encounter
--- OUTSIDE RECORDS SUMMARY | 2025-02-08 10:26 | XMS_ITS | Encounter Summary ---
Author Organization [employer] Address [address] [place] [address] Care Team Providers Care Shade Cutter Name Role Phone Name, Victor Hugo WARD Primary Care Provider [phone] Tori Silva PharmD Unavailable [phone] Reason for Visit * Reason Comments Med Refill Encounter Details Date Type Department Care Team (Late st Contact Info) Description 08/17/2023 Refill [facility] [address] [place], [place] [phone] Name, MD Victor Hugo [address] [place] [address] Acute pain of left shoulder Social History [...] Info) Description 02/09/2025 2:00 PM EDT Telemedicine [address] [address] Erin Peck RN 02/23/2025 10:00 AM EDT Clinical Support [address] [address] 03/13/2025 11:00 AM EST Office Visit [address] [address] Name, MD Victor Hugo [address] [place] [phone] documented as of this encounter Goals Goal [...] shoulder documented in this encounter Care Teams Shade Cutter Relationship Specialty Start Date End Date NameVictor Hugo MD [address] [place] [phone] PCP - General Family Medicine 08/14/15 Puia, Tori, PharmD [address] [place] [phone] Pharmacist Internal Medicine 02/24/22 documented as of this encounter
--- OUTSIDE RECORDS SUMMARY | 2025-02-08 10:26 | XMS_ITS | Encounter Summary ---
Author Organization [employer] Address [address] [place] [address] Care Team Providers Care Blacksmith Supervisor Name Role Phone Name, Victor Hugo WARD Primary Care Provider [phone] Tori Silva PharmD Unavailable [phone] Reason for Visit * Reason Onset Date Comments Durable Medical Equipment 10/08/2022 Encounter Details Date Type Department Care Team ([facility] st Contact Info) Description 10/08/2022 Telephone [facility] [address] [place] [address] Name, MD Victor Hugo [address] [place] [address] Durable Medical Equipment Social History Tobacco Use [...] if any questions please contact Ronda at [phone] documented in this encounter Plan of Treatment Upcoming Encounters Date Type Department Care Team (Late st Contact Info) Description 02/09/2025 2:00 PM EDT Telemedicine [address] [address] Erin Peck RN 02/23/2025 10:00 AM EDT Clinical Support [address] [address] 03/13/2025 11:00 AM EST Office Visit [address] [address] Name, MD Victor Hugo [address] [place] [phone] documented as of this encounter Goals Goal [...] on filedocumented in this encounter Care Teams Blacksmith Supervisor Relationship Specialty Start Date End Date Name, MD Victor Hugo [address] [place] [address] PCP - General Family Medicine 08/14/15 Puia, Tori, PharmD [address] [place] [address] Pharmacist Internal Medicine 02/24/22 documented as of this encounter
--- OUTSIDE RECORDS SUMMARY | 2025-02-08 10:26 | XMS_ITS | Patient Health Record ---
Author Organization [facility] Address [address] [place] [address] Care Team Providers Care Aircraft Charter Dispatcher Name Role Phone Odilia Mcdowell Primary Care Provider Unavail able Linus Vance Unavailable [phone] Reason For Referral No Information Medications Medication [...] Status W/U Status Risk Notes Problem Achalasia (finding) (65977961) Achalasia and cardiospasm (530.0) Active confirmed Plan Of Treatment Pending Test Test Name Order Date XR BARIUM SWALLOW-ESOPHAGUS 03/14/2014 XR BARIUM SWALLOW-ESOPHAGUS 06/12/2014 Insurance Providers Payer Name Payer Address Payer Phone Subscriber Number Group Number Insured Name Patient Relationship to Insured Coverage Start Date Coverage End Date [facility] [address] [place] [address] [id number] MAURO FLYNN Self - patient is the insured Medical (General) History Medical History History ICD Code achalasia--diagnosed between 2003 and 2004 with esophageal motility studies at [facility]--a trial of Botox injection of the lower esophageal sphincter in 2003 did not give her any symptomatic relief--s/p balloon dilation with Dr. Cao in 01/2005. She subsequently has been followed at [facility]'s GI department and Thoracic Surgery department, and apparently underwent dilations and subsequent laparoscopic Heller myotomy in 2009. She underwent a dilation with Savary dilators in the spring with Dr. Shepard. NIDDM hyperlipidemia Denies CT,DM,CVA,Lung disease,renal dise ase Surgical History Surgery Date(Month/Year) hysterectomy Lap. Heller Myotomy at [facility]- -sees Dr. Shepard in Thoracic Surgery Dept. 2009
--- OUTSIDE RECORDS SUMMARY | 2025-02-08 10:26 | XMS_ITS | Encounter Summary ---
Author Organization [employer] Address [address] [place] [address] Care Team Providers Care Grinder Set Up Operator Thread Tool Name Role Phone Name, Victor Hugo WARD Primary Care Provider [phone] Tori Silva PharmD Unavailable [phone] Encounter Details Date Type Department Care Team ([facility] Contact Info) Description 10/08/2022 Abstract [facility] [address] [place] [address] Name, MD Victor Hugo [address] [place] [address] Social History Tobacco Use Types Packs/Day Years [...] Encounters Date Type Department Care Team ([facility] Contact Info) Description 02/09/2025 2:00 PM EDT Telemedicine [address] [address] Erin Peck, ALCIDES 02/23/2025 10:00 AM EDT Clinical Support [address] [address] 03/13/2025 11:00 AM EST Office Visit [address] [address] Name, MD Victor Hugo [address] [place] [phone] documented as of this encounter Goals Goal [...] on filedocumented in this encounter Care Teams Grinder Set Up Operator Thread Tool Relationship Specialty Start Date End Date Name, MD Victor Hugo [address] [place] [id number] PCP - General Family Medicine 08/14/15 Puia, Tori, PharmD [address] [place] [address] Pharmacist Internal Medicine 02/24/22 documented as of this encounter
--- OUTSIDE RECORDS SUMMARY | 2025-02-08 10:26 | XMS_ITS | Encounter Summary ---
Author Organization [employer] Address [address] [place] [address] Care Team Providers Care Sonar Subsystem Equipment Operator Name Role Phone Name, Victor Hugo WARD Primary Care Provider [phone] Tori Silva PharmD Unavailable [phone] Reason for Visit * Reason Onset Date Comments 10/12/2023 Encounter Details Date Type Department Care Team ([facility] st Contact Info) Description 10/12/2023 Telephone [facility] [address] [place] [address] Name, MD Victor Hugo [address] [place] [address] Social History Tobacco Use Types Packs/Day Years [...] 11:59 AM EDT Tc from Otilia at [facility] calling to inform pt has her annual Mini Cog and it was abnormal. Any questions contact Otilia at [phone] Ext [phone] documented in this encounter Plan of Treatment Upcoming Encounters Date Type Department Care Team (Late st Contact Info) Description 02/09/2025 2:00 PM EDT Telemedicine [address] [address] Erin Peck, RN 02/23/2025 10:00 AM EDT Clinical Support [address] [address] 03/13/2025 11:00 AM EST Office Visit [address] [address] Name, MD Victor Hugo [address] [place] [address] documented as of this encounter Goals Goal [...] documented as of this encounter Care Teams Sonar Subsystem Equipment Operator Relationship Specialty Start Date End Date Name, MD Victor Hugo [address] [place] [address] PCP - General Family Medicine 08/14/15 Tori Silva, PharmD [address] [place] [address] Pharmacist Internal Medicine 02/24/22 documented as of this encounter
--- OUTSIDE RECORDS SUMMARY | 2025-02-08 10:26 | XMS_ITS | Clinical Summary ---
Author Organization [facility] Address [address] [place] [address] Phone Care Team Providers Care Rod Straightener Name Role Phone Name, Victor Hugo WARD Primary Care Provider [phone] Allergies No known active allergies Medications amLODIPine [...] [facility] Member Subscriber Plan / Payer (Ef fective 2024-Present) Name:Jacque Triana Relation to Subscriber:Self Name:Jacque Triana Payer ID:[id number] Group ID:Not on file Type:Not on file Address: [facility] [address] [id number] MED[place] Care Teams Rod Straightener Relationship Specialty Start Date End Date Name, MD Victor Hugo [address] [place] [address] PCP - General Internal Medicine 06/15/24
--- OUTSIDE RECORDS SUMMARY | 2025-02-08 10:27 | XMS_ITS | Clinical Summary ---
Author Organization [employer] Address [address] [facility] [address] [place] [address] Care Team Providers Care Bull Rider Name Role Phone Name, Victor Hugo WARD Primary Care Provider [phone] Tori Silva PharmD Unavailable Allergies No known active allergies Medications * [...] 024 Active Blood Glucose Monitoring Suppl (FreeStyle Marana Lite) w/Device kit Use to test blood sugar 1 times daily 1 kit 024 Active pantoprazole (ProtoNix) 20 MG EC tablet TAKE 1 TABLET BY MOUTH TWICE DAILY IN THE MORNING AND IN THE EVENING 024 Active Blood Pressure kit Use once daily as directed to monitor home BP 1 kit 024 Active cyanocobalamin (Vitamin B-12) 1000 MCG/ML injection INJECT 1 ML INTRAMUSCULARLY EVERY 30 DAYS 025 Active naloxone (Narcan) 4 mg/0.1 mL nasal sprayIndication s:Acute pain of left shoulder Administer 1 spray (4 mg) into affected nostril(s) if needed for opioid reversal. May repeat every 2-3 minutes if needed, alternating nostrils, until medical assistance becomes available. 2 each 3 025 2025 Active amLODIPine (Norvasc) 10 MG tabletIndicatio ns:Essential hypertension TAKE 1 TABLET BY MOUTH EVERY MORNING 30 tablet Active Umeclidinium [place] (Incruse Ellipta) 62.5 MCG/ACT aerosol powder Inhale [...] complication, without long-term current use of insulin ([facility]) TEST BLOOD SUGAR ONCE DAILY 50 strip Active TRUEplus Lancets 33G miscIndications :Type 2 diabetes mellitus with other specified complication, without long-term current use of insulin ([facility]) TEST BLOOD SUGAR ONCE DAILY 100 each Active clopidogrel (Plavix) 75 MG tablet Take 1 tablet (75 mg) by mouth Once per day. 30 tablet 2025 Active atorvastatin (Lipitor) 80 MG tablet Take 1 tablet (80 mg) by mouth Once per day. 30 tablet 2025 Active Trulicity 0.75 MG/0.5ML solution auto-injectorIn dications:Type 2 diabetes mellitus without complication, without long-term current use of insulin ([facility]) INJECT ONE PEN (=0.75MG) SUBCUTANEOUSLY ONCE A WEEK DIRECTED 2 mL 3 Active losartan (Cozaar) 100 MG tabletIndicatio ns:Essential hypertension TAKE 1 TABLET BY MOUTH EVERY MORNING 30 tablet 5 Active traMADol (Ultram) 50 MG tabletIndicatio ns:Acute pain of left shoulder Take 1 tablet (50 mg) by mouth every 8 (eight) hours if needed for severe pain. 84 tablet 025 Active diphenhydrAMINE (BENADryl) 25 MG capsuleIndicati ons:Arthritis of right hand Take 1 capsule (25 mg) by mouth every 8 (eight) hours if needed (swelling) for up to 3 days. 9 capsule 025 Active budesonide-form oterol (Symbicort) 80-4.5 MCG/ACT inhalerIndicati ons:COPD exacerbation (CMS/HCC) (HCC),Cough in adult patient Inhale 2 puffs in the morning and at bedtime. Rinse mouth with water after use to reduce aftertaste and incidence of candidiasis. Do not swallow. 1 each 11 2025 Active cetirizine (ZyrTEC) 10 MG tablet Take 1 tablet (10 mg) by mouth if needed each day for rhinitis. 30 tablet 3 2025 Active fluticasone (Flonase) 50 MCG/ACT nasal spray Administer 2 sprays into each nostril if needed each day for rhinitis. Shake gently. Before first use, prime pump. After use, clean tip and replace cap. 16 g 3 2025 Active benzonatate (Tessalon Perles) 100 MG capsule Take 1 capsule (100 mg) by mouth if needed in the morning, at noon, and at bedtime for cough for up to 10 days. Do not crush or chew. 30 capsule 2024 Active guaiFENesin (Mucinex) 600 MG 12 hr tablet Take 1 tablet (600 mg) by mouth if needed in the morning and at bedtime for cough or congestion. Do not crush, chew, or split. 30 tablet 2025 Active azithromycin (Zithromax) 250 MG tablet Take 2 tablets PO daily x one day then take one tablet PO daily x 4 days 6 tablet Active predniSONE (Deltasone) 10 MG tablet Take 6 tabs PO daily x 2 days then take 5 tabs daily x 2 days then take 4 tabs daily x 2 d then take 3 tabs daily x 2 d then take 2 tabs daily x 2 d then take 1 tab daily x 2 d then take 1/2 tab daily x 2 d 43 tablet Active acetaminophen (Tylenol 8 Hour) 650 MG ER tablet Take 1 tablet (650 mg) by mouth every 8 (eight) hours if needed for mild pain. Do not crush, chew, or split. 40 tablet 1 025 2024 Active albuterol 108 (90 Base) MCG/ACT inhaler Inhale 2 puffs every 4 (four) hours if needed for wheezing or shortness of breath. 18 g 2 025 2025 Active Ventolin HFA 108 (90 Base) MCG/ACT inhalerIndicati ons:COPD exacerbation (CMS/HCC) ([facility]) INHALE 2 PUFFS EVERY 6 HOURS NEEDED FOR WHEEZING 18 g 024 2024 Discontinued budesonide-form oterol (Symbicort) 80-4.5 MCG/ACT inhalerIndicati ons:Cough in adult patient,COPD exacerbation (CMS/HCC) ([facility]) Inhale 2 puffs in the morning and at bedtime. Rinse mouth with water after use to reduce aftertaste and incidence of candidiasis. Do not swallow. 1 each 024 2024 Discontinued(R eorder (will not trigger notification to Pharmacy)) traMADol (Ultram) 50 MG tabletIndicatio ns:Acute pain of left shoulder Take 1 tablet (50 mg) by mouth every 8 (eight) hours if needed for severe pain. 84 tablet 025 2024 Discontinued(R eorder (will not trigger notification to Pharmacy)) Diclofenac Sodium 1 % gelIndications: Arthritis of right hand Apply 1 Application topically if needed in the morning, at noon, in the evening, and at bedtime (hand pain) for up to 7 days. 100 g 025 2024 Hospital, Clinic, or Other Facility Administered Medication Ordered Dose Route Frequency Start Date End Date Status cyanocobalamin (Vitamin B-12) injection 1,000 mcgIndications:Ane renea, unspecified type,Cobalamin deficiency 1000 mcg IM Every 30 days 03/29/2024 Active ipratropium-albute rol (Duo-Neb) 0.5-2.5 mg/3 mL nebulizer solution 3 mgIndications:COPD exacerbation (CMS/HCC) ([facility]) 3 mg NEBULIZATION Once 02/08/2025 Ended Active Problems Problem Noted Date Diagnosed Date [...] has upcoming appointments with specialist COPD exacerbation ([facility]) 05/06/2023 Assessment & Plan (12/10/2023 9:20 AM [...] in the past Treated with esophagectomy at [facility] She was lost to follow up [...] organization. Date Type Department Care Team Description 02/08/2025 8:40 AM EDT Office Visit [facility] [address] [place] [phone] Neli Obando DO COPD exacerbation (CMS/HCC) (HCC) (Primary Dx); Cough in adult patient 02/08/[address] [facility] [address] [place] [address] [phone] Neli Obando DO 02/08/2025 Travel 01/29/[address] [facility] [address] [place] [phone] Victor Hugo Packer MD Durable Medical Equipment 01/26/2025 9:00 AM EDT Office Visit [facility] [address] [place] [address] [phone] Ravindra Bruce MD Arthritis of right hand (Primary Dx); Right hand pain 01/26/2025 Results Follow-Up [facility] [address] [place] [address] [phone] Ravindra Bruce MD XR Hand 3+ Views Right 01/26/2025 Travel 01/24/2025 10:00 AM EDT Clinical Support [facility] [address] [place] [phone] Alexandra Gallego, ALCIDES Cobalamin deficiency 01/24/2025 Travel 01/23/[address] [facility] [address] [place] [address] [phone] Victor Hugo Packer MD Acute pain of left shoulder 01/06/[address] [facility] [address] [place] [address] [phone] Victor Hugo Packer MD Essential hypertension 01/02/2025 Refill [facility] [address] [place] [address] Victor Hugo Packer MD Type 2 diabetes mellitus without complication, without long-term current use of insulin ([facility]) 12/22/[address] [facility] [address] [place] [phone] An Copeland [place] february recall 12/21/[address] [facility] [address] [place] [phone] Victor Hugo Packer MD Acute pain of left shoulder 12/07/2024 3:30 PM EDT Clinical Support [facility] [place] [address] Yadira Bethea, RN 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] 12/07/2024 Travel 11/23/2024 Telephone [facility] [place] [address] Victor Hugo Packer MD Prior Authorization 11/22/[address] [address] Victor Hugo Packer MD Referral 11/22/[address] [address] Victor Hugo Packer MD Acute pain of left shoulder 11/20/[address] [address] Victor Hugo Packer MD Durable Medical Equipment 11/17/2024 9:00 AM EDT Office Visit [address] [phone] Victor Hugo Packer MD PVD (peripheral vascular disease) ([facility]) (Primary Dx); Claudication ([facility]); Esophageal achalasia; Type 2 diabetes mellitus with other specified complication, without long-term current use of insulin ([facility]) 11/17/2024 Travel 11/16/2024 Telephone [facility] [place] [address] Victor Hugo Packer MD Chart Prep from Last 3 Months Immunizations Immunization Administration [...] oz) 02/08/2025 8:45 A M EDT Height 152.4 cm (5') 11/17/2024 9:06 AM EDT Body Mass Index 20.74 11/17/2024 9:06 AM EDT Plan of Treatment Upcoming Encounters Date Type Department Care Team (Late st Contact Info) Description 02/09/2025 2:00 PM EDT Telemedicine [address] [address] Erin Peck, RN 02/23/2025 10:00 AM EDT Clinical Support [address] [address] 03/13/2025 11:00 AM EST Office Visit [address] [address] Name, MD Victor Hugo [address] [place] [phone] Health Maintenance Due Date Last Done Comments [...] Screening 11/17/2025 11/17/2024 Lipid Panel 11/21/2025 11/21/2024, 08/09, 01/07/2022, Additional history exists Tobacco Screening 02/08/2026 02/08/2025 DTaP/Tdap/Td Vaccines (3 - Td or Tdap) [...] Blood Pressure 132/74(2024 8:45 AM EDT) No Puia Toir, PharmD Smoking cessation General No Puia, Tori, PharmD Procedures Procedure Name Priority Date/Time Associated Diagnosis Comments XR CHEST 2 VIEWS STAT 02/08/2025 9:38 AM EDT COPD exacerbation (CMS/HCC) (HCC) POCT INFLUENZA B (ID NOW RAPID MOLECULAR) Routine 02/08/2025 9:05 AM EDT COPD exacerbation (CMS/HCC) (HCC) POCT INFLUENZA A (ID NOW RAPID MOLECULAR) Routine 02/08/2025 9:05 AM EDT COPD exacerbation (CMS/HCC) (HCC) POCT RAPID COVID ANTIGEN Routine 02/08/2025 9:05 AM EDT COPD exacerbation (CMS/HCC) (HCC) XR HAND 3+ VIEWS RIGHT Routine 01/26/2025 9:40 AM EDT Arthritis of right hand HEMOGLOBIN A1C Routine 11/21/2024 7:00 AM EDT PVD (peripheral vascular disease) ([facility]) Esophageal achalasia Type 2 diabetes mellitus with other specified complication, without long-term current use of insulin ([facility]) LIPID PANEL, STANDARD Routine 11/21/2024 7:00 AM EDT PVD (peripheral vascular disease) ([facility]) Esophageal achalasia Type 2 diabetes mellitus with other specified complication, without long-term current use of insulin ([facility]) COMPREHENSIVE METABOLIC PANEL Routine 11/21/2024 7:00 AM EDT PVD (peripheral vascular disease) (CMS/HCC) Esophageal achalasia Type 2 diabetes mellitus with other specified complication, without long-term current use of insulin ([facility]) CBC WITH AUTO DIFFERENTIAL Routine 11/21/2024 7:00 AM EDT PVD (peripheral vascular disease) ([facility]/HCC) Esophageal achalasia Type 2 diabetes mellitus with other specified complication, without long-term current use of insulin ([facility]/HCC) FERRITIN Routine 11/21/2024 7:00 AM EDT Anemia, unspecified type IRON AND TOTAL IRON BINDING CAPACITY Routine 11/21/2024 7:00 AM EDT Anemia, unspecified type ALBUMIN, RANDOM URINE W/CREATININE Routine 01/03/2024 12:00 AM EDT Type 2 diabetes mellitus with other specified complication, without long-term current use of insulin (CMS/HCC) COPD exacerbation ([facility]) Stress incontinence of urine DIABETES EYE EXAM Routine 09/23/2023 COLONOSCOPY Routine 01/01/2014 from Last 3 Months or Most Recently Relevant to Health Maintenance Results * XR Chest 2 Views (02/08/2025 9:38 AM EDT) Anatomical Region Laterality Modality Chest Radiographic Suzanne ging 02/08/2025 9:38 AM EDT Narrative 02/08/2025 9:53 AM EDT [address] [address] XRay Report Signed Patient: Jacque Triana MR#: [id number] 892 : 1950 Acct:[id number] Age/Sex: 74 / F ADM Date: 02/08/25 Loc: HO.HHCX Attending Dr: Neli Obando DO Ordering Physician: Neli Obando DO Date of Service: 02/08/25 Procedure(s): XR chest 2V Accession Number(s): [id number] cc: Neli Obando DO Reason for Exam: [...] in OV> 02/08/25949 DD/ 7 TD/TT: 02/08/25937 Set Builder: Procedure Note Donotuseinterpreter, Image - 02/08/2025 [place] [address] XRay Report Signed Patient: Jacque TrianaMR#: [id number] 892 : 9Acct:[id number] Age/Sex: 74 / FADM Date: 02/08/25 Loc: HO.HHCX Attending Dr: Neli Obando DO Ordering Physician: Neli Obando DO Date of Service: 02/08/25 Procedure(s): XR chest 2V Accession Number(s): [id number] cc: Neli Obando DO Reason for Exam: [...] in OV> 02/08/25949 DD/ 7 TD/TT: 02/08/25937 Set Builder: Neli Obando DO IMG XR PROCEDURES Edited Res ult - Final * Influenza B (ID NOW Rapid Molecular) (02/08/2025 9:05 AM EDT) Influenza B Negative Negative, Indeterminate [facility] Swab 02/08/2025 9:05 AM EDT Neli Obando DO POINT OF CARE TEST ENTER/PADMINI T ORDERABLES Final Result Performing Organization Address [facility] Co de Phone Number [facility] [address] [place] [phone] * Influenza A (ID NOW Rapid Molecular) (02/08/2025 9:05 AM EDT) Influenza A Negative Negative, Indeterminate [facility] Swab 02/08/2025 9:05 AM EDT Neli Obando DO POINT OF CARE TEST ENTER/PADMINI T ORDERABLES Final Result Performing Organization Address [facility] Co de Phone Number [facility] [address] [place] [phone] * POCT Rapid COVID Ag (02/08/2025 9:05 AM EDT) Rapid COVID Ag Negative [facility] Swab 02/08/2025 9:05 AM EDT Neli Obando DO POINT OF CARE TEST ENTER/PADMINI T ORDERABLES Final Result Performing Organization Address City/State/[facility] Co de Phone Number [facility] [address] [place] [phone] * XR Hand 3+ Views Right (01/26/2025 9:40 AM EDT) Anatomical Region Laterality Modality Upper Extremities, Hand Right Radiogra phic Imaging 01/26/2025 9:40 AM EDT Narrative 01/26/2025 10:06 AM EDT [facility] [address] [place] [address] XRay Report Signed Patient: Jacque Triana MR#: [id number] 892 : 1950 Acct:[id number] Age/Sex: 74 / F ADM Date: 01/26/25 Loc: HO.HHCX Attending Dr: Ravindra Bruce MD Ordering Physician: Ravindra Bruce MD Date of Service: 01/26/25 Procedure(s): XR hand RT min 3V Accession Number(s): [id number] cc: Ravindra Bruce MD Reason for Exam: PAIN EXAMINATION: XR HAND, RIGHT CLINICAL INFORMATION: Nontraumatic right hand pain. Pain in carpal areas. COMPARISON: 05/22/2024. 04/20/2024. TECHNIQUE: PA, lateral, and oblique views of the right hand. FINDINGS: There is no fracture, dislocation, or suspicious bone lesion. There is normal alignment. Arthritic changes are present in the first through third MCP joints, most severe in the second MCP, where there is high-grade joint space narrowing, marginal spurring, and mild volar subluxation. There is no periarticular erosions evident. There are mild degenerative changes throughout the DIP joints of the digits, the interphalangeal joint of the thumb, first CMC joint and STT joints. No periarticular erosion or periarticular osteopenia is evident. The carpal rows are normally aligned. No discrete soft tissue abnormalities. No abnormal soft tissue calcification. XR/XR hand RT min 3V IMPRESSION: 1. 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 Inflammatory arthropathy is favored although there are no gross erosions or periarticular osteopenia. Consider CPPD, hemachromatosis, other hypercalcemic states, less likely psoriatic arthropathy. 2. There are probable degenerative changes of arthropathy in the interphalangeal joints of the digits, first CMC joint and STT joints. Electronically signed by: Marty Chaparro MD 01/26/2025 10:03 AM EDT Dictated By: Marty Chaparro MD Signed By: <Electronically signed by Marty Chaparro MD in OV> 01/26/25 1003 DD/ TD/TT: 01/26/25 0944 Set Builder: Procedure Note Donotuseinterpreter, Image - 01/26/2025 [place] [address] XRay Report Signed Patient: Jacque TrianaMR#: [id number] 892 : 9Acct:[id number] Age/Sex: 74 / FADM Date: 01/26/25 Loc: HO.HHCX Attending Dr: Ravindra Bruce MD Ordering Physician: Ravindra Bruce MD Date of Service: 01/26/25 Procedure(s): XR hand RT min 3V Accession Number(s): [id number] cc: Ravindra Bruce MD Reason for Exam: PAIN EXAMINATION: XR HAND, RIGHT CLINICAL INFORMATION: Nontraumatic right hand pain. Pain in carpal areas. COMPARISON: 05/22/2024. 04/20/2024. TECHNIQUE: PA, lateral, and oblique views of the right hand. FINDINGS: There is no fracture, dislocation, or suspicious bone lesion. There is normal alignment. Arthritic changes are present in the first through third MCP joints, most severe in the second MCP, where there is high-grade joint space narrowing, marginal spurring, and mild volar subluxation. There is no periarticular erosions evident. There are mild degenerative changes throughout the DIP joints of the digits, the interphalangeal joint of the thumb, first CMC joint and STT joints. No periarticular erosion or periarticular osteopenia is evident. The carpal rows are normally aligned. No discrete soft tissue abnormalities. No abnormal soft tissue calcification. XR/XR hand RT min 3V IMPRESSION: 1. 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 Inflammatory arthropathy is favored although there are no gross erosions or periarticular osteopenia. Consider CPPD, hemachromatosis, other hypercalcemic states, less likely psoriatic arthropathy. 2. There are probable degenerative changes of arthropathy in the interphalangeal joints of the digits, first CMC joint and STT joints. Electronically signed by: Marty Chaparro MD 01/26/2025 10:03 AM EDT Dictated By: Marty Chaparro MD Signed By: <Electronically signed by Marty Chaparro MD in OV> 01/26/25 1003 DD/ 0940 TD/TT: 01/26/25 0944 Set Builder: Ravindra Bruce MD IMG XR PROCEDURES Edited Result - Final * (ABNORMAL) CBC auto differential (11/21/2024 7:00 AM EDT) White Blood Count 5.1 4.8 - 10.8 X10*3/uL [facility] Red Blood Count 3.76(L) 4.20 - 5.50 X10*6/uL [facility] Hemoglobin 12.4 12.0 - 16.0 g/dl [facility] Hematocrit 36.0(L) 37.0 - 47.0 % [facility] Mean Corpuscular Volume 95.7 80.0 - 98.0 fL [facility] Mean Corpuscular Hemoglobin 33.0 27.0 - 33.0 pg [facility] Mean Corpuscular HGB Conc 34.4 31.0 - 35.0 g/dl [facility] Red Cell Distribution Width 13.6 11.0 - 16.0 % [facility] Platelet Count 260 160 - 400 X10*3/uL [facility] Mean Platelet Volume 10.7 9.4 - 12.3 fL [facility] Neutrophils Percent Auto 42.9(L) 45 - 73 % [facility] Imm Gran Pct Auto 0.2 0.0 - 0.4 % [facility] Lymphocytes Percent Auto 43.0(H) 20 - 40 % [facility] Monocytes Percent Auto 9.0 2 - 11 % [facility] Eosinophils Percent Auto 3.7 0 - 4 % [facility] Basophils Percent Auto 1.2 0 - 2 % [facility] NRBC Pct Auto 0.0 0.0 - 0.2 /100WBC [facility] Neutrophils Absolute Auto 2.2 2.0 - 8.3 x10*3/uL [facility] Imm Gran Abs Auto 0.01 0.00 - 0.03 X10*3/uL [facility] Lymphocytes Absolute Auto 2.2 1.2 - 4.9 X10*3/uL [facility] Monocytes Absolute Auto 0.5 0.1 - 1.2 X10*3/uL [facility] Eosinophils Absolute Auto 0.2 0.0 - 0.4 X10*3/uL [facility] Basophils Absolute Auto 0.1 0.0 - 0.2 X10*3/uL [facility] NRBC Abs Auto 0.000 0.0 - 0.012 X10*3/uL [facility] Blood Venous blood specimen / Unknown 11/21/2024 7:00 AM EDT 11/21/2024 7:00 AM EDT us Victor Hugo Packer MD LAB BLOOD ORDERABLES Final Resul t [facility] [address] [place] [phone] * (ABNORMAL) Iron And Total Iron Binding Capacity (11/21/2024 7:00 AM EDT) Iron 49 30 - 160 mcg/dL [facility] Total Iron Binding Capacity 360 228 - 428 mcg/dL [facility] Percent Iron Saturation 14(L) 15 - 50 % [facility] Unsaturated Iron Binding 311 ug/dL [facility] Blood Venous blood specimen / Unknown 11/21/2024 7:00 AM EDT 11/21/2024 7:00 AM EDT us Sharri Siegel MD LAB BLOOD ORDERAB LES Final Result Performing Organization Address [facility]/ZIP Co de Phone Number [facility] [address] [place] [address] [phone] * Hemoglobin A1c (11/21/2024 7:00 AM EDT) Pathologist [facility] Hemoglobin A1c 6.0 <6.0 % [facility] Comment:Hemoglobin A1C Refer ence Range Adults: 4.8 - 6.0 % Non diabetic: < 6.0 % Goal: < 7.0 %Additional Action Suggested: > 8.0 %Note: Hemoglobin A1c results are invalid for patients with abnormal amounts of HbF. Blood transfusions may impact the HbA1c concentration in the patient sample. Estimated Average Glucose 126 mg/dL [facility] Comment:eAG = Estimated ave rage glucose which is %A1C expressed asaverage glucose, using the formula of the Q1S-BvhctjcLhmaqey Glucose study (ADAG), Diabetes Care, Vol.31,#8,Dec. 2007 Blood Venous blood specimen / Unknown 11/21/2024 7:00 AM EDT 11/21/2024 7:00 AM EDT us Victor Hugo Packer MD LAB BLOOD ORDERABLES Final Resul t Performing Organization Address [facility]/ZIP Co de Phone Number [facility] [address] [place] [phone] * Ferritin (11/21/2024 7:00 AM EDT) Pathologist [facility] Ferritin 13 10 - 250 ng/mL [facility] Blood Venous blood specimen / Unknown 11/21/2024 7:00 AM EDT 11/21/2024 7:00 AM EDT us Sharri Siegel MD LAB BLOOD ORDERAB LES Final Result Performing Organization Address City/[facility]/ZIP Co de Phone Number [facility] [address] [place] [phone] * Lipid Panel, Standard (11/21/2024 7:00 AM EDT) Triglycerides 86 <150 mg/dL [facility] Comment:Desirable Triglyceri de: less than 150 mg/dLBorderline High Triglyceride 150-199 mg/dLHigh Triglyceride: 200-499 mg/dLVery High Triglyceride: greater than or equal to 5OO mg/dL Cholesterol 137 <200 mg/dL [facility] Comment:Desirable Cholestero l: less than 200 mg/dLBorderline High Cholesterol: 200-239 mg/dLHigh Cholesterol: greater than 239 mg/dL LDL Cholesterol Calculated 76 <100 mg/dL [facility] Comment:Desirable LDL: less than 100 mg/dLNear Optimal/Above Optimal LDL: 110- 129 mg/dLBorderline High LDL: 130-159 mg/dLHigh LDL: 160-189 mg/dLVery High LDL: greater than or equal to 190 mg/dL HDL Cholesterol 44 >40 mg/dL [facility] Comment:Desirable HDL: great er than 40 mg/dL Note: This HDL assay may give artificially low results in patients with liver disease. Blood Venous blood specimen / Unknown 11/21/2024 7:00 AM EDT 11/21/2024 7:00 AM EDT Victor Hugo Packer MD LAB BLOOD ORDERABLES Final Resul t Performing Organization Address City/[facility]/ZIP Co de Phone Number [facility] [address] [place] [phone] * (ABNORMAL) Comprehensive Metabolic Panel (11/21/2024 7:00 AM EDT) Sodium 145 135 - 145 mmol/L [facility] Potassium 3.8 3.3 - 5.1 mmol/L [facility] Chloride 110(H) 96 - 108 mmol/L [facility] Carbon Dioxide 28 22 - 29 mmol/L [facility] Anion Gap 11(L) 12 - 20 [facility] Urea Nitrogen (BUN) 22(H) 9 - 16 mg/dL [facility] Creatinine, Serum 0.96 0.5 - 1.4 mg/dL [facility] Estimated Glomerular Filt Rate 57 [facility] Comment:Chronic Kidney Disea se: Estimated GFR < 60 mL/min/1.00g6Aqjogh Kidney Disease: Estimated GFR < 15 mL/min/1.73m2 Glucose 94 60 - 115 mg/dL [facility] Calcium 9.0 8.4 - 10.2 mg/dL [facility] Bilirubin, Total 1.0 0.0 - 1.0 mg/dL [facility] Aspartate Amino Transferase 29 5 - 31 U/L [facility] Alanine Aminotransferase 13 0 - 31 U/L [facility] Total Protein 7.1 6.5 - 8.0 g/dL [facility] Albumin Level 4.2 3.5 - 5.0 g/dL [facility] Alkaline Phosphatase 142(H) 39 - 117 U/L [facility] Blood Venous blood specimen / Unknown 11/21/2024 7:00 AM EDT 11/21/2024 7:00 AM EDT us Vicotr Hugo Name MD LAB BLOOD ORDERABLES Final Resul t [facility] [address] [place], [place] [phone] * Albumin, Random Urine W/Creatinine (01/03/2024 12:00 AM EDT) Creatinine, Urine 144.72 mg/dL [facility] Microalbumin Urine 31.0 mg/L [facility] Microalbum Creatinine Ratio Ur 21.4 <30 ug/mg cr [facility] Comment:Albumin/Creatinine R atio Reference Ranges: Normal: < 30 ug/mg creatinine Microalbuminuria: 30 - 300 ug/mg creatinineClinical Albuminuria: > 300 ug/mg creatinine Urine (Urine, Random) 01/03/2024 01/03/2024 us Victor Hugo Packer MD LAB URINE ORDERABLES Final Resul t [facility] [address] [place] [address] [phone] * Diabetes Eye Exam (09/23/2023) Eye Exam Normal Normal 09/23/2023 us Victor Hugo Packer MD HEALTH MAINTENANCE Final Result * Colonoscopy (01/01/2014) Colonoscopy Normal Normal Comment:Repeat in 5 years Historical Provider HEALTH MAINTENANCE Final Result from Last 3 Months or Most Recently Relevant to Health Maintenance Insurance [facility] RESIDENTIAL OPTIONS (HMO D-SNP) [facility] STAND[facility] Care Teams Bull Rider Relationship Specialty Start Date End Date Name, MD Victor Hugo [address] [place] [address] PCP - General Family Medicine 08/14/15 Tori Silva PharmD [address] [place] [address] Pharmacist Internal Medicine 02/24/22
--- OUTSIDE RECORDS SUMMARY | 2025-02-08 10:27 | XMS_ITS | Encounter Summary ---
Author Organization [employer] Address [address] [facility] [address] [place] [address] Care Team Providers Care Vibrating Screen Operator Name Role Phone Name, Victor Hugo WARD Primary Care Provider Tori Silva PharmD Unavailable [phone] Encounter Details Date Type Department Care Team (Latest Contact Info) Description 02/08/2025 Travel Social History Tobacco Use Types Packs/Day [...] Info) Description 02/09/2025 2:00 PM EDT Telemedicine [address] [address] Erin Peck RN 02/23/2025 10:00 AM EDT Clinical Support [address] [address] 03/13/2025 11:00 AM EST Office Visit [address] [address] Victor Hugo Packer MD [address] [place] [address] documented as of this encounter Goals Goal [...] documented as of this encounter Care Teams Vibrating Screen Operator Relationship Specialty Start Date End Date Victor Hugo Packer MD [address] [place] [address] PCP - General Family Medicine 08/14/15 Tori Silva PharmD [address] [place] [address] Pharmacist Internal Medicine 02/24/22 documented as of this encounter
--- OUTSIDE RECORDS SUMMARY | 2025-02-08 10:27 | XMS_ITS | Encounter Summary ---
Author Organization [employer] Address [address] [facility] [place] [address] Care Team Providers Care Animal Ride Manager Name Role Phone Name, Victor Hugo WARD Primary Care Provider [phone] Tori Silva PharmD Unavailable [phone] Encounter Details Date Type Department Care Team ([facility] st Contact Info) Description 02/08/2025 Telephone [facility] [address] [place], [place] [phone] Neli Obando DO [address] [place] [address] Social History Tobacco Use Types Packs/Day Years [...] encounter Miscellaneous Notes * Telephone Encounter - Neli Obando DO - 02/08/2025 10:16 AM EDT Please advise pt that her chest x-ray showed no PNA and she should take medications as rx'd at visit. Thank you. documented in this encounter Plan of Treatment Upcoming Encounters Date Type Department Care Team (Late st Contact Info) Description 02/09/2025 2:00 PM EDT Telemedicine [facility] [address] [place] [address] Erin Peck, RN 02/23/2025 10:00 AM EDT Clinical Support [address] [address] 03/13/2025 11:00 AM EST Office Visit [address] [address] Name, MD Victor Hugo [address] [place] [address] documented as of this encounter Goals Goal Patient Goal Type Associated Problems Recent Progress Patient-Stated? Author Record your blood pressure periodically (~2x per week) Blood Pressure No Tori Silva, PharmD Blood Pressure < 140/90 Blood Pressure 132/74(2024 8:45 AM EDT) No Tori Silva, PharmD Smoking cessation General No Tori Silva, PharmD documented as of this encounter Visit Diagnoses Not on filedocumented in this encounter Additional Health Concerns Assessment Noted Time PHQ-9 Depression Total Score: 18 025 9:06 AM EDT documented as of this encounter Care Teams Animal Ride Manager Relationship Specialty Start Date End Date Name, MD Victor Hugo [address] [place] [address] PCP - General Family Medicine 08/14/15 Tori Silva, PharmD [address] [place] [address] Pharmacist Internal Medicine 02/24/22 documented as of this encounter
--- OUTSIDE RECORDS SUMMARY | 2025-02-08 10:27 | XMS_ITS | Encounter Summary ---
Author Organization [employer] Address [address] [facility] [address] [place] [address] Care Team Providers Care Volleyball Assembler Name Role Phone Name, Victor Hugo WARD Primary Care Provider [phone] Tori Silva PharmD Unavailable [phone] Encounter Details Date Type Department Care Team ([facility] st Contact Info) Description 02/17/2023 Abstract [facility] [address] [place], [place] [phone] Name, MD Victor Hugo [address] [place] [address] Social History Tobacco Use Types Packs/Day Years [...] Info) Description 02/09/2025 2:00 PM EDT Telemedicine [address] [address] Erin Peck RN 02/23/2025 10:00 AM EDT Clinical Support [address] [address] 03/13/2025 11:00 AM EST Office Visit [address] [address] Name, MD Victor Hugo [address] [place] [address] documented as of this encounter Goals Goal [...] on filedocumented in this encounter Care Teams Volleyball Assembler Relationship Specialty Start Date End Date Name, MD Victor Hugo [address] [place] [address] PCP - General Family Medicine 08/14/15 Puia, Tori, PharmD [address] [place] [address] Pharmacist Internal Medicine 02/24/22 documented as of this encounter
--- OUTSIDE RECORDS SUMMARY | 2025-02-08 10:27 | XMS_ITS | Encounter Summary ---
Author Organization [employer] Address [address] [facility] 7t [place] [address] Care Team Providers Care Information Services Assistant Name Role Phone Name, Victor Hugo WARD Primary Care Provider [phone] Tori Silva PharmD Unavailable [phone] Reason for Visit * Reason Comments Med Refill Encounter Details Date Type Department Care Team (Late st Contact Info) Description 02/02/2023 Refill [facility] [address] [place] [address] Name, MD Victor Hugo [address] [place] [address] Chronic low back pain, unspecified back pain [...] Info) Description 02/09/2025 2:00 PM EDT Telemedicine [facility] [address] [place] [address] Erin Peck, RN 02/23/2025 10:00 AM EDT Clinical Support [address] [phone] 03/13/2025 11:00 AM EST Office Visit [address] [address] Name, MD Victor Hugo [address] [place] [address] documented as of this encounter Goals Goal [...] cardiospasm documented in this encounter Care Teams Information Services Assistant Relationship Specialty Start Date End Date Name, MD Victor Hugo [address] [place] [address] PCP - General Family Medicine 08/14/15 Puia, Tori, PharmD [address] [place] [address] Pharmacist Internal Medicine 02/24/22 documented as of this encounter
--- OUTSIDE RECORDS SUMMARY | 2025-02-08 10:27 | XMS_ITS | Encounter Summary ---
Author Organization [employer] Address [address] [facility] [address] 7[address] [place] [address] Care Team Providers Care Garnett Feeder Name Role Phone Name, Victor Hugo WARD Primary Care Provider [phone] Tori Silva PharmD Unavailable [phone] Encounter Details Date Type Department Care Team ([facility] st Contact Info) Description 02/17/2023 Abstract [facility] [address] [place], [place] [phone] Name, MD Victor Hugo [address] [place] [address] Social History Tobacco Use Types Packs/Day Years [...] Info) Description 02/09/2025 2:00 PM EDT Telemedicine [address] [address] Erin Peck RN 02/23/2025 10:00 AM EDT Clinical Support [address] [address] 03/13/2025 11:00 AM EST Office Visit [address] [address] Name, MD Victor Hugo [address] [place] [address] documented as of this encounter Goals Goal [...] on filedocumented in this encounter Care Teams Garnett Feeder Relationship Specialty Start Date End Date Name, MD Victor Hugo [address] [place] [address] PCP - General Family Medicine 08/14/15 Puia, Tori, PharmD [address] [place] [address] Pharmacist Internal Medicine 02/24/22 documented as of this encounter
--- OUTSIDE RECORDS SUMMARY | 2025-02-08 10:27 | XMS_ITS | Encounter Summary ---
Author Organization [employer] Address [address] [facility] [address] 7[address] [place] [address] Care Team Providers Care Vacuum Plastic Forming Machine Operator Name Role Phone Name, Victor Hugo WARD Primary Care Provider [phone] Tori Silva PharmD Unavailable [phone] Encounter Details Date Type Department Care Team ([facility] Contact Info) Description 01/26/2025 Results Follow-Up [facility] [address] [place] [address] Ravindra Bruce MD [address] [place] [address] XR Hand 3+ Views Right Social History Tobacco Use Types Packs/Day Years [...] Info) Description 02/09/2025 2:00 PM EDT Telemedicine [address] [address] Erin Peck, RN 02/23/2025 10:00 AM EDT Clinical Support [address] [address] 03/13/2025 11:00 AM EST Office Visit [address] [address] Name, MD Victor Hugo [address] [place] [address] documented as of this encounter Goals Goal [...] documented as of this encounter Care Teams Vacuum Plastic Forming Machine Operator Relationship Specialty Start Date End Date Name, MD Victor Hugo [address] [place] [address] PCP - General Family Medicine 08/14/15 Tori Silva PharmD [address] [place] [address] Pharmacist Internal Medicine 02/24/22 documented as of this encounter
--- OUTSIDE RECORDS SUMMARY | 2025-02-08 10:27 | XMS_ITS | Encounter Summary ---
Author Organization [employer] Address [address] [facility] [address] 7[address] [place] [address] Care Team Providers Care Breed To Wean Production Technician Name Role Phone Name, Victor Hugo WARD Primary Care Provider [phone] Tori Silva PharmD Unavailable [phone] Encounter Details Date Type Department Care Team ([facility] st Contact Info) Description 02/22/2023 Abstract [facility] [address] [place], [place] [phone] Name, MD Victor Hugo [address] [place] [address] Social History Tobacco Use Types Packs/Day Years [...] Info) Description 02/09/2025 2:00 PM EDT Telemedicine [address] [address] Erin Peck RN 02/23/2025 10:00 AM EDT Clinical Support [address] [address] 03/13/2025 11:00 AM EST Office Visit [address] [address] Name, MD Victor Hugo [address] [place] [address] documented as of this encounter Goals Goal [...] on filedocumented in this encounter Care Teams Breed To Wean Production Technician Relationship Specialty Start Date End Date Name, MD Victor Hugo [address] [place] [address] PCP - General Family Medicine 08/14/15 Tori Silva PharmD [address] [place] [address] Pharmacist Internal Medicine 02/24/22 documented as of this encounter
== END 2025-02-08 09:29 | disposition home or self-care (01) ==
LOC: HO.HHCX 09:28
PROVIDERS: Visit Provider Family Medicine
DX: J44.1 Chronic obstructive pulmonary disease with (acute) exacerbation (principal)
CPT/HCPCS: 71046

== ENCOUNTER → 2025-02-08 09:29 | Outpatient (BNV) | payer OTHER, SELFPAY | PROVIDERS: Visit Provider Radiology Diagnostic Radiology | DX: J44.9 Chronic obstructive pulmonary disease, unspecified (principal) | CPT/HCPCS: 71046 ==

== ENCOUNTER 2025-05-06 09:06 | Emergency (ER) | payer OTHER, SELFPAY ==
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
--- NOTE | ~2025-05-06 | XR_ITS ---
CLINICAL HISTORY: pain 3 view left shoulder Comparison: 09/23/2023 Findings: Bones intact. No dislocations. No erosions. No radiopaque foreign body. [id number] AC osteoarthritis. Postsurgical clips projecting over the middle mediastinum. IMPRESSION: 1. No acute findings This document has been electronically signed by: Beverly Quiroz MD on 05/06/2025 10:29:52
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
[2025-05-06 09:12] VITALS: BP 155/67; PULSE 70; RESP 18; TEMP 36.3; O2SAT 100; BMI 20.3
--- OUTSIDE RECORDS SUMMARY | 2025-05-06 11:26 | XMS_ITS | Clinical Summary ---
Author Organization [facility] Address [address] [place] [address] Phone Care Team Providers Care Watch Repair Person Name Role Phone Name, Victor Hugo WARD Primary Care Provider [phone] Allergies No known active allergies Medications amLODIPine [...] patient's age to complete this topic Insurance [facility] Member Subscriber Plan / Payer (Ef fective 2024-Present) Name:Jacque Triana Relation to Subscriber:Self Name:Jacque Triana Payer ID:[id number] Group ID:Not on file Type:Not on file Address: [facility] [address] [address] MEDICAID - [place] Care Teams Watch Repair Person Relationship Specialty Start Date End Date Name, MD Victor Hugo [address] [place] [address] PCP - General Internal Medicine 06/15/24
--- OUTSIDE RECORDS SUMMARY | 2025-05-06 11:26 | XMS_ITS | Data Portability ---
Author Organization [employer] Address [address] [place] [address] Care Team Providers Care Endoscope Technician Name Role Phone [facility] Referring Provider [phone] Assessment Encounter Date Assessment Date Assessment LastModified by Organization Details LastModified Time 02/11/2022 02/11/2022 I have reviewed and agree with the assessment and plan as documented by the go go dancer. I provided real-time medical direction for this [...] rate Body temperature Oxygen saturation Oxygen saturation Heart rate Respiratory rate Body temperature Systolic And Diastolic Systolic And Diastolic Provider Name and Address Organization Details Last Updated DateTime 2 75 /min 16 /min 100.4 [degF] 99 % 99 % 75 /min 16 [...] Diagnosis SNOMED-CT Code Diagnosis ICD10 Code Diagnosis IMO Codes Diagnosis Note 4430 Cynthia Charles MD Main - [facility] [address] [place] [phone] 02/11/2022 16:07:02 02/12/2022 12:00:00 Swelling of left foot 006134911 M79.89 Health Concerns Section Related Observation LastModified by Organization Detai ls LastModified Time None Recorded Concern Status LastModified by Organization Details LastModified Time None Recorded Advance Directives Directive None Recorded Payers Insurance Date Sequence Insurance Name Policy Number Policy Isidro Covered Member ID Isidro Member ID Guarantor Name 07/04/2023 1 [facility] - DOS PRIOR TO 2022 - DUAL ELIGIBLE (MEDICARE REPLACEMENT/ADV ANTAGE - HMO) Jacque Triana [id number] Jacque Triana 07/04/2023 1 [facility] - DOS ON OR AFTER 2022 - DUAL ELIGIBLE - LONG TERM OPTIONS AND ONE CARE (MEDICARE REPLACEMENT/ADV ANTAGE - HMO) Jacque Triana [id number] Jacque Triana Notes Date Note Type Note [...] pleasant and cooperative. Member is 71 y/o, Kazakh speaking, female, who lives with spouse, 3rd [...] .................. .................. .................. .................. .................. .................. ............... Hospice Massage Therapist Note: Sent to evaluate pt with L [...] appt's the rest of the week. Consulted [facility] who recommended that pt go to ER for further evaluation. Pt agrees and EMS is called. Pt care turned over to [place] and pt to be transported to [facility]. .................. .................. .................. .................. .................. .................. .................. ............... Disposition: Jaimee Charles MD [address] [facility],[address], [place], [address], [facility] [employer] 02/11/2022 17:58:28 OBGyn Episode No OBEpisode recorded.
--- OUTSIDE RECORDS SUMMARY | 2025-05-06 11:26 | XMS_ITS | Patient Health Record ---
Author Organization [facility] Address [address] [place] [address] Care Team Providers Care Program Rep Name Role Phone Odilia Mcdowell Primary Care Provider Unavail able Linus Vance Unavailable [phone] Reason For Referral No Information Medications Medication SIG (Take, Route, Frequency, Duration) Notes Start Date End Date Status Lancets Miscellaneous Active Albuterol Sulfate HFA 108 (90 Base) MCG/ACT Aerosol Solution 2 puffs as needed Inhalation every 4 hrs Active FreeStyle Lite Test Strip In Vitro Active Omeprazole 20 MG Capsule Delayed Release 1 capsule Orally Once a day Active Aspirin 81 MG Tablet Chewable 1 tablet Orally Once a day Active Clotrimazole 1 % Cream 1 application to affected area Externally Twice a day Active metFORMIN HCl 850 MG Tablet 1 tablet wit h a meal Orally Once a day Active Combivent Respimat 20-100 MCG/ACT Aerosol Solution 1 puff Inhalation Four times a day Active glipiZIDE ER 5 MG Tablet Extended Release 24 Hour 1 tablet Orally Once a day Active Hydromet 5-1.5 MG/5ML Syrup 5 ml as need ed Orally every 6 hrs Active Lisinopril-hydroCHLOROthiaz jerome 10-12.5 MG Tablet 1 tablet Orally Once a day Active GaviLyte-N with Flavor Pack 420 GM Solution Reconstituted Orally Active Simvastatin 40 MG Tablet 1 tablet in the evening Orally Once a day Active Azithromycin 250 MG Tablet 2 tablets on the first day, then 1 tablet daily for 4 days Orally Once a day Active Senna Lax 8.6 MG Tablet Orally Active Ibuprofen 600 MG Tablet 1 tablet Orally Three times a day Active Calcium 600+D 600-400 MG-UNIT Tablet 1 tablet with food Orally Once a day Active predniSONE 20 MG Tablet 1 tablet with fo od or milk Orally Once a day Active HYDROcodone-Acetaminophen 5-325 MG Tablet 1 tablet as needed Orally every 6 hrs Active Social History Social History Additional Details Category Social Info Options Details Miscellaneous: Marital status: Occupation: retired Section Notes: Nonsmoker;no sig alcohol Problems Problem Type SNOMED Code ICD Code Onset Dates Problem Status W/U Status Risk Notes Problem Achalasia (finding) (58451096) Achalasia and cardiospasm (530.0) Active confirmed Plan Of Treatment Pending Test Test Name Order Date XR BARIUM SWALLOW-ESOPHAGUS 03/14/2014 XR BARIUM SWALLOW-ESOPHAGUS 06/12/2014 Insurance Providers Payer Name Payer Address Payer Phone Subscriber Number Group Number Insured Name Patient Relationship to Insured Coverage Start Date Coverage End Date [facility] [address] [place] [address] [id number] FLYNN, MAURO Self - patient is the insured Medical (General) History Medical History History ICD Code achalasia--diagnosed between 2003 and 2004 with esophageal motility studies at [facility]--a trial of Botox injection of the lower esophageal sphincter in 2003 did not give her any symptomatic relief--s/p balloon dilation with Dr. Cao in 01/2005. She subsequently has been followed at [facility]'s GI department and Thoracic Surgery department, and apparently underwent dilations and subsequent laparoscopic Heller myotomy in 2009. She underwent a dilation with Savary dilators in the spring with Dr. Shepard. NIDDM hyperlipidemia Denies SC,DM,CVA,Lung disease,renal dise ase Surgical History Surgery Date(Month/Year) hysterectomy Lap. Heller Myotomy at [facility]- -sees Dr. Shepard in Thoracic Surgery Dept. 2009
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
[2025-05-06 14:14] VITALS: BP 155/67; PULSE 70; RESP 18; TEMP 36.3; O2SAT 100
== END 2025-05-06 14:15 | disposition home or self-care (01) ==
PROVIDERS: Emergency Provider Emergency Medicine; PCP Internal Medicine Geriatric Medicine
DX: M54.2 Cervicalgia (principal); M25.512 Pain in left shoulder; V49.9XXA Car occupant (driver) (passenger) injured in unspecified traffic accident, initial encounter; Y93.9 Activity, unspecified; Y92.9 Unspecified place or not applicable; E11.9 Type 2 diabetes mellitus without complications; I10 Essential (primary) hypertension
CPT/HCPCS: 70450; 72125; 73030; 99284

== ENCOUNTER → 2025-05-06 09:19 | Outpatient (BNV) | payer OTHER, SELFPAY | PROVIDERS: Visit Provider Radiology Diagnostic Radiology | DX: M54.2 Cervicalgia (principal); R91.8 Other nonspecific abnormal finding of lung field; V89.2XXA Person injured in unspecified motor-vehicle accident, traffic, initial encounter; Z04.3 Encounter for examination and observation following other accident; J32.2 Chronic ethmoidal sinusitis; J32.3 Chronic sphenoidal sinusitis; M25.512 Pain in left shoulder | CPT/HCPCS: 70450; 72125; 73030 ==